=== PATIENT | male | born 1955 | race Caucasian/White ===

== ENCOUNTER → 2018-07-08 10:21 | Outpatient (CLI) | payer MEDICARE, SELFPAY ==
[2018-06-19 08:30] VITALS: BMI 57.6
[2018-07-04 12:50] VITALS: BMI 58.8
== END ==
PROVIDERS: Family Provider Internal Medicine; PCP Internal Medicine; Visit Provider Internal Medicine Critical Care Medicine
DX: R91.1 Solitary pulmonary nodule (principal)

== ENCOUNTER 2018-07-11 10:00 | Outpatient (RCR) | payer OTHER, MEDICAID, SELFPAY ==
[2018-06-19 08:30] VITALS: BMI 57.6
[2018-06-20 11:59] VITALS: BP 135/72; PULSE 68; RESP 18; TEMP 37; BMI 58.8
--- NOTE | 2018-06-20 13:22 | PCM.WC.HP ---
(1) Diabetic foot ulcer associated with type 2 diabetes mellitus Status: Chronic Current Visit: Yes Code(s): E11.621 - Type 2 diabetes mellitus with foot ulcer; L97.509 - Non-pressure chronic ulcer of other part of unspecified foot with unspecified severity Comment: Grade 2. (2) Ulcer of left lower extremity with fat layer exposed Status: Chronic Current Visit: Yes Code(s): L97.922 - Non-pressure chronic ulcer of unspecified part of left lower leg with fat layer exposed (3) Ulcer of right lower extremity with fat layer exposed Status: Chronic Current Visit: Yes Code(s): L97.912 - Non-pressure chronic ulcer of unspecified part of right lower leg with fat layer exposed (4) Bilateral lower extremity edema Status: Chronic Current Visit: Yes Code(s): R60.0 - Localized edema (5) Obesity Status: Chronic Current Visit: No Qualifiers: Body mass index: BMI 50.0-59.9 Code(s): E66.9 - Obesity, unspecified (6) Tobacco abuse Status: Chronic Current Visit: No Code(s): Z72.0 - Tobacco use History of Present Illness Chief Complaint: Bilateral lower extremity ulcers. History of Wound: Mr. Toscano is a 62-year-old with a complex past medical history who was referred to the wound center due to nonhealing bilateral lower extremity ulcers. He reports a history of recurrent bilateral lower extremity ulcers since 1995 however most recent episode was said to have started in March. Was managed by wound care nurse at his [facility]-way facility with no significant improvement. He is also been seen at other wound care centers. He is unsure of his diabetes control. Smokes daily. Largely sedentary. At this time, he denies any acute concerns. Denies chills, fever or feeling of unwell. Past Medical History Past Medical History: Chronic Problems (Last Reviewed 06/19/18 @ 08:33 by Binta Reyes) Diabetic foot ulcer associated with type 2 diabetes mellitus (Chronic) Grade 2. Ulcer of left lower extremity with fat layer exposed (Chronic) Ulcer of right lower extremity with fat layer exposed (Chronic) Bilateral lower extremity edema (Chronic) Nicotine dependence, cigarettes, uncomplicated (Chronic) Obesity (Chronic) CHANDA (obstructive sleep apnea) (Chronic) Lung nodule (Chronic) Malaise and fatigue (Chronic) Osteoarthritis of right knee (Chronic) Right knee pain (Chronic) Hyperlipidemia (Chronic) Color blindness (Chronic) Tobacco abuse (Chronic) Chronic pain of multiple joints (Chronic) Generalized osteoarthritis (Chronic) DJD (degenerative joint disease) (Chronic) Benign essential hypertension (Chronic) History of NE (myocardial infarction) (Chronic) Abnormal glucose level (Chronic) Type 2 diabetes mellitus with hyperglycemia (Chronic) Hypercholesteremia (Chronic) Restless leg syndrome (Chronic) HTN (hypertension) (Chronic) BPH w urinary obs/LUTS (Chronic) Nocturia (Chronic) Erectile dysfunction (Chronic) Allergies/Adverse Reactions: Allergies No Known Allergies Allergy (Verified 06/20/18 12:39) Home Medications: Ambulatory Orders Medication Instructions Recorded acetaminophen 325 mg capsule 325 mg PO Q4H PRN 05/29/18 albuterol sulfate 2.5 mg/3 mL 2.5 mg INHALATION Q6H PRN ml 05/29/18 (0.083 %) solution for nebulization aspirin 81 mg tablet,delayed 81 mg PO DAILY 05/29/18 release atorvastatin 10 mg tablet 10 mg PO QPM 05/29/18 bumetanide 2 mg tablet 2 mg PO DAILY 05/29/18 clopidogrel 75 mg tablet 75 mg PO DAILY 05/29/18 famotidine 20 mg tablet 20 mg PO QHS 05/29/18 glipizide 5 mg tablet 2.5 mg PO BID 05/29/18 insulin glargine (U- 100) 100 10 unit SC 4X/DAY 05/29/18 unit/mL subcutaneous solution multivitamin with iron-mineral 1 tab PO DAILY 05/29/18 tablet nitroglycerin 0.4 mg sublingual 0.4 mg SUBLINGUAL Q5-15M PRN 05/29/18 tablet Lactobacillus acidophilus capsule 20 mg PO DAILY cap 06/19/18 Acetaminophen [Tylenol Extra 1,000 mg PO Q6H PRN PRN 06/20/18 Strength] Bumetanide [Bumex] 1 mg PO BID 06/20/18 Calcium Polycarbophil [Fiber Tabs] 625 mg PO DAILY 06/20/18 Carvedilol [Coreg] 25 mg PO BID 06/20/18 Ergocalciferol (Vitamin D2) 50,000 unit PO QWEEK 06/20/18 [Drisdol] Gabapentin [Neurontin] 600 mg PO TIDCM 06/20/18 Insulin Glargine [Lantus (BKC)] 10 units SC BREAKFAST 06/20/18 Insulin Glargine [Lantus (BKC)] 40 units SC QHS 06/20/18 Insulin Lispro [Humalog KwikPen] 2 unit SQ 4X/DAY PRN PRN 06/20/18 Isosorbide Mononitrate [Imdur] 15 mg PO DAILY 06/20/18 Lisinopril/Hydrochlorothiazide 0.5 each PO BID 06/20/18 [Zestoretic 20-25 mg Tablet] Oxycodone HCl/Acetaminophen 1 - 2 tablet PO Q6H PRN PRN 06/20/18 [Percocet 5/325] Tamsulosin HCl [Flomax] 0.4 mg PO DAILY 06/20/18 Valerian Root 500 mg PO QHS 06/20/18 Smoking Status: Current every day smoker Review of Systems Constitutional: Denies: Anorexia, Fever Eyes: Denies: Blurred vision, Pain, Redness HEENT: Denies: Difficulty Swallowing Cardiovascular: Denies: Chest Pain, Chest Tightness Respiratory: Denies: Hemoptysis Gastrointestinal: Denies: Abdominal Pain, Hematemesis, Vomiting Skin: Denies: Jaundice - Physical Exam Vital Signs Temp Pulse Resp BP 98.6 F 68 18 135/72 H 06/20/18 11:59 06/20/18 11:59 06/20/18 11:59 06/20/18 11:59 General: Alert, Oriented x3, Cooperative, No apparent distress HEENT: Atraumatic, Normocephalic Oral: Moist Mucosa Neck: Supple Lungs: Normal air movement Abdomen: Non Tender, Obese Extremities: No cyanosis, Edema Skin: Ulcer/ Wound Wound Measurements and Assessment WC - Nurse 1 - General Ulcer Measurement Start: 06/20/18 11:59 Freq: Status: Active Protocol: Activity Type Activity Date Activity User E-Sign Co-Sign Detail Recorded Client Recorded Date Recorded By Document 06/20/18 11:59 [facility] [id number] 06/20/18 12:32 BM 06/20/18 11:59 Wound Center Nurse 1 [Ulcer Assessment] #3 left lateral/posterior lower leg -Current Size (cm) - Length 8.8 -Current Size (cm) - Width 6 -Current Size (cm) - Depth 0.2 -Total Square Cm 52.8 -Date of Last Picture (Recall this 06/20/18 field) -Epithelialization None Present -Tunneling No -Undermining/Tunneling No -Circular Undermining No -Classification - Thickness Full Thickness without Exposed Support Structure -Exudate Amt Large -Exudate Type Yellow/Green -Wound Margin Distinct, Outline Attached -Granulation Amt Small (1-33%) -Granulation Quality Bearden -Slough/Fibrin Yes -Necrosis Amt Large (67-100%) -Necrotic Tissue Type Adherent Slough -Structure Exposed None/Limited to Skin Breakdown -Texture (Nichol-wound Skin Appearance) Assessed Localized Edema -Moisture (Nichol-wound Skin Appearance Assessed ) Maceration Weeping Dry/Scaly -Color (Nichol-wound Skin Appearance) Assessed Erythema -Temperature (Nichol-wound Skin No Abnormality Appearance) (Pt Warm) -Tenderness on Palpation (Nichol-wound Yes Skin Appearance) -Ulcer Cleansing Rinsed/ Irrigated with Saline -Foul Odor after Cleansing No -Anesthetic Used 4% Lidocaine Solution 5% Lidocaine Gel #2 left distal foot circumfrential -Current Size (cm) - Length 11.5 -Current Size (cm) - Width 28.7 -Current Size (cm) - Depth 0.1 -Total Square Cm 330.05 -Date of Last Picture (Recall this 06/20/18 field) -Photo Taken Yes -Epithelialization None Present -Tunneling No -Undermining/Tunneling No -Circular Undermining No -Classification - Thickness Full Thickness without Exposed Support Structure -Exudate Amt Large -Exudate Type Yellow/Green -Wound Margin Distinct, Outline Attached -Granulation Amt Small (1-33%) -Granulation Quality Bearden -Slough/Fibrin Yes -Necrosis Amt Large (67-100%) -Necrotic Tissue Type Adherent Slough -Structure Exposed None/Limited to Skin Breakdown -Texture (Nichol-wound Skin Appearance) Assessed Localized Edema Scarring -Moisture (Nichol-wound Skin Appearance Assessed ) Maceration Weeping Dry/Scaly -Color (Nichol-wound Skin Appearance) Assessed Erythema -Temperature (Nichol-wound Skin No Abnormality Appearance) (Pt Warm) -Tenderness on Palpation (Nichol-wound Yes Skin Appearance) -Ulcer Cleansing Rinsed/ Irrigated with Saline -Foul Odor after Cleansing No -Anesthetic Used 4% Lidocaine Solution 5% Lidocaine Gel #1 right lateral lower leg -Current Size (cm) - Length 10 -Current Size (cm) - Width 4.8 -Current Size (cm) - Depth 0.2 -Total Square Cm 48.0 -Date of Last Picture (Recall this 06/20/18 field) -Photo Taken Yes -Tunneling No -Undermining/Tunneling No -Circular Undermining No -Classification - Thickness Full Thickness without Exposed Support Structure -Exudate Amt Large -Exudate Type Yellow/Green -Wound Margin Indistinct, Non -Visible -Granulation Amt Small (1-33%) -Granulation Quality Pale -Slough/Fibrin Yes -Necrosis Amt Large (67-100%) -Necrotic Tissue Type Adherent Slough -Structure Exposed None/Limited to Skin Breakdown -Texture (Nichol-wound Skin Appearance) Assessed Localized Edema Scarring -Moisture (Nichol-wound Skin Appearance Assessed ) Maceration Weeping Dry/Scaly -Color (Nichol-wound Skin Appearance) Assessed Erythema -Temperature (Nichol-wound Skin No Abnormality Appearance) (Pt Warm) -Tenderness on Palpation (Nichol-wound Yes Skin Appearance) -Ulcer Cleansing soap and water -Foul Odor after Cleansing No -Anesthetic Used 4% Lidocaine Solution 5% Lidocaine Gel [Edema Assessment] -Right Calf (cm) 54 -Right Ankle (cm) 30.2 -Left Calf (cm) 54 -Left Ankle (cm) 30.4 Musculoskeletal: No Muscle Wasting Neurological: Cranial nerves II-XII grossly intact Psych/Mental Status: Normal Affect Debridement Note Wound debrided: Left foot Wound Grade/Stage: Grade 2 Type of Debridement: Excisional debridement Anesthesia Used: 4% Lidocaine Solution Depth: Down to and including healthy tissue, in the subcutaneous layer Percentage of wound debrided: 100 Instrument Used: 5mm curette Tissue Removed: Slough and devitalized tissue Severity: Fat Layer Exposed Amount of bleeding with debridement: Mild Bleeding Controlled with: Pressure Patient tolerated procedure well - Additional Wound Wound debrided: Left lower extremity Wound Grade/Stage: Grade 2 Type of Debridement: Excisional debridement Anesthesia Used: 4% Lidocaine Solution Depth: Down to and including healthy tissue, in the subcutaneous layer Percentage of wound debrided: 100 Instrument Used: 5mm curette Tissue Removed: Slough and devitalized tissue Severity: Fat Layer Exposed Amount of bleeding with debridement: Mild Bleeding Controlled with: Pressure Patient tolerated procedure: Patient tolerated procedure well - Additional Wound Wound debrided: Right lower extremity Wound Grade/Stage: Grade 2 Type of Debridement: Excisional debridement Anesthesia Used: 4% Lidocaine Solution Depth: Down to and including healthy tissue, in the subcutaneous layer Percentage of wound debrided: 100 Instrument Used: 5mm curette Tissue Removed: Slough and devitalized tissue Severity: Fat Layer Exposed Amount of bleeding with debridement: Mild Bleeding Controlled with: Pressure Patient tolerated procedure: Patient tolerated procedure well Assessment/Plan Active Problems (Last Reviewed 06/19/18 @ 08:33 by Binta Reyes) Diabetic foot ulcer associated with type 2 diabetes mellitus (Chronic) Grade 2. Ulcer of left lower extremity with fat layer exposed (Chronic) Ulcer of right lower extremity with fat layer exposed (Chronic) Bilateral lower extremity edema (Chronic) Assessment: Nonhealing bilateral lower extremity ulcer in a patient with type 2 diabetes mellitus. Diabetic foot ulcer with significant maceration/deformity. Morbid obesity. Tobacco abuse. Plan: Debridement done as documented above. Procedure was well-tolerated. Cultures taken, including fungal. As stated above, significant maceration and deformity of his left foot. Labs and vascular studies also ordered. Will also request labs from his nursing facility. Aquacel with Xeroform over top. Change daily. Optimal blood sugar control strongly recommended. Counseled on tobacco cessation. Increased protein intake. Patient states that he takes premier protein supplements twice daily. He was encouraged to continue. Single layer Tubigrip for edema management. Elevate lower extremity when seated and in bed. His questions were answered and he was advised to call with any further questions or concerns. Follow-up in 1 week. This note was generated with [employer] dictation software. It may contain incorrect words, spelling, and punctuation that were not noted in checking the note before signing.
[2018-07-04 12:50] VITALS: BP 128/77; PULSE 65; RESP 18; TEMP 36.6; BMI 58.8
--- NOTE | 2018-07-04 13:51 | PCM.WC.PN ---
(1) Diabetic foot ulcer associated with type 2 diabetes mellitus Status: Chronic Current Visit: Yes Code(s): E11.621 - Type 2 diabetes mellitus with foot ulcer; L97.509 - Non-pressure chronic ulcer of other part of unspecified foot with unspecified severity Comment: Grade 2. (2) Ulcer of left lower extremity with fat layer exposed Status: Chronic Current Visit: Yes Code(s): L97.922 - Non-pressure chronic ulcer of unspecified part of left lower leg with fat layer exposed (3) Ulcer of right lower extremity with fat layer exposed Status: Chronic Current Visit: Yes Code(s): L97.912 - Non-pressure chronic ulcer of unspecified part of right lower leg with fat layer exposed (4) Bilateral lower extremity edema Status: Chronic Current Visit: Yes Code(s): R60.0 - Localized edema (5) Obesity Status: Chronic Current Visit: No Qualifiers: Body mass index: BMI 50.0-59.9 Code(s): E66.9 - Obesity, unspecified (6) Tobacco abuse Status: Chronic Current Visit: No Code(s): Z72.0 - Tobacco use Type of Wound Chief Complaint: Bilateral lower extremity ulcers. History of Wound: Mr. Toscano is a 62-year-old with a complex past medical history who was referred to the wound center due to nonhealing bilateral lower extremity ulcers. He reports a history of recurrent bilateral lower extremity ulcers since 1995 however most recent episode was said to have started in March. [facility] with no significant improvement. He is also been seen at other wound care centers. He is unsure of his diabetes control. Smokes daily. Largely sedentary. At this time, he denies any acute concerns. Denies chills, fever or feeling of unwell. Progress of Wound: He is status post recent hospital admission for severe wound infection. Currently on IV antibiotics. Doing well today. No new complaints at this time. - Physical Exam Vital Signs Temp Pulse Resp BP 98 F 65 18 128/77 H 07/04/18 12:50 07/04/18 12:50 07/04/18 12:50 07/04/18 12:50 General: Alert, Oriented x3, Cooperative, No apparent distress HEENT: Atraumatic, Normocephalic Oral: Moist Mucosa Neck: Supple Lungs: Normal air movement Abdomen: Non Tender, Obese Extremities: No cyanosis, Edema Skin: Ulcer/ Wound Wound Measurements and Assessment WC - Nurse 1 - General Ulcer Measurement Start: 06/20/18 11:59 Freq: Status: Active Protocol: Activity Type Activity Date Activity User E-Sign Co-Sign Detail Recorded Client Recorded Date Recorded By Document 07/04/18 12:50 RB [id number] 07/04/18 13:12 RB 07/04/18 12:50 Wound Center Nurse 1 [Ulcer Assessment] #3 left lateral/posterior lower leg -Combined with other wound No -Current Size (cm) - Length 7 -Current Size (cm) - Width 9.5 -Current Size (cm) - Depth 0.1 -Total Square Cm 66.5 -Photo Taken No -Tunneling No -Undermining/Tunneling No -Circular Undermining No -Exudate Amt Large -Exudate Type Serosanguineous -Wound Margin Distinct, Outline Attached -Granulation Amt Medium (34-66%) -Granulation Quality [place] Red -Slough/Fibrin Yes -Necrosis Amt Medium (34-66%) -Necrotic Tissue Type Adherent Slough -Structure Exposed N/A -Texture (Nichol-wound Skin Appearance) Assessed -Moisture (Nichol-wound Skin Appearance Dry/Scaly ) -Color (Nichol-wound Skin Appearance) Assessed Erythema -Temperature (Nichol-wound Skin No Abnormality Appearance) (Pt Warm) -Tenderness on Palpation (Nichol-wound No Skin Appearance) -Ulcer Cleansing Wound Cleanser -Foul Odor after Cleansing No -Anesthetic Used 4% Lidocaine Solution #2 left distal foot circumfrential -Combined with other wound No -Current Size (cm) - Length 21 -Current Size (cm) - Width 9.5 -Current Size (cm) - Depth 0.1 -Total Square Cm 199.5 -Photo Taken No -Tunneling No -Undermining/Tunneling No -Circular Undermining No -Exudate Amt Large -Exudate Type Serosanguineous -Wound Margin Distinct, Outline Attached -Granulation Amt Medium (34-66%) -Granulation Quality Pale -Slough/Fibrin Yes -Necrosis Amt Medium (34-66%) -Necrotic Tissue Type Adherent Slough -Structure Exposed N/A -Texture (Nichol-wound Skin Appearance) Assessed -Moisture (Nichol-wound Skin Appearance Dry/Scaly ) -Color (Nichol-wound Skin Appearance) Assessed Erythema -Temperature (Nichol-wound Skin No Abnormality Appearance) (Pt Warm) -Tenderness on Palpation (Nichol-wound No Skin Appearance) -Ulcer Cleansing Wound Cleanser -Foul Odor after Cleansing No -Anesthetic Used 4% Lidocaine Solution #1 right lateral lower leg -Combined with other wound No -Current Size (cm) - Length 8 -Current Size (cm) - Width 4.9 -Current Size (cm) - Depth 0.1 -Total Square Cm 39.2 -Photo Taken No -Tunneling No -Undermining/Tunneling No -Circular Undermining No -Exudate Amt Large -Exudate Type Serosanguineous -Wound Margin Distinct, Outline Attached -Granulation Amt Large (67-100%) -Granulation Quality [place] Red -Slough/Fibrin Yes -Necrosis Amt Medium (34-66%) -Necrotic Tissue Type Adherent Slough -Structure Exposed Fat Layer Exposed -Texture (Nichol-wound Skin Appearance) Assessed -Moisture (Nichol-wound Skin Appearance Dry/Scaly ) -Color (Nichol-wound Skin Appearance) Erythema -Temperature (Nichol-wound Skin No Abnormality Appearance) (Pt Warm) -Tenderness on Palpation (Nichol-wound No Skin Appearance) -Ulcer Cleansing Rinsed/ Irrigated with Saline -Foul Odor after Cleansing No -Anesthetic Used 4% Lidocaine Solution [Edema Assessment] -Lower Limb Edema Present Yes -Right Calf (cm) 53.5 -Right Ankle (cm) 29.7 -Left Calf (cm) 56 -Left Ankle (cm) 30.6 WC - Nurse 2 - General Ulcer CM Notes Start: 06/20/18 11:59 Freq: Status: Active Protocol: Activity Type Activity Date Activity User E-Sign Co-Sign Detail Recorded Client Recorded Date Recorded By Document 07/04/18 13:24 MW [id number] 07/04/18 13:38 MW 07/04/18 13:24 Wound Center Nurse 2 [Procedure/Treatment] #3 left lateral/posterior lower leg -Time 13:26 -Correct Patient Yes -Correct Side, Site, Position Yes -Correct Procedure Yes -Procedure Performed Yes -Type of Procedure Debridement -Clinical Debridement Subcutaneous -Post Debridement Size (cm) - Length 9.0 -Post Debridement Size (cm) - Width 8.0 -Post Debridement Size (cm) - Depth 0.1 -Total Square Cm 72.00 -Wound/Ulcer Outcome Not Healed -Ulcer Cleansing Rinsed/ Irrigated with Saline -Foul Odor after Cleansing No -Bioengineered Tissue No -Bleeding Controlled with Pressure -Offloading No -Treatment Response Procedure Tolerated Well #2 left distal foot circumfrential -Time 13:26 -Correct Patient Yes -Correct Side, Site, Position Yes -Correct Procedure Yes -Procedure Performed Yes -Type of Procedure Debridement -Clinical Debridement Subcutaneous -Post Debridement Size (cm) - Length 21.5 -Post Debridement Size (cm) - Width 10.5 -Post Debridement Size (cm) - Depth 0.1 -Total Square Cm 225.75 -Wound/Ulcer Outcome Not Healed -Ulcer Cleansing Rinsed/ Irrigated with Saline -Foul Odor after Cleansing No -Bioengineered Tissue No -Bleeding Controlled with Pressure -Offloading No -Treatment Response Procedure Tolerated Well #1 right lateral lower leg -Time 13:28 -Correct Patient Yes -Correct Side, Site, Position Yes -Correct Procedure Yes -Procedure Performed Yes -Type of Procedure Debridement -Clinical Debridement Subcutaneous -Post Debridement Size (cm) - Length 9.0 -Post Debridement Size (cm) - Width 7.0 -Post Debridement Size (cm) - Depth 0.1 -Total Square Cm 63.00 -Wound/Ulcer Outcome Not Healed -Ulcer Cleansing Rinsed/ Irrigated with Saline -Foul Odor after Cleansing No -Bioengineered Tissue No -Bleeding Controlled with Pressure -Offloading No -Treatment Response Procedure Tolerated Well [See Physician Procedure note for Specifics] Pain Scale: 0-10 Numeric [Pain] -Is Patient Pain Free? Yes Musculoskeletal: No Muscle Wasting Neurological: Cranial nerves II-XII grossly intact Psych/Mental Status: Normal Affect Debridement Note Post-Debridement Measurements/Treatment WC - Nurse 2 - General Ulcer CM Notes Start: 06/20/18 11:59 Freq: Status: Active Protocol: Activity Type Activity Date Activity User E-Sign Co-Sign Detail Recorded Client Recorded Date Recorded By Document 06/20/18 12:45 AN [id number] 06/20/18 13:27 AN Document 07/04/18 13:24 MW [id number] 07/04/18 13:38 MW 06/20/18 07/04/18 12:45 13:24 Wound Center Nurse 2 #3 left lateral/posterior lower leg -Time 12:45 13:26 -Correct Patient Yes Yes -Correct Side, Site, Position Yes Yes -Correct Procedure Yes Yes -Procedure Performed Yes Yes -Type of Procedure Debridement Debridement -Clinical Debridement Subcutaneous Subcutaneous -Post Debridement Size (cm) - Length 12 9.0 -Post Debridement Size (cm) - Width 8 8.0 -Post Debridement Size (cm) - Depth 0.2 0.1 -Total Square Cm 96 72.00 -Wound/Ulcer Outcome Not Healed Not Healed -Ulcer Cleansing Rinsed/ Rinsed/ Irrigated with Irrigated with Saline Saline -Foul Odor after Cleansing Yes No -Bioengineered Tissue No -Bleeding Controlled with Pressure Pressure -Offloading No -Treatment Response Procedure Procedure Tolerated Well Tolerated Well #2 left distal foot circumfrential -Time 12:45 13:26 -Correct Patient Yes Yes -Correct Side, Site, Position Yes Yes -Correct Procedure Yes Yes -Procedure Performed Yes Yes -Type of Procedure Debridement Debridement -Clinical Debridement Subcutaneous Subcutaneous -Post Debridement Size (cm) - Length 24 21.5 -Post Debridement Size (cm) - Width 13 10.5 -Post Debridement Size (cm) - Depth 0.2 0.1 -Total Square Cm 312 225.75 -Wound/Ulcer Outcome Not Healed Not Healed -Ulcer Cleansing Rinsed/ Rinsed/ Irrigated with Irrigated with Saline Saline -Foul Odor after Cleansing Yes No -Bioengineered Tissue No -Bleeding Controlled with Pressure Pressure -Offloading No -Treatment Response Procedure Procedure Tolerated Well Tolerated Well #1 right lateral lower leg -Time 12:45 13:28 -Correct Patient Yes Yes -Correct Side, Site, Position Yes Yes -Correct Procedure Yes Yes -Procedure Performed Yes Yes -Type of Procedure Debridement Debridement -Clinical Debridement Subcutaneous Subcutaneous -Post Debridement Size (cm) - Length 10 9.0 -Post Debridement Size (cm) - Width 6 7.0 -Post Debridement Size (cm) - Depth 0.1 0.1 -Total Square Cm 60 63.00 -Wound/Ulcer Outcome Not Healed Not Healed -Ulcer Cleansing Rinsed/ Rinsed/ Irrigated with Irrigated with Saline Saline -Foul Odor after Cleansing Yes No -Bioengineered Tissue No -Bleeding Controlled with Pressure Pressure -Offloading No -Treatment Response Procedure Procedure Tolerated Well Tolerated Well Pain Scale: 0-10 Numeric Is Patient Pain Free? Yes Wound debrided: Left foot Wound Grade/Stage: Grade 2 Type of Debridement: Excisional debridement Anesthesia Used: 4% Lidocaine Solution Depth: Down to and including healthy tissue, in the subcutaneous layer Percentage of wound debrided: 100 Instrument Used: 5mm curette Tissue Removed: Slough and devitalized tissue Severity: Fat Layer Exposed Amount of bleeding with debridement: Mild Bleeding Controlled with: Pressure Patient tolerated procedure well - Additional Wound Wound debrided: Left lower extremity, lateral. Wound Grade/Stage: Grade 2 Type of Debridement: Excisional debridement Anesthesia Used: 4% Lidocaine Solution Depth: Down to and including healthy tissue, in the subcutaneous layer Percentage of wound debrided: 100 Instrument Used: 5mm curette Tissue Removed: Slough and devitalized tissue Severity: Fat Layer Exposed Amount of bleeding with debridement: Mild Bleeding Controlled with: Pressure Patient tolerated procedure: Patient tolerated procedure well - Additional Wound Wound debrided: Right lower extremity lateral Wound Grade/Stage: Grade 2 Type of Debridement: Excisional debridement Anesthesia Used: 4% Lidocaine Solution Depth: Down to and including healthy tissue Percentage of wound debrided: 100 Instrument Used: 5mm curette Tissue Removed: Slough and devitalized tissue Severity: Fat Layer Exposed Amount of bleeding with debridement: Mild Bleeding Controlled with: Pressure Patient tolerated procedure: Patient tolerated procedure well Assessment/Plan Active Problems (Last Reviewed 06/19/18 @ 08:33 by Binta Reyes) Diabetic foot ulcer associated with type 2 diabetes mellitus (Chronic) Grade 2. Ulcer of left lower extremity with fat layer exposed (Chronic) Ulcer of right lower extremity with fat layer exposed (Chronic) Bilateral lower extremity edema (Chronic) Assessment: Nonhealing bilateral lower extremity ulcer in a patient with type 2 diabetes mellitus. Diabetic foot ulcer with significant maceration/deformity. Morbid obesity. Tobacco abuse. Plan: Debridement done as documented above. Procedure was well-tolerated. Status post recent hospital admission for severe wound infection. Multiple organisms.. Currently on IV antibiotics. Continue management per ID. Continue Aquacel with Xeroform over top. Change daily. Optimal blood sugar control strongly recommended. Counseled on tobacco cessation. Increased protein intake. Patient states that he takes premier protein supplements twice daily. He was encouraged to continue. Single layer Tubigrip for edema management. Pending studies. Elevate lower extremity when seated and in bed. His questions were answered and he was advised to call with any further questions or concerns. Follow-up in 1 week. This note was generated with [employer] software. It may contain incorrect words, spelling, and punctuation that were not noted in checking the note before signing.
[2018-07-11 09:00] VITALS: BP 104/72; PULSE 82; RESP 18; TEMP 36.8; BMI 58.8
--- NOTE | 2018-07-11 10:54 | VDLE_ITS ---
Reason For Study: Non-healing wound RIGHT LEFT CFV is compressible, spontaneous, phasic, CFV is compressible, spontaneous, phasic, competent and demonstrates normal competent, and demonstrates normal augmentation. augmentation. FV is compressible, spontaneous, phasic, FV is compressible, spontaneous, phasic, competent and demonstrates normal competent and demonstrates normal augmentation. augmentation. POP V is compressible, spontaneous, phasic, POP V is compressible, spontaneous, phasic, competent and demonstrates normal competent and demonstrates normal augmentation. augmentation. T/P Trunk is compressible. T/P Trunk is compressible. PTV is compressible. PTV is compressible. RT PerV is compressible. SFJ is competent SFJ is competent GSV is COMPETENT with reflux greater than .5 GSV is INCOMPETENT with reflux greater sec and diameter of .66 x .61 cm than .5 sec and diameter of .60 x .58 cm SSV competent. SSV is competent. Procedure Exam performed in department. Technically difficult due to body habitus and pt scanned in chair. A preliminary report was called and/or faxed to [facility]. Interpretation Summary Deep veins of the lower extremities are bilaterally patent and compressible segmentally. There is no evidence of deep vein thrombosis on either side. Valvular competence appears intact within the proximal deep venous systems bilaterally. The greater saphenous veins appear bilaterally patent and compressible segmentally. Sapheno-femoral junctions are bilaterally competent . The right greater saphenous vein appears segmentally incompetent. The left greater saphenous vein appears segmentally competent. Small saphenous veins are patent and competent bilaterally. Ordering Physician: Imer Gutierrez Referring Physician: Imer Gutierrez Performed By: Alondra Adair RVT
--- NOTE | 2018-07-11 10:54 | ART_ITS ---
Reason For Study: Non-healing wounds Procedure A bilateral lower extremity continuous wave Doppler with analog waveform analysis,segmental pressures,and ankle brachial indexes without exercise. Left Segmental Pressures Left posterior tibial artery = 128mmHg. Left dorsalis pedis artery = 134mmHg. The left dorsalis pedis waveforms are triphasic. The left posterior tibial artery waveforms are triphasic. Right Segmental Pressures Right brachial= 117mmHg. Right posterior tibial artery = 144mmHg. Right dorsalis pedis artery = 136mmHg. The right dorsalis pedis waveforms are triphasic. The right posterior tibial artery waveforms are triphasic. Indices The right ankle brachial index by the dorsalis pedis is 1.2. The right ankle brachial index by the posterior tibial artery is 1.2. The left ankle brachial index by the dorsalis pedis is 1.2. The left ankle brachial index by the posterior tibial artery is 1.1. Interpretation Summary Triphasic Doppler waveforms are noted at ankle level bilaterally. Resting ankle-brachial indices appear bilaterally normal. There is no evidence of significant arterial occlusive disease. Ordering Physician: Imer Gutierrez Referring Physician: Imer Gutierrez Performed By: Alondra Adair [facility]
--- NOTE | 2018-07-11 11:02 | PCM.WC.PN ---
(1) Diabetic foot ulcer associated with type 2 diabetes mellitus Status: Chronic Current Visit: Yes Code(s): E11.621 - Type 2 diabetes mellitus with foot ulcer; L97.509 - Non-pressure chronic ulcer of other part of unspecified foot with unspecified severity Comment: Grade 2. (2) Ulcer of left lower extremity with fat layer exposed Status: Chronic Current Visit: Yes Code(s): L97.922 - Non-pressure chronic ulcer of unspecified part of left lower leg with fat layer exposed (3) Ulcer of right lower extremity with fat layer exposed Status: Chronic Current Visit: Yes Code(s): L97.912 - Non-pressure chronic ulcer of unspecified part of right lower leg with fat layer exposed (4) Bilateral lower extremity edema Status: Chronic Current Visit: Yes Code(s): R60.0 - Localized edema (5) Obesity Status: Chronic Current Visit: No Qualifiers: Body mass index: BMI 50.0-59.9 Code(s): E66.9 - Obesity, unspecified (6) Tobacco abuse Status: Chronic Current Visit: No Code(s): Z72.0 - Tobacco use (7) Open wound of right knee Status: Acute Current Visit: Yes Code(s): S81.001A - Unspecified open wound, right knee, initial encounter Comment: Traumatic, penetrating with fat layer exposed. Type of Wound Chief Complaint: Bilateral lower extremity ulcers. History of Wound: Mr. Toscano is a 62-year-old with a complex past medical history who was referred to the wound center due to nonhealing bilateral lower extremity ulcers. He reports a history of recurrent bilateral lower extremity ulcers since 1995 however most recent episode was said to have started in March. Was managed by wound care nurse at his halfway facility with no significant improvement. He is also been seen at other wound care centers. He is unsure of his diabetes control. Smokes daily. Largely sedentary. At this time, he denies any acute concerns. Denies chills, fever or feeling of unwell. Progress of Wound: Old ulcers are stable. He presents with a new right knee wound which he sustained after he hit his knee against his bed. - Physical Exam Vital Signs Temp Pulse Resp BP 98.2 F 82 18 104/72 07/11/18 09:00 07/11/18 09:00 07/11/18 09:00 07/11/18 09:00 General: Alert, Oriented x3, Cooperative, No apparent distress HEENT: Atraumatic, Normocephalic Oral: Moist Mucosa Neck: Supple Lungs: Normal air movement Abdomen: Non Tender, Obese Extremities: No cyanosis, Edema Skin: Ulcer/ Wound Wound Measurements and Assessment WC - Nurse 1 - General Ulcer Measurement Start: 06/20/18 11:59 Freq: Status: Active Protocol: Activity Type Activity Date Activity User E-Sign Co-Sign Detail Recorded Client Recorded Date Recorded By Document 07/11/18 09:00 [id number] 07/11/18 09:41 AN 07/11/18 09:00 Wound Center Nurse 1 [Ulcer Assessment] #4 rt knee -Current Size (cm) - Length 2.8 -Current Size (cm) - Width 5 -Current Size (cm) - Depth 0.1 -Total Square Cm 14.0 -Classification - Thickness Full Thickness without Exposed Support Structure -Exudate Amt Medium -Exudate Type Serosanguineous -Wound Margin Flat & Intact -Granulation Amt Small (1-33%) -Granulation Quality Pale [place] -Slough/Fibrin Yes -Necrosis Amt Large (67-100%) -Necrotic Tissue Type Adherent Slough -Structure Exposed None/Limited to Skin Breakdown -Texture (Nichol-wound Skin Appearance) Assessed -Moisture (Nichol-wound Skin Appearance Assessed ) -Color (Nichol-wound Skin Appearance) Assessed -Temperature (Nichol-wound Skin No Abnormality Appearance) (Pt Warm) -Tenderness on Palpation (Nichol-wound Yes Skin Appearance) -Foul Odor after Cleansing No -Anesthetic Used 5% Lidocaine Gel #3 left lateral/posterior lower leg -Current Size (cm) - Length 11.5 -Current Size (cm) - Width 8.0 -Current Size (cm) - Depth 0.1 -Total Square Cm 92.00 -Wound Margin Flat & Intact -Granulation Amt Small (1-33%) -Granulation Quality Pale -Slough/Fibrin Yes -Necrosis Amt Large (67-100%) -Necrotic Tissue Type Adherent Slough -Texture (Nichol-wound Skin Appearance) Assessed -Color (Nichol-wound Skin Appearance) Assessed -Temperature (Nichol-wound Skin No Abnormality Appearance) (Pt Warm) -Tenderness on Palpation (Nichol-wound Yes Skin Appearance) -Ulcer Cleansing soap and water -Foul Odor after Cleansing No -Anesthetic Used 4% Lidocaine Solution 5% Lidocaine Gel #2 left distal foot circumfrential -Current Size (cm) - Length 21.5 -Current Size (cm) - Width 10.5 -Current Size (cm) - Depth 0.1 -Total Square Cm 225.75 -Exudate Amt Medium -Exudate Type Serosanguineous -Wound Margin Flat & Intact -Granulation Amt Small (1-33%) -Granulation Quality Pale -Necrosis Amt Large (67-100%) -Necrotic Tissue Type Adherent Slough -Structure Exposed None/Limited to Skin Breakdown -Texture (Nichol-wound Skin Appearance) Assessed -Moisture (Nichol-wound Skin Appearance Assessed ) -Color (Nichol-wound Skin Appearance) Assessed -Temperature (Nichol-wound Skin No Abnormality Appearance) (Pt Warm) -Tenderness on Palpation (Nichol-wound Yes Skin Appearance) -Ulcer Cleansing soap and water -Foul Odor after Cleansing No -Anesthetic Used 5% Lidocaine Gel #1 right lateral lower leg -Current Size (cm) - Length 6.3 -Current Size (cm) - Width 5.3 -Current Size (cm) - Depth 0.1 -Total Square Cm 33.39 -Classification - Thickness Full Thickness without Exposed Support Structure -Exudate Amt Medium -Exudate Type Serosanguineous -Wound Margin Flat & Intact -Granulation Amt Small (1-33%) -Granulation Quality Pale -Slough/Fibrin Yes -Necrosis Amt Large (67-100%) -Necrotic Tissue Type Adherent Slough -Structure Exposed None/Limited to Skin Breakdown -Texture (Nichol-wound Skin Appearance) Assessed -Moisture (Nichol-wound Skin Appearance Assessed ) -Color (Nichol-wound Skin Appearance) Assessed -Temperature (Nichol-wound Skin No Abnormality Appearance) (Pt Warm) -Tenderness on Palpation (Nichol-wound Yes Skin Appearance) -Foul Odor after Cleansing No -Anesthetic Used 5% Lidocaine Gel [Edema Assessment] -Right Calf (cm) 53 -Right Ankle (cm) 30.9 -Left Calf (cm) 57 -Left Ankle (cm) 30 WC - Nurse 2 - General Ulcer CM Notes Start: 06/20/18 11:59 Freq: Status: Active Protocol: Activity Type Activity Date Activity User E-Sign Co-Sign Detail Recorded Client Recorded Date Recorded By Document 07/11/18 10:05 MW [id number] 07/11/18 10:23 MW 07/11/18 10:05 Wound Center Nurse 2 [Procedure/Treatment] #4 rt knee -Time 10:08 -Correct Patient Yes -Correct Side, Site, Position Yes -Correct Procedure Yes -Procedure Performed Yes -Type of Procedure Debridement -Clinical Debridement Subcutaneous -Post Debridement Size (cm) - Length 2.5 -Post Debridement Size (cm) - Width 5.5 -Post Debridement Size (cm) - Depth 0.1 -Total Square Cm 13.75 -Wound/Ulcer Outcome Not Healed -Ulcer Cleansing Rinsed/ Irrigated with Saline -Foul Odor after Cleansing No -Bioengineered Tissue No -Bleeding Controlled with Pressure -Offloading No -Treatment Response Procedure Tolerated Well #3 left lateral/posterior lower leg -Time 10:06 -Correct Patient Yes -Correct Side, Site, Position Yes -Correct Procedure Yes -Procedure Performed Yes -Type of Procedure Debridement -Clinical Debridement Subcutaneous -Post Debridement Size (cm) - Length 12.0 -Post Debridement Size (cm) - Width 8.0 -Post Debridement Size (cm) - Depth 0.1 -Total Square Cm 96.00 -Wound/Ulcer Outcome Not Healed -Ulcer Cleansing Rinsed/ Irrigated with Saline -Foul Odor after Cleansing No -Bioengineered Tissue No -Bleeding Controlled with Pressure -Offloading No -Treatment Response Procedure Tolerated Well #2 left distal foot circumfrential -Time 10:06 -Correct Patient Yes -Correct Side, Site, Position Yes -Correct Procedure Yes -Procedure Performed Yes -Type of Procedure Debridement -Clinical Debridement Subcutaneous -Post Debridement Size (cm) - Length 22.0 -Post Debridement Size (cm) - Width 11.0 -Post Debridement Size (cm) - Depth 0.1 -Total Square Cm 242.00 -Wound/Ulcer Outcome Not Healed -Ulcer Cleansing Rinsed/ Irrigated with Saline -Foul Odor after Cleansing No -Bioengineered Tissue No -Bleeding Controlled with Pressure -Offloading No -Treatment Response Procedure Tolerated Well #1 right lateral lower leg -Time 10:07 -Correct Patient Yes -Correct Side, Site, Position Yes -Correct Procedure Yes -Procedure Performed Yes -Type of Procedure Debridement -Clinical Debridement Subcutaneous -Post Debridement Size (cm) - Length 7.0 -Post Debridement Size (cm) - Width 6.5 -Post Debridement Size (cm) - Depth 0.1 -Total Square Cm 45.50 -Wound/Ulcer Outcome Not Healed -Ulcer Cleansing Rinsed/ Irrigated with Saline -Foul Odor after Cleansing No -Bioengineered Tissue No -Bleeding Controlled with Pressure -Offloading No -Treatment Response Procedure Tolerated Well [See Physician Procedure note for Specifics] Pain Scale: 0-10 Numeric [Pain] -Is Patient Pain Free? Yes Musculoskeletal: No Muscle Wasting Neurological: Cranial nerves II-XII grossly intact Psych/Mental Status: Normal Affect Debridement Note Post-Debridement Measurements/Treatment WC - Nurse 2 - General Ulcer CM Notes Start: 06/20/18 11:59 Freq: Status: Active Protocol: Activity Type Activity Date Activity User E-Sign Co-Sign Detail Recorded Client Recorded Date Recorded By Document 06/20/18 12:45 AN [email or web address] 06/20/18 13:27 AN Document 07/04/18 13:24 MW [id number] 07/04/18 13:38 MW Document 07/11/18 10:05 MW [id number] 07/11/18 10:23 MW 06/20/18 07/04/18 07/11/18 12:45 13:24 10:05 Wound Center Nurse 2 #4 rt knee -Time 10:08 -Correct Patient Yes -Correct Side, Site, Position Yes -Correct Procedure Yes -Procedure Performed Yes -Type of Procedure Debridement -Clinical Debridement Subcutaneous -Post Debridement Size (cm) - Length 2.5 -Post Debridement Size (cm) - Width 5.5 -Post Debridement Size (cm) - Depth 0.1 -Total Square Cm 13.75 -Wound/Ulcer Outcome Not Healed -Ulcer Cleansing Rinsed/ Irrigated with Saline -Foul Odor after Cleansing No -Bioengineered Tissue No -Bleeding Controlled with Pressure -Offloading No -Treatment Response Procedure Tolerated Well #3 left lateral/posterior lower leg -Time 12:45 13:26 10:06 -Correct Patient Yes Yes Yes -Correct Side, Site, Position Yes Yes Yes -Correct Procedure Yes Yes Yes -Procedure Performed Yes Yes Yes -Type of Procedure Debridement Debridement Debridement -Clinical Debridement Subcutaneous Subcutaneous Subcutaneous -Post Debridement Size (cm) - Length 12 9.0 12.0 -Post Debridement Size (cm) - Width 8 8.0 8.0 -Post Debridement Size (cm) - Depth 0.2 0.1 0.1 -Total Square Cm 96 72.00 96.00 -Wound/Ulcer Outcome Not Healed Not Healed Not Healed -Ulcer Cleansing Rinsed/ Rinsed/ Rinsed/ Irrigated with Irrigated with Irrigated with Saline Saline Saline -Foul Odor after Cleansing Yes No No -Bioengineered Tissue No No -Bleeding Controlled with Pressure Pressure Pressure -Offloading No No -Treatment Response Procedure Procedure Procedure Tolerated Well Tolerated Well Tolerated Well #2 left distal foot circumfrential -Time 12:45 13:26 10:06 -Correct Patient Yes Yes Yes -Correct Side, Site, Position Yes Yes Yes -Correct Procedure Yes Yes Yes -Procedure Performed Yes Yes Yes -Type of Procedure Debridement Debridement Debridement -Clinical Debridement Subcutaneous Subcutaneous Subcutaneous -Post Debridement Size (cm) - Length 24 21.5 22.0 -Post Debridement Size (cm) - Width 13 10.5 11.0 -Post Debridement Size (cm) - Depth 0.2 0.1 0.1 -Total Square Cm 312 225.75 242.00 -Wound/Ulcer Outcome Not Healed Not Healed Not Healed -Ulcer Cleansing Rinsed/ Rinsed/ Rinsed/ Irrigated with Irrigated with Irrigated with Saline Saline Saline -Foul Odor after Cleansing Yes No No -Bioengineered Tissue No No -Bleeding Controlled with Pressure Pressure Pressure -Offloading No No -Treatment Response Procedure Procedure Procedure Tolerated Well Tolerated Well Tolerated Well #1 right lateral lower leg -Time 12:45 13:28 10:07 -Correct Patient Yes Yes Yes -Correct Side, Site, Position Yes Yes Yes -Correct Procedure Yes Yes Yes -Procedure Performed Yes Yes Yes -Type of Procedure Debridement Debridement Debridement -Clinical Debridement Subcutaneous Subcutaneous Subcutaneous -Post Debridement Size (cm) - Length 10 9.0 7.0 -Post Debridement Size (cm) - Width 6 7.0 6.5 -Post Debridement Size (cm) - Depth 0.1 0.1 0.1 -Total Square Cm 60 63.00 45.50 -Wound/Ulcer Outcome Not Healed Not Healed Not Healed -Ulcer Cleansing Rinsed/ Rinsed/ Rinsed/ Irrigated with Irrigated with Irrigated with Saline Saline Saline -Foul Odor after Cleansing Yes No No -Bioengineered Tissue No No -Bleeding Controlled with Pressure Pressure Pressure -Offloading No No -Treatment Response Procedure Procedure Procedure Tolerated Well Tolerated Well Tolerated Well Pain Scale: 0-10 Numeric Is Patient Pain Free? Yes Yes Wound debrided: Left foot Wound Grade/Stage: Grade 2 Type of Debridement: Excisional debridement Anesthesia Used: 4% Lidocaine Solution Depth: Down to and including healthy tissue, in the subcutaneous layer Percentage of wound debrided: 100 Instrument Used: 7mm curette Tissue Removed: Slough and devitalized tissue Severity: Fat Layer Exposed Amount of bleeding with debridement: Mild Bleeding Controlled with: Pressure Patient tolerated procedure well - Additional Wound Wound debrided: Left lateral lower extremity Wound Grade/Stage: Grade 2 Type of Debridement: Excisional debridement Anesthesia Used: 4% Lidocaine Solution Depth: Down to and including healthy tissue, in the subcutaneous layer Percentage of wound debrided: 100 Instrument Used: 7mm curette Tissue Removed: Slough and devitalized tissue Severity: Fat Layer Exposed Amount of bleeding with debridement: Mild Bleeding Controlled with: Pressure Patient tolerated procedure: Patient tolerated procedure well - Additional Wound Wound debrided: Right knee Wound Grade/Stage: Stage II Type of Debridement: Excisional debridement Anesthesia Used: 4% Lidocaine Solution Depth: Down to and including healthy tissue, in the subcutaneous layer Percentage of wound debrided: 100 Instrument Used: 5mm curette Tissue Removed: Slough and devitalized tissue Severity: Fat Layer Exposed Amount of bleeding with debridement: Mild Bleeding Controlled with: Pressure Patient tolerated procedure: Patient tolerated procedure well - Additional Wound Wound debrided: Right lateral lower extremity Wound Grade/Stage: Grade 2 Type of Debridement: Excisional debridement Anesthesia Used: 4% Lidocaine Solution Depth: Down to and including healthy tissue, in the subcutaneous layer Percentage of wound debrided: 100 Instrument Used: 7mm curette Tissue Removed: Slough and devitalized tissue Severity: Fat Layer Exposed Amount of bleeding with debridement: Mild Bleeding Controlled with: Pressure Patient tolerated procedure: Patient tolerated procedure well Assessment/Plan Active Problems (Last Reviewed 06/19/18 @ 08:33 by Binta Reyes) Diabetic foot ulcer associated with type 2 diabetes mellitus (Chronic) Grade 2. Ulcer of left lower extremity with fat layer exposed (Chronic) Ulcer of right lower extremity with fat layer exposed (Chronic) Bilateral lower extremity edema (Chronic) Open wound of right knee (Acute) Traumatic, penetrating with fat layer exposed. Assessment: Nonhealing bilateral lower extremity ulcer in a patient with type 2 diabetes mellitus. Diabetic foot ulcer with significant maceration/deformity. Morbid obesity. Tobacco abuse. Plan: Stable old ulcers. New right knee wound from trauma. Debridement done as documented above. Procedure was well-tolerated. Status post recent hospital admission for severe wound infection. Multiple organisms.. Currently on IV antibiotics. Continue management per ID. Continue Aquacel with Xeroform over top to all. Change daily. Optimal blood sugar control strongly recommended. Making attempts at smoking cessation, he was encouraged. Increased protein intake. Continue premier twice daily. Single layer Tubigrip for edema management. Studies scheduled for today. Elevate lower extremity when seated and in bed. Will consider switching to Fibracol at next visit. His questions were answered and he was advised to call with any further questions or concerns. Follow-up in 1 week. This note was generated with [employer] dictation software. It may contain incorrect words, spelling, and punctuation that were not noted in checking the note before signing.
--- NOTE | 2018-07-11 11:06 | PN.PCM_ITS ---
(1) Diabetic foot ulcer associated with type 2 diabetes mellitus Status: Chronic Current Visit: Yes Code(s): E11.621 - Type 2 diabetes mellitus with foot ulcer; L97.509 - Non-pressure chronic ulcer of other part of unspecified foot with unspecified severity Comment: Grade 2. (2) Ulcer of left lower extremity with fat layer exposed Status: Chronic Current Visit: Yes Code(s): L97.922 - Non-pressure chronic ulcer of unspecified part of left lower leg with fat layer exposed (3) Ulcer of right lower extremity with fat layer exposed Status: Chronic Current Visit: Yes Code(s): L97.912 - Non-pressure chronic ulcer of unspecified part of right lower leg with fat layer exposed (4) Bilateral lower extremity edema Status: Chronic Current Visit: Yes Code(s): R60.0 - Localized edema (5) Obesity Status: Chronic Current Visit: No Qualifiers: Body mass index: BMI 50.0-59.9 Code(s): E66.9 - Obesity, unspecified (6) Tobacco abuse Status: Chronic Current Visit: No Code(s): Z72.0 - Tobacco use (7) Open wound of right knee Status: Acute Current Visit: Yes Code(s): S81.001A - Unspecified open wound, right knee, initial encounter Comment: Traumatic, penetrating with fat layer exposed. Type of Wound Chief Complaint: Bilateral lower extremity ulcers. History of Wound: Mr. Toscano is a 62-year-old with a complex past medical history who was referred to the wound center due to nonhealing bilateral lower extremity ulcers. He reports a history of recurrent bilateral lower extremity ulcers since 1995 however most recent episode was said to have started in March. [facility] with no significant improvement. He is also been seen at other wound care centers. He is unsure of his diabetes control. Smokes daily. Largely sedentary. At this time, he denies any acute concerns. Denies chills, fever or feeling of unwell. Progress of Wound: Old ulcers are stable. He presents with a new right knee wound which he sustained after he hit his knee against his bed. - Physical Exam Vital Signs Temp Pulse Resp BP 98.2 F 82 18 104/72 07/11/18 09:00 07/11/18 09:00 07/11/18 09:00 07/11/18 09:00 General: Alert, Oriented x3, Cooperative, No apparent distress HEENT: Atraumatic, Normocephalic Oral: Moist Mucosa Neck: Supple Lungs: Normal air movement Abdomen: Non Tender, Obese Extremities: No cyanosis, Edema Skin: Ulcer/ Wound Wound Measurements and Assessment WC - Nurse 1 - General Ulcer Measurement Start: 06/20/18 11:59 Freq: Status: Active Protocol: Activity Type Activity Date Activity User E-Sign Co-Sign Detail Recorded Client Recorded Date Recorded By Document 07/11/18 09:00 [id number] 07/11/18 09:41 AN 07/11/18 09:00 Wound Center Nurse 1 [Ulcer Assessment] #4 rt knee -Current Size (cm) - Length 2.8 -Current Size (cm) - Width 5 -Current Size (cm) - Depth 0.1 -Total Square Cm 14.0 -Classification - Thickness Full Thickness without Exposed Support Structure -Exudate Amt Medium -Exudate Type Serosanguineous -Wound Margin Flat & Intact -Granulation Amt Small (1-33%) -Granulation Quality Pale [place] -Slough/Fibrin Yes -Necrosis Amt Large (67-100%) -Necrotic Tissue Type Adherent Slough -Structure Exposed None/Limited to Skin Breakdown -Texture (Nichol-wound Skin Appearance) Assessed -Moisture (Nichol-wound Skin Appearance Assessed ) -Color (Nichol-wound Skin Appearance) Assessed -Temperature (Nichol-wound Skin No Abnormality Appearance) (Pt Warm) -Tenderness on Palpation (Nichol-wound Yes Skin Appearance) -Foul Odor after Cleansing No -Anesthetic Used 5% Lidocaine Gel #3 left lateral/posterior lower leg -Current Size (cm) - Length 11.5 -Current Size (cm) - Width 8.0 -Current Size (cm) - Depth 0.1 -Total Square Cm 92.00 -Wound Margin Flat & Intact -Granulation Amt Small (1-33%) -Granulation Quality Pale -Slough/Fibrin Yes -Necrosis Amt Large (67-100%) -Necrotic Tissue Type Adherent Slough -Texture (Nichol-wound Skin Appearance) Assessed -Color (Nichol-wound Skin Appearance) Assessed -Temperature (Nichol-wound Skin No Abnormality Appearance) (Pt Warm) -Tenderness on Palpation (Nichol-wound Yes Skin Appearance) -Ulcer Cleansing soap and water -Foul Odor after Cleansing No -Anesthetic Used 4% Lidocaine Solution 5% Lidocaine Gel #2 left distal foot circumfrential -Current Size (cm) - Length 21.5 -Current Size (cm) - Width 10.5 -Current Size (cm) - Depth 0.1 -Total Square Cm 225.75 -Exudate Amt Medium -Exudate Type Serosanguineous -Wound Margin Flat & Intact -Granulation Amt Small (1-33%) -Granulation Quality Pale -Necrosis Amt Large (67-100%) -Necrotic Tissue Type Adherent Slough -Structure Exposed None/Limited to Skin Breakdown -Texture (Nichol-wound Skin Appearance) Assessed -Moisture (Nichol-wound Skin Appearance Assessed ) -Color (Nichol-wound Skin Appearance) Assessed -Temperature (Nichol-wound Skin No Abnormality Appearance) (Pt Warm) -Tenderness on Palpation (Nichol-wound Yes Skin Appearance) -Ulcer Cleansing soap and water -Foul Odor after Cleansing No -Anesthetic Used 5% Lidocaine Gel #1 right lateral lower leg -Current Size (cm) - Length 6.3 -Current Size (cm) - Width 5.3 -Current Size (cm) - Depth 0.1 -Total Square Cm 33.39 -Classification - Thickness Full Thickness without Exposed Support Structure -Exudate Amt Medium -Exudate Type Serosanguineous -Wound Margin Flat & Intact -Granulation Amt Small (1-33%) -Granulation Quality Pale -Slough/Fibrin Yes -Necrosis Amt Large (67-100%) -Necrotic Tissue Type Adherent Slough -Structure Exposed None/Limited to Skin Breakdown -Texture (Nichol-wound Skin Appearance) Assessed -Moisture (Nichol-wound Skin Appearance Assessed ) -Color (Nichol-wound Skin Appearance) Assessed -Temperature (Nichol-wound Skin No Abnormality Appearance) (Pt Warm) -Tenderness on Palpation (Nichol-wound Yes Skin Appearance) -Foul Odor after Cleansing No -Anesthetic Used 5% Lidocaine Gel [Edema Assessment] -Right Calf (cm) 53 -Right Ankle (cm) 30.9 -Left Calf (cm) 57 -Left Ankle (cm) 30 WC - Nurse 2 - General Ulcer CM Notes Start: 06/20/18 11:59 Freq: Status: Active Protocol: Activity Type Activity Date Activity User E-Sign Co-Sign Detail Recorded Client Recorded Date Recorded By Document 07/11/18 10:05 MW [id number] 07/11/18 10:23 MW 07/11/18 10:05 Wound Center Nurse 2 [Procedure/Treatment] #4 rt knee -Time 10:08 -Correct Patient Yes -Correct Side, Site, Position Yes -Correct Procedure Yes -Procedure Performed Yes -Type of Procedure Debridement -Clinical Debridement Subcutaneous -Post Debridement Size (cm) - Length 2.5 -Post Debridement Size (cm) - Width 5.5 -Post Debridement Size (cm) - Depth 0.1 -Total Square Cm 13.75 -Wound/Ulcer Outcome Not Healed -Ulcer Cleansing Rinsed/ Irrigated with Saline -Foul Odor after Cleansing No -Bioengineered Tissue No -Bleeding Controlled with Pressure -Offloading No -Treatment Response Procedure Tolerated Well #3 left lateral/posterior lower leg -Time 10:06 -Correct Patient Yes -Correct Side, Site, Position Yes -Correct Procedure Yes -Procedure Performed Yes -Type of Procedure Debridement -Clinical Debridement Subcutaneous -Post Debridement Size (cm) - Length 12.0 -Post Debridement Size (cm) - Width 8.0 -Post Debridement Size (cm) - Depth 0.1 -Total Square Cm 96.00 -Wound/Ulcer Outcome Not Healed -Ulcer Cleansing Rinsed/ Irrigated with Saline -Foul Odor after Cleansing No -Bioengineered Tissue No -Bleeding Controlled with Pressure -Offloading No -Treatment Response Procedure Tolerated Well #2 left distal foot circumfrential -Time 10:06 -Correct Patient Yes -Correct Side, Site, Position Yes -Correct Procedure Yes -Procedure Performed Yes -Type of Procedure Debridement -Clinical Debridement Subcutaneous -Post Debridement Size (cm) - Length 22.0 -Post Debridement Size (cm) - Width 11.0 -Post Debridement Size (cm) - Depth 0.1 -Total Square Cm 242.00 -Wound/Ulcer Outcome Not Healed -Ulcer Cleansing Rinsed/ Irrigated with Saline -Foul Odor after Cleansing No -Bioengineered Tissue No -Bleeding Controlled with Pressure -Offloading No -Treatment Response Procedure Tolerated Well #1 right lateral lower leg -Time 10:07 -Correct Patient Yes -Correct Side, Site, Position Yes -Correct Procedure Yes -Procedure Performed Yes -Type of Procedure Debridement -Clinical Debridement Subcutaneous -Post Debridement Size (cm) - Length 7.0 -Post Debridement Size (cm) - Width 6.5 -Post Debridement Size (cm) - Depth 0.1 -Total Square Cm 45.50 -Wound/Ulcer Outcome Not Healed -Ulcer Cleansing Rinsed/ Irrigated with Saline -Foul Odor after Cleansing No -Bioengineered Tissue No -Bleeding Controlled with Pressure -Offloading No -Treatment Response Procedure Tolerated Well [See Physician Procedure note for Specifics] Pain Scale: 0-10 Numeric [Pain] -Is Patient Pain Free? Yes Musculoskeletal: No Muscle Wasting Neurological: Cranial nerves II-XII grossly intact Psych/Mental Status: Normal Affect Debridement Note Post-Debridement Measurements/Treatment WC - Nurse 2 - General Ulcer CM Notes Start: 06/20/18 11:59 Freq: Status: Active Protocol: Activity Type Activity Date Activity User E-Sign Co-Sign Detail Recorded Client Recorded Date Recorded By Document 06/20/18 12:45 AN [id number] 06/20/18 13:27 AN Document 07/04/18 13:24 MW [id number] 07/04/18 13:38 MW Document 07/11/18 10:05 MW [id number] 07/11/18 10:23 MW 06/20/18 07/04/18 07/11/18 12:45 13:24 10:05 Wound Center Nurse 2 #4 rt knee -Time 10:08 -Correct Patient Yes -Correct Side, Site, Position Yes -Correct Procedure Yes -Procedure Performed Yes -Type of Procedure Debridement -Clinical Debridement Subcutaneous -Post Debridement Size (cm) - Length 2.5 -Post Debridement Size (cm) - Width 5.5 -Post Debridement Size (cm) - Depth 0.1 -Total Square Cm 13.75 -Wound/Ulcer Outcome Not Healed -Ulcer Cleansing Rinsed/ Irrigated with Saline -Foul Odor after Cleansing No -Bioengineered Tissue No -Bleeding Controlled with Pressure -Offloading No -Treatment Response Procedure Tolerated Well #3 left lateral/posterior lower leg -Time 12:45 13:26 10:06 -Correct Patient Yes Yes Yes -Correct Side, Site, Position Yes Yes Yes -Correct Procedure Yes Yes Yes -Procedure Performed Yes Yes Yes -Type of Procedure Debridement Debridement Debridement -Clinical Debridement Subcutaneous Subcutaneous Subcutaneous -Post Debridement Size (cm) - Length 12 9.0 12.0 -Post Debridement Size (cm) - Width 8 8.0 8.0 -Post Debridement Size (cm) - Depth 0.2 0.1 0.1 -Total Square Cm 96 72.00 96.00 -Wound/Ulcer Outcome Not Healed Not Healed Not Healed -Ulcer Cleansing Rinsed/ Rinsed/ Rinsed/ Irrigated with Irrigated with Irrigated with Saline Saline Saline -Foul Odor after Cleansing Yes No No -Bioengineered Tissue No No -Bleeding Controlled with Pressure Pressure Pressure -Offloading No No -Treatment Response Procedure Procedure Procedure Tolerated Well Tolerated Well Tolerated Well #2 left distal foot circumfrential -Time 12:45 13:26 10:06 -Correct Patient Yes Yes Yes -Correct Side, Site, Position Yes Yes Yes -Correct Procedure Yes Yes Yes -Procedure Performed Yes Yes Yes -Type of Procedure Debridement Debridement Debridement -Clinical Debridement Subcutaneous Subcutaneous Subcutaneous -Post Debridement Size (cm) - Length 24 21.5 22.0 -Post Debridement Size (cm) - Width 13 10.5 11.0 -Post Debridement Size (cm) - Depth 0.2 0.1 0.1 -Total Square Cm 312 225.75 242.00 -Wound/Ulcer Outcome Not Healed Not Healed Not Healed -Ulcer Cleansing Rinsed/ Rinsed/ Rinsed/ Irrigated with Irrigated with Irrigated with Saline Saline Saline -Foul Odor after Cleansing Yes No No -Bioengineered Tissue No No -Bleeding Controlled with Pressure Pressure Pressure -Offloading No No -Treatment Response Procedure Procedure Procedure Tolerated Well Tolerated Well Tolerated Well #1 right lateral lower leg -Time 12:45 13:28 10:07 -Correct Patient Yes Yes Yes -Correct Side, Site, Position Yes Yes Yes -Correct Procedure Yes Yes Yes -Procedure Performed Yes Yes Yes -Type of Procedure Debridement Debridement Debridement -Clinical Debridement Subcutaneous Subcutaneous Subcutaneous -Post Debridement Size (cm) - Length 10 9.0 7.0 -Post Debridement Size (cm) - Width 6 7.0 6.5 -Post Debridement Size (cm) - Depth 0.1 0.1 0.1 -Total Square Cm 60 63.00 45.50 -Wound/Ulcer Outcome Not Healed Not Healed Not Healed -Ulcer Cleansing Rinsed/ Rinsed/ Rinsed/ Irrigated with Irrigated with Irrigated with Saline Saline Saline -Foul Odor after Cleansing Yes No No -Bioengineered Tissue No No -Bleeding Controlled with Pressure Pressure Pressure -Offloading No No -Treatment Response Procedure Procedure Procedure Tolerated Well Tolerated Well Tolerated Well Pain Scale: 0-10 Numeric Is Patient Pain Free? Yes Yes Wound debrided: Left foot Wound Grade/Stage: Grade 2 Type of Debridement: Excisional debridement Anesthesia Used: 4% Lidocaine Solution Depth: Down to and including healthy tissue, in the subcutaneous layer Percentage of wound debrided: 100 Instrument Used: 7mm curette Tissue Removed: Slough and devitalized tissue Severity: Fat Layer Exposed Amount of bleeding with debridement: Mild Bleeding Controlled with: Pressure Patient tolerated procedure well - Additional Wound Wound debrided: Left lateral lower extremity Wound Grade/Stage: Grade 2 Type of Debridement: Excisional debridement Anesthesia Used: 4% Lidocaine Solution Depth: Down to and including healthy tissue, in the subcutaneous layer Percentage of wound debrided: 100 Instrument Used: 7mm curette Tissue Removed: Slough and devitalized tissue Severity: Fat Layer Exposed Amount of bleeding with debridement: Mild Bleeding Controlled with: Pressure Patient tolerated procedure: Patient tolerated procedure well - Additional Wound Wound debrided: Right knee Wound Grade/Stage: Stage II Type of Debridement: Excisional debridement Anesthesia Used: 4% Lidocaine Solution Depth: Down to and including healthy tissue, in the subcutaneous layer Percentage of wound debrided: 100 Instrument Used: 5mm curette Tissue Removed: Slough and devitalized tissue Severity: Fat Layer Exposed Amount of bleeding with debridement: Mild Bleeding Controlled with: Pressure Patient tolerated procedure: Patient tolerated procedure well - Additional Wound Wound debrided: Right lateral lower extremity Wound Grade/Stage: Grade 2 Type of Debridement: Excisional debridement Anesthesia Used: 4% Lidocaine Solution Depth: Down to and including healthy tissue, in the subcutaneous layer Percentage of wound debrided: 100 Instrument Used: 7mm curette Tissue Removed: Slough and devitalized tissue Severity: Fat Layer Exposed Amount of bleeding with debridement: Mild Bleeding Controlled with: Pressure Patient tolerated procedure: Patient tolerated procedure well Assessment/Plan Active Problems (Last Reviewed 06/19/18 @ 08:33 by Binta Reyes) Diabetic foot ulcer associated with type 2 diabetes mellitus (Chronic) Grade 2. Ulcer of left lower extremity with fat layer exposed (Chronic) Ulcer of right lower extremity with fat layer exposed (Chronic) Bilateral lower extremity edema (Chronic) Open wound of right knee (Acute) Traumatic, penetrating with fat layer exposed. Assessment: Nonhealing bilateral lower extremity ulcer in a patient with type 2 diabetes mellitus. Diabetic foot ulcer with significant maceration/deformity. Morbid obesity. Tobacco abuse. Plan: Stable old ulcers. New right knee wound from trauma. Debridement done as documented above. Procedure was well-tolerated. Status post recent hospital admission for severe wound infection. Multiple organisms.. Currently on IV antibiotics. Continue management per ID. Continue Aquacel with Xeroform over top to all. Change daily. Optimal blood sugar control strongly recommended. Making attempts at smoking cessation, he was encouraged. Increased protein intake. Continue premier twice daily. Single layer Tubigrip for edema manag ement. Studies scheduled for today. Elevate lower extremity when seated and in bed. Will consider switching to Fibracol at next visit. His questions were answered and he was advised to call with any further questions or concerns. Follow-up in 1 week. This note was generated with [employer] dictation software. It may contain incorrect words, spelling, and punctuation that were not noted in checking the note before signing.
== END 2018-07-11 23:59 ==
LOC: CVS 10:00
PROVIDERS: Family Provider Internal Medicine; PCP Internal Medicine; Referring Provider Internal Medicine; Visit Provider Internal Medicine
DX: E11.621 Type 2 diabetes mellitus with foot ulcer (principal); R60.0 Localized edema; E11.622 Type 2 diabetes mellitus with other skin ulcer; L97.522 Non-pressure chronic ulcer of other part of left foot with fat layer exposed; L97.822 Non-pressure chronic ulcer of other part of left lower leg with fat layer exposed; L97.812 Non-pressure chronic ulcer of other part of right lower leg with fat layer exposed; E66.01 Morbid (severe) obesity due to excess calories; Z68.43 Body mass index [BMI] 50.0-59.9, adult; Z71.3 Dietary counseling and surveillance; F17.200 Nicotine dependence, unspecified, uncomplicated; G47.33 Obstructive sleep apnea (adult) (pediatric); I25.2 Old myocardial infarction; I10 Essential (primary) hypertension; G25.81 Restless legs syndrome; E11.65 Type 2 diabetes mellitus with hyperglycemia; N40.1 Benign prostatic hyperplasia with lower urinary tract symptoms; R35.1 Nocturia; M15.9 Polyosteoarthritis, unspecified; Z79.899 Other long term (current) drug therapy; Z79.4 Long term (current) use of insulin; G89.29 Other chronic pain
CPT/HCPCS: 11042; 11045; 87070; 87075; 87076; 87077; 87101; 87186; 87205; 93923; 93970; 99213; G0463

== ENCOUNTER 2018-08-07 08:15 | Outpatient (RCR) | payer MEDICARE, MEDICAID, SELFPAY ==
[2018-07-12 00:20] VITALS: BP 104/72; PULSE 82; RESP 18; TEMP 36.8
[2018-07-17 09:34] VITALS: BMI 58.8
[2018-07-18 09:10] VITALS: BP 132/68; PULSE 70; RESP 18; TEMP 36.8; BMI 58.8
--- NOTE | 2018-07-18 11:59 | PCM.WC.PN ---
(1) Open wound of right knee Status: Acute Current Visit: Yes Code(s): S81.001A - Unspecified open wound, right knee, initial encounter Comment: Traumatic, penetrating with fat layer exposed. (2) Bilateral lower extremity edema Status: Chronic Current Visit: Yes Code(s): R60.0 - Localized edema (3) Diabetic foot ulcer associated with type 2 diabetes mellitus Status: Chronic Current Visit: Yes Code(s): E11.621 - Type 2 diabetes mellitus with foot ulcer; L97.509 - Non-pressure chronic ulcer of other part of unspecified foot with unspecified severity Comment: Grade 2. (4) Ulcer of left lower extremity with fat layer exposed Status: Chronic Current Visit: Yes Code(s): L97.922 - Non-pressure chronic ulcer of unspecified part of left lower leg with fat layer exposed (5) Ulcer of right lower extremity with fat layer exposed Status: Chronic Current Visit: Yes Code(s): L97.912 - Non-pressure chronic ulcer of unspecified part of right lower leg with fat layer exposed Type of Wound Chief Complaint: Bilateral lower extremity ulcers. History of Wound: Mr. Toscano is a 62-year-old with a complex past medical history who was referred to the wound center due to nonhealing bilateral lower extremity ulcers. He reports a history of recurrent bilateral lower extremity ulcers since 1995 however most recent episode was said to have started in March. Was managed by wound care nurse at his snf facility with no significant improvement. He is also been seen at other wound care centers. He is unsure of his diabetes control. Smokes daily. Largely sedentary. At this time, he denies any acute concerns. Denies chills, fever or feeling of unwell. Progress of Wound: Stable. No new concerns at this time. - Physical Exam Vital Signs Temp Pulse Resp BP 98.2 F 70 18 132/68 H 07/18/18 09:10 07/18/18 09:10 07/18/18 09:10 07/18/18 09:10 General: Alert, Oriented x3, Cooperative, No apparent distress HEENT: Atraumatic, Normocephalic Oral: Moist Mucosa Neck: Supple Abdomen: Non Tender, Obese Extremities: No cyanosis, Edema Skin: Ulcer/ Wound Wound Measurements and Assessment WC - Nurse 1 - General Ulcer Measurement Start: 07/18/18 09:10 Freq: Status: Active Protocol: Activity Type Activity Date Activity User E-Sign Co-Sign Detail Recorded Client Recorded Date Recorded By Document 07/18/18 09:10 [facility] [id number] 07/18/18 09:35 [facility] 07/18/18 09:10 Wound Center Nurse 1 [Ulcer Assessment] #4 rt knee -Combined with other wound No -Current Size (cm) - Length 2.3 -Current Size (cm) - Width 4.9 -Current Size (cm) - Depth 0.1 -Total Square Cm 11.27 -Photo Taken No -Epithelialization None Present -Tunneling No -Undermining/Tunneling No -Circular Undermining No -Classification - Thickness Full Thickness without Exposed Support Structure -Exudate Amt Small -Exudate Type Serosanguineous -Wound Margin Flat & Intact -Granulation Amt Large (67-100%) -Granulation Quality Pale [place] -Slough/Fibrin No -Necrosis Amt None Present (0 %) -Texture (Nichol-wound Skin Appearance) Assessed Scarring -Moisture (Nichol-wound Skin Appearance Maceration ) -Color (Nichol-wound Skin Appearance) Assessed Pal[place] -Temperature (Nichol-wound Skin No Abnormality Appearance) (Pt Warm) -Tenderness on Palpation (Nichol-wound Yes Skin Appearance) -Ulcer Cleansing Wound Cleanser -Foul Odor after Cleansing No -Anesthetic Used 4% Lidocaine Solution #3 left lateral/posterior lower leg -Combined with other wound No -Current Size (cm) - Length 8 -Current Size (cm) - Width 6.8 -Current Size (cm) - Depth 0.1 -Total Square Cm 54.4 -Photo Taken No -Epithelialization None Present -Tunneling No -Undermining/Tunneling No -Circular Undermining No -Exudate Amt Large -Exudate Type Serosanguineous -Wound Margin Distinct, Outline Attached -Granulation Amt Medium (34-66%) -Granulation Quality Red -Slough/Fibrin Yes -Necrosis Amt Medium (34-66%) -Necrotic Tissue Type Adherent Slough -Texture (Nichol-wound Skin Appearance) Assessed Scarring -Moisture (Nichol-wound Skin Appearance Assessed ) Maceration Dry/Scaly -Color (Nichol-wound Skin Appearance) Assessed Erythema [place] -Temperature (Nichol-wound Skin No Abnormality Appearance) (Pt Warm) -Tenderness on Palpation (Nichol-wound Yes Skin Appearance) -Ulcer Cleansing Wound Cleanser -Foul Odor after Cleansing No -Anesthetic Used 4% Lidocaine Solution #2 left distal foot circumfrential -Combined with other wound No -Current Size (cm) - Length 22.2 -Current Size (cm) - Width 29.5 -Current Size (cm) - Depth 0.1 -Total Square Cm 654.90 -Photo Taken No -Epithelialization None Present -Tunneling No -Undermining/Tunneling No -Circular Undermining No -Exudate Amt Large -Exudate Type Serosanguineous -Wound Margin Flat & Intact -Granulation Amt Small (1-33%) -Granulation Quality [place] -Slough/Fibrin Yes -Necrosis Amt Large (67-100%) -Necrotic Tissue Type Adherent Slough -Texture (Nichol-wound Skin Appearance) Scarring -Moisture (Nichol-wound Skin Appearance Maceration ) -Color (Nichol-wound Skin Appearance) [place] -Temperature (Nichol-wound Skin No Abnormality Appearance) (Pt Warm) -Tenderness on Palpation (Nichol-wound Yes Skin Appearance) -Ulcer Cleansing Wound Cleanser -Foul Odor after Cleansing No -Anesthetic Used 4% Lidocaine Solution #1 right lateral lower leg -Combined with other wound No -Current Size (cm) - Length 8.8 -Current Size (cm) - Width 5.4 -Current Size (cm) - Depth 0.2 -Total Square Cm 47.52 -Photo Taken No -Epithelialization None Present -Tunneling No -Undermining/Tunneling No -Circular Undermining No -Exudate Amt Large -Exudate Type Serosanguineous -Wound Margin Flat & Intact -Granulation Amt Medium (34-66%) -Granulation Quality Red -Slough/Fibrin Yes -Necrosis Amt Medium (34-66%) -Necrotic Tissue Type Adherent Slough -Texture (Nichol-wound Skin Appearance) Scarring -Moisture (Nichol-wound Skin Appearance Maceration ) Dry/Scaly -Color (Nichol-wound Skin Appearance) Erythema [place] -Temperature (Nichol-wound Skin No Abnormality Appearance) (Pt Warm) -Tenderness on Palpation (Nichol-wound No Skin Appearance) -Ulcer Cleansing Wound Cleanser -Foul Odor after Cleansing No -Anesthetic Used 4% Lidocaine Solution [Edema Assessment] -Lower Limb Edema Present Yes -Right Calf (cm) 51.6 -Right Ankle (cm) 30.5 -Left Calf (cm) 52.1 -Left Ankle (cm) 32.1 WC - Nurse 2 - General Ulcer CM Notes Start: 07/18/18 09:10 Freq: Status: Active Protocol: Activity Type Activity Date Activity User E-Sign Co-Sign Detail Recorded Client Recorded Date Recorded By Document 07/18/18 09:47 MW [id number] 07/18/18 10:05 MW 07/18/18 09:47 Wound Center Nurse 2 [Procedure/Treatment] #4 rt knee -Time 09:50 -Correct Patient Yes -Correct Side, Site, Position Yes -Correct Procedure Yes -Procedure Performed Yes -Type of Procedure Debridement -Clinical Debridement Subcutaneous -Post Debridement Size (cm) - Length 2.2 -Post Debridement Size (cm) - Width 4.3 -Post Debridement Size (cm) - Depth 0.1 -Total Square Cm 9.46 -Wound/Ulcer Outcome Not Healed -Ulcer Cleansing Rinsed/ Irrigated with Saline -Foul Odor after Cleansing No -Bioengineered Tissue No -Bleeding Controlled with Pressure -Offloading No -Treatment Response Procedure Tolerated Well #3 left lateral/posterior lower leg -Time 09:49 -Correct Patient Yes -Correct Side, Site, Position Yes -Correct Procedure Yes -Procedure Performed Yes -Type of Procedure Debridement -Clinical Debridement Subcutaneous -Post Debridement Size (cm) - Length 9.0 -Post Debridement Size (cm) - Width 8.0 -Post Debridement Size (cm) - Depth 0.1 -Total Square Cm 72.00 -Wound/Ulcer Outcome Not Healed -Ulcer Cleansing Rinsed/ Irrigated with Saline -Foul Odor after Cleansing No -Bioengineered Tissue No -Bleeding Controlled with Pressure -Offloading No -Treatment Response Procedure Tolerated Well #2 left distal foot circumfrential -Time 09:49 -Correct Patient Yes -Correct Side, Site, Position Yes -Correct Procedure Yes -Procedure Performed Yes -Type of Procedure Debridement -Clinical Debridement Subcutaneous -Post Debridement Size (cm) - Length 21.0 -Post Debridement Size (cm) - Width 10.0 -Post Debridement Size (cm) - Depth 0.1 -Total Square Cm 210.00 -Wound/Ulcer Outcome Not Healed -Ulcer Cleansing Rinsed/ Irrigated with Saline -Foul Odor after Cleansing No -Bioengineered Tissue No -Bleeding Controlled with Pressure -Offloading No -Treatment Response Procedure Tolerated Well #1 right lateral lower leg -Time 09:50 -Correct Patient Yes -Correct Side, Site, Position Yes -Correct Procedure Yes -Procedure Performed Yes -Type of Procedure Debridement -Clinical Debridement Subcutaneous -Post Debridement Size (cm) - Length 9.0 -Post Debridement Size (cm) - Width 6.5 -Post Debridement Size (cm) - Depth 0.1 -Total Square Cm 58.50 -Wound/Ulcer Outcome Not Healed -Ulcer Cleansing Rinsed/ Irrigated with Saline -Foul Odor after Cleansing No -Bioengineered Tissue No -Bleeding Controlled with Pressure -Offloading No -Treatment Response Procedure Tolerated Well [See Physician Procedure note for Specifics] Pain Scale: 0-10 Numeric [Pain] -Is Patient Pain Free? Yes Musculoskeletal: No Muscle Wasting Neurological: Cranial nerves II-XII grossly intact Psych/Mental Status: Normal Affect Debridement Note Post-Debridement Measurements/Treatment WC - Nurse 2 - General Ulcer CM Notes Start: 07/18/18 09:10 Freq: Status: Active Protocol: Activity Type Activity Date Activity User E-Sign Co-Sign Detail Recorded Client Recorded Date Recorded By Document 07/18/18 09:47 MW [id number] 07/18/18 10:05 MW 07/18/18 09:47 Wound Center Nurse 2 #4 rt knee -Time 09:50 -Correct Patient Yes -Correct Side, Site, Position Yes -Correct Procedure Yes -Procedure Performed Yes -Type of Procedure Debridement -Clinical Debridement Subcutaneous -Post Debridement Size (cm) - Length 2.2 -Post Debridement Size (cm) - Width 4.3 -Post Debridement Size (cm) - Depth 0.1 -Total Square Cm 9.46 -Wound/Ulcer Outcome Not Healed -Ulcer Cleansing Rinsed/ Irrigated with Saline -Foul Odor after Cleansing No -Bioengineered Tissue No -Bleeding Controlled with Pressure -Offloading No -Treatment Response Procedure Tolerated Well #3 left lateral/posterior lower leg -Time 09:49 -Correct Patient Yes -Correct Side, Site, Position Yes -Correct Procedure Yes -Procedure Performed Yes -Type of Procedure Debridement -Clinical Debridement Subcutaneous -Post Debridement Size (cm) - Length 9.0 -Post Debridement Size (cm) - Width 8.0 -Post Debridement Size (cm) - Depth 0.1 -Total Square Cm 72.00 -Wound/Ulcer Outcome Not Healed -Ulcer Cleansing Rinsed/ Irrigated with Saline -Foul Odor after Cleansing No -Bioengineered Tissue No -Bleeding Controlled with Pressure -Offloading No -Treatment Response Procedure Tolerated Well #2 left distal foot circumfrential -Time 09:49 -Correct Patient Yes -Correct Side, Site, Position Yes -Correct Procedure Yes -Procedure Performed Yes -Type of Procedure Debridement -Clinical Debridement Subcutaneous -Post Debridement Size (cm) - Length 21.0 -Post Debridement Size (cm) - Width 10.0 -Post Debridement Size (cm) - Depth 0.1 -Total Square Cm 210.00 -Wound/Ulcer Outcome Not Healed -Ulcer Cleansing Rinsed/ Irrigated with Saline -Foul Odor after Cleansing No -Bioengineered Tissue No -Bleeding Controlled with Pressure -Offloading No -Treatment Response Procedure Tolerated Well #1 right lateral lower leg -Time 09:50 -Correct Patient Yes -Correct Side, Site, Position Yes -Correct Procedure Yes -Procedure Performed Yes -Type of Procedure Debridement -Clinical Debridement Subcutaneous -Post Debridement Size (cm) - Length 9.0 -Post Debridement Size (cm) - Width 6.5 -Post Debridement Size (cm) - Depth 0.1 -Total Square Cm 58.50 -Wound/Ulcer Outcome Not Healed -Ulcer Cleansing Rinsed/ Irrigated with Saline -Foul Odor after Cleansing No -Bioengineered Tissue No -Bleeding Controlled with Pressure -Offloading No -Treatment Response Procedure Tolerated Well Pain Scale: 0-10 Numeric Is Patient Pain Free? Yes Wound debrided: Left foot Wound Grade/Stage: Grade 2 Type of Debridement: Excisional debridement Anesthesia Used: 4% Lidocaine Solution Depth: Down to and including healthy tissue, in the subcutaneous layer Percentage of wound debrided: 100 Instrument Used: 7mm curette Tissue Removed: Slough and devitalized tissue Severity: Fat Layer Exposed Amount of bleeding with debridement: Mild Bleeding Controlled with: Pressure Patient tolerated procedure well - Additional Wound Wound debrided: Left lower extremity Wound Grade/Stage: Grade 2 Type of Debridement: Excisional debridement Anesthesia Used: 4% Lidocaine Solution Depth: Down to and including healthy tissue, in the subcutaneous layer Percentage of wound debrided: 100 Instrument Used: 7mm curette Tissue Removed: Slough and devitalized tissue Severity: Fat Layer Exposed Amount of bleeding with debridement: Mild Bleeding Controlled with: Pressure Patient tolerated procedure: Patient tolerated procedure well - Additional Wound Wound debrided: Right knee Wound Grade/Stage: Stage II Type of Debridement: Excisional debridement Anesthesia Used: 4% Lidocaine Solution Depth: Down to and including healthy tissue, in the subcutaneous layer Percentage of wound debrided: 100 Instrument Used: 5mm curette Tissue Removed: Slough and devitalized tissue Severity: Fat Layer Exposed Amount of bleeding with debridement: Mild Bleeding Controlled with: Pressure Patient tolerated procedure: Patient tolerated procedure well - Additional Wound Wound debrided: Right lower extremity Wound Grade/Stage: Grade 2 Type of Debridement: Excisional debridement Anesthesia Used: 4% Lidocaine Solution Depth: Down to and including healthy tissue, in the subcutaneous layer Percentage of wound debrided: 100 Instrument Used: 7mm curette Tissue Removed: Slough and devitalized tissue Severity: Fat Layer Exposed Amount of bleeding with debridement: Mild Bleeding Controlled with: Pressure Patient tolerated procedure: Patient tolerated procedure well Assessment/Plan Active Problems (Last Reviewed 07/17/18 @ 12:42 by Lorene Farfan NP-C) Diabetic foot ulcer associated with type 2 diabetes mellitus (Chronic) Grade 2. Ulcer of left lower extremity with fat layer exposed (Chronic) Ulcer of right lower extremity with fat layer exposed (Chronic) Bilateral lower extremity edema (Chronic) Open wound of right knee (Acute) Traumatic, penetrating with fat layer exposed. Assessment: Nonhealing bilateral lower extremity ulcer in a patient with type 2 diabetes mellitus. Diabetic foot ulcer with significant maceration/deformity. Morbid obesity. Tobacco abuse. Plan: Stable. Right knee improving. Debridement done as documented above. Procedure was well-tolerated. Status post recent hospital admission for severe wound infection. Multiple organisms. Patient now states that he has completed his antibiotics. Consider repeat culture in about 2 weeks. Currently has a PICC line. Switch dressings to Fibracol. Change daily to twice daily depending on drainage. Xeroform over top. Optimal blood sugar control strongly recommended. Making attempts at smoking cessation, he was encouraged. Increased protein intake. Continue premier twice daily. Studies reviewed. No significant concerns at this time. Tubigrip's and Francisco Javier wrap to bilateral lower extremities.. Elevate lower extremities when seated and in bed. His questions were answered and he was advised to call with any further questions or concerns. Follow-up in 1 week. This note was generated with [employer] software. It may contain incorrect words, spelling, and punctuation that were not noted in checking the note before signing.
[2018-08-07 08:24] VITALS: BP 150/95; PULSE 68; RESP 20; TEMP 36.1; BMI 58.8
--- NOTE | 2018-08-07 12:26 | PCM.WC.PN ---
(1) Open wound of right knee Status: Acute Current Visit: Yes Code(s): S81.001A - Unspecified open wound, right knee, initial encounter Comment: Traumatic, penetrating with fat layer exposed. (2) Bilateral lower extremity edema Status: Chronic Current Visit: Yes Code(s): R60.0 - Localized edema (3) Diabetic foot ulcer associated with type 2 diabetes mellitus Status: Chronic Current Visit: Yes Code(s): E11.621 - Type 2 diabetes mellitus with foot ulcer; L97.509 - Non-pressure chronic ulcer of other part of unspecified foot with unspecified severity Comment: Grade 2. (4) Ulcer of left lower extremity with fat layer exposed Status: Chronic Current Visit: Yes Code(s): L97.922 - Non-pressure chronic ulcer of unspecified part of left lower leg with fat layer exposed (5) Ulcer of right lower extremity with fat layer exposed Status: Chronic Current Visit: Yes Code(s): L97.912 - Non-pressure chronic ulcer of unspecified part of right lower leg with fat layer exposed Type of Wound Chief Complaint: Bilateral lower extremity ulcers. History of Wound: Mr. Toscano is a 62-year-old with a complex past medical history who was referred to the wound center due to nonhealing bilateral lower extremity ulcers. He reports a history of recurrent bilateral lower extremity ulcers since 1995 however most recent episode was said to have started in March. [facility] with no significant improvement. He is also been seen at other wound care centers. He is unsure of his diabetes control. Smokes daily. Largely sedentary. At this time, he denies any acute concerns. Denies chills, fever or feeling of unwell. Progress of Wound: He is status post recent hospital admission for sepsis. He denies any new concerns at this time. Currently on antibiotics. - Physical Exam Vital Signs Temp Pulse Resp BP 97.0 F L 68 20 H 150/95 H 08/07/18 08:24 08/07/18 08:24 08/07/18 08:24 08/07/18 08:24 General: Alert, Oriented x3, Cooperative, No apparent distress HEENT: Atraumatic, Normocephalic Oral: Moist Mucosa Neck: Supple Lungs: Normal air movement Abdomen: Non Tender, Obese Extremities: No cyanosis, Edema Skin: Ulcer/ Wound Wound Measurements and Assessment WC - Nurse 1 - General Ulcer Measurement Start: 07/18/18 09:10 Freq: Status: Active Protocol: Activity Type Activity Date Activity User E-Sign Co-Sign Detail Recorded Client Recorded Date Recorded By Document 08/07/18 08:24 MW [id number] 08/07/18 08:38 MW 08/07/18 08:24 Wound Center Nurse 1 [Ulcer Assessment] #4 rt knee -Combined with other wound No -Current Size (cm) - Length 0.1 -Current Size (cm) - Width 0.1 -Current Size (cm) - Depth 0.1 -Total Square Cm 0.01 -Date of Last Picture (Recall this 08/07/18 field) -Photo Taken Yes -Epithelialization Large 67-100% -Tunneling No -Undermining/Tunneling No -Circular Undermining No -Exudate Amt None Present -Wound Margin Flat & Intact -Granulation Amt None Present (0 %) -Granulation Quality N/A -Slough/Fibrin Yes -Necrosis Amt Small (1-33%) -Necrotic Tissue Type Adherent Slough -Structure Exposed N/A -Texture (Nichol-wound Skin Appearance) Assessed Localized Edema -Moisture (Nichol-wound Skin Appearance Assessed ) Dry/Scaly -Color (Nichol-wound Skin Appearance) No Abnormality Assessed -Temperature (Nichol-wound Skin No Abnormality Appearance) (Pt Warm) -Ulcer Cleansing soap and water -Anesthetic Used 4% Lidocaine Solution #3 left lateral/posterior lower leg -Combined with other wound No -Current Size (cm) - Length 8.0 -Current Size (cm) - Width 5.4 -Current Size (cm) - Depth 0.1 -Total Square Cm 43.20 -Date of Last Picture (Recall this 08/07/18 field) -Photo Taken Yes -Epithelialization None Present -Tunneling No -Undermining/Tunneling No -Circular Undermining No -Exudate Amt Small -Exudate Type Serosanguineous -Wound Margin Flat & Intact -Granulation Amt None Present (0 %) -Granulation Quality N/A -Slough/Fibrin Yes -Necrosis Amt Large (67-100%) -Necrotic Tissue Type Adherent Slough -Structure Exposed N/A -Texture (Nichol-wound Skin Appearance) Assessed Localized Edema Scarring -Moisture (Nichol-wound Skin Appearance Assessed ) Maceration -Color (Nichol-wound Skin Appearance) Assessed Hemosiderin Staining -Temperature (Nichol-wound Skin No Abnormality Appearance) (Pt Warm) -Tenderness on Palpation (Nichol-wound No Skin Appearance) -Ulcer Cleansing soap and water -Anesthetic Used 4% Lidocaine Solution #2 left distal foot circumfrential -Combined with other wound No -Current Size (cm) - Length 13.0 -Current Size (cm) - Width 9.0 -Current Size (cm) - Depth 0.1 -Total Square Cm 117.00 -Date of Last Picture (Recall this 08/07/18 field) -Photo Taken Yes -Epithelialization None Present -Tunneling No -Undermining/Tunneling No -Circular Undermining No -Exudate Amt Small -Exudate Type Serosanguineous -Wound Margin Flat & Intact -Granulation Amt None Present (0 %) -Granulation Quality N/A -Slough/Fibrin Yes -Necrosis Amt Large (67-100%) -Necrotic Tissue Type Adherent Slough -Structure Exposed N/A -Texture (Nichol-wound Skin Appearance) Assessed Localized Edema Scarring -Moisture (Nichol-wound Skin Appearance Assessed ) Maceration Weeping -Color (Nichol-wound Skin Appearance) Assessed Hemosiderin Staining -Temperature (Nichol-wound Skin No Abnormality Appearance) (Pt Warm) -Tenderness on Palpation (Nichol-wound No Skin Appearance) -Ulcer Cleansing soap and water -Anesthetic Used 4% Lidocaine Solution #1 right lateral lower leg -Combined with other wound No -Current Size (cm) - Length 10.7 -Current Size (cm) - Width 7.5 -Current Size (cm) - Depth 0.1 -Total Square Cm 80.25 -Date of Last Picture (Recall this 08/07/18 field) -Photo Taken Yes -Epithelialization None Present -Tunneling No -Undermining/Tunneling No -Circular Undermining No -Exudate Amt Small -Exudate Type Serosanguineous -Wound Margin Flat & Intact -Granulation Amt None Present (0 %) -Granulation Quality N/A -Slough/Fibrin Yes -Necrosis Amt Large (67-100%) -Necrotic Tissue Type Adherent Slough -Structure Exposed N/A -Texture (Nichol-wound Skin Appearance) Assessed Localized Edema Scarring -Moisture (Nichol-wound Skin Appearance Assessed ) Maceration Weeping -Color (Nichol-wound Skin Appearance) Assessed Hemosiderin Staining -Temperature (Nichol-wound Skin No Abnormality Appearance) (Pt Warm) -Tenderness on Palpation (Nichol-wound No Skin Appearance) -Ulcer Cleansing soap and water -Anesthetic Used 4% Lidocaine Solution [Edema Assessment] -Lower Limb Edema Present Yes -Right Calf (cm) 57.8 -Right Ankle (cm) 31.0 -Left Calf (cm) 56.5 -Left Ankle (cm) 30.9 WC - Nurse 2 - General Ulcer CM Notes Start: 07/18/18 09:10 Freq: Status: Active Protocol: Activity Type Activity Date Activity User E-Sign Co-Sign Detail Recorded Client Recorded Date Recorded By Document 08/07/18 08:41 MW [id number] 08/07/18 08:59 MW 08/07/18 08:41 Wound Center Nurse 2 [Procedure/Treatment] #4 rt knee -Time 08:43 -Correct Patient Yes -Correct Side, Site, Position Yes -Correct Procedure Yes -Procedure Performed No -Post Debridement Size (cm) - Length 0 -Post Debridement Size (cm) - Width 0 -Post Debridement Size (cm) - Depth 0 -Total Square Cm 0 -Wound/Ulcer Outcome Healed- Epithelialized #3 left lateral/posterior lower leg -Time 08:42 -Correct Patient Yes -Correct Side, Site, Position Yes -Correct Procedure Yes -Procedure Performed Yes -Type of Procedure Debridement -Clinical Debridement Subcutaneous -Post Debridement Size (cm) - Length 9.5 -Post Debridement Size (cm) - Width 7.0 -Post Debridement Size (cm) - Depth 0.1 -Total Square Cm 66.50 -Wound/Ulcer Outcome Not Healed -Ulcer Cleansing Rinsed/ Irrigated with Saline -Foul Odor after Cleansing No -Bioengineered Tissue No -Bleeding Controlled with Pressure -Offloading No -Treatment Response Procedure Tolerated Well #2 left distal foot circumfrential -Time 08:42 -Correct Patient Yes -Correct Side, Site, Position Yes -Correct Procedure Yes -Procedure Performed Yes -Type of Procedure Debridement -Clinical Debridement Subcutaneous -Post Debridement Size (cm) - Length 20.0 -Post Debridement Size (cm) - Width 8.5 -Post Debridement Size (cm) - Depth 0.1 -Total Square Cm 170.00 -Wound/Ulcer Outcome Not Healed -Ulcer Cleansing Rinsed/ Irrigated with Saline -Foul Odor after Cleansing No -Bioengineered Tissue No -Bleeding Controlled with Pressure -Offloading No -Treatment Response Procedure Tolerated Well #1 right lateral lower leg -Time 08:43 -Correct Patient Yes -Correct Side, Site, Position Yes -Correct Procedure Yes -Procedure Performed Yes -Type of Procedure Debridement -Clinical Debridement Subcutaneous -Post Debridement Size (cm) - Length 11.0 -Post Debridement Size (cm) - Width 8.5 -Post Debridement Size (cm) - Depth 0.1 -Total Square Cm 93.50 -Wound/Ulcer Outcome Not Healed -Ulcer Cleansing Rinsed/ Irrigated with Saline -Foul Odor after Cleansing No -Bioengineered Tissue No -Bleeding Controlled with Pressure -Offloading No -Treatment Response Procedure Tolerated Well [See Physician Procedure note for Specifics] Pain Scale: 0-10 Numeric [Pain] -Is Patient Pain Free? Yes Musculoskeletal: No Muscle Wasting Neurological: Cranial nerves II-XII grossly intact Psych/Mental Status: Normal Affect Debridement Note Post-Debridement Measurements/Treatment WC - Nurse 2 - General Ulcer CM Notes Start: 07/18/18 09:10 Freq: Status: Active Protocol: Activity Type Activity Date Activity User E-Sign Co-Sign Detail Recorded Client Recorded Date Recorded By Document 07/18/18 09:47 MW [id number] 07/18/18 10:05 MW Document 08/07/18 08:41 MW [id number] 08/07/18 08:59 MW 07/18/18 08/07/18 09:47 08:41 Wound Center Nurse 2 #4 rt knee -Time 09:50 08:43 -Correct Patient Yes Yes -Correct Side, Site, Position Yes Yes -Correct Procedure Yes Yes -Procedure Performed Yes No -Type of Procedure Debridement -Clinical Debridement Subcutaneous -Post Debridement Size (cm) - Length 2.2 0 -Post Debridement Size (cm) - Width 4.3 0 -Post Debridement Size (cm) - Depth 0.1 0 -Total Square Cm 9.46 0 -Wound/Ulcer Outcome Not Healed Healed- Epithelialized -Ulcer Cleansing Rinsed/ Irrigated with Saline -Foul Odor after Cleansing No -Bioengineered Tissue No -Bleeding Controlled with Pressure -Offloading No -Treatment Response Procedure Tolerated Well #3 left lateral/posterior lower leg -Time 09:49 08:42 -Correct Patient Yes Yes -Correct Side, Site, Position Yes Yes -Correct Procedure Yes Yes -Procedure Performed Yes Yes -Type of Procedure Debridement Debridement -Clinical Debridement Subcutaneous Subcutaneous -Post Debridement Size (cm) - Length 9.0 9.5 -Post Debridement Size (cm) - Width 8.0 7.0 -Post Debridement Size (cm) - Depth 0.1 0.1 -Total Square Cm 72.00 66.50 -Wound/Ulcer Outcome Not Healed Not Healed -Ulcer Cleansing Rinsed/ Rinsed/ Irrigated with Irrigated with Saline Saline -Foul Odor after Cleansing No No -Bioengineered Tissue No No -Bleeding Controlled with Pressure Pressure -Offloading No No -Treatment Response Procedure Procedure Tolerated Well Tolerated Well #2 left distal foot circumfrential -Time 09:49 08:42 -Correct Patient Yes Yes -Correct Side, Site, Position Yes Yes -Correct Procedure Yes Yes -Procedure Performed Yes Yes -Type of Procedure Debridement Debridement -Clinical Debridement Subcutaneous Subcutaneous -Post Debridement Size (cm) - Length 21.0 20.0 -Post Debridement Size (cm) - Width 10.0 8.5 -Post Debridement Size (cm) - Depth 0.1 0.1 -Total Square Cm 210.00 170.00 -Wound/Ulcer Outcome Not Healed Not Healed -Ulcer Cleansing Rinsed/ Rinsed/ Irrigated with Irrigated with Saline Saline -Foul Odor after Cleansing No No -Bioengineered Tissue No No -Bleeding Controlled with Pressure Pressure -Offloading No No -Treatment Response Procedure Procedure Tolerated Well Tolerated Well #1 right lateral lower leg -Time 09:50 08:43 -Correct Patient Yes Yes -Correct Side, Site, Position Yes Yes -Correct Procedure Yes Yes -Procedure Performed Yes Yes -Type of Procedure Debridement Debridement -Clinical Debridement Subcutaneous Subcutaneous -Post Debridement Size (cm) - Length 9.0 11.0 -Post Debridement Size (cm) - Width 6.5 8.5 -Post Debridement Size (cm) - Depth 0.1 0.1 -Total Square Cm 58.50 93.50 -Wound/Ulcer Outcome Not Healed Not Healed -Ulcer Cleansing Rinsed/ Rinsed/ Irrigated with Irrigated with Saline Saline -Foul Odor after Cleansing No No -Bioengineered Tissue No No -Bleeding Controlled with Pressure Pressure -Offloading No No -Treatment Response Procedure Procedure Tolerated Well Tolerated Well Pain Scale: 0-10 Numeric Is Patient Pain Free? Yes Yes Wound debrided: Left foot Wound Grade/Stage: Grade 2 Type of Debridement: Excisional debridement Anesthesia Used: 4% Lidocaine Solution, 5% Lidocaine Gel Depth: Down to and including healthy tissue, in the subcutaneous layer Percentage of wound debrided: 100 Instrument Used: 5mm curette Tissue Removed: Slough and devitalized tissue Severity: Fat Layer Exposed Amount of bleeding with debridement: Mild Bleeding Controlled with: Pressure Patient tolerated procedure well - Additional Wound Wound debrided: Left lateral lower extremity Wound Grade/Stage: Grade 2 Type of Debridement: Excisional debridement Anesthesia Used: 4% Lidocaine Solution Depth: Down to and including healthy tissue, in the subcutaneous layer Percentage of wound debrided: 100 Instrument Used: 5mm curette Tissue Removed: Slough and devitalized tissue Severity: Fat Layer Exposed Amount of bleeding with debridement: Mild Bleeding Controlled with: Pressure Patient tolerated procedure: Patient tolerated procedure well - Additional Wound Wound debrided: Right lateral lower extremity Wound Grade/Stage: Grade 2 Type of Debridement: Excisional debridement Anesthesia Used: 4% Lidocaine Solution Depth: Down to and including healthy tissue, in the subcutaneous layer Percentage of wound debrided: 100 Instrument Used: 5mm curette Tissue Removed: Slough and devitalized tissue Severity: Fat Layer Exposed Amount of bleeding with debridement: Mild Bleeding Controlled with: Pressure Patient tolerated procedure: Patient tolerated procedure well Assessment/Plan Active Problems (Last Reviewed 07/17/18 @ 12:42 by Lorene Farfan NP-C) Diabetic foot ulcer associated with type 2 diabetes mellitus (Chronic) Grade 2. Ulcer of left lower extremity with fat layer exposed (Chronic) Ulcer of right lower extremity with fat layer exposed (Chronic) Bilateral lower extremity edema (Chronic) Open wound of right knee (Acute) Traumatic, penetrating with fat layer exposed. Assessment: Nonhealing bilateral lower extremity ulcer in a patient with type 2 diabetes mellitus. Diabetic foot ulcer with significant maceration/deformity. Morbid obesity. Tobacco abuse. Plan: Right knee healed. Debridement done as documented above. Procedure was well-tolerated. Status post recent hospital admission for sepsis. Currently on antibiotics. Currently has a PICC line. Continue Fibracol. Change daily to twice daily depending on drainage. Xeroform over top. Optimal blood sugar control strongly recommended. Making attempts at smoking cessation, he was encouraged. Increased protein intake. Continue premier twice daily. Studies reviewed. No significant concerns at this time. Tubigrip's and Francisco Javier wrap to bilateral lower extremities.. Elevate lower extremities when seated and in bed. His questions were answered and he was advised to call with any further questions or concerns. Follow-up in 1 week. This note was generated with Dot dictation software. It may contain incorrect words, spelling, and punctuation that were not noted in checking the note before signing.
== END 2018-08-11 23:59 ==
LOC: WC 08:15
PROVIDERS: Family Provider Internal Medicine; PCP Internal Medicine; Referring Provider Internal Medicine; Visit Provider Internal Medicine
DX: E11.621 Type 2 diabetes mellitus with foot ulcer (principal); R60.0 Localized edema; L97.522 Non-pressure chronic ulcer of other part of left foot with fat layer exposed; E11.622 Type 2 diabetes mellitus with other skin ulcer; L97.822 Non-pressure chronic ulcer of other part of left lower leg with fat layer exposed; L97.812 Non-pressure chronic ulcer of other part of right lower leg with fat layer exposed; E66.01 Morbid (severe) obesity due to excess calories; Z71.3 Dietary counseling and surveillance; Z68.43 Body mass index [BMI] 50.0-59.9, adult; F17.200 Nicotine dependence, unspecified, uncomplicated; G47.33 Obstructive sleep apnea (adult) (pediatric); I10 Essential (primary) hypertension; G25.81 Restless legs syndrome; E11.65 Type 2 diabetes mellitus with hyperglycemia
CPT/HCPCS: 11042; 11045

== ENCOUNTER 2018-09-05 08:00 | Outpatient (RCR) | payer MEDICARE, MEDICAID, SELFPAY ==
[2018-08-12 00:23] VITALS: BP 150/95; PULSE 68; RESP 20; TEMP 36.1
[2018-08-14 09:07] VITALS: BP 114/68; PULSE 61; RESP 20; TEMP 35.6; BMI 58.8
--- NOTE | 2018-08-14 12:11 | PCM.WC.PN ---
(1) Diabetic foot ulcer associated with type 2 diabetes mellitus Status: Chronic Current Visit: Yes Code(s): E11.621 - Type 2 diabetes mellitus with foot ulcer; L97.509 - Non-pressure chronic ulcer of other part of unspecified foot with unspecified severity Comment: Grade 2. (2) Ulcer of left lower extremity with fat layer exposed Status: Chronic Current Visit: Yes Code(s): L97.922 - Non-pressure chronic ulcer of unspecified part of left lower leg with fat layer exposed (3) Ulcer of right lower extremity with fat layer exposed Status: Chronic Current Visit: Yes Code(s): L97.912 - Non-pressure chronic ulcer of unspecified part of right lower leg with fat layer exposed (4) Type 2 diabetes mellitus Status: Chronic Current Visit: Yes Code(s): E11.9 - Type 2 diabetes mellitus without complications (5) Bilateral lower extremity edema Status: Chronic Current Visit: Yes Code(s): R60.0 - Localized edema Type of Wound Chief Complaint: Bilateral lower extremity ulcers. History of Wound: Mr. Toscano is a 62-year-old with a complex past medical history who was referred to the wound center due to nonhealing bilateral lower extremity ulcers. He reports a history of recurrent bilateral lower extremity ulcers since 1995 however most recent episode was said to have started in March. Was managed by wound care nurse at his long-term facility with no significant improvement. He is also been seen at other wound care centers. He is unsure of his diabetes control. Smokes daily. Largely sedentary. At this time, he denies any acute concerns. Denies chills, fever or feeling of unwell. Progress of Wound: No new concerns at this time. Has completed his IV antibiotics. Still on fluconazole. - Physical Exam Vital Signs Temp Pulse Resp BP 96.0 F L 61 20 H 114/68 08/14/18 09:07 08/14/18 09:07 08/14/18 09:07 08/14/18 09:07 General: Alert, Oriented x3, Cooperative, No apparent distress HEENT: Atraumatic, Normocephalic Oral: Moist Mucosa Neck: Supple Lungs: Normal air movement Abdomen: Non Tender, Obese Extremities: No cyanosis, Edema Skin: Ulcer/ Wound Wound Measurements and Assessment WC - Nurse 1 - General Ulcer Measurement Start: 04/03/19 09:07 Freq: Status: Active Protocol: Activity Type Activity Date Activity User E-Sign Co-Sign Detail Recorded Client Recorded Date Recorded By Document 08/14/18 09:07 MW [id number] 08/14/18 09:20 MW 08/14/18 09:07 Wound Center Nurse 1 [Ulcer Assessment] #3 left lateral/posterior lower leg -Combined with other wound No -Current Size (cm) - Length 9.3 -Current Size (cm) - Width 6 -Current Size (cm) - Depth 0.1 -Total Square Cm 55.8 -Photo Taken No -Exudate Amt Medium -Exudate Type Serosanguineous -Wound Margin Distinct, Outline Attached -Granulation Amt Medium (34-66%) -Granulation Quality Red -Necrosis Amt Medium (34-66%) -Necrotic Tissue Type Adherent Slough -Structure Exposed N/A -Texture (Nichol-wound Skin Appearance) Localized Edema Scarring -Moisture (Nichol-wound Skin Appearance Dry/Scaly ) -Color (Nichol-wound Skin Appearance) Erythema Hemosiderin Staining -Temperature (Nichol-wound Skin No Abnormality Appearance) (Pt Warm) -Tenderness on Palpation (Nichol-wound No Skin Appearance) -Ulcer Cleansing Wound Cleanser -Foul Odor after Cleansing No -Anesthetic Used 4% Lidocaine Solution #2 left distal foot circumfrential -Current Size (cm) - Length 18.2 -Current Size (cm) - Width 8.9 -Current Size (cm) - Depth 0.1 -Total Square Cm 161.98 -Photo Taken No -Exudate Amt Medium -Exudate Type Serosanguineous -Wound Margin Indistinct, Non -Visible -Granulation Amt Medium (34-66%) -Granulation Quality [place] Red -Necrosis Amt Medium (34-66%) -Necrotic Tissue Type Adherent Slough -Structure Exposed N/A -Texture (Nichol-wound Skin Appearance) Localized Edema Scarring -Moisture (Nichol-wound Skin Appearance Maceration ) -Color (Nichol-wound Skin Appearance) Erythema Hemosiderin Staining -Temperature (Nichol-wound Skin No Abnormality Appearance) (Pt Warm) -Tenderness on Palpation (Nichol-wound No Skin Appearance) -Ulcer Cleansing Wound Cleanser -Foul Odor after Cleansing No -Anesthetic Used 4% Lidocaine Solution #1 right lateral lower leg -Current Size (cm) - Length 10 -Current Size (cm) - Width 4.4 -Current Size (cm) - Depth 0.1 -Total Square Cm 44.0 -Photo Taken No -Exudate Amt Medium -Exudate Type Serosanguineous -Wound Margin Indistinct, Non -Visible -Granulation Amt Medium (34-66%) -Granulation Quality [place] Red -Necrosis Amt Medium (34-66%) -Necrotic Tissue Type Adherent Slough -Structure Exposed N/A -Texture (Nichol-wound Skin Appearance) Localized Edema Scarring -Moisture (Nichol-wound Skin Appearance Dry/Scaly ) -Color (Nichol-wound Skin Appearance) Erythema Hemosiderin Staining -Temperature (Nichol-wound Skin No Abnormality Appearance) (Pt Warm) -Tenderness on Palpation (Nichol-wound No Skin Appearance) -Ulcer Cleansing Wound Cleanser -Foul Odor after Cleansing No -Anesthetic Used 4% Lidocaine Solution [Edema Assessment] -Lower Limb Edema Present Yes -Right Calf (cm) 55.1 -Right Ankle (cm) 29.4 -Left Calf (cm) 56.1 -Left Ankle (cm) 28.6 WC - Nurse 2 - General Ulcer CM Notes Start: 08/14/18 09:07 Freq: Status: Active Protocol: Activity Type Activity Date Activity User E-Sign Co-Sign Detail Recorded Client Recorded Date Recorded By Document 08/14/18 09:37 MW [id number] 08/14/18 10:00 MW 08/14/18 09:37 Wound Center Nurse 2 [Procedure/Treatment] #3 left lateral/posterior lower leg -Time 09:42 -Correct Patient Yes -Correct Side, Site, Position Yes -Correct Procedure Yes -Procedure Performed Yes -Type of Procedure Debridement -Clinical Debridement Subcutaneous -Post Debridement Size (cm) - Length 9.0 -Post Debridement Size (cm) - Width 6.0 -Post Debridement Size (cm) - Depth 0.1 -Total Square Cm 54.00 -Wound/Ulcer Outcome Not Healed -Ulcer Cleansing Rinsed/ Irrigated with Saline -Foul Odor after Cleansing No -Bioengineered Tissue No -Bleeding Controlled with Pressure -Offloading No -Treatment Response Procedure Tolerated Well #2 left distal foot circumfrential -Time 09:42 -Correct Patient Yes -Correct Side, Site, Position Yes -Correct Procedure Yes -Procedure Performed Yes -Type of Procedure Debridement -Clinical Debridement Subcutaneous -Post Debridement Size (cm) - Length 20.0 -Post Debridement Size (cm) - Width 9.0 -Post Debridement Size (cm) - Depth 0.1 -Total Square Cm 180.00 -Wound/Ulcer Outcome Not Healed -Ulcer Cleansing Rinsed/ Irrigated with Saline -Foul Odor after Cleansing No -Bioengineered Tissue No -Bleeding Controlled with Pressure -Offloading No -Treatment Response Procedure Tolerated Well #1 right lateral lower leg -Time 09:42 -Correct Patient Yes -Correct Side, Site, Position Yes -Correct Procedure Yes -Procedure Performed Yes -Type of Procedure Debridement -Clinical Debridement Subcutaneous -Post Debridement Size (cm) - Length 10.5 -Post Debridement Size (cm) - Width 8.0 -Post Debridement Size (cm) - Depth 0.1 -Total Square Cm 84.00 -Wound/Ulcer Outcome Not Healed -Ulcer Cleansing Rinsed/ Irrigated with Saline -Foul Odor after Cleansing No -Bioengineered Tissue No -Bleeding Controlled with Pressure -Offloading No -Treatment Response Procedure Tolerated Well [See Physician Procedure note for Specifics] Pain Scale: 0-10 Numeric [Pain] -Is Patient Pain Free? Yes Musculoskeletal: No Muscle Wasting Neurological: Cranial nerves II-XII grossly intact Psych/Mental Status: Normal Affect Debridement Note Post-Debridement Measurements/Treatment WC - Nurse 2 - General Ulcer CM Notes Start: 08/14/18 09:07 Freq: Status: Active Protocol: Activity Type Activity Date Activity User E-Sign Co-Sign Detail Recorded Client Recorded Date Recorded By Document 08/14/18 09:37 MW [id number] 08/14/18 10:00 MW 08/14/18 09:37 Wound Center Nurse 2 #3 left lateral/posterior lower leg -Time 09:42 -Correct Patient Yes -Correct Side, Site, Position Yes -Correct Procedure Yes -Procedure Performed Yes -Type of Procedure Debridement -Clinical Debridement Subcutaneous -Post Debridement Size (cm) - Length 9.0 -Post Debridement Size (cm) - Width 6.0 -Post Debridement Size (cm) - Depth 0.1 -Total Square Cm 54.00 -Wound/Ulcer Outcome Not Healed -Ulcer Cleansing Rinsed/ Irrigated with Saline -Foul Odor after Cleansing No -Bioengineered Tissue No -Bleeding Controlled with Pressure -Offloading No -Treatment Response Procedure Tolerated Well #2 left distal foot circumfrential -Time 09:42 -Correct Patient Yes -Correct Side, Site, Position Yes -Correct Procedure Yes -Procedure Performed Yes -Type of Procedure Debridement -Clinical Debridement Subcutaneous -Post Debridement Size (cm) - Length 20.0 -Post Debridement Size (cm) - Width 9.0 -Post Debridement Size (cm) - Depth 0.1 -Total Square Cm 180.00 -Wound/Ulcer Outcome Not Healed -Ulcer Cleansing Rinsed/ Irrigated with Saline -Foul Odor after Cleansing No -Bioengineered Tissue No -Bleeding Controlled with Pressure -Offloading No -Treatment Response Procedure Tolerated Well #1 right lateral lower leg -Time 09:42 -Correct Patient Yes -Correct Side, Site, Position Yes -Correct Procedure Yes -Procedure Performed Yes -Type of Procedure Debridement -Clinical Debridement Subcutaneous -Post Debridement Size (cm) - Length 10.5 -Post Debridement Size (cm) - Width 8.0 -Post Debridement Size (cm) - Depth 0.1 -Total Square Cm 84.00 -Wound/Ulcer Outcome Not Healed -Ulcer Cleansing Rinsed/ Irrigated with Saline -Foul Odor after Cleansing No -Bioengineered Tissue No -Bleeding Controlled with Pressure -Offloading No -Treatment Response Procedure Tolerated Well Pain Scale: 0-10 Numeric Is Patient Pain Free? Yes Wound debrided: Left foot Wound Grade/Stage: Grade 2 Type of Debridement: Excisional debridement Anesthesia Used: 4% Lidocaine Solution Depth: Down to and including healthy tissue, in the subcutaneous layer Percentage of wound debrided: 100 Instrument Used: 7mm curette Tissue Removed: Slough and devitalized tissue Severity: Fat Layer Exposed Amount of bleeding with debridement: Mild Bleeding Controlled with: Pressure Patient tolerated procedure well - Additional Wound Wound debrided: Left lower extremity ( Lateral ) Wound Grade/Stage: Grade II Type of Debridement: Excisional debridement Anesthesia Used: 4% Lidocaine Solution Depth: Down to and including healthy tissue, in the subcutaneous layer Percentage of wound debrided: 100 Instrument Used: 5mm curette Tissue Removed: Slough and devitalized tissue Severity: Fat Layer Exposed Amount of bleeding with debridement: Mild Bleeding Controlled with: Pressure Patient tolerated procedure: Patient tolerated procedure well - Additional Wound Wound debrided: Right lower extremity ( Lateral ) Wound Grade/Stage: Grade II Type of Debridement: Excisional debridement Anesthesia Used: 4% Lidocaine Solution Depth: Down to and including healthy tissue, in the subcutaneous layer Percentage of wound debrided: 100 Instrument Used: 5mm curette Tissue Removed: Slough and devitalized tissue Severity: Fat Layer Exposed Amount of bleeding with debridement: Mild Bleeding Controlled with: Pressure Patient tolerated procedure: Patient tolerated procedure well Assessment/Plan Active Problems (Last Reviewed 07/17/18 @ 12:42 by Lorene Farfan NP-C) Diabetic foot ulcer associated with type 2 diabetes mellitus (Chronic) Grade 2. Ulcer of left lower extremity with fat layer exposed (Chronic) Ulcer of right lower extremity with fat layer exposed (Chronic) Bilateral lower extremity edema (Chronic) Type 2 diabetes mellitus (Chronic) Assessment: Nonhealing bilateral lower extremity ulcer in a patient with type 2 diabetes mellitus. Diabetic foot ulcer with significant maceration/deformity. Morbid obesity. Tobacco abuse. Plan: No new concerns today. Slowly improving. Debridement done as documented above. Procedure was well-tolerated. Continue Fibracol. Change daily to twice daily depending on drainage. Xeroform over top. Optimal blood sugar control strongly recommended. Making attempts at smoking cessation, he was encouraged. Increased protein intake. Continue premier twice daily. Continue Francisco Javier wrap to bilateral lower extremities.. Elevate lower extremities when seated and in bed. His questions were answered and he was advised to call with any further questions or concerns. Follow-up in 1 week. This note was generated with [employer] dictation software. It may contain incorrect words, spelling, and punctuation that were not noted in checking the note before signing.
[2018-08-21 08:10] VITALS: BMI 58.8
--- NOTE | 2018-08-21 09:05 | PCM.WC.PN ---
(1) Diabetic foot ulcer associated with type 2 diabetes mellitus Status: Chronic Current Visit: Yes Code(s): E11.621 - Type 2 diabetes mellitus with foot ulcer; L97.509 - Non-pressure chronic ulcer of other part of unspecified foot with unspecified severity Comment: Grade 2. (2) Ulcer of left lower extremity with fat layer exposed Status: Chronic Current Visit: Yes Code(s): L97.922 - Non-pressure chronic ulcer of unspecified part of left lower leg with fat layer exposed (3) Ulcer of right lower extremity with fat layer exposed Status: Chronic Current Visit: Yes Code(s): L97.912 - Non-pressure chronic ulcer of unspecified part of right lower leg with fat layer exposed (4) Type 2 diabetes mellitus Status: Chronic Current Visit: Yes Code(s): E11.9 - Type 2 diabetes mellitus without complications (5) Bilateral lower extremity edema Status: Chronic Current Visit: Yes Code(s): R60.0 - Localized edema Type of Wound Chief Complaint: Bilateral lower extremity ulcers. History of Wound: Mr. Toscano is a 62-year-old with a complex past medical history who was referred to the wound center due to nonhealing bilateral lower extremity ulcers. He reports a history of recurrent bilateral lower extremity ulcers since 1995 however most recent episode was said to have started in March. Was managed by wound care nurse at his custodial facility with no significant improvement. He is also been seen at other wound care centers. He is unsure of his diabetes control. Smokes daily. Largely sedentary. At this time, he denies any acute concerns. Denies chills, fever or feeling of unwell. Progress of Wound: No new concerns at this time. - Physical Exam Vital Signs Temp Pulse Resp BP 96.0 F L 61 20 H 114/68 08/14/18 09:07 08/14/18 09:07 08/14/18 09:07 08/14/18 09:07 General: Alert, Oriented x3, Cooperative, No apparent distress HEENT: Atraumatic, Normocephalic Oral: Moist Mucosa Neck: Supple Lungs: Normal air movement Abdomen: Non Tender, Obese Extremities: No cyanosis, Edema Skin: Ulcer/ Wound Wound Measurements and Assessment WC - Nurse 1 - General Ulcer Measurement Start: 08/14/18 09:07 Freq: Status: Active Protocol: Activity Type Activity Date Activity User E-Sign Co-Sign Detail Recorded Client Recorded Date Recorded By Document 08/21/18 08:10 MW [id number] 08/21/18 08:30 MW 08/21/18 08:10 Wound Center Nurse 1 [Ulcer Assessment] #3 left lateral/posterior lower leg -Combined with other wound No -Current Size (cm) - Length 9.3 -Current Size (cm) - Width 6.0 -Current Size (cm) - Depth 0.1 -Total Square Cm 55.80 -Photo Taken No -Epithelialization Small 1-33% -Tunneling No -Undermining/Tunneling No -Circular Undermining No -Exudate Amt Small -Exudate Type Serosanguineous -Wound Margin Flat & Intact -Granulation Amt Medium (34-66%) -Granulation Quality [place] -Slough/Fibrin Yes -Necrosis Amt Small (1-33%) -Necrotic Tissue Type Adherent Slough -Structure Exposed N/A -Texture (Nichol-wound Skin Appearance) Assessed Localized Edema -Moisture (Nichol-wound Skin Appearance Assessed ) Maceration -Color (Nichol-wound Skin Appearance) Assessed Hemosiderin Staining -Temperature (Nicohl-wound Skin No Abnormality Appearance) (Pt Warm) -Tenderness on Palpation (Nichol-wound Yes Skin Appearance) -Ulcer Cleansing soap and water -Foul Odor after Cleansing No -Anesthetic Used 4% Lidocaine Solution #2 left distal foot circumfrential -Combined with other wound No -Current Size (cm) - Length 20.5 -Current Size (cm) - Width 20.0 -Current Size (cm) - Depth 0.1 -Total Square Cm 410.00 -Photo Taken No -Epithelialization Small 1-33% -Tunneling No -Undermining/Tunneling No -Circular Undermining No -Exudate Amt Medium -Exudate Type Serosanguineous -Wound Margin Flat & Intact -Granulation Amt Small (1-33%) -Granulation Quality Pale -Slough/Fibrin Yes -Necrosis Amt Large (67-100%) -Necrotic Tissue Type Adherent Slough -Structure Exposed N/A -Texture (Nichol-wound Skin Appearance) Assessed Localized Edema -Moisture (Nichol-wound Skin Appearance Assessed ) Maceration -Color (Nichol-wound Skin Appearance) Assessed Hemosiderin Staining -Temperature (Nichol-wound Skin No Abnormality Appearance) (Pt Warm) -Tenderness on Palpation (Nichol-wound No Skin Appearance) -Ulcer Cleansing soap and water -Foul Odor after Cleansing No -Anesthetic Used 4% Lidocaine Solution #1 right lateral lower leg -Combined with other wound No -Current Size (cm) - Length 6.0 -Current Size (cm) - Width 4.0 -Current Size (cm) - Depth 0.1 -Total Square Cm 24.00 -Photo Taken No -Epithelialization Small 1-33% -Tunneling No -Undermining/Tunneling No -Circular Undermining No -Exudate Amt Medium -Wound Margin Flat & Intact -Granulation Amt Large (67-100%) -Granulation Quality [place] -Slough/Fibrin Yes -Necrosis Amt Large (67-100%) -Necrotic Tissue Type Adherent Slough -Structure Exposed N/A -Texture (Nichol-wound Skin Appearance) Assessed Scarring -Moisture (Nichol-wound Skin Appearance Assessed ) Maceration -Color (Nichol-wound Skin Appearance) Assessed Hemosiderin Staining -Temperature (Nichol-wound Skin No Abnormality Appearance) (Pt Warm) -Ulcer Cleansing soap and water -Foul Odor after Cleansing No -Anesthetic Used 4% Lidocaine Solution [Edema Assessment] -Lower Limb Edema Present Yes -Right Calf (cm) 52.2 -Right Ankle (cm) 29.4 -Left Calf (cm) 52.6 -Left Ankle (cm) 29.0 WC - Nurse 2 - General Ulcer CM Notes Start: 08/14/18 09:07 Freq: Status: Active Protocol: Activity Type Activity Date Activity User E-Sign Co-Sign Detail Recorded Client Recorded Date Recorded By Document 08/21/18 08:47 MW [id number] 08/21/18 09:00 MW 08/21/18 08:47 Wound Center Nurse 2 [Procedure/Treatment] #3 left lateral/posterior lower leg -Time 08:47 -Correct Patient Yes -Correct Side, Site, Position Yes -Correct Procedure Yes -Procedure Performed Yes -Type of Procedure Debridement -Clinical Debridement Subcutaneous -Post Debridement Size (cm) - Length 9.0 -Post Debridement Size (cm) - Width 6.0 -Post Debridement Size (cm) - Depth 0.1 -Total Square Cm 54.00 -Wound/Ulcer Outcome Not Healed -Ulcer Cleansing Rinsed/ Irrigated with Saline -Foul Odor after Cleansing No -Bioengineered Tissue No -Bleeding Controlled with Pressure -Offloading No -Treatment Response Procedure Tolerated Well #2 left distal foot circumfrential -Time 08:48 -Correct Patient Yes -Correct Side, Site, Position Yes -Correct Procedure Yes -Procedure Performed Yes -Type of Procedure Debridement -Clinical Debridement Subcutaneous -Post Debridement Size (cm) - Length 20.0 -Post Debridement Size (cm) - Width 8.0 -Post Debridement Size (cm) - Depth 0.1 -Total Square Cm 160.00 -Wound/Ulcer Outcome Not Healed -Ulcer Cleansing Rinsed/ Irrigated with Saline -Foul Odor after Cleansing No -Bioengineered Tissue No -Bleeding Controlled with Pressure -Offloading No -Treatment Response Procedure Tolerated Well #1 right lateral lower leg -Time 08:48 -Correct Patient Yes -Correct Side, Site, Position Yes -Correct Procedure Yes -Procedure Performed Yes -Type of Procedure Debridement -Clinical Debridement Subcutaneous -Post Debridement Size (cm) - Length 6.0 -Post Debridement Size (cm) - Width 6.5 -Post Debridement Size (cm) - Depth 0.1 -Total Square Cm 39.00 -Wound/Ulcer Outcome Not Healed -Ulcer Cleansing Rinsed/ Irrigated with Saline -Foul Odor after Cleansing No -Bioengineered Tissue No -Bleeding Controlled with Pressure -Offloading No -Treatment Response Procedure Tolerated Well [See Physician Procedure note for Specifics] Pain Scale: 0-10 Numeric [Pain] -Is Patient Pain Free? Yes Musculoskeletal: No Muscle Wasting Neurological: Cranial nerves II-XII grossly intact Psych/Mental Status: Normal Affect Debridement Note Post-Debridement Measurements/Treatment WC - Nurse 2 - General Ulcer CM Notes Start: 08/14/18 09:07 Freq: Status: Active Protocol: Activity Type Activity Date Activity User E-Sign Co-Sign Detail Recorded Client Recorded Date Recorded By Document 08/14/18 09:37 MW [id number] 08/14/18 10:00 MW Document 08/21/18 08:47 MW [id number] 08/21/18 09:00 MW 08/14/18 08/21/18 09:37 08:47 Wound Center Nurse 2 #3 left lateral/posterior lower leg -Time 09:42 08:47 -Correct Patient Yes Yes -Correct Side, Site, Position Yes Yes -Correct Procedure Yes Yes -Procedure Performed Yes Yes -Type of Procedure Debridement Debridement -Clinical Debridement Subcutaneous Subcutaneous -Post Debridement Size (cm) - Length 9.0 9.0 -Post Debridement Size (cm) - Width 6.0 6.0 -Post Debridement Size (cm) - Depth 0.1 0.1 -Total Square Cm 54.00 54.00 -Wound/Ulcer Outcome Not Healed Not Healed -Ulcer Cleansing Rinsed/ Rinsed/ Irrigated with Irrigated with Saline Saline -Foul Odor after Cleansing No No -Bioengineered Tissue No No -Bleeding Controlled with Pressure Pressure -Offloading No No -Treatment Response Procedure Procedure Tolerated Well Tolerated Well #2 left distal foot circumfrential -Time 09:42 08:48 -Correct Patient Yes Yes -Correct Side, Site, Position Yes Yes -Correct Procedure Yes Yes -Procedure Performed Yes Yes -Type of Procedure Debridement Debridement -Clinical Debridement Subcutaneous Subcutaneous -Post Debridement Size (cm) - Length 20.0 20.0 -Post Debridement Size (cm) - Width 9.0 8.0 -Post Debridement Size (cm) - Depth 0.1 0.1 -Total Square Cm 180.00 160.00 -Wound/Ulcer Outcome Not Healed Not Healed -Ulcer Cleansing Rinsed/ Rinsed/ Irrigated with Irrigated with Saline Saline -Foul Odor after Cleansing No No -Bioengineered Tissue No No -Bleeding Controlled with Pressure Pressure -Offloading No No -Treatment Response Procedure Procedure Tolerated Well Tolerated Well #1 right lateral lower leg -Time 09:42 08:48 -Correct Patient Yes Yes -Correct Side, Site, Position Yes Yes -Correct Procedure Yes Yes -Procedure Performed Yes Yes -Type of Procedure Debridement Debridement -Clinical Debridement Subcutaneous Subcutaneous -Post Debridement Size (cm) - Length 10.5 6.0 -Post Debridement Size (cm) - Width 8.0 6.5 -Post Debridement Size (cm) - Depth 0.1 0.1 -Total Square Cm 84.00 39.00 -Wound/Ulcer Outcome Not Healed Not Healed -Ulcer Cleansing Rinsed/ Rinsed/ Irrigated with Irrigated with Saline Saline -Foul Odor after Cleansing No No -Bioengineered Tissue No No -Bleeding Controlled with Pressure Pressure -Offloading No No -Treatment Response Procedure Procedure Tolerated Well Tolerated Well Pain Scale: 0-10 Numeric Is Patient Pain Free? Yes Yes Wound debrided: Left foot Wound Grade/Stage: Grade II Type of Debridement: Excisional debridement Anesthesia Used: 4% Lidocaine Solution Depth: Down to and including healthy tissue, in the subcutaneous layer Percentage of wound debrided: 100 Instrument Used: 5mm curette Tissue Removed: Slough adn devitalized tissue Severity: Fat Layer Exposed Amount of bleeding with debridement: Mild Bleeding Controlled with: Pressure Patient tolerated procedure well - Additional Wound Wound debrided: Left lateral leg Wound Grade/Stage: Grade II Type of Debridement: Excisional debridement Anesthesia Used: 4% Lidocaine Solution Depth: Down to and including healthy tissue, in the subcutaneous layer Percentage of wound debrided: 100 Instrument Used: 5mm curette Tissue Removed: Slough and devitalized tissue Severity: Fat Layer Exposed Amount of bleeding with debridement: Mild Bleeding Controlled with: Pressure Patient tolerated procedure: Patient tolerated procedure well - Additional Wound Wound debrided: Right lateral leg Wound Grade/Stage: Grade II Type of Debridement: Excisional debridement Anesthesia Used: 4% Lidocaine Solution Depth: Down to and including healthy tissue, in the subcutaneous layer Percentage of wound debrided: 100 Instrument Used: 5mm curette Tissue Removed: Slough and devitalized tissue Severity: Fat Layer Exposed Amount of bleeding with debridement: Mild Bleeding Controlled with: Pressure Patient tolerated procedure: Patient tolerated procedure well Assessment/Plan Active Problems (Last Reviewed 07/17/18 @ 12:42 by Lorene Farfan NP-C) Diabetic foot ulcer associated with type 2 diabetes mellitus (Chronic) Grade 2. Ulcer of left lower extremity with fat layer exposed (Chronic) Ulcer of right lower extremity with fat layer exposed (Chronic) Bilateral lower extremity edema (Chronic) Type 2 diabetes mellitus (Chronic) Assessment: Nonhealing bilateral lower extremity ulcer in a patient with type 2 diabetes mellitus. Diabetic foot ulcer with significant maceration/deformity. Morbid obesity. Tobacco abuse. Plan: No new concerns today. Continues to show improvement. Debridement done as documented above. Procedure was well-tolerated. Continue Fibracol. Change daily to twice daily depending on drainage. Xeroform over top. Optimal blood sugar control strongly recommended. Making attempts at smoking cessation, he was encouraged. Increased protein intake. Continue premier twice daily. Continue Francisco Javier wrap to bilateral lower extremities.. Elevate lower extremities when seated and in bed. His questions were answered and he was advised to call with any further questions or concerns. Follow-up in 1 week. This note was generated with [employer] software. It may contain incorrect words, spelling, and punctuation that were not noted in checking the note before signing.
--- NOTE | 2018-08-21 09:09 | PN.PCM_ITS ---
(1) Diabetic foot ulcer associated with type 2 diabetes mellitus Status: Chronic Current Visit: Yes Code(s): E11.621 - Type 2 diabetes mellitus with foot ulcer; L97.509 - Non-pressure chronic ulcer of other part of unspecified foot with unspecified severity Comment: Grade 2. (2) Ulcer of left lower extremity with fat layer exposed Status: Chronic Current Visit: Yes Code(s): L97.922 - Non-pressure chronic ulcer of unspecified part of left lower leg with fat layer exposed (3) Ulcer of right lower extremity with fat layer exposed Status: Chronic Current Visit: Yes Code(s): L97.912 - Non-pressure chronic ulcer of unspecified part of right lower leg with fat layer exposed (4) Type 2 diabetes mellitus Status: Chronic Current Visit: Yes Code(s): E11.9 - Type 2 diabetes mellitus without complications (5) Bilateral lower extremity edema Status: Chronic Current Visit: Yes Code(s): R60.0 - Localized edema Type of Wound Chief Complaint: Bilateral lower extremity ulcers. History of Wound: Mr. Toscano is a 62-year-old with a complex past medical history who was referred to the wound center due to nonhealing bilateral lower extremity ulcers. He reports a history of recurrent bilateral lower extremity ulcers since 1995 however most recent episode was said to have started in March. Was managed [facility] with no significant improvement. He is also been seen at other wound care centers. He is unsure of his diabetes control. Smokes daily. Largely sedentary. At this time, he denies any acute concerns. Denies chills, fever or feeling of unwell. Progress of Wound: No new concerns at this time. - Physical Exam Vital Signs Temp Pulse Resp BP 96.0 F L 61 20 H 114/68 08/14/18 09:07 08/14/18 09:07 08/14/18 09:07 08/14/18 09:07 General: Alert, Oriented x3, Cooperative, No apparent distress HEENT: Atraumatic, Normocephalic Oral: Moist Mucosa Neck: Supple Lungs: Normal air movement Abdomen: Non Tender, Obese Extremities: No cyanosis, Edema Skin: Ulcer/ Wound Wound Measurements and Assessment WC - Nurse 1 - General Ulcer Measurement Start: 08/14/18 09:07 Freq: Status: Active Protocol: Activity Type Activity Date Activity User E-Sign Co-Sign Detail Recorded Client Recorded Date Recorded By Document 08/21/18 08:10 MW [id number] 08/21/18 08:30 MW 08/21/18 08:10 Wound Center Nurse 1 [Ulcer Assessment] #3 left lateral/posterior lower leg -Combined with other wound No -Current Size (cm) - Length 9.3 -Current Size (cm) - Width 6.0 -Current Size (cm) - Depth 0.1 -Total Square Cm 55.80 -Photo Taken No -Epithelialization Small 1-33% -Tunneling No -Undermining/Tunneling No -Circular Undermining No -Exudate Amt Small -Exudate Type Serosanguineous -Wound Margin Flat & Intact -Granulation Amt Medium (34-66%) -Granulation Quality Ogilvie -Slough/Fibrin Yes -Necrosis Amt Small (1-33%) -Necrotic Tissue Type Adherent Slough -Structure Exposed N/A -Texture (Nichol-wound Skin Appearance) Assessed Localized Edema -Moisture (Nichol-wound Skin Appearance Assessed ) Maceration -Color (Nichol-wound Skin Appearance) Assessed Hemosiderin Staining -Temperature (Nichol-wound Skin No Abnormality Appearance) (Pt Warm) -Tenderness on Palpation (Nichol-wound Yes Skin Appearance) -Ulcer Cleansing soap and water -Foul Odor after Cleansing No -Anesthetic Used 4% Lidocaine Solution #2 left distal foot circumfrential -Combined with other wound No -Current Size (cm) - Length 20.5 -Current Size (cm) - Width 20.0 -Current Size (cm) - Depth 0.1 -Total Square Cm 410.00 -Photo Taken No -Epithelialization Small 1-33% -Tunneling No -Undermining/Tunneling No -Circular Undermining No -Exudate Amt Medium -Exudate Type Serosanguineous -Wound Margin Flat & Intact -Granulation Amt Small (1-33%) -Granulation Quality Pale -Slough/Fibrin Yes -Necrosis Amt Large (67-100%) -Necrotic Tissue Type Adherent Slough -Structure Exposed N/A -Texture (Nichol-wound Skin Appearance) Assessed Localized Edema -Moisture (Nichol-wound Skin Appearance Assessed ) Maceration -Color (Nichol-wound Skin Appearance) Assessed Hemosiderin Staining -Temperature (Nichol-wound Skin No Abnormality Appearance) (Pt Warm) -Tenderness on Palpation (Nichol-wound No Skin Appearance) -Ulcer Cleansing soap and water -Foul Odor after Cleansing No -Anesthetic Used 4% Lidocaine Solution #1 right lateral lower leg -Combined with other wound No -Current Size (cm) - Length 6.0 -Current Size (cm) - Width 4.0 -Current Size (cm) - Depth 0.1 -Total Square Cm 24.00 -Photo Taken No -Epithelialization Small 1-33% -Tunneling No -Undermining/Tunneling No -Circular Undermining No -Exudate Amt Medium -Wound Margin Flat & Intact -Granulation Amt Large (67-100%) -Granulation Quality Ogilvie -Slough/Fibrin Yes -Necrosis Amt Large (67-100%) -Necrotic Tissue Type Adherent Slough -Structure Exposed N/A -Texture (Nichol-wound Skin Appearance) Assessed Scarring -Moisture (Nichol-wound Skin Appearance Assessed ) Maceration -Color (Nichol-wound Skin Appearance) Assessed Hemosiderin Staining -Temperature (Nichol-wound Skin No Abnormality Appearance) (Pt Warm) -Ulcer Cleansing soap and water -Foul Odor after Cleansing No -Anesthetic Used 4% Lidocaine Solution [Edema Assessment] -Lower Limb Edema Present Yes -Right Calf (cm) 52.2 -Right Ankle (cm) 29.4 -Left Calf (cm) 52.6 -Left Ankle (cm) 29.0 WC - Nurse 2 - General Ulcer CM Notes Start: 08/14/18 09:07 Freq: Status: Active Protocol: Activity Type Activity Date Activity User E-Sign Co-Sign Detail Recorded Client Recorded Date Recorded By Document 08/21/18 08:47 MW [id number] 08/21/18 09:00 MW 08/21/18 08:47 Wound Center Nurse 2 [Procedure/Treatment] #3 left lateral/posterior lower leg -Time 08:47 -Correct Patient Yes -Correct Side, Site, Position Yes -Correct Procedure Yes -Procedure Performed Yes -Type of Procedure Debridement -Clinical Debridement Subcutaneous -Post Debridement Size (cm) - Length 9.0 -Post Debridement Size (cm) - Width 6.0 -Post Debridement Size (cm) - Depth 0.1 -Total Square Cm 54.00 -Wound/Ulcer Outcome Not Healed -Ulcer Cleansing Rinsed/ Irrigated with Saline -Foul Odor after Cleansing No -Bioengineered Tissue No -Bleeding Controlled with Pressure -Offloading No -Treatment Response Procedure Tolerated Well #2 left distal foot circumfrential -Time 08:48 -Correct Patient Yes -Correct Side, Site, Position Yes -Correct Procedure Yes -Procedure Performed Yes -Type of Procedure Debridement -Clinical Debridement Subcutaneous -Post Debridement Size (cm) - Length 20.0 -Post Debridement Size (cm) - Width 8.0 -Post Debridement Size (cm) - Depth 0.1 -Total Square Cm 160.00 -Wound/Ulcer Outcome Not Healed -Ulcer Cleansing Rinsed/ Irrigated with Saline -Foul Odor after Cleansing No -Bioengineered Tissue No -Bleeding Controlled with Pressure -Offloading No -Treatment Response Procedure Tolerated Well #1 right lateral lower leg -Time 08:48 -Correct Patient Yes -Correct Side, Site, Position Yes -Correct Procedure Yes -Procedure Performed Yes -Type of Procedure Debridement -Clinical Debridement Subcutaneous -Post Debridement Size (cm) - Length 6.0 -Post Debridement Size (cm) - Width 6.5 -Post Debridement Size (cm) - Depth 0.1 -Total Square Cm 39.00 -Wound/Ulcer Outcome Not Healed -Ulcer Cleansing Rinsed/ Irrigated with Saline -Foul Odor after Cleansing No -Bioengineered Tissue No -Bleeding Controlled with Pressure -Offloading No -Treatment Response Procedure Tolerated Well [See Physician Procedure note for Specifics] Pain Scale: 0-10 Numeric [Pain] -Is Patient Pain Free? Yes Musculoskeletal: No Muscle Wasting Neurological: Cranial nerves II-XII grossly intact Psych/Mental Status: Normal Affect Debridement Note Post-Debridement Measurements/Treatment WC - Nurse 2 - General Ulcer CM Notes Start: 08/14/18 09:07 Freq: Status: Active Protocol: Activity Type Activity Date Activity User E-Sign Co-Sign Detail Recorded Client Recorded Date Recorded By Document 08/14/18 09:37 MW [id number] 08/14/18 10:00 MW Document 08/21/18 08:47 MW [id number] 08/21/18 09:00 MW 08/14/18 08/21/18 09:37 08:47 Wound Center Nurse 2 #3 left lateral/posterior lower leg -Time 09:42 08:47 -Correct Patient Yes Yes -Correct Side, Site, Position Yes Yes -Correct Procedure Yes Yes -Procedure Performed Yes Yes -Type of Procedure Debridement Debridement -Clinical Debridement Subcutaneous Subcutaneous -Post Debridement Size (cm) - Length 9.0 9.0 -Post Debridement Size (cm) - Width 6.0 6.0 -Post Debridement Size (cm) - Depth 0.1 0.1 -Total Square Cm 54.00 54.00 -Wound/Ulcer Outcome Not Healed Not Healed -Ulcer Cleansing Rinsed/ Rinsed/ Irrigated with Irrigated with Saline Saline -Foul Odor after Cleansing No No -Bioengineered Tissue No No -Bleeding Controlled with Pressure Pressure -Offloading No No -Treatment Response Procedure Procedure Tolerated Well Tolerated Well #2 left distal foot circumfrential -Time 09:42 08:48 -Correct Patient Yes Yes -Correct Side, Site, Position Yes Yes -Correct Procedure Yes Yes -Procedure Performed Yes Yes -Type of Procedure Debridement Debridement -Clinical Debridement Subcutaneous Subcutaneous -Post Debridement Size (cm) - Length 20.0 20.0 -Post Debridement Size (cm) - Width 9.0 8.0 -Post Debridement Size (cm) - Depth 0.1 0.1 -Total Square Cm 180.00 160.00 -Wound/Ulcer Outcome Not Healed Not Healed -Ulcer Cleansing Rinsed/ Rinsed/ Irrigated with Irrigated with Saline Saline -Foul Odor after Cleansing No No -Bioengineered Tissue No No -Bleeding Controlled with Pressure Pressure -Offloading No No -Treatment Response Procedure Procedure Tolerated Well Tolerated Well #1 right lateral lower leg -Time 09:42 08:48 -Correct Patient Yes Yes -Correct Side, Site, Position Yes Yes -Correct Procedure Yes Yes -Procedure Performed Yes Yes -Type of Procedure Debridement Debridement -Clinical Debridement Subcutaneous Subcutaneous -Post Debridement Size (cm) - Length 10.5 6.0 -Post Debridement Size (cm) - Width 8.0 6.5 -Post Debridement Size (cm) - Depth 0.1 0.1 -Total Square Cm 84.00 39.00 -Wound/Ulcer Outcome Not Healed Not Healed -Ulcer Cleansing Rinsed/ Rinsed/ Irrigated with Irrigated with Saline Saline -Foul Odor after Cleansing No No -Bioengineered Tissue No No -Bleeding Controlled with Pressure Pressure -Offloading No No -Treatment Response Procedure Procedure Tolerated Well Tolerated Well Pain Scale: 0-10 Numeric Is Patient Pain Free? Yes Yes Wound debrided: Left foot Wound Grade/Stage: Grade II Type of Debridement: Excisional debridement Anesthesia Used: 4% Lidocaine Solution Depth: Down to and including healthy tissue, in the subcutaneous layer Percentage of wound debrided: 100 Instrument Used: 5mm curette Tissue Removed: Slough adn devitalized tissue Severity: Fat Layer Exposed Amount of bleeding with debridement: Mild Bleeding Controlled with: Pressure Patient tolerated procedure well - Additional Wound Wound debrided: Left lateral leg Wound Grade/Stage: Grade II Type of Debridement: Excisional debridement Anesthesia Used: 4% Lidocaine Solution Depth: Down to and including healthy tissue, in the subcutaneous layer Percentage of wound debrided: 100 Instrument Used: 5mm curette Tissue Removed: Slough and devitalized tissue Severity: Fat Layer Exposed Amount of bleeding with debridement: Mild Bleeding Controlled with: Pressure Patient tolerated procedure: Patient tolerated procedure well - Additional Wound Wound debrided: Right lateral leg Wound Grade/Stage: Grade II Type of Debridement: Excisional debridement Anesthesia Used: 4% Lidocaine Solution Depth: Down to and including healthy tissue, in the subcutaneous layer Percentage of wound debrided: 100 Instrument Used: 5mm curette Tissue Removed: Slough and devitalized tissue Severity: Fat Layer Exposed Amount of bleeding with debridement: Mild Bleeding Controlled with: Pressure Patient tolerated procedure: Patient tolerated procedure well Assessment/Plan Active Problems (Last Reviewed 07/17/18 @ 12:42 by Lorene Farfan NP-C) Diabetic foot ulcer associated with type 2 diabetes mellitus (Chronic) Grade 2. Ulcer of left lower extremity with fat layer exposed (Chronic) Ulcer of right lower extremity with fat layer exposed (Chronic) Bilateral lower extremity edema (Chronic) Type 2 diabetes mellitus (Chronic) Assessment: Nonhealing bilateral lower extremity ulcer in a patient with type 2 diabetes mellitus. Diabetic foot ulcer with significant maceration/deformity. Morbid obesity. Tobacco abuse. Plan: No new concerns today. Continues to show improvement. Debridement done as documented above. Procedure was well-tolerated. Continue Fibracol. Change daily to twice daily depending on drainage. Xeroform over top. Optimal blood sugar control strongly recommended. Making attempts at smoking cessation, he was encouraged. Increased protein intake. Continue premier twice daily. Continue Francisco Javier wrap to bilateral lower extremities.. Elevate lower extremities when seated and in bed. His questions were answered and he was advised to call with any further questions or concerns. Follow-up in 1 week. This note was generated with [employer] software. It may contain incorrect words, spelling, and punctuation that were not noted in checking the note before signing.
[2018-08-29 08:55] VITALS: BP 119/69; PULSE 66; RESP 18; TEMP 36.4; O2SAT 90; BMI 58.8
--- NOTE | 2018-08-29 11:15 | PCM.WC.PN ---
(1) Diabetic foot ulcer associated with type 2 diabetes mellitus Status: Chronic Current Visit: Yes Code(s): E11.621 - Type 2 diabetes mellitus with foot ulcer; L97.509 - Non-pressure chronic ulcer of other part of unspecified foot with unspecified severity Comment: Grade 2. (2) Ulcer of left lower extremity with fat layer exposed Status: Chronic Current Visit: Yes Code(s): L97.922 - Non-pressure chronic ulcer of unspecified part of left lower leg with fat layer exposed (3) Ulcer of right lower extremity with fat layer exposed Status: Chronic Current Visit: Yes Code(s): L97.912 - Non-pressure chronic ulcer of unspecified part of right lower leg with fat layer exposed (4) Type 2 diabetes mellitus Status: Chronic Current Visit: Yes Code(s): E11.9 - Type 2 diabetes mellitus without complications (5) Bilateral lower extremity edema Status: Chronic Current Visit: Yes Code(s): R60.0 - Localized edema Type of Wound Chief Complaint: Bilateral lower extremity ulcers. History of Wound: Mr. Toscano is a 62-year-old with a complex past medical history who was referred to the wound center due to nonhealing bilateral lower extremity ulcers. He reports a history of recurrent bilateral lower extremity ulcers since 1995 however most recent episode was said to have started in March. Was managed by wound care nurse at his snf facility with no significant improvement. He is also been seen at other wound care centers. He is unsure of his diabetes control. Smokes daily. Largely sedentary. At this time, he denies any acute concerns. Denies chills, fever or feeling of unwell. Progress of Wound: New left knee wound. - Physical Exam Vital Signs Temp Pulse Resp BP Pulse Ox 97.5 F L 66 18 119/69 90 08/29/18 08:55 08/29/18 08:55 08/29/18 08:55 08/29/18 08:55 08/29/18 08:55 General: Alert, Oriented x3, Cooperative, No apparent distress HEENT: Atraumatic, Normocephalic Oral: Moist Mucosa Neck: Supple Lungs: Normal air movement Abdomen: Non Tender, Obese Extremities: No cyanosis, Edema Skin: Ulcer/ Wound Wound Measurements and Assessment WC - Nurse 1 - General Ulcer Measurement Start: 08/14/18 09:07 Freq: Status: Active Protocol: Activity Type Activity Date Activity User E-Sign Co-Sign Detail Recorded Client Recorded Date Recorded By Document 08/29/18 08:55 ME [id number] 08/29/18 09:15 ME 08/29/18 08:55 Wound Center Nurse 1 [Ulcer Assessment] #3 left lateral/posterior lower leg -Combined with other wound No -Current Size (cm) - Length 9.0 -Current Size (cm) - Width 5.5 -Current Size (cm) - Depth 0.1 -Total Square Cm 49.50 -Photo Taken No -Tunneling No -Undermining/Tunneling No -Circular Undermining No -Exudate Amt Small -Exudate Type Serosanguineous -Wound Margin Flat & Intact -Granulation Amt Medium (34-66%) -Granulation Quality Pale [place] -Necrosis Amt Medium (34-66%) -Necrotic Tissue Type Adherent Slough -Texture (Nichol-wound Skin Appearance) Assessed -Moisture (Nichol-wound Skin Appearance Assessed ) Maceration -Color (Nichol-wound Skin Appearance) Assessed -Temperature (Nichol-wound Skin No Abnormality Appearance) (Pt Warm) -Tenderness on Palpation (Nichol-wound No Skin Appearance) -Ulcer Cleansing Wound Cleanser -Foul Odor after Cleansing No -Anesthetic Used 5% Lidocaine Gel #2 left distal foot circumfrential -Combined with other wound No -Current Size (cm) - Length 24.0 -Current Size (cm) - Width 8.0 -Current Size (cm) - Depth 0.1 -Total Square Cm 192.00 -Photo Taken No -Tunneling No -Undermining/Tunneling No -Circular Undermining No -Exudate Amt Small -Exudate Type Serosanguineous -Wound Margin Flat & Intact -Granulation Amt Large (67-100%) -Granulation Quality Pale [place] -Necrosis Amt Small (1-33%) -Necrotic Tissue Type Adherent Slough -Texture (Nichol-wound Skin Appearance) Assessed -Moisture (Nichol-wound Skin Appearance Assessed ) Maceration -Color (Nichol-wound Skin Appearance) Assessed -Temperature (Nichol-wound Skin No Abnormality Appearance) (Pt Warm) -Tenderness on Palpation (Nichol-wound Yes Skin Appearance) -Ulcer Cleansing Wound Cleanser -Foul Odor after Cleansing No -Anesthetic Used 5% Lidocaine Gel #1 right lateral lower leg -Current Size (cm) - Length 6.2 -Current Size (cm) - Width 4.5 -Current Size (cm) - Depth 0.1 -Total Square Cm 27.90 -Photo Taken No -Undermining/Tunneling No -Circular Undermining No -Exudate Amt Small -Exudate Type Serosanguineous -Wound Margin Flat & Intact -Granulation Amt Large (67-100%) -Granulation Quality Pale [place] -Slough/Fibrin Yes -Necrosis Amt Small (1-33%) -Necrotic Tissue Type Adherent Slough -Texture (Nichol-wound Skin Appearance) Assessed -Moisture (Nichol-wound Skin Appearance Assessed ) Maceration -Color (Nichol-wound Skin Appearance) Assessed -Temperature (Nichol-wound Skin No Abnormality Appearance) (Pt Warm) -Tenderness on Palpation (Nichol-wound No Skin Appearance) -Ulcer Cleansing Wound Cleanser -Anesthetic Used 5% Lidocaine Gel [Edema Assessment] -Right Calf (cm) 52.5 -Right Ankle (cm) 30.0 -Left Calf (cm) 56.5 -Left Ankle (cm) 31.0 WC - Nurse 2 - General Ulcer CM Notes Start: 08/14/18 09:07 Freq: Status: Active Protocol: Activity Type Activity Date Activity User E-Sign Co-Sign Detail Recorded Client Recorded Date Recorded By Document 08/29/18 09:43 MW [id number] 08/29/18 09:57 MW 08/29/18 09:43 Wound Center Nurse 2 [Procedure/Treatment] #5 LEFT KNEE -Time 09:50 -Correct Patient Yes -Correct Side, Site, Position Yes -Correct Procedure Yes -Procedure Performed Yes -Type of Procedure Debridement -Clinical Debridement Subcutaneous -Post Debridement Size (cm) - Length 1.3 -Post Debridement Size (cm) - Width 4.5 -Post Debridement Size (cm) - Depth 0.1 -Total Square Cm 5.85 -Wound/Ulcer Outcome Not Healed -Ulcer Cleansing Rinsed/ Irrigated with Saline -Foul Odor after Cleansing No -Bioengineered Tissue No -Bleeding Controlled with Pressure -Offloading No -Treatment Response Procedure Tolerated Well #3 left lateral/posterior lower leg -Time 09:44 -Correct Patient Yes -Correct Side, Site, Position Yes -Correct Procedure Yes -Procedure Performed Yes -Type of Procedure Debridement -Clinical Debridement Subcutaneous -Post Debridement Size (cm) - Length 9.0 -Post Debridement Size (cm) - Width 6.0 -Post Debridement Size (cm) - Depth 0.2 -Total Square Cm 54.00 -Wound/Ulcer Outcome Not Healed -Ulcer Cleansing Rinsed/ Irrigated with Saline -Foul Odor after Cleansing No -Bioengineered Tissue No -Bleeding Controlled with Pressure -Offloading No -Treatment Response Procedure Tolerated Well #2 left distal foot circumfrential -Time 09:44 -Correct Patient Yes -Correct Side, Site, Position Yes -Correct Procedure Yes -Procedure Performed Yes -Type of Procedure Debridement -Clinical Debridement Subcutaneous -Post Debridement Size (cm) - Length 20.0 -Post Debridement Size (cm) - Width 8.0 -Post Debridement Size (cm) - Depth 0.1 -Total Square Cm 160.00 -Wound/Ulcer Outcome Not Healed -Ulcer Cleansing Rinsed/ Irrigated with Saline -Foul Odor after Cleansing No -Bioengineered Tissue No -Bleeding Controlled with Pressure -Offloading No -Treatment Response Procedure Tolerated Well #1 right lateral lower leg -Time 09:44 -Correct Patient Yes -Correct Side, Site, Position Yes -Correct Procedure Yes -Procedure Performed Yes -Type of Procedure Debridement -Clinical Debridement Subcutaneous -Post Debridement Size (cm) - Length 7.0 -Post Debridement Size (cm) - Width 5.0 -Post Debridement Size (cm) - Depth 0.2 -Total Square Cm 35.00 -Wound/Ulcer Outcome Not Healed -Ulcer Cleansing Rinsed/ Irrigated with Saline -Foul Odor after Cleansing No -Bioengineered Tissue No -Bleeding Controlled with Pressure -Offloading No -Treatment Response Procedure Tolerated Well [See Physician Procedure note for Specifics] Pain Scale: 0-10 Numeric [Pain] -Is Patient Pain Free? Yes Musculoskeletal: No Muscle Wasting Neurological: Cranial nerves II-XII grossly intact Psych/Mental Status: Normal Affect Debridement Note Post-Debridement Measurements/Treatment WC - Nurse 2 - General Ulcer CM Notes Start: 08/14/18 09:07 Freq: Status: Active Protocol: Activity Type Activity Date Activity User E-Sign Co-Sign Detail Recorded Client Recorded Date Recorded By Document 08/14/18 09:37 MW [id number] 08/14/18 10:00 MW Document 08/21/18 08:47 MW [id number] 08/21/18 09:00 MW Document 08/29/18 09:43 MW [id number] 08/29/18 09:57 MW 08/14/18 08/21/18 08/29/18 09:37 08:47 09:43 Wound Center Nurse 2 #5 LEFT KNEE -Time 09:50 -Correct Patient Yes -Correct Side, Site, Position Yes -Correct Procedure Yes -Procedure Performed Yes -Type of Procedure Debridement -Clinical Debridement Subcutaneous -Post Debridement Size (cm) - Length 1.3 -Post Debridement Size (cm) - Width 4.5 -Post Debridement Size (cm) - Depth 0.1 -Total Square Cm 5.85 -Wound/Ulcer Outcome Not Healed -Ulcer Cleansing Rinsed/ Irrigated with Saline -Foul Odor after Cleansing No -Bioengineered Tissue No -Bleeding Controlled with Pressure -Offloading No -Treatment Response Procedure Tolerated Well #3 left lateral/posterior lower leg -Time 09:42 08:47 09:44 -Correct Patient Yes Yes Yes -Correct Side, Site, Position Yes Yes Yes -Correct Procedure Yes Yes Yes -Procedure Performed Yes Yes Yes -Type of Procedure Debridement Debridement Debridement -Clinical Debridement Subcutaneous Subcutaneous Subcutaneous -Post Debridement Size (cm) - Length 9.0 9.0 9.0 -Post Debridement Size (cm) - Width 6.0 6.0 6.0 -Post Debridement Size (cm) - Depth 0.1 0.1 0.2 -Total Square Cm 54.00 54.00 54.00 -Wound/Ulcer Outcome Not Healed Not Healed Not Healed -Ulcer Cleansing Rinsed/ Rinsed/ Rinsed/ Irrigated with Irrigated with Irrigated with Saline Saline Saline -Foul Odor after Cleansing No No No -Bioengineered Tissue No No No -Bleeding Controlled with Pressure Pressure Pressure -Offloading No No No -Treatment Response Procedure Procedure Procedure Tolerated Well Tolerated Well Tolerated Well #2 left distal foot circumfrential -Time 09:42 08:48 09:44 -Correct Patient Yes Yes Yes -Correct Side, Site, Position Yes Yes Yes -Correct Procedure Yes Yes Yes -Procedure Performed Yes Yes Yes -Type of Procedure Debridement Debridement Debridement -Clinical Debridement Subcutaneous Subcutaneous Subcutaneous -Post Debridement Size (cm) - Length 20.0 20.0 20.0 -Post Debridement Size (cm) - Width 9.0 8.0 8.0 -Post Debridement Size (cm) - Depth 0.1 0.1 0.1 -Total Square Cm 180.00 160.00 160.00 -Wound/Ulcer Outcome Not Healed Not Healed Not Healed -Ulcer Cleansing Rinsed/ Rinsed/ Rinsed/ Irrigated with Irrigated with Irrigated with Saline Saline Saline -Foul Odor after Cleansing No No No -Bioengineered Tissue No No No -Bleeding Controlled with Pressure Pressure Pressure -Offloading No No No -Treatment Response Procedure Procedure Procedure Tolerated Well Tolerated Well Tolerated Well #1 right lateral lower leg -Time 09:42 08:48 09:44 -Correct Patient Yes Yes Yes -Correct Side, Site, Position Yes Yes Yes -Correct Procedure Yes Yes Yes -Procedure Performed Yes Yes Yes -Type of Procedure Debridement Debridement Debridement -Clinical Debridement Subcutaneous Subcutaneous Subcutaneous -Post Debridement Size (cm) - Length 10.5 6.0 7.0 -Post Debridement Size (cm) - Width 8.0 6.5 5.0 -Post Debridement Size (cm) - Depth 0.1 0.1 0.2 -Total Square Cm 84.00 39.00 35.00 -Wound/Ulcer Outcome Not Healed Not Healed Not Healed -Ulcer Cleansing Rinsed/ Rinsed/ Rinsed/ Irrigated with Irrigated with Irrigated with Saline Saline Saline -Foul Odor after Cleansing No No No -Bioengineered Tissue No No No -Bleeding Controlled with Pressure Pressure Pressure -Offloading No No No -Treatment Response Procedure Procedure Procedure Tolerated Well Tolerated Well Tolerated Well Pain Scale: 0-10 Numeric Is Patient Pain Free? Yes Yes Yes Wound debrided: Left foot Wound Grade/Stage: Grdae II Type of Debridement: Excisional debridement Anesthesia Used: 4% Lidocaine Solution Depth: Down to and including healthy tissue, in the subcutaneous layer Percentage of wound debrided: 100 Instrument Used: 5mm curette Tissue Removed: Slough and devitalized tissue Severity: Fat Layer Exposed Amount of bleeding with debridement: Mild Bleeding Controlled with: Pressure Patient tolerated procedure well - Additional Wound Wound debrided: Left lateral lower extremity Wound Grade/Stage: Grade II Type of Debridement: Excisional debridement Anesthesia Used: 4% Lidocaine Solution Depth: Down to and including healthy tissue, in the subcutaneous layer Percentage of wound debrided: 100 Instrument Used: 5mm curette Tissue Removed: Slough and devitalized tissue Severity: Fat Layer Exposed Amount of bleeding with debridement: Mild Bleeding Controlled with: Pressure Patient tolerated procedure: Patient tolerated procedure well - Additional Wound Wound debrided: Right lower extremity Wound Grade/Stage: Grade II Type of Debridement: Excisional debridement Anesthesia Used: 4% Lidocaine Solution Depth: Down to and including healthy tissue, in the subcutaneous layer Percentage of wound debrided: 100 Instrument Used: 5mm curette Tissue Removed: Slough and devitalized tissue Severity: Fat Layer Exposed Amount of bleeding with debridement: Mild Bleeding Controlled with: Pressure Patient tolerated procedure: Patient tolerated procedure well - Additional Wound Wound debrided: Left knee Wound Grade/Stage: Stage II Type of Debridement: Excisional debridement Anesthesia Used: 4% Lidocaine Solution Depth: Down to and including healthy tissue, in the subcutaneous layer Percentage of wound debrided: 100 Instrument Used: 5mm curette Tissue Removed: slough and devitalized tissue Severity: Fat Layer Exposed Amount of bleeding with debridement: Mild Bleeding Controlled with: Pressure Patient tolerated procedure: Patient tolerated procedure well Assessment/Plan Active Problems (Last Reviewed 07/17/18 @ 12:42 by Lorene Farfan NP-C) Diabetic foot ulcer associated with type 2 diabetes mellitus (Chronic) Grade 2. Ulcer of left lower extremity with fat layer exposed (Chronic) Ulcer of right lower extremity with fat layer exposed (Chronic) Bilateral lower extremity edema (Chronic) Type 2 diabetes mellitus (Chronic) Assessment: Nonhealing bilateral lower extremity ulcer in a patient with type 2 diabetes mellitus. Diabetic foot ulcer with significant maceration/deformity. Morbid obesity. Tobacco abuse. Plan: New left knee wound. Other ulcers stable. Debridement done as documented above. Procedure was well-tolerated. Continue Fibracol. Change daily to twice daily depending on drainage. Xeroform over top. Optimal blood sugar control strongly recommended. Making attempts at smoking cessation, he was encouraged. Increased protein intake. Continue premier twice daily. Continue Francisco Javier wrap to bilateral lower extremities.. Elevate lower extremities when seated and in bed. His questions were answered and he was advised to call with any further questions or concerns. Follow-up in 1 week. This note was generated with [employer] dictation software. It may contain incorrect words, spelling, and punctuation that were not noted in checking the note before signing.
--- NOTE | 2018-08-29 11:19 | PN.PCM_ITS ---
(1) Diabetic foot ulcer associated with type 2 diabetes mellitus Status: Chronic Current Visit: Yes Code(s): E11.621 - Type 2 diabetes mellitus with foot ulcer; L97.509 - Non-pressure chronic ulcer of other part of unspecified foot with unspecified severity Comment: Grade 2. (2) Ulcer of left lower extremity with fat layer exposed Status: Chronic Current Visit: Yes Code(s): L97.922 - Non-pressure chronic ulcer of unspecified part of left lower leg with fat layer exposed (3) Ulcer of right lower extremity with fat layer exposed Status: Chronic Current Visit: Yes Code(s): L97.912 - Non-pressure chronic ulcer of unspecified part of right lower leg with fat layer exposed (4) Type 2 diabetes mellitus Status: Chronic Current Visit: Yes Code(s): E11.9 - Type 2 diabetes mellitus without complications (5) Bilateral lower extremity edema Status: Chronic Current Visit: Yes Code(s): R60.0 - Localized edema Type of Wound Chief Complaint: Bilateral lower extremity ulcers. History of Wound: Mr. Toscano is a 62-year-old with a complex past medical history who was referred to the wound center due to nonhealing bilateral lower extremity ulcers. He reports a history of recurrent bilateral lower extremity ulcers since 1995 however most recent episode was said to have started in March. Was managed by wound care nurse at his intermediate facility with no significant improvement. He is also been seen at other wound care centers. He is unsure of his diabetes control. Smokes daily. Largely sedentary. At this time, he denies any acute concerns. Denies chills, fever or feeling of unwell. Progress of Wound: New left knee wound. - Physical Exam Vital Signs Temp Pulse Resp BP Pulse Ox 97.5 F L 66 18 119/69 90 08/29/18 08:55 08/29/18 08:55 08/29/18 08:55 08/29/18 08:55 08/29/18 08:55 General: Alert, Oriented x3, Cooperative, No apparent distress HEENT: Atraumatic, Normocephalic Oral: Moist Mucosa Neck: Supple Lungs: Normal air movement Abdomen: Non Tender, Obese Extremities: No cyanosis, Edema Skin: Ulcer/ Wound Wound Measurements and Assessment WC - Nurse 1 - General Ulcer Measurement Start: 08/14/18 09:07 Freq: Status: Active Protocol: Activity Type Activity Date Activity User E-Sign Co-Sign Detail Recorded Client Recorded Date Recorded By Document 08/29/18 08:55 MI [id number] 08/29/18 09:15 MI 08/29/18 08:55 Wound Center Nurse 1 [Ulcer Assessment] #3 left lateral/posterior lower leg -Combined with other wound No -Current Size (cm) - Length 9.0 -Current Size (cm) - Width 5.5 -Current Size (cm) - Depth 0.1 -Total Square Cm 49.50 -Photo Taken No -Tunneling No -Undermining/Tunneling No -Circular Undermining No -Exudate Amt Small -Exudate Type Serosanguineous -Wound Margin Flat & Intact -Granulation Amt Medium (34-66%) -Granulation Quality Pale [place] -Necrosis Amt Medium (34-66%) -Necrotic Tissue Type Adherent Slough -Texture (Nichol-wound Skin Appearance) Assessed -Moisture (Nichol-wound Skin Appearance Assessed ) Maceration -Color (Nichol-wound Skin Appearance) Assessed -Temperature (Nichol-wound Skin No Abnormality Appearance) (Pt Warm) -Tenderness on Palpation (Nichol-wound No Skin Appearance) -Ulcer Cleansing Wound Cleanser -Foul Odor after Cleansing No -Anesthetic Used 5% Lidocaine Gel #2 left distal foot circumfrential -Combined with other wound No -Current Size (cm) - Length 24.0 -Current Size (cm) - Width 8.0 -Current Size (cm) - Depth 0.1 -Total Square Cm 192.00 -Photo Taken No -Tunneling No -Undermining/Tunneling No -Circular Undermining No -Exudate Amt Small -Exudate Type Serosanguineous -Wound Margin Flat & Intact -Granulation Amt Large (67-100%) -Granulation Quality Pale [place] -Necrosis Amt Small (1-33%) -Necrotic Tissue Type Adherent Slough -Texture (Nichol-wound Skin Appearance) Assessed -Moisture (Nichol-wound Skin Appearance Assessed ) Maceration -Color (Nichol-wound Skin Appearance) Assessed -Temperature (Nichol-wound Skin No Abnormality Appearance) (Pt Warm) -Tenderness on Palpation (Nichol-wound Yes Skin Appearance) -Ulcer Cleansing Wound Cleanser -Foul Odor after Cleansing No -Anesthetic Used 5% Lidocaine Gel #1 right lateral lower leg -Current Size (cm) - Length 6.2 -Current Size (cm) - Width 4.5 -Current Size (cm) - Depth 0.1 -Total Square Cm 27.90 -Photo Taken No -Undermining/Tunneling No -Circular Undermining No -Exudate Amt Small -Exudate Type Serosanguineous -Wound Margin Flat & Intact -Granulation Amt Large (67-100%) -Granulation Quality Pale [place] -Slough/Fibrin Yes -Necrosis Amt Small (1-33%) -Necrotic Tissue Type Adherent Slough -Texture (Nichol-wound Skin Appearance) Assessed -Moisture (Nichol-wound Skin Appearance Assessed ) Maceration -Color (Nichol-wound Skin Appearance) Assessed -Temperature (Nichol-wound Skin No Abnormality Appearance) (Pt Warm) -Tenderness on Palpation (Nichol-wound No Skin Appearance) -Ulcer Cleansing Wound Cleanser -Anesthetic Used 5% Lidocaine Gel [Edema Assessment] -Right Calf (cm) 52.5 -Right Ankle (cm) 30.0 -Left Calf (cm) 56.5 -Left Ankle (cm) 31.0 WC - Nurse 2 - General Ulcer CM Notes Start: 08/14/18 09:07 Freq: Status: Active Protocol: Activity Type Activity Date Activity User E-Sign Co-Sign Detail Recorded Client Recorded Date Recorded By Document 08/29/18 09:43 MW [id number] 08/29/18 09:57 MW 08/29/18 09:43 Wound Center Nurse 2 [Procedure/Treatment] #5 LEFT KNEE -Time 09:50 -Correct Patient Yes -Correct Side, Site, Position Yes -Correct Procedure Yes -Procedure Performed Yes -Type of Procedure Debridement -Clinical Debridement Subcutaneous -Post Debridement Size (cm) - Length 1.3 -Post Debridement Size (cm) - Width 4.5 -Post Debridement Size (cm) - Depth 0.1 -Total Square Cm 5.85 -Wound/Ulcer Outcome Not Healed -Ulcer Cleansing Rinsed/ Irrigated with Saline -Foul Odor after Cleansing No -Bioengineered Tissue No -Bleeding Controlled with Pressure -Offloading No -Treatment Response Procedure Tolerated Well #3 left lateral/posterior lower leg -Time 09:44 -Correct Patient Yes -Correct Side, Site, Position Yes -Correct Procedure Yes -Procedure Performed Yes -Type of Procedure Debridement -Clinical Debridement Subcutaneous -Post Debridement Size (cm) - Length 9.0 -Post Debridement Size (cm) - Width 6.0 -Post Debridement Size (cm) - Depth 0.2 -Total Square Cm 54.00 -Wound/Ulcer Outcome Not Healed -Ulcer Cleansing Rinsed/ Irrigated with Saline -Foul Odor after Cleansing No -Bioengineered Tissue No -Bleeding Controlled with Pressure -Offloading No -Treatment Response Procedure Tolerated Well #2 left distal foot circumfrential -Time 09:44 -Correct Patient Yes -Correct Side, Site, Position Yes -Correct Procedure Yes -Procedure Performed Yes -Type of Procedure Debridement -Clinical Debridement Subcutaneous -Post Debridement Size (cm) - Length 20.0 -Post Debridement Size (cm) - Width 8.0 -Post Debridement Size (cm) - Depth 0.1 -Total Square Cm 160.00 -Wound/Ulcer Outcome Not Healed -Ulcer Cleansing Rinsed/ Irrigated with Saline -Foul Odor after Cleansing No -Bioengineered Tissue No -Bleeding Controlled with Pressure -Offloading No -Treatment Response Procedure Tolerated Well #1 right lateral lower leg -Time 09:44 -Correct Patient Yes -Correct Side, Site, Position Yes -Correct Procedure Yes -Procedure Performed Yes -Type of Procedure Debridement -Clinical Debridement Subcutaneous -Post Debridement Size (cm) - Length 7.0 -Post Debridement Size (cm) - Width 5.0 -Post Debridement Size (cm) - Depth 0.2 -Total Square Cm 35.00 -Wound/Ulcer Outcome Not Healed -Ulcer Cleansing Rinsed/ Irrigated with Saline -Foul Odor after Cleansing No -Bioengineered Tissue No -Bleeding Controlled with Pressure -Offloading No -Treatment Response Procedure Tolerated Well [See Physician Procedure note for Specifics] Pain Scale: 0-10 Numeric [Pain] -Is Patient Pain Free? Yes Musculoskeletal: No Muscle Wasting Neurological: Cranial nerves II-XII grossly intact Psych/Mental Status: Normal Affect Debridement Note Post-Debridement Measurements/Treatment WC - Nurse 2 - General Ulcer CM Notes Start: 08/14/18 09:07 Freq: Status: Active Protocol: Activity Type Activity Date Activity User E-Sign Co-Sign Detail Recorded Client Recorded Date Recorded By Document 08/14/18 09:37 MW [id number] 08/14/18 10:00 MW Document 08/21/18 08:47 MW [id number] 08/21/18 09:00 MW Document 08/29/18 09:43 MW [id number] 08/29/18 09:57 MW 08/14/18 08/21/18 08/29/18 09:37 08:47 09:43 Wound Center Nurse 2 #5 LEFT KNEE -Time 09:50 -Correct Patient Yes -Correct Side, Site, Position Yes -Correct Procedure Yes -Procedure Performed Yes -Type of Procedure Debridement -Clinical Debridement Subcutaneous -Post Debridement Size (cm) - Length 1.3 -Post Debridement Size (cm) - Width 4.5 -Post Debridement Size (cm) - Depth 0.1 -Total Square Cm 5.85 -Wound/Ulcer Outcome Not Healed -Ulcer Cleansing Rinsed/ Irrigated with Saline -Foul Odor after Cleansing No -Bioengineered Tissue No -Bleeding Controlled with Pressure -Offloading No -Treatment Response Procedure Tolerated Well #3 left lateral/posterior lower leg -Time 09:42 08:47 09:44 -Correct Patient Yes Yes Yes -Correct Side, Site, Position Yes Yes Yes -Correct Procedure Yes Yes Yes -Procedure Performed Yes Yes Yes -Type of Procedure Debridement Debridement Debridement -Clinical Debridement Subcutaneous Subcutaneous Subcutaneous -Post Debridement Size (cm) - Length 9.0 9.0 9.0 -Post Debridement Size (cm) - Width 6.0 6.0 6.0 -Post Debridement Size (cm) - Depth 0.1 0.1 0.2 -Total Square Cm 54.00 54.00 54.00 -Wound/Ulcer Outcome Not Healed Not Healed Not Healed -Ulcer Cleansing Rinsed/ Rinsed/ Rinsed/ Irrigated with Irrigated with Irrigated with Saline Saline Saline -Foul Odor after Cleansing No No No -Bioengineered Tissue No No No -Bleeding Controlled with Pressure Pressure Pressure -Offloading No No No -Treatment Response Procedure Procedure Procedure Tolerated Well Tolerated Well Tolerated Well #2 left distal foot circumfrential -Time 09:42 08:48 09:44 -Correct Patient Yes Yes Yes -Correct Side, Site, Position Yes Yes Yes -Correct Procedure Yes Yes Yes -Procedure Performed Yes Yes Yes -Type of Procedure Debridement Debridement Debridement -Clinical Debridement Subcutaneous Subcutaneous Subcutaneous -Post Debridement Size (cm) - Length 20.0 20.0 20.0 -Post Debridement Size (cm) - Width 9.0 8.0 8.0 -Post Debridement Size (cm) - Depth 0.1 0.1 0.1 -Total Square Cm 180.00 160.00 160.00 -Wound/Ulcer Outcome Not Healed Not Healed Not Healed -Ulcer Cleansing Rinsed/ Rinsed/ Rinsed/ Irrigated with Irrigated with Irrigated with Saline Saline Saline -Foul Odor after Cleansing No No No -Bioengineered Tissue No No No -Bleeding Controlled with Pressure Pressure Pressure -Offloading No No No -Treatment Response Procedure Procedure Procedure Tolerated Well Tolerated Well Tolerated Well #1 right lateral lower leg -Time 09:42 08:48 09:44 -Correct Patient Yes Yes Yes -Correct Side, Site, Position Yes Yes Yes -Correct Procedure Yes Yes Yes -Procedure Performed Yes Yes Yes -Type of Procedure Debridement Debridement Debridement -Clinical Debridement Subcutaneous Subcutaneous Subcutaneous -Post Debridement Size (cm) - Length 10.5 6.0 7.0 -Post Debridement Size (cm) - Width 8.0 6.5 5.0 -Post Debridement Size (cm) - Depth 0.1 0.1 0.2 -Total Square Cm 84.00 39.00 35.00 -Wound/Ulcer Outcome Not Healed Not Healed Not Healed -Ulcer Cleansing Rinsed/ Rinsed/ Rinsed/ Irrigated with Irrigated with Irrigated with Saline Saline Saline -Foul Odor after Cleansing No No No -Bioengineered Tissue No No No -Bleeding Controlled with Pressure Pressure Pressure -Offloading No No No -Treatment Response Procedure Procedure Procedure Tolerated Well Tolerated Well Tolerated Well Pain Scale: 0-10 Numeric Is Patient Pain Free? Yes Yes Yes Wound debrided: Left foot Wound Grade/Stage: Grdae II Type of Debridement: Excisional debridement Anesthesia Used: 4% Lidocaine Solution Depth: Down to and including healthy tissue, in the subcutaneous layer Percentage of wound debrided: 100 Instrument Used: 5mm curette Tissue Removed: Slough and devitalized tissue Severity: Fat Layer Exposed Amount of bleeding with debridement: Mild Bleeding Controlled with: Pressure Patient tolerated procedure well - Additional Wound Wound debrided: Left lateral lower extremity Wound Grade/Stage: Grade II Type of Debridement: Excisional debridement Anesthesia Used: 4% Lidocaine Solution Depth: Down to and including healthy tissue, in the subcutaneous layer Percentage of wound debrided: 100 Instrument Used: 5mm curette Tissue Removed: Slough and devitalized tissue Severity: Fat Layer Exposed Amount of bleeding with debridement: Mild Bleeding Controlled with: Pressure Patient tolerated procedure: Patient tolerated procedure well - Additional Wound Wound debrided: Right lower extremity Wound Grade/Stage: Grade II Type of Debridement: Excisional debridement Anesthesia Used: 4% Lidocaine Solution Depth: Down to and including healthy tissue, in the subcutaneous layer Percentage of wound debrided: 100 Instrument Used: 5mm curette Tissue Removed: Slough and devitalized tissue Severity: Fat Layer Exposed Amount of bleeding with debridement: Mild Bleeding Controlled with: Pressure Patient tolerated procedure: Patient tolerated procedure well - Additional Wound Wound debrided: Left knee Wound Grade/Stage: Stage II Type of Debridement: Excisional debridement Anesthesia Used: 4% Lidocaine Solution Depth: Down to and including healthy tissue, in the subcutaneous layer Percentage of wound debrided: 100 Instrument Used: 5mm curette Tissue Removed: slough and devitalized tissue Severity: Fat Layer Exposed Amount of bleeding with debridement: Mild Bleeding Controlled with: Pressure Patient tolerated procedure: Patient tolerated procedure well Assessment/Plan Active Problems (Last Reviewed 07/17/18 @ 12:42 by Lorene Farfan NP-C) Diabetic foot ulcer associated with type 2 diabetes mellitus (Chronic) Grade 2. Ulcer of left lower extremity with fat layer exposed (Chronic) Ulcer of right lower extremity with fat layer exposed (Chronic) Bilateral lower extremity edema (Chronic) Type 2 diabetes mellitus (Chronic) Assessment: Nonhealing bilateral lower extremity ulcer in a patient with type 2 diabetes mellitus. Diabetic foot ulcer with significant maceration/deformity. Morbid obesity. Tobacco abuse. Plan: New left knee wound. Other ulcers stable. Debridement done as documented above. Procedure was well-tolerated. Continue Fibracol. Change daily to twice daily depending on drainage. Xeroform over top. Optimal blood sugar control strongly recommended. Making attempts at smoking cessation, he was encouraged. Increased protein intake. Continue premier twice daily. Continue Francisco Javier wrap to bilateral lower extremities.. Elevate lower extremities when seated and in bed. His questions were answered and he was advised to call with any further questions or concerns. Follow-up in 1 week. This note was generated with [employer] dictation software. It may contain incorrect words, spelling, and punctuation that were not noted in checking the note before signing.
[2018-09-05 08:21] VITALS: BP 105/62; PULSE 66; RESP 18; TEMP 36.5; BMI 58.8
--- NOTE | 2018-09-05 10:43 | PCM.WC.PN ---
(1) Diabetic foot ulcer associated with type 2 diabetes mellitus Status: Chronic Current Visit: Yes Code(s): E11.621 - Type 2 diabetes mellitus with foot ulcer; L97.509 - Non-pressure chronic ulcer of other part of unspecified foot with unspecified severity Comment: Grade 2. (2) Ulcer of left lower extremity with fat layer exposed Status: Chronic Current Visit: Yes Code(s): L97.922 - Non-pressure chronic ulcer of unspecified part of left lower leg with fat layer exposed (3) Ulcer of right lower extremity with fat layer exposed Status: Chronic Current Visit: Yes Code(s): L97.912 - Non-pressure chronic ulcer of unspecified part of right lower leg with fat layer exposed (4) Type 2 diabetes mellitus Status: Chronic Current Visit: Yes Code(s): E11.9 - Type 2 diabetes mellitus without complications (5) Bilateral lower extremity edema Status: Chronic Current Visit: Yes Code(s): R60.0 - Localized edema Type of Wound Chief Complaint: Bilateral lower extremity ulcers. History of Wound: Mr. Toscano is a 62-year-old with a complex past medical history who was referred to the wound center due to nonhealing bilateral lower extremity ulcers. He reports a history of recurrent bilateral lower extremity ulcers since 1995 however most recent episode was said to have started in March. Was managed by [facility] care [facility] with no significant improvement. He is also been seen at other wound care centers. He is unsure of his diabetes control. Smokes daily. Largely sedentary. At this time, he denies any acute concerns. Denies chills, fever or feeling of unwell. Progress of Wound: Nichol wound masceration worsening. He denies any acute concerns at this time. - Physical Exam Vital Signs Temp Pulse Resp BP Pulse Ox 97.7 F L 66 18 105/62 90 09/05/18 08:21 09/05/18 08:21 09/05/18 08:21 09/05/18 08:21 08/29/18 08:55 General: Alert, Oriented x3, Cooperative, No apparent distress HEENT: Atraumatic, Normocephalic Neck: Supple Lungs: Normal air movement Abdomen: Non Tender, Obese Extremities: No cyanosis, Edema Skin: Ulcer/ Wound Wound Measurements and Assessment WC - Nurse 1 - General Ulcer Measurement Start: 08/14/18 09:07 Freq: Status: Active Protocol: Activity Type Activity Date Activity User E-Sign Co-Sign Detail Recorded Client Recorded Date Recorded By Document 09/05/18 08:21 AN [id number] 09/05/18 08:44 AN 09/05/18 08:21 Wound Center Nurse 1 [Ulcer Assessment] #5 LEFT KNEE -Current Size (cm) - Length 0.1 -Current Size (cm) - Width 0.1 -Current Size (cm) - Depth 0.1 -Total Square Cm 0.01 -Classification - Thickness Unclassifiable (Eschar Covered ) -Exudate Amt None Present -Wound Margin Distinct, Outline Attached -Granulation Amt None Present (0 %) #3 left lateral/posterior lower leg -Current Size (cm) - Length 10 -Current Size (cm) - Width 6.5 -Current Size (cm) - Depth 0.1 -Total Square Cm 65.0 -Classification - Thickness Full Thickness without Exposed Support Structure -Exudate Amt Medium -Exudate Type Serosanguineous -Wound Margin Flat & Intact -Granulation Amt Medium (34-66%) -Granulation Quality Pale [place] -Slough/Fibrin Yes -Necrosis Amt Medium (34-66%) -Necrotic Tissue Type Adherent Slough -Structure Exposed None/Limited to Skin Breakdown -Texture (Nichol-wound Skin Appearance) Assessed -Moisture (Nichol-wound Skin Appearance Assessed ) Maceration -Color (Nichol-wound Skin Appearance) Assessed Erythema -Temperature (Nichol-wound Skin No Abnormality Appearance) (Pt Warm) -Tenderness on Palpation (Nichol-wound Yes Skin Appearance) -Ulcer Cleansing soap -Foul Odor after Cleansing Yes -Anesthetic Used 4% Lidocaine Solution #2 left distal foot circumfrential -Current Size (cm) - Length 23 -Current Size (cm) - Width 23.6 -Current Size (cm) - Depth 0.1 -Total Square Cm 542.8 -Classification - Thickness Full Thickness without Exposed Support Structure -Exudate Amt Medium -Exudate Type Yellow/Green -Wound Margin Flat & Intact -Granulation Amt Medium (34-66%) -Granulation Quality [place] -Slough/Fibrin Yes -Necrosis Amt Medium (34-66%) -Necrotic Tissue Type Adherent Slough -Structure Exposed None/Limited to Skin Breakdown -Texture (Nichol-wound Skin Appearance) Assessed Localized Edema -Moisture (Nichol-wound Skin Appearance Assessed ) Maceration Weeping -Color (Nichol-wound Skin Appearance) Assessed Erythema -Temperature (Nichol-wound Skin No Abnormality Appearance) (Pt Warm) -Tenderness on Palpation (Nichol-wound Yes Skin Appearance) -Ulcer Cleansing soap -Foul Odor after Cleansing No -Anesthetic Used 4% Lidocaine Solution #1 right lateral lower leg -Current Size (cm) - Length 11.5 -Current Size (cm) - Width 4.5 -Current Size (cm) - Depth 0.1 -Total Square Cm 51.75 -Classification - Thickness Full Thickness without Exposed Support Structure -Exudate Amt Medium -Exudate Type Serosanguineous -Wound Margin Flat & Intact -Granulation Amt Medium (34-66%) -Granulation Quality [place] -Slough/Fibrin Yes -Necrosis Amt Medium (34-66%) -Necrotic Tissue Type Adherent Slough -Structure Exposed None/Limited to Skin Breakdown -Texture (Nichol-wound Skin Appearance) Assessed -Moisture (Nichol-wound Skin Appearance Assessed ) Maceration Weeping -Color (Nichol-wound Skin Appearance) Assessed Erythema -Temperature (Nichol-wound Skin No Abnormality Appearance) (Pt Warm) -Tenderness on Palpation (Nichol-wound Yes Skin Appearance) -Ulcer Cleansing soap -Foul Odor after Cleansing No -Anesthetic Used 4% Lidocaine Solution [Edema Assessment] -Right Calf (cm) 54 -Right Ankle (cm) 31 -Left Calf (cm) 56.8 -Left Ankle (cm) 31 WC - Nurse 2 - General Ulcer CM Notes Start: 08/14/18 09:07 Freq: Status: Active Protocol: Activity Type Activity Date Activity User E-Sign Co-Sign Detail Recorded Client Recorded Date Recorded By Document 09/05/18 08:51 MW [id number] 09/05/18 09:14 MW 09/05/18 08:51 Wound Center Nurse 2 [Procedure/Treatment] #5 LEFT KNEE -Time 09:00 -Correct Patient Yes -Correct Side, Site, Position Yes -Correct Procedure Yes -Procedure Performed No -Post Debridement Size (cm) - Length 0 -Post Debridement Size (cm) - Width 0 -Post Debridement Size (cm) - Depth 0 -Total Square Cm 0 -Wound/Ulcer Outcome Healed- Epithelialized #3 left lateral/posterior lower leg -Time 08:56 -Correct Patient Yes -Correct Side, Site, Position Yes -Correct Procedure Yes -Procedure Performed Yes -Type of Procedure Debridement -Clinical Debridement Subcutaneous -Post Debridement Size (cm) - Length 9.0 -Post Debridement Size (cm) - Width 5.5 -Post Debridement Size (cm) - Depth 0.2 -Total Square Cm 49.50 -Wound/Ulcer Outcome Not Healed -Ulcer Cleansing Rinsed/ Irrigated with Saline -Foul Odor after Cleansing No -Bioengineered Tissue No -Bleeding Controlled with Pressure -Offloading No -Treatment Response Procedure Tolerated Well #2 left distal foot circumfrential -Time 08:53 -Correct Patient Yes -Correct Side, Site, Position Yes -Correct Procedure Yes -Procedure Performed Yes -Type of Procedure Debridement -Clinical Debridement Subcutaneous -Post Debridement Size (cm) - Length 23.0 -Post Debridement Size (cm) - Width 9.0 -Post Debridement Size (cm) - Depth 0.4 -Total Square Cm 207.00 -Wound/Ulcer Outcome Not Healed -Ulcer Cleansing Rinsed/ Irrigated with Saline -Foul Odor after Cleansing No -Bioengineered Tissue No -Bleeding Controlled with Pressure -Offloading No -Treatment Response Procedure Tolerated Well #1 right lateral lower leg -Time 08:53 -Correct Patient Yes -Correct Side, Site, Position Yes -Correct Procedure Yes -Procedure Performed Yes -Type of Procedure Debridement -Clinical Debridement Subcutaneous -Post Debridement Size (cm) - Length 7.0 -Post Debridement Size (cm) - Width 5.0 -Post Debridement Size (cm) - Depth 0.1 -Total Square Cm 35.00 -Wound/Ulcer Outcome Not Healed -Ulcer Cleansing Rinsed/ Irrigated with Saline -Foul Odor after Cleansing No -Bioengineered Tissue No -Bleeding Controlled with Pressure -Offloading No -Treatment Response Procedure Tolerated Well [See Physician Procedure note for Specifics] Pain Scale: 0-10 Numeric [Pain] -Is Patient Pain Free? Yes Musculoskeletal: No Muscle Wasting Neurological: Cranial nerves II-XII grossly intact Psych/Mental Status: Normal Affect Debridement Note Post-Debridement Measurements/Treatment WC - Nurse 2 - General Ulcer CM Notes Start: 08/14/18 09:07 Freq: Status: Active Protocol: Activity Type Activity Date Activity User E-Sign Co-Sign Detail Recorded Client Recorded Date Recorded By Document 08/14/18 09:37 MW [id number] 08/14/18 10:00 MW Document 08/21/18 08:47 MW [id number] 08/21/18 09:00 MW Document 08/29/18 09:43 MW [id number] 08/29/18 09:57 MW Document 09/05/18 08:51 MW [id number] 09/05/18 09:14 MW 08/14/18 08/21/18 08/29/18 09:37 08:47 09:43 Wound Center Nurse 2 #5 LEFT KNEE -Time 09:50 -Correct Patient Yes -Correct Side, Site, Position Yes -Correct Procedure Yes -Procedure Performed Yes -Type of Procedure Debridement -Clinical Debridement Subcutaneous -Post Debridement Size (cm) - Length 1.3 -Post Debridement Size (cm) - Width 4.5 -Post Debridement Size (cm) - Depth 0.1 -Total Square Cm 5.85 -Wound/Ulcer Outcome Not Healed -Ulcer Cleansing Rinsed/ Irrigated with Saline -Foul Odor after Cleansing No -Bioengineered Tissue No -Bleeding Controlled with Pressure -Offloading No -Treatment Response Procedure Tolerated Well #3 left lateral/posterior lower leg -Time 09:42 08:47 09:44 -Correct Patient Yes Yes Yes -Correct Side, Site, Position Yes Yes Yes -Correct Procedure Yes Yes Yes -Procedure Performed Yes Yes Yes -Type of Procedure Debridement Debridement Debridement -Clinical Debridement Subcutaneous Subcutaneous Subcutaneous -Post Debridement Size (cm) - Length 9.0 9.0 9.0 -Post Debridement Size (cm) - Width 6.0 6.0 6.0 -Post Debridement Size (cm) - Depth 0.1 0.1 0.2 -Total Square Cm 54.00 54.00 54.00 -Wound/Ulcer Outcome Not Healed Not Healed Not Healed -Ulcer Cleansing Rinsed/ Rinsed/ Rinsed/ Irrigated with Irrigated with Irrigated with Saline Saline Saline -Foul Odor after Cleansing No No No -Bioengineered Tissue No No No -Bleeding Controlled with Pressure Pressure Pressure -Offloading No No No -Treatment Response Procedure Procedure Procedure Tolerated Well Tolerated Well Tolerated Well #2 left distal foot circumfrential -Time 09:42 08:48 09:44 -Correct Patient Yes Yes Yes -Correct Side, Site, Position Yes Yes Yes -Correct Procedure Yes Yes Yes -Procedure Performed Yes Yes Yes -Type of Procedure Debridement Debridement Debridement -Clinical Debridement Subcutaneous Subcutaneous Subcutaneous -Post Debridement Size (cm) - Length 20.0 20.0 20.0 -Post Debridement Size (cm) - Width 9.0 8.0 8.0 -Post Debridement Size (cm) - Depth 0.1 0.1 0.1 -Total Square Cm 180.00 160.00 160.00 -Wound/Ulcer Outcome Not Healed Not Healed Not Healed -Ulcer Cleansing Rinsed/ Rinsed/ Rinsed/ Irrigated with Irrigated with Irrigated with Saline Saline Saline -Foul Odor after Cleansing No No No -Bioengineered Tissue No No No -Bleeding Controlled with Pressure Pressure Pressure -Offloading No No No -Treatment Response Procedure Procedure Procedure Tolerated Well Tolerated Well Tolerated Well #1 right lateral lower leg -Time 09:42 08:48 09:44 -Correct Patient Yes Yes Yes -Correct Side, Site, Position Yes Yes Yes -Correct Procedure Yes Yes Yes -Procedure Performed Yes Yes Yes -Type of Procedure Debridement Debridement Debridement -Clinical Debridement Subcutaneous Subcutaneous Subcutaneous -Post Debridement Size (cm) - Length 10.5 6.0 7.0 -Post Debridement Size (cm) - Width 8.0 6.5 5.0 -Post Debridement Size (cm) - Depth 0.1 0.1 0.2 -Total Square Cm 84.00 39.00 35.00 -Wound/Ulcer Outcome Not Healed Not Healed Not Healed -Ulcer Cleansing Rinsed/ Rinsed/ Rinsed/ Irrigated with Irrigated with Irrigated with Saline Saline Saline -Foul Odor after Cleansing No No No -Bioengineered Tissue No No No -Bleeding Controlled with Pressure Pressure Pressure -Offloading No No No -Treatment Response Procedure Procedure Procedure Tolerated Well Tolerated Well Tolerated Well Pain Scale: 0-10 Numeric Is Patient Pain Free? Yes Yes Yes 09/05/18 08:51 Wound Center Nurse 2 #5 LEFT KNEE -Time 09:00 -Correct Patient Yes -Correct Side, Site, Position Yes -Correct Procedure Yes -Procedure Performed No -Type of Procedure -Clinical Debridement -Post Debridement Size (cm) - Length 0 -Post Debridement Size (cm) - Width 0 -Post Debridement Size (cm) - Depth 0 -Total Square Cm 0 -Wound/Ulcer Outcome Healed- Epithelialized -Ulcer Cleansing -Foul Odor after Cleansing -Bioengineered Tissue -Bleeding Controlled with -Offloading -Treatment Response #3 left lateral/posterior lower leg -Time 08:56 -Correct Patient Yes -Correct Side, Site, Position Yes -Correct Procedure Yes -Procedure Performed Yes -Type of Procedure Debridement -Clinical Debridement Subcutaneous -Post Debridement Size (cm) - Length 9.0 -Post Debridement Size (cm) - Width 5.5 -Post Debridement Size (cm) - Depth 0.2 -Total Square Cm 49.50 -Wound/Ulcer Outcome Not Healed -Ulcer Cleansing Rinsed/ Irrigated with Saline -Foul Odor after Cleansing No -Bioengineered Tissue No -Bleeding Controlled with Pressure -Offloading No -Treatment Response Procedure Tolerated Well #2 left distal foot circumfrential -Time 08:53 -Correct Patient Yes -Correct Side, Site, Position Yes -Correct Procedure Yes -Procedure Performed Yes -Type of Procedure Debridement -Clinical Debridement Subcutaneous -Post Debridement Size (cm) - Length 23.0 -Post Debridement Size (cm) - Width 9.0 -Post Debridement Size (cm) - Depth 0.4 -Total Square Cm 207.00 -Wound/Ulcer Outcome Not Healed -Ulcer Cleansing Rinsed/ Irrigated with Saline -Foul Odor after Cleansing No -Bioengineered Tissue No -Bleeding Controlled with Pressure -Offloading No -Treatment Response Procedure Tolerated Well #1 right lateral lower leg -Time 08:53 -Correct Patient Yes -Correct Side, Site, Position Yes -Correct Procedure Yes -Procedure Performed Yes -Type of Procedure Debridement -Clinical Debridement Subcutaneous -Post Debridement Size (cm) - Length 7.0 -Post Debridement Size (cm) - Width 5.0 -Post Debridement Size (cm) - Depth 0.1 -Total Square Cm 35.00 -Wound/Ulcer Outcome Not Healed -Ulcer Cleansing Rinsed/ Irrigated with Saline -Foul Odor after Cleansing No -Bioengineered Tissue No -Bleeding Controlled with Pressure -Offloading No -Treatment Response Procedure Tolerated Well Pain Scale: 0-10 Numeric Is Patient Pain Free? Yes Wound debrided: Left foot Wound Grade/Stage: Grade II Type of Debridement: Excisional debridement Anesthesia Used: 4% Lidocaine Solution Depth: Down to and including healthy tissue, in the subcutaneous layer Percentage of wound debrided: 100 Instrument Used: 5mm curette Tissue Removed: slough and devitalized tissue Severity: Fat Layer Exposed Amount of bleeding with debridement: Mild Bleeding Controlled with: Pressure Patient tolerated procedure well - Additional Wound Wound debrided: Left lateral lower extremity Wound Grade/Stage: Grade II Type of Debridement: Excisional debridement Anesthesia Used: 4% Lidocaine Solution Depth: Down to and including healthy tissue, in the subcutaneous layer Percentage of wound debrided: 100 Instrument Used: 5mm curette Tissue Removed: Slough and devitalized tissue Severity: Fat Layer Exposed Amount of bleeding with debridement: Mild Bleeding Controlled with: Pressure Patient tolerated procedure: Patient tolerated procedure well - Additional Wound Wound debrided: Right lateral lower extremity Wound Grade/Stage: Grade II Type of Debridement: Excisional debridement Anesthesia Used: 4% Lidocaine Solution Depth: Down to and including healthy tissue, in the subcutaneous layer Percentage of wound debrided: 100 Instrument Used: 5mm curette Tissue Removed: Slough and devitalized tissue Severity: Fat Layer Exposed Amount of bleeding with debridement: Mild Bleeding Controlled with: Pressure Patient tolerated procedure: Patient tolerated procedure well Assessment/Plan Active Problems (Last Reviewed 07/17/18 @ 12:42 by Lorene Farfan NP-C) Diabetic foot ulcer associated with type 2 diabetes mellitus (Chronic) Grade 2. Ulcer of left lower extremity with fat layer exposed (Chronic) Ulcer of right lower extremity with fat layer exposed (Chronic) Bilateral lower extremity edema (Chronic) Type 2 diabetes mellitus (Chronic) Assessment: Nonhealing bilateral lower extremity ulcer in a patient with type 2 diabetes mellitus. Diabetic foot ulcer with significant maceration/deformity. Morbid obesity. Tobacco abuse. Plan: Worsening periwound masceration and lower extremity edema. Debridement done as documented above. Procedure was well-tolerated. Due to significnat masceration and drainage, will switch to Kerracel with Kerramax care over top. Change daily to twice daily depending on drainage. Optimal blood sugar control strongly recommended. Making attempts at smoking cessation, he was encouraged. Increased protein intake. Continue premier twice daily. Continue Francisco Javier wrap to bilateral lower extremities.. Elevate lower extremities when seated and in bed. His questions were answered and he was advised to call with any further questions or concerns. Follow-up in 1 week. This note was generated with [employer] software. It may contain incorrect words, spelling, and punctuation that were not noted in checking the note before signing.
--- NOTE | 2018-09-05 10:48 | PN.PCM_ITS ---
(1) Diabetic foot ulcer associated with type 2 diabetes mellitus Status: Chronic Current Visit: Yes Code(s): E11.621 - Type 2 diabetes mellitus with foot ulcer; L97.509 - Non-pressure chronic ulcer of other part of unspecified foot with unspecified severity Comment: Grade 2. (2) Ulcer of left lower extremity with fat layer exposed Status: Chronic Current Visit: Yes Code(s): L97.922 - Non-pressure chronic ulcer of unspecified part of left lower leg with fat layer exposed (3) Ulcer of right lower extremity with fat layer exposed Status: Chronic Current Visit: Yes Code(s): L97.912 - Non-pressure chronic ulcer of unspecified part of right lower leg with fat layer exposed (4) Type 2 diabetes mellitus Status: Chronic Current Visit: Yes Code(s): E11.9 - Type 2 diabetes mellitus without complications (5) Bilateral lower extremity edema Status: Chronic Current Visit: Yes Code(s): R60.0 - Localized edema Type of Wound Chief Complaint: Bilateral lower extremity ulcers. History of Wound: Mr. Toscano is a 62-year-old with a complex past medical history who was referred to the wound center due to nonhealing bilateral lower extremity ulcers. He reports a history of recurrent bilateral lower extremity ulcers since 1995 however most recent episode was said to have started in March. Was managed by wound care nurse at his shelter facility with no significant improvement. He is also been seen at other wound care centers. He is unsure of his diabetes control. Smokes daily. Largely sedentary. At this time, he denies any acute concerns. Denies chills, fever or feeling of unwell. Progress of Wound: Nichol wound masceration worsening. He denies any acute concerns at this time. - Physical Exam Vital Signs Temp Pulse Resp BP Pulse Ox 97.7 F L 66 18 105/62 90 09/05/18 08:21 09/05/18 08:21 09/05/18 08:21 09/05/18 08:21 08/29/18 08:55 General: Alert, Oriented x3, Cooperative, No apparent distress HEENT: Atraumatic, Normocephalic Neck: Supple Lungs: Normal air movement Abdomen: Non Tender, Obese Extremities: No cyanosis, Edema Skin: Ulcer/ Wound Wound Measurements and Assessment WC - Nurse 1 - General Ulcer Measurement Start: 08/14/18 09:07 Freq: Status: Active Protocol: Activity Type Activity Date Activity User E-Sign Co-Sign Detail Recorded Client Recorded Date Recorded By Document 09/05/18 08:21 AN [id number] 09/05/18 08:44 AN 09/05/18 08:21 Wound Center Nurse 1 [Ulcer Assessment] #5 LEFT KNEE -Current Size (cm) - Length 0.1 -Current Size (cm) - Width 0.1 -Current Size (cm) - Depth 0.1 -Total Square Cm 0.01 -Classification - Thickness Unclassifiable (Eschar Covered ) -Exudate Amt None Present -Wound Margin Distinct, Outline Attached -Granulation Amt None Present (0 %) #3 left lateral/posterior lower leg -Current Size (cm) - Length 10 -Current Size (cm) - Width 6.5 -Current Size (cm) - Depth 0.1 -Total Square Cm 65.0 -Classification - Thickness Full Thickness without Exposed Support Structure -Exudate Amt Medium -Exudate Type Serosanguineous -Wound Margin Flat & Intact -Granulation Amt Medium (34-66%) -Granulation Quality Pale [place] -Slough/Fibrin Yes -Necrosis Amt Medium (34-66%) -Necrotic Tissue Type Adherent Slough -Structure Exposed None/Limited to Skin Breakdown -Texture (Nichol-wound Skin Appearance) Assessed -Moisture (Nichol-wound Skin Appearance Assessed ) Maceration -Color (Nichol-wound Skin Appearance) Assessed Erythema -Temperature (Nichol-wound Skin No Abnormality Appearance) (Pt Warm) -Tenderness on Palpation (Nichol-wound Yes Skin Appearance) -Ulcer Cleansing soap -Foul Odor after Cleansing Yes -Anesthetic Used 4% Lidocaine Solution #2 left distal foot circumfrential -Current Size (cm) - Length 23 -Current Size (cm) - Width 23.6 -Current Size (cm) - Depth 0.1 -Total Square Cm 542.8 -Classification - Thickness Full Thickness without Exposed Support Structure -Exudate Amt Medium -Exudate Type Yellow/Green -Wound Margin Flat & Intact -Granulation Amt Medium (34-66%) -Granulation Quality Pale [place] -Slough/Fibrin Yes -Necrosis Amt Medium (34-66%) -Necrotic Tissue Type Adherent Slough -Structure Exposed None/Limited to Skin Breakdown -Texture (Nichol-wound Skin Appearance) Assessed Localized Edema -Moisture (Nichol-wound Skin Appearance Assessed ) Maceration Weeping -Color (Nichol-wound Skin Appearance) Assessed Erythema -Temperature (Nichol-wound Skin No Abnormality Appearance) (Pt Warm) -Tenderness on Palpation (Nichol-wound Yes Skin Appearance) -Ulcer Cleansing soap -Foul Odor after Cleansing No -Anesthetic Used 4% Lidocaine Solution #1 right lateral lower leg -Current Size (cm) - Length 11.5 -Current Size (cm) - Width 4.5 -Current Size (cm) - Depth 0.1 -Total Square Cm 51.75 -Classification - Thickness Full Thickness without Exposed Support Structure -Exudate Amt Medium -Exudate Type Serosanguineous -Wound Margin Flat & Intact -Granulation Amt Medium (34-66%) -Granulation Quality [place] -Slough/Fibrin Yes -Necrosis Amt Medium (34-66%) -Necrotic Tissue Type Adherent Slough -Structure Exposed None/Limited to Skin Breakdown -Texture (Nichol-wound Skin Appearance) Assessed -Moisture (Nichol-wound Skin Appearance Assessed ) Maceration Weeping -Color (Nichol-wound Skin Appearance) Assessed Erythema -Temperature (Nichol-wound Skin No Abnormality Appearance) (Pt Warm) -Tenderness on Palpation (Nichol-wound Yes Skin Appearance) -Ulcer Cleansing soap -Foul Odor after Cleansing No -Anesthetic Used 4% Lidocaine Solution [Edema Assessment] -Right Calf (cm) 54 -Right Ankle (cm) 31 -Left Calf (cm) 56.8 -Left Ankle (cm) 31 WC - Nurse 2 - General Ulcer CM Notes Start: 08/14/18 09:07 Freq: Status: Active Protocol: Activity Type Activity Date Activity User E-Sign Co-Sign Detail Recorded Client Recorded Date Recorded By Document 09/05/18 08:51 MW [id number] 09/05/18 09:14 MW 09/05/18 08:51 Wound Center Nurse 2 [Procedure/Treatment] #5 LEFT KNEE -Time 09:00 -Correct Patient Yes -Correct Side, Site, Position Yes -Correct Procedure Yes -Procedure Performed No -Post Debridement Size (cm) - Length 0 -Post Debridement Size (cm) - Width 0 -Post Debridement Size (cm) - Depth 0 -Total Square Cm 0 -Wound/Ulcer Outcome Healed- Epithelialized #3 left lateral/posterior lower leg -Time 08:56 -Correct Patient Yes -Correct Side, Site, Position Yes -Correct Procedure Yes -Procedure Performed Yes -Type of Procedure Debridement -Clinical Debridement Subcutaneous -Post Debridement Size (cm) - Length 9.0 -Post Debridement Size (cm) - Width 5.5 -Post Debridement Size (cm) - Depth 0.2 -Total Square Cm 49.50 -Wound/Ulcer Outcome Not Healed -Ulcer Cleansing Rinsed/ Irrigated with Saline -Foul Odor after Cleansing No -Bioengineered Tissue No -Bleeding Controlled with Pressure -Offloading No -Treatment Response Procedure Tolerated Well #2 left distal foot circumfrential -Time 08:53 -Correct Patient Yes -Correct Side, Site, Position Yes -Correct Procedure Yes -Procedure Performed Yes -Type of Procedure Debridement -Clinical Debridement Subcutaneous -Post Debridement Size (cm) - Length 23.0 -Post Debridement Size (cm) - Width 9.0 -Post Debridement Size (cm) - Depth 0.4 -Total Square Cm 207.00 -Wound/Ulcer Outcome Not Healed -Ulcer Cleansing Rinsed/ Irrigated with Saline -Foul Odor after Cleansing No -Bioengineered Tissue No -Bleeding Controlled with Pressure -Offloading No -Treatment Response Procedure Tolerated Well #1 right lateral lower leg -Time 08:53 -Correct Patient Yes -Correct Side, Site, Position Yes -Correct Procedure Yes -Procedure Performed Yes -Type of Procedure Debridement -Clinical Debridement Subcutaneous -Post Debridement Size (cm) - Length 7.0 -Post Debridement Size (cm) - Width 5.0 -Post Debridement Size (cm) - Depth 0.1 -Total Square Cm 35.00 -Wound/Ulcer Outcome Not Healed -Ulcer Cleansing Rinsed/ Irrigated with Saline -Foul Odor after Cleansing No -Bioengineered Tissue No -Bleeding Controlled with Pressure -Offloading No -Treatment Response Procedure Tolerated Well [See Physician Procedure note for Specifics] Pain Scale: 0-10 Numeric [Pain] -Is Patient Pain Free? Yes Musculoskeletal: No Muscle Wasting Neurological: Cranial nerves II-XII grossly intact Psych/Mental Status: Normal Affect Debridement Note Post-Debridement Measurements/Treatment WC - Nurse 2 - General Ulcer CM Notes Start: 08/14/18 09:07 Freq: Status: Active Protocol: Activity Type Activity Date Activity User E-Sign Co-Sign Detail Recorded Client Recorded Date Recorded By Document 08/14/18 09:37 MW [id number] 08/14/18 10:00 MW Document 08/21/18 08:47 MW [id number] 08/21/18 09:00 MW Document 08/29/18 09:43 MW [id number] 08/29/18 09:57 MW Document 09/05/18 08:51 MW [id number] 09/05/18 09:14 MW 08/14/18 08/21/18 08/29/18 09:37 08:47 09:43 Wound Center Nurse 2 #5 LEFT KNEE -Time 09:50 -Correct Patient Yes -Correct Side, Site, Position Yes -Correct Procedure Yes -Procedure Performed Yes -Type of Procedure Debridement -Clinical Debridement Subcutaneous -Post Debridement Size (cm) - Length 1.3 -Post Debridement Size (cm) - Width 4.5 -Post Debridement Size (cm) - Depth 0.1 -Total Square Cm 5.85 -Wound/Ulcer Outcome Not Healed -Ulcer Cleansing Rinsed/ Irrigated with Saline -Foul Odor after Cleansing No -Bioengineered Tissue No -Bleeding Controlled with Pressure -Offloading No -Treatment Response Procedure Tolerated Well #3 left lateral/posterior lower leg -Time 09:42 08:47 09:44 -Correct Patient Yes Yes Yes -Correct Side, Site, Position Yes Yes Yes -Correct Procedure Yes Yes Yes -Procedure Performed Yes Yes Yes -Type of Procedure Debridement Debridement Debridement -Clinical Debridement Subcutaneous Subcutaneous Subcutaneous -Post Debridement Size (cm) - Length 9.0 9.0 9.0 -Post Debridement Size (cm) - Width 6.0 6.0 6.0 -Post Debridement Size (cm) - Depth 0.1 0.1 0.2 -Total Square Cm 54.00 54.00 54.00 -Wound/Ulcer Outcome Not Healed Not Healed Not Healed -Ulcer Cleansing Rinsed/ Rinsed/ Rinsed/ Irrigated with Irrigated with Irrigated with Saline Saline Saline -Foul Odor after Cleansing No No No -Bioengineered Tissue No No No -Bleeding Controlled with Pressure Pressure Pressure -Offloading No No No -Treatment Response Procedure Procedure Procedure Tolerated Well Tolerated Well Tolerated Well #2 left distal foot circumfrential -Time 09:42 08:48 09:44 -Correct Patient Yes Yes Yes -Correct Side, Site, Position Yes Yes Yes -Correct Procedure Yes Yes Yes -Procedure Performed Yes Yes Yes -Type of Procedure Debridement Debridement Debridement -Clinical Debridement Subcutaneous Subcutaneous Subcutaneous -Post Debridement Size (cm) - Length 20.0 20.0 20.0 -Post Debridement Size (cm) - Width 9.0 8.0 8.0 -Post Debridement Size (cm) - Depth 0.1 0.1 0.1 -Total Square Cm 180.00 160.00 160.00 -Wound/Ulcer Outcome Not Healed Not Healed Not Healed -Ulcer Cleansing Rinsed/ Rinsed/ Rinsed/ Irrigated with Irrigated with Irrigated with Saline Saline Saline -Foul Odor after Cleansing No No No -Bioengineered Tissue No No No -Bleeding Controlled with Pressure Pressure Pressure -Offloading No No No -Treatment Response Procedure Procedure Procedure Tolerated Well Tolerated Well Tolerated Well #1 right lateral lower leg -Time 09:42 08:48 09:44 -Correct Patient Yes Yes Yes -Correct Side, Site, Position Yes Yes Yes -Correct Procedure Yes Yes Yes -Procedure Performed Yes Yes Yes -Type of Procedure Debridement Debridement Debridement -Clinical Debridement Subcutaneous Subcutaneous Subcutaneous -Post Debridement Size (cm) - Length 10.5 6.0 7.0 -Post Debridement Size (cm) - Width 8.0 6.5 5.0 -Post Debridement Size (cm) - Depth 0.1 0.1 0.2 -Total Square Cm 84.00 39.00 35.00 -Wound/Ulcer Outcome Not Healed Not Healed Not Healed -Ulcer Cleansing Rinsed/ Rinsed/ Rinsed/ Irrigated with Irrigated with Irrigated with Saline Saline Saline -Foul Odor after Cleansing No No No -Bioengineered Tissue No No No -Bleeding Controlled with Pressure Pressure Pressure -Offloading No No No -Treatment Response Procedure Procedure Procedure Tolerated Well Tolerated Well Tolerated Well Pain Scale: 0-10 Numeric Is Patient Pain Free? Yes Yes Yes 09/05/18 08:51 Wound Center Nurse 2 #5 LEFT KNEE -Time 09:00 -Correct Patient Yes -Correct Side, Site, Position Yes -Correct Procedure Yes -Procedure Performed No -Type of Procedure -Clinical Debridement -Post Debridement Size (cm) - Length 0 -Post Debridement Size (cm) - Width 0 -Post Debridement Size (cm) - Depth 0 -Total Square Cm 0 -Wound/Ulcer Outcome Healed- Epithelialized -Ulcer Cleansing -Foul Odor after Cleansing -Bioengineered Tissue -Bleeding Controlled with -Offloading -Treatment Response #3 left lateral/posterior lower leg -Time 08:56 -Correct Patient Yes -Correct Side, Site, Position Yes -Correct Procedure Yes -Procedure Performed Yes -Type of Procedure Debridement -Clinical Debridement Subcutaneous -Post Debridement Size (cm) - Length 9.0 -Post Debridement Size (cm) - Width 5.5 -Post Debridement Size (cm) - Depth 0.2 -Total Square Cm 49.50 -Wound/Ulcer Outcome Not Healed -Ulcer Cleansing Rinsed/ Irrigated with Saline -Foul Odor after Cleansing No -Bioengineered Tissue No -Bleeding Controlled with Pressure -Offloading No -Treatment Response Procedure Tolerated Well #2 left distal foot circumfrential -Time 08:53 -Correct Patient Yes -Correct Side, Site, Position Yes -Correct Procedure Yes -Procedure Performed Yes -Type of Procedure Debridement -Clinical Debridement Subcutaneous -Post Debridement Size (cm) - Length 23.0 -Post Debridement Size (cm) - Width 9.0 -Post Debridement Size (cm) - Depth 0.4 -Total Square Cm 207.00 -Wound/Ulcer Outcome Not Healed -Ulcer Cleansing Rinsed/ Irrigated with Saline -Foul Odor after Cleansing No -Bioengineered Tissue No -Bleeding Controlled with Pressure -Offloading No -Treatment Response Procedure Tolerated Well #1 right lateral lower leg -Time 08:53 -Correct Patient Yes -Correct Side, Site, Position Yes -Correct Procedure Yes -Procedure Performed Yes -Type of Procedure Debridement -Clinical Debridement Subcutaneous -Post Debridement Size (cm) - Length 7.0 -Post Debridement Size (cm) - Width 5.0 -Post Debridement Size (cm) - Depth 0.1 -Total Square Cm 35.00 -Wound/Ulcer Outcome Not Healed -Ulcer Cleansing Rinsed/ Irrigated with Saline -Foul Odor after Cleansing No -Bioengineered Tissue No -Bleeding Controlled with Pressure -Offloading No -Treatment Response Procedure Tolerated Well Pain Scale: 0-10 Numeric Is Patient Pain Free? Yes Wound debrided: Left foot Wound Grade/Stage: Grade II Type of Debridement: Excisional debridement Anesthesia Used: 4% Lidocaine Solution Depth: Down to and including healthy tissue, in the subcutaneous layer Percentage of wound debrided: 100 Instrument Used: 5mm curette Tissue Removed: slough and devitalized tissue Severity: Fat Layer Exposed Amount of bleeding with debridement: Mild Bleeding Controlled with: Pressure Patient tolerated procedure well - Additional Wound Wound debrided: Left lateral lower extremity Wound Grade/Stage: Grade II Type of Debridement: Excisional debridement Anesthesia Used: 4% Lidocaine Solution Depth: Down to and including healthy tissue, in the subcutaneous layer Percentage of wound debrided: 100 Instrument Used: 5mm curette Tissue Removed: Slough and devitalized tissue Severity: Fat Layer Exposed Amount of bleeding with debridement: Mild Bleeding Controlled with: Pressure Patient tolerated procedure: Patient tolerated procedure well - Additional Wound Wound debrided: Right lateral lower extremity Wound Grade/Stage: Grade II Type of Debridement: Excisional debridement Anesthesia Used: 4% Lidocaine Solution Depth: Down to and including healthy tissue, in the subcutaneous layer Percentage of wound debrided: 100 Instrument Used: 5mm curette Tissue Removed: Slough and devitalized tissue Severity: Fat Layer Exposed Amount of bleeding with debridement: Mild Bleeding Controlled with: Pressure Patient tolerated procedure: Patient tolerated procedure well Assessment/Plan Active Problems (Last Reviewed 07/17/18 @ 12:42 by Lorene Farfan NP-C) Diabetic foot ulcer associated with type 2 diabetes mellitus (Chronic) Grade 2. Ulcer of left lower extremity with fat layer exposed (Chronic) Ulcer of right lower extremity with fat layer exposed (Chronic) Bilateral lower extremity edema (Chronic) Type 2 diabetes mellitus (Chronic) Assessment: Nonhealing bilateral lower extremity ulcer in a patient with type 2 diabetes mellitus. Diabetic foot ulcer with significant maceration/deformity. Morbid obesity. Tobacco abuse. Plan: Worsening periwound masceration and lower extremity edema. Debridement done as documented above. Procedure was well-tolerated. Due to significnat masceration and drainage, will switch to Kerracel with Kerramax care over top. Change daily to twice daily depending on drainage. Optimal blood sugar control strongly recommended. Making attempts at smoking cessation, he was encouraged. Increased protein intake. Continue premier twice daily. Continue Francisco Javier wrap to bilateral lower extremities.. Elevate lower extremities when seated and in bed. His questions were answered and he was advised to call with any further questions or concerns. Follow-up in 1 week. This note was generated with [employer] software. It may contain incorrect words, spelling, and punctuation that were not noted in checking the note before signing.
== END 2018-09-10 23:59 ==
LOC: WC 08:00
PROVIDERS: Family Provider Internal Medicine; PCP Internal Medicine; Referring Provider Internal Medicine; Visit Provider Internal Medicine
DX: E11.621 Type 2 diabetes mellitus with foot ulcer (principal); R60.0 Localized edema; E11.622 Type 2 diabetes mellitus with other skin ulcer; L97.522 Non-pressure chronic ulcer of other part of left foot with fat layer exposed; L97.822 Non-pressure chronic ulcer of other part of left lower leg with fat layer exposed; L97.812 Non-pressure chronic ulcer of other part of right lower leg with fat layer exposed; E66.01 Morbid (severe) obesity due to excess calories; Z71.3 Dietary counseling and surveillance; Z68.43 Body mass index [BMI] 50.0-59.9, adult; F17.200 Nicotine dependence, unspecified, uncomplicated; G47.33 Obstructive sleep apnea (adult) (pediatric); I10 Essential (primary) hypertension; G25.81 Restless legs syndrome; E11.65 Type 2 diabetes mellitus with hyperglycemia
CPT/HCPCS: 11042; 11045

== ENCOUNTER 2018-10-09 09:00 | Outpatient (RCR) | payer MEDICARE, MEDICAID, SELFPAY ==
[2018-09-11 00:38] VITALS: BP 105/62; PULSE 66; RESP 18; TEMP 36.5; O2SAT 90
[2018-09-12 09:02] VITALS: BP 104/50; PULSE 65; RESP 18; TEMP 36.4; BMI 58.8
--- NOTE | 2018-09-12 09:36 | PCM.WC.PN ---
(1) Diabetic foot ulcer associated with type 2 diabetes mellitus Status: Chronic Current Visit: Yes Code(s): E11.621 - Type 2 diabetes mellitus with foot ulcer; L97.509 - Non-pressure chronic ulcer of other part of unspecified foot with unspecified severity Comment: Grade 2. (2) Type 2 diabetes mellitus Status: Chronic Current Visit: Yes Code(s): E11.9 - Type 2 diabetes mellitus without complications (3) Ulcer of left lower extremity with fat layer exposed Status: Chronic Current Visit: Yes Code(s): L97.922 - Non-pressure chronic ulcer of unspecified part of left lower leg with fat layer exposed (4) Bilateral lower extremity edema Status: Chronic Current Visit: No Code(s): R60.0 - Localized edema (5) Ulcer of right lower extremity with fat layer exposed Status: Chronic Current Visit: Yes Code(s): L97.912 - Non-pressure chronic ulcer of unspecified part of right lower leg with fat layer exposed Type of Wound Chief Complaint: Bilateral lower extremity ulcers. History of Wound: Mr. Toscano is a 62-year-old with a complex past medical history who was referred to the wound center due to nonhealing bilateral lower extremity ulcers. He reports a history of recurrent bilateral lower extremity ulcers since 1995 however most recent episode was said to have started in March. Was managed by [facility] care [facility] with no significant improvement. He is also been seen at other wound care centers. He is unsure of his diabetes control. Smokes daily. Largely sedentary. At this time, he denies any acute concerns. Denies chills, fever or feeling of unwell. Progress of Wound: Improving periwound maceration. No new concerns at this time. - Physical Exam Vital Signs Temp Pulse Resp BP Pulse Ox 97.5 F L 65 18 104/50 L 90 09/12/18 09:02 09/12/18 09:02 09/12/18 09:02 09/12/18 09:02 09/11/18 00:38 General: Alert, Oriented x3, Cooperative, No apparent distress HEENT: Atraumatic, Normocephalic Oral: Moist Mucosa Neck: Supple Lungs: Normal air movement Abdomen: Non Tender, Obese Extremities: No cyanosis, Edema Skin: Ulcer/ Wound Wound Measurements and Assessment WC - Nurse 1 - General Ulcer Measurement Start: 09/12/18 09:02 Freq: Status: Active Protocol: Activity Type Activity Date Activity User E-Sign Co-Sign Detail Recorded Client Recorded Date Recorded By Document 09/12/18 09:02 [facility] [id number] 09/12/18 09:11 [facility] 09/12/18 09:02 Wound Center Nurse 1 [Ulcer Assessment] #3 left lateral/posterior lower leg -Combined with other wound No -Current Size (cm) - Length 8.5 -Current Size (cm) - Width 5.5 -Current Size (cm) - Depth 0.1 -Total Square Cm 46.75 -Photo Taken No -Epithelialization Small 1-33% -Tunneling No -Undermining/Tunneling No -Circular Undermining No -Exudate Amt Medium -Exudate Type Serosanguineous -Wound Margin Distinct, Outline Attached -Granulation Amt Medium (34-66%) -Granulation Quality Red -Slough/Fibrin Yes -Necrosis Amt Medium (34-66%) -Necrotic Tissue Type Adherent Slough -Texture (Nichol-wound Skin Appearance) Assessed Scarring -Moisture (Nichol-wound Skin Appearance Assessed ) Dry/Scaly -Color (Nichol-wound Skin Appearance) Assessed Hemosiderin Staining -Temperature (Nichol-wound Skin No Abnormality Appearance) (Pt Warm) -Tenderness on Palpation (Nichol-wound Yes Skin Appearance) -Ulcer Cleansing Wound Cleanser -Foul Odor after Cleansing No -Anesthetic Used 4% Lidocaine Solution #2 left distal foot circumfrential -Combined with other wound No -Current Size (cm) - Length 21.5 -Current Size (cm) - Width 9.5 -Current Size (cm) - Depth 0.1 -Total Square Cm 204.25 -Photo Taken No -Epithelialization Small 1-33% -Tunneling No -Undermining/Tunneling No -Circular Undermining No -Exudate Amt Medium -Exudate Type Serosanguineous -Wound Margin Flat & Intact -Granulation Amt Medium (34-66%) -Granulation Quality Red -Slough/Fibrin Yes -Necrosis Amt Medium (34-66%) -Necrotic Tissue Type Adherent Slough -Texture (Nichol-wound Skin Appearance) Assessed Scarring -Moisture (Nichol-wound Skin Appearance Assessed ) Maceration Weeping -Color (Nichol-wound Skin Appearance) Assessed Erythema Palor -Temperature (Nichol-wound Skin No Abnormality Appearance) (Pt Warm) -Tenderness on Palpation (Nichol-wound No Skin Appearance) -Ulcer Cleansing Wound Cleanser -Foul Odor after Cleansing No -Anesthetic Used 4% Lidocaine Solution #1 right lateral lower leg -Combined with other wound No -Current Size (cm) - Length 5.8 -Current Size (cm) - Width 3.8 -Current Size (cm) - Depth 0.2 -Total Square Cm 22.04 -Photo Taken No -Epithelialization Small 1-33% -Tunneling No -Undermining/Tunneling No -Circular Undermining No -Exudate Amt Medium -Exudate Type Serosanguineous -Wound Margin Distinct, Outline Attached -Granulation Amt Medium (34-66%) -Granulation Quality Red -Slough/Fibrin Yes -Necrosis Amt Medium (34-66%) -Necrotic Tissue Type Adherent Slough -Texture (Nichol-wound Skin Appearance) Assessed Scarring -Moisture (Nichol-wound Skin Appearance Assessed ) -Color (Nichol-wound Skin Appearance) Assessed Hemosiderin Staining -Temperature (Nichol-wound Skin No Abnormality Appearance) (Pt Warm) -Tenderness on Palpation (Nichlo-wound No Skin Appearance) -Ulcer Cleansing Wound Cleanser -Foul Odor after Cleansing No -Anesthetic Used 4% Lidocaine Solution [Edema Assessment] -Lower Limb Edema Present Yes -Right Calf (cm) 55.1 -Right Ankle (cm) 31.6 -Left Calf (cm) 56 -Left Ankle (cm) 32.5 WC - Nurse 2 - General Ulcer CM Notes Start: 09/12/18 09:02 Freq: Status: Active Protocol: Activity Type Activity Date Activity User E-Sign Co-Sign Detail Recorded Client Recorded Date Recorded By Document 09/12/18 09:14 AN [id number] 09/12/18 09:27 AN 09/12/18 09:14 Wound Center Nurse 2 [Procedure/Treatment] #3 left lateral/posterior lower leg -Time 09:15 -Correct Patient Yes -Correct Side, Site, Position Yes -Correct Procedure Yes -Procedure Performed Yes -Type of Procedure Debridement -Clinical Debridement Subcutaneous -Post Debridement Size (cm) - Length 9 -Post Debridement Size (cm) - Width 6 -Post Debridement Size (cm) - Depth 0.1 -Total Square Cm 54 -Wound/Ulcer Outcome Amputation -Foul Odor after Cleansing No -Bioengineered Tissue No -Bleeding Controlled with Pressure -Offloading No -Treatment Response Procedure Tolerated Well #2 left distal foot circumfrential -Time 09:15 -Correct Patient Yes -Correct Side, Site, Position Yes -Correct Procedure Yes -Procedure Performed Yes -Type of Procedure Debridement -Clinical Debridement Subcutaneous -Post Debridement Size (cm) - Length 23 -Post Debridement Size (cm) - Width 9 -Post Debridement Size (cm) - Depth 0.1 -Total Square Cm 207 -Wound/Ulcer Outcome Not Healed -Foul Odor after Cleansing No -Bioengineered Tissue No -Bleeding Controlled with Pressure -Offloading No -Treatment Response Procedure Tolerated Well #1 right lateral lower leg -Time 09:17 -Correct Patient Yes -Correct Side, Site, Position Yes -Correct Procedure Yes -Procedure Performed Yes -Type of Procedure Debridement -Clinical Debridement Subcutaneous -Post Debridement Size (cm) - Length 7 -Post Debridement Size (cm) - Width 5.5 -Post Debridement Size (cm) - Depth 0.1 -Total Square Cm 38.5 -Wound/Ulcer Outcome Not Healed -Foul Odor after Cleansing No -Bioengineered Tissue No -Bleeding Controlled with Pressure -Offloading No -Treatment Response Procedure Tolerated Well [See Physician Procedure note for Specifics] Pain Scale: 0-10 Numeric [Pain] -Is Patient Pain Free? Yes Musculoskeletal: No Muscle Wasting Neurological: Cranial nerves II-XII grossly intact Psych/Mental Status: Normal Affect Debridement Note Post-Debridement Measurements/Treatment WC - Nurse 2 - General Ulcer CM Notes Start: 09/12/18 09:02 Freq: Status: Active Protocol: Activity Type Activity Date Activity User E-Sign Co-Sign Detail Recorded Client Recorded Date Recorded By Document 09/12/18 09:14 AN [id number] 09/12/18 09:27 AN 09/12/18 09:14 Wound Center Nurse 2 #3 left lateral/posterior lower leg -Time 09:15 -Correct Patient Yes -Correct Side, Site, Position Yes -Correct Procedure Yes -Procedure Performed Yes -Type of Procedure Debridement -Clinical Debridement Subcutaneous -Post Debridement Size (cm) - Length 9 -Post Debridement Size (cm) - Width 6 -Post Debridement Size (cm) - Depth 0.1 -Total Square Cm 54 -Wound/Ulcer Outcome Amputation -Foul Odor after Cleansing No -Bioengineered Tissue No -Bleeding Controlled with Pressure -Offloading No -Treatment Response Procedure Tolerated Well #2 left distal foot circumfrential -Time 09:15 -Correct Patient Yes -Correct Side, Site, Position Yes -Correct Procedure Yes -Procedure Performed Yes -Type of Procedure Debridement -Clinical Debridement Subcutaneous -Post Debridement Size (cm) - Length 23 -Post Debridement Size (cm) - Width 9 -Post Debridement Size (cm) - Depth 0.1 -Total Square Cm 207 -Wound/Ulcer Outcome Not Healed -Foul Odor after Cleansing No -Bioengineered Tissue No -Bleeding Controlled with Pressure -Offloading No -Treatment Response Procedure Tolerated Well #1 right lateral lower leg -Time 09:17 -Correct Patient Yes -Correct Side, Site, Position Yes -Correct Procedure Yes -Procedure Performed Yes -Type of Procedure Debridement -Clinical Debridement Subcutaneous -Post Debridement Size (cm) - Length 7 -Post Debridement Size (cm) - Width 5.5 -Post Debridement Size (cm) - Depth 0.1 -Total Square Cm 38.5 -Wound/Ulcer Outcome Not Healed -Foul Odor after Cleansing No -Bioengineered Tissue No -Bleeding Controlled with Pressure -Offloading No -Treatment Response Procedure Tolerated Well Pain Scale: 0-10 Numeric Is Patient Pain Free? Yes Wound debrided: Left foot Wound Grade/Stage: Grade 2 Type of Debridement: Excisional debridement Anesthesia Used: 4% Lidocaine Solution Depth: Down to and including healthy tissue, in the subcutaneous layer Percentage of wound debrided: 100 Instrument Used: 7mm curette Tissue Removed: Slough and devitalized tissue Severity: Fat Layer Exposed Amount of bleeding with debridement: Mild Bleeding Controlled with: Pressure Patient tolerated procedure well - Additional Wound Wound debrided: Left lower extremity lateral Wound Grade/Stage: Grade 2 Type of Debridement: Excisional debridement Anesthesia Used: 4% Lidocaine Solution Depth: Down to and including healthy tissue, in the subcutaneous layer Percentage of wound debrided: 100 Instrument Used: 7mm curette Tissue Removed: Slough and devitalized tissue Severity: Fat Layer Exposed Amount of bleeding with debridement: Mild Bleeding Controlled with: Pressure Patient tolerated procedure: Patient tolerated procedure well - Additional Wound Wound debrided: Right lower extremity lateral Wound Grade/Stage: Grade 2 Type of Debridement: Excisional debridement Anesthesia Used: 4% Lidocaine Solution Depth: Down to and including healthy tissue, in the subcutaneous layer Percentage of wound debrided: 100 Instrument Used: 7mm curette Tissue Removed: Slough and devitalized tissue Severity: Fat Layer Exposed Amount of bleeding with debridement: Mild Bleeding Controlled with: Pressure Patient tolerated procedure: Patient tolerated procedure well Assessment/Plan Active Problems (Last Reviewed 07/17/18 @ 12:42 by MATTIE Locke) Diabetic foot ulcer associated with type 2 diabetes mellitus (Chronic) Grade 2. Ulcer of left lower extremity with fat layer exposed (Chronic) Ulcer of right lower extremity with fat layer exposed (Chronic) Type 2 diabetes mellitus (Chronic) Assessment: Nonhealing bilateral lower extremity ulcer in a patient with type 2 diabetes mellitus. Diabetic foot ulcer with significant maceration/deformity. Morbid obesity. Tobacco abuse. Plan: Periwound maceration with some improvement. Debridement done as documented above. Procedure was well-tolerated. Continue Kerracel with Kerramax care over top. Change daily to twice daily depending on drainage. Optimal blood sugar control strongly recommended. Smoking cessation encouraged. Increased protein intake. Continue premier twice daily. Continue Francisco Javier wrap to bilateral lower extremities.. Elevate lower extremities when seated and in bed. His questions were answered and he was advised to call with any further questions or concerns. Follow-up in 1 week. This note was generated with Evi dictation software. It may contain incorrect words, spelling, and punctuation that were not noted in checking the note before signing.
--- NOTE | 2018-09-12 09:41 | PN.PCM_ITS ---
(1) Diabetic foot ulcer associated with type 2 diabetes mellitus Status: Chronic Current Visit: Yes Code(s): E11.621 - Type 2 diabetes mellitus with foot ulcer; L97.509 - Non-pressure chronic ulcer of other part of unspecified foot with unspecified severity Comment: Grade 2. (2) Type 2 diabetes mellitus Status: Chronic Current Visit: Yes Code(s): E11.9 - Type 2 diabetes mellitus without complications (3) Ulcer of left lower extremity with fat layer exposed Status: Chronic Current Visit: Yes Code(s): L97.922 - Non-pressure chronic ulcer of unspecified part of left lower leg with fat layer exposed (4) Bilateral lower extremity edema Status: Chronic Current Visit: No Code(s): R60.0 - Localized edema (5) Ulcer of right lower extremity with fat layer exposed Status: Chronic Current Visit: Yes Code(s): L97.912 - Non-pressure chronic ulcer of unspecified part of right lower leg with fat layer exposed Type of Wound Chief Complaint: Bilateral lower extremity ulcers. History of Wound: Mr. Toscano is a 62-year-old with a complex past medical history who was referred to the wound center due to nonhealing bilateral lower extremity ulcers. He reports a history of recurrent bilateral lower extremity ulcers since 1995 however most recent episode was said to have started in March. [facility] managed [facility] with no significant improvement. He is also been seen at other wound care centers. He is unsure of his diabetes control. Smokes daily. Largely sedentary. At this time, he denies any acute concerns. Denies chills, fever or feeling of unwell. Progress of Wound: Improving periwound maceration. No new concerns at this time. - Physical Exam Vital Signs Temp Pulse Resp BP Pulse Ox 97.5 F L 65 18 104/50 L 90 09/12/18 09:02 09/12/18 09:02 09/12/18 09:02 09/12/18 09:02 09/11/18 00:38 General: Alert, Oriented x3, Cooperative, No apparent distress HEENT: Atraumatic, Normocephalic Oral: Moist Mucosa Neck: Supple Lungs: Normal air movement Abdomen: Non Tender, Obese Extremities: No cyanosis, Edema Skin: Ulcer/ Wound Wound Measurements and Assessment WC - Nurse 1 - General Ulcer Measurement Start: 09/12/18 09:02 Freq: Status: Active Protocol: Activity Type Activity Date Activity User E-Sign Co-Sign Detail Recorded Client Recorded Date Recorded By Document 09/12/18 09:02 [facility] [id number] 09/12/18 09:11 [facility] 09/12/18 09:02 Wound Center Nurse 1 [Ulcer Assessment] #3 left lateral/posterior lower leg -Combined with other wound No -Current Size (cm) - Length 8.5 -Current Size (cm) - Width 5.5 -Current Size (cm) - Depth 0.1 -Total Square Cm 46.75 -Photo Taken No -Epithelialization Small 1-33% -Tunneling No -Undermining/Tunneling No -Circular Undermining No -Exudate Amt Medium -Exudate Type Serosanguineous -Wound Margin Distinct, Outline Attached -Granulation Amt Medium (34-66%) -Granulation Quality Red -Slough/Fibrin Yes -Necrosis Amt Medium (34-66%) -Necrotic Tissue Type Adherent Slough -Texture (Nichol-wound Skin Appearance) Assessed Scarring -Moisture (Nichol-wound Skin Appearance Assessed ) Dry/Scaly -Color (Inchol-wound Skin Appearance) Assessed Hemosiderin Staining -Temperature (Nichol-wound Skin No Abnormality Appearance) (Pt Warm) -Tenderness on Palpation (Nichol-wound Yes Skin Appearance) -Ulcer Cleansing Wound Cleanser -Foul Odor after Cleansing No -Anesthetic Used 4% Lidocaine Solution #2 left distal foot circumfrential -Combined with other wound No -Current Size (cm) - Length 21.5 -Current Size (cm) - Width 9.5 -Current Size (cm) - Depth 0.1 -Total Square Cm 204.25 -Photo Taken No -Epithelialization Small 1-33% -Tunneling No -Undermining/Tunneling No -Circular Undermining No -Exudate Amt Medium -Exudate Type Serosanguineous -Wound Margin Flat & Intact -Granulation Amt Medium (34-66%) -Granulation Quality Red -Slough/Fibrin Yes -Necrosis Amt Medium (34-66%) -Necrotic Tissue Type Adherent Slough -Texture (Nichol-wound Skin Appearance) Assessed Scarring -Moisture (Nichol-wound Skin Appearance Assessed ) Maceration Weeping -Color (Nichol-wound Skin Appearance) Assessed Erythema Palor -Temperature (Nichol-wound Skin No Abnormality Appearance) (Pt Warm) -Tenderness on Palpation (Nichol-wound No Skin Appearance) -Ulcer Cleansing Wound Cleanser -Foul Odor after Cleansing No -Anesthetic Used 4% Lidocaine Solution #1 right lateral lower leg -Combined with other wound No -Current Size (cm) - Length 5.8 -Current Size (cm) - Width 3.8 -Current Size (cm) - Depth 0.2 -Total Square Cm 22.04 -Photo Taken No -Epithelialization Small 1-33% -Tunneling No -Undermining/Tunneling No -Circular Undermining No -Exudate Amt Medium -Exudate Type Serosanguineous -Wound Margin Distinct, Outline Attached -Granulation Amt Medium (34-66%) -Granulation Quality Red -Slough/Fibrin Yes -Necrosis Amt Medium (34-66%) -Necrotic Tissue Type Adherent Slough -Texture (Nichol-wound Skin Appearance) Assessed Scarring -Moisture (Nichol-wound Skin Appearance Assessed ) -Color (Nichol-wound Skin Appearance) Assessed Hemosiderin Staining -Temperature (Nichol-wound Skin No Abnormality Appearance) (Pt Warm) -Tenderness on Palpation (Nichol-wound No Skin Appearance) -Ulcer Cleansing Wound Cleanser -Foul Odor after Cleansing No -Anesthetic Used 4% Lidocaine Solution [Edema Assessment] -Lower Limb Edema Present Yes -Right Calf (cm) 55.1 -Right Ankle (cm) 31.6 -Left Calf (cm) 56 -Left Ankle (cm) 32.5 WC - Nurse 2 - General Ulcer CM Notes Start: 09/12/18 09:02 Freq: Status: Active Protocol: Activity Type Activity Date Activity User E-Sign Co-Sign Detail Recorded Client Recorded Date Recorded By Document 09/12/18 09:14 AN [id number] 09/12/18 09:27 AN 09/12/18 09:14 Wound Center Nurse 2 [Procedure/Treatment] #3 left lateral/posterior lower leg -Time 09:15 -Correct Patient Yes -Correct Side, Site, Position Yes -Correct Procedure Yes -Procedure Performed Yes -Type of Procedure Debridement -Clinical Debridement Subcutaneous -Post Debridement Size (cm) - Length 9 -Post Debridement Size (cm) - Width 6 -Post Debridement Size (cm) - Depth 0.1 -Total Square Cm 54 -Wound/Ulcer Outcome Amputation -Foul Odor after Cleansing No -Bioengineered Tissue No -Bleeding Controlled with Pressure -Offloading No -Treatment Response Procedure Tolerated Well #2 left distal foot circumfrential -Time 09:15 -Correct Patient Yes -Correct Side, Site, Position Yes -Correct Procedure Yes -Procedure Performed Yes -Type of Procedure Debridement -Clinical Debridement Subcutaneous -Post Debridement Size (cm) - Length 23 -Post Debridement Size (cm) - Width 9 -Post Debridement Size (cm) - Depth 0.1 -Total Square Cm 207 -Wound/Ulcer Outcome Not Healed -Foul Odor after Cleansing No -Bioengineered Tissue No -Bleeding Controlled with Pressure -Offloading No -Treatment Response Procedure Tolerated Well #1 right lateral lower leg -Time 09:17 -Correct Patient Yes -Correct Side, Site, Position Yes -Correct Procedure Yes -Procedure Performed Yes -Type of Procedure Debridement -Clinical Debridement Subcutaneous -Post Debridement Size (cm) - Length 7 -Post Debridement Size (cm) - Width 5.5 -Post Debridement Size (cm) - Depth 0.1 -Total Square Cm 38.5 -Wound/Ulcer Outcome Not Healed -Foul Odor after Cleansing No -Bioengineered Tissue No -Bleeding Controlled with Pressure -Offloading No -Treatment Response Procedure Tolerated Well [See Physician Procedure note for Specifics] Pain Scale: 0-10 Numeric [Pain] -Is Patient Pain Free? Yes Musculoskeletal: No Muscle Wasting Neurological: Cranial nerves II-XII grossly intact Psych/Mental Status: Normal Affect Debridement Note Post-Debridement Measurements/Treatment WC - Nurse 2 - General Ulcer CM Notes Start: 09/12/18 09:02 Freq: Status: Active Protocol: Activity Type Activity Date Activity User E-Sign Co-Sign Detail Recorded Client Recorded Date Recorded By Document 09/12/18 09:14 AN [id number] 09/12/18 09:27 AN 09/12/18 09:14 Wound Center Nurse 2 #3 left lateral/posterior lower leg -Time 09:15 -Correct Patient Yes -Correct Side, Site, Position Yes -Correct Procedure Yes -Procedure Performed Yes -Type of Procedure Debridement -Clinical Debridement Subcutaneous -Post Debridement Size (cm) - Length 9 -Post Debridement Size (cm) - Width 6 -Post Debridement Size (cm) - Depth 0.1 -Total Square Cm 54 -Wound/Ulcer Outcome Amputation -Foul Odor after Cleansing No -Bioengineered Tissue No -Bleeding Controlled with Pressure -Offloading No -Treatment Response Procedure Tolerated Well #2 left distal foot circumfrential -Time 09:15 -Correct Patient Yes -Correct Side, Site, Position Yes -Correct Procedure Yes -Procedure Performed Yes -Type of Procedure Debridement -Clinical Debridement Subcutaneous -Post Debridement Size (cm) - Length 23 -Post Debridement Size (cm) - Width 9 -Post Debridement Size (cm) - Depth 0.1 -Total Square Cm 207 -Wound/Ulcer Outcome Not Healed -Foul Odor after Cleansing No -Bioengineered Tissue No -Bleeding Controlled with Pressure -Offloading No -Treatment Response Procedure Tolerated Well #1 right lateral lower leg -Time 09:17 -Correct Patient Yes -Correct Side, Site, Position Yes -Correct Procedure Yes -Procedure Performed Yes -Type of Procedure Debridement -Clinical Debridement Subcutaneous -Post Debridement Size (cm) - Length 7 -Post Debridement Size (cm) - Width 5.5 -Post Debridement Size (cm) - Depth 0.1 -Total Square Cm 38.5 -Wound/Ulcer Outcome Not Healed -Foul Odor after Cleansing No -Bioengineered Tissue No -Bleeding Controlled with Pressure -Offloading No -Treatment Response Procedure Tolerated Well Pain Scale: 0-10 Numeric Is Patient Pain Free? Yes Wound debrided: Left foot Wound Grade/Stage: Grade 2 Type of Debridement: Excisional debridement Anesthesia Used: 4% Lidocaine Solution Depth: Down to and including healthy tissue, in the subcutaneous layer Percentage of wound debrided: 100 Instrument Used: 7mm curette Tissue Removed: Slough and devitalized tissue Severity: Fat Layer Exposed Amount of bleeding with debridement: Mild Bleeding Controlled with: Pressure Patient tolerated procedure well - Additional Wound Wound debrided: Left lower extremity lateral Wound Grade/Stage: Grade 2 Type of Debridement: Excisional debridement Anesthesia Used: 4% Lidocaine Solution Depth: Down to and including healthy tissue, in the subcutaneous layer Percentage of wound debrided: 100 Instrument Used: 7mm curette Tissue Removed: Slough and devitalized tissue Severity: Fat Layer Exposed Amount of bleeding with debridement: Mild Bleeding Controlled with: Pressure Patient tolerated procedure: Patient tolerated procedure well - Additional Wound Wound debrided: Right lower extremity lateral Wound Grade/Stage: Grade 2 Type of Debridement: Excisional debridement Anesthesia Used: 4% Lidocaine Solution Depth: Down to and including healthy tissue, in the subcutaneous layer Percentage of wound debrided: 100 Instrument Used: 7mm curette Tissue Removed: Slough and devitalized tissue Severity: Fat Layer Exposed Amount of bleeding with debridement: Mild Bleeding Controlled with: Pressure Patient tolerated procedure: Patient tolerated procedure well Assessment/Plan Active Problems (Last Reviewed 07/17/18 @ 12:42 by MATTIE Locke) Diabetic foot ulcer associated with type 2 diabetes mellitus (Chronic) Grade 2. Ulcer of left lower extremity with fat layer exposed (Chronic) Ulcer of right lower extremity with fat layer exposed (Chronic) Type 2 diabetes mellitus (Chronic) Assessment: Nonhealing bilateral lower extremity ulcer in a patient with type 2 diabetes mellitus. Diabetic foot ulcer with significant maceration/deformity. Morbid obesity. Tobacco abuse. Plan: Periwound maceration with some improvement. Debridement done as documented above. Procedure was well-tolerated. Continue Kerracel with Kerramax care over top. Change daily to twice daily depending on drainage. Optimal blood sugar control strongly recommended. Smoking cessation encouraged. Increased protein intake. Continue premier twice daily. Continue Francisco Javier wrap to bilateral lower extremities.. Elevate lower extremities when seated and in bed. His questions were answered and he was advised to call with any further questions or concerns. Follow-up in 1 week. This note was generated with [employer] dictation software. It may contain incorrect words, spelling, and punctuation that were not noted in checking the note before signing.
[2018-09-18 08:45] VITALS: BP 129/80; PULSE 68; RESP 20; TEMP 36; BMI 58.8
--- NOTE | 2018-09-18 11:26 | PCM.WC.PN ---
(1) Diabetic foot ulcer associated with type 2 diabetes mellitus Status: Chronic Current Visit: Yes Code(s): E11.621 - Type 2 diabetes mellitus with foot ulcer; L97.509 - Non-pressure chronic ulcer of other part of unspecified foot with unspecified severity Comment: Grade 2. (2) Type 2 diabetes mellitus Status: Chronic Current Visit: Yes Code(s): E11.9 - Type 2 diabetes mellitus without complications (3) Ulcer of left lower extremity with fat layer exposed Status: Chronic Current Visit: Yes Code(s): L97.922 - Non-pressure chronic ulcer of unspecified part of left lower leg with fat layer exposed (4) Bilateral lower extremity edema Status: Chronic Current Visit: Yes Code(s): R60.0 - Localized edema (5) Ulcer of right lower extremity with fat layer exposed Status: Chronic Current Visit: Yes Code(s): L97.912 - Non-pressure chronic ulcer of unspecified part of right lower leg with fat layer exposed Type of Wound Chief Complaint: Bilateral lower extremity ulcers. History of Wound: Mr. Toscano is a 62-year-old with a complex past medical history who was referred to the wound center due to nonhealing bilateral lower extremity ulcers. He reports a history of recurrent bilateral lower extremity ulcers since 1995 however most recent episode was said to have started in March. [facility] with no significant improvement. He is also been seen at other wound care centers. He is unsure of his diabetes control. Smokes daily. Largely sedentary. At this time, he denies any acute concerns. Denies chills, fever or feeling of unwell. Progress of Wound: Improving periwound maceration. No new concerns at this time. - Physical Exam Vital Signs Temp Pulse Resp BP Pulse Ox 96.8 F L 68 20 H 129/80 H 90 09/18/18 08:45 09/18/18 08:45 09/18/18 08:45 09/18/18 08:45 09/11/18 00:38 General: Alert, Oriented x3, Cooperative, No apparent distress HEENT: Atraumatic, Normocephalic Oral: Moist Mucosa Neck: Supple, No JVD Abdomen: Obese Extremities: No cyanosis, Edema Skin: Ulcer/ Wound Wound Measurements and Assessment WC - Nurse 1 - General Ulcer Measurement Start: 09/12/18 09:02 Freq: Status: Active Protocol: Activity Type Activity Date Activity User E-Sign Co-Sign Detail Recorded Client Recorded Date Recorded By Document 09/18/18 08:45 MW [id number] 09/18/18 09:05 MW 09/18/18 08:45 Wound Center Nurse 1 [Ulcer Assessment] #3 left lateral/posterior lower leg -Combined with other wound No -Current Size (cm) - Length 9 -Current Size (cm) - Width 6 -Current Size (cm) - Depth 0.1 -Total Square Cm 54 -Tunneling No -Undermining/Tunneling No -Circular Undermining No -Exudate Amt Medium -Exudate Type Serosanguineous -Wound Margin Distinct, Outline Attached -Granulation Amt Medium (34-66%) -Granulation Quality [place] -Slough/Fibrin Yes -Necrosis Amt Medium (34-66%) -Necrotic Tissue Type Adherent Slough -Structure Exposed N/A -Texture (Nichol-wound Skin Appearance) Assessed -Moisture (Nichol-wound Skin Appearance Assessed ) -Color (Nichol-wound Skin Appearance) Assessed -Temperature (Nichol-wound Skin No Abnormality Appearance) (Pt Warm) -Tenderness on Palpation (Nichol-wound No Skin Appearance) -Ulcer Cleansing Wound Cleanser -Foul Odor after Cleansing No -Anesthetic Used 5% Lidocaine Gel #2 left distal foot circumfrential -Combined with other wound No -Current Size (cm) - Length 21 -Current Size (cm) - Width 24 -Current Size (cm) - Depth 0.1 -Total Square Cm 504 -Tunneling No -Undermining/Tunneling No -Circular Undermining No -Exudate Amt Medium -Exudate Type Serosanguineous -Wound Margin Distinct, Outline Attached -Granulation Amt Medium (34-66%) -Granulation Quality [place] -Slough/Fibrin Yes -Necrosis Amt Medium (34-66%) -Necrotic Tissue Type Adherent Slough -Structure Exposed N/A -Texture (Nichol-wound Skin Appearance) Assessed -Moisture (Nichol-wound Skin Appearance Assessed ) -Color (Nichol-wound Skin Appearance) Assessed -Temperature (Nichol-wound Skin No Abnormality Appearance) (Pt Warm) -Tenderness on Palpation (Nichol-wound No Skin Appearance) -Ulcer Cleansing Wound Cleanser -Foul Odor after Cleansing No -Anesthetic Used 5% Lidocaine Gel #1 right lateral lower leg -Combined with other wound No -Current Size (cm) - Length 6 -Current Size (cm) - Width 4 -Current Size (cm) - Depth 0.1 -Total Square Cm 24 -Tunneling No -Undermining/Tunneling No -Circular Undermining No -Exudate Amt Small -Exudate Type Serosanguineous -Wound Margin Distinct, Outline Attached -Granulation Amt Medium (34-66%) -Granulation Quality [place] -Slough/Fibrin Yes -Necrosis Amt Medium (34-66%) -Necrotic Tissue Type Adherent Slough -Structure Exposed N/A -Texture (Nichol-wound Skin Appearance) Assessed -Moisture (Nichol-wound Skin Appearance Assessed ) -Color (Nichol-wound Skin Appearance) Assessed -Temperature (Nichol-wound Skin No Abnormality Appearance) (Pt Warm) -Tenderness on Palpation (Nichol-wound No Skin Appearance) -Ulcer Cleansing Wound Cleanser -Foul Odor after Cleansing No -Anesthetic Used 5% Lidocaine Gel [Edema Assessment] -Lower Limb Edema Present Yes -Right Calf (cm) 54.7 -Right Ankle (cm) 30.9 -Left Calf (cm) 37 -Left Ankle (cm) 31.3 WC - Nurse 2 - General Ulcer CM Notes Start: 09/12/18 09:02 Freq: Status: Active Protocol: Activity Type Activity Date Activity User E-Sign Co-Sign Detail Recorded Client Recorded Date Recorded By Document 09/18/18 09:40 MW [id number] 09/18/18 09:51 MW 09/18/18 09:40 Wound Center Nurse 2 [Procedure/Treatment] #3 left lateral/posterior lower leg -Time 09:46 -Correct Patient Yes -Correct Side, Site, Position Yes -Correct Procedure Yes -Procedure Performed Yes -Type of Procedure Debridement -Clinical Debridement Subcutaneous -Post Debridement Size (cm) - Length 9.0 -Post Debridement Size (cm) - Width 6.0 -Post Debridement Size (cm) - Depth 0.1 -Total Square Cm 54.00 -Wound/Ulcer Outcome Not Healed -Ulcer Cleansing Rinsed/ Irrigated with Saline -Foul Odor after Cleansing No -Bioengineered Tissue No -Bleeding Controlled with Pressure -Offloading No -Treatment Response Procedure Tolerated Well #2 left distal foot circumfrential -Time 09:47 -Correct Patient Yes -Correct Side, Site, Position Yes -Correct Procedure Yes -Procedure Performed Yes -Type of Procedure Debridement -Clinical Debridement Subcutaneous -Post Debridement Size (cm) - Length 23.0 -Post Debridement Size (cm) - Width 9.0 -Post Debridement Size (cm) - Depth 0.4 -Total Square Cm 207.00 -Wound/Ulcer Outcome Not Healed -Ulcer Cleansing Rinsed/ Irrigated with Saline -Foul Odor after Cleansing No -Bioengineered Tissue No -Bleeding Controlled with Pressure -Offloading No -Treatment Response Procedure Tolerated Well #1 right lateral lower leg -Time 09:47 -Correct Patient Yes -Correct Side, Site, Position Yes -Correct Procedure Yes -Procedure Performed Yes -Type of Procedure Debridement -Clinical Debridement Subcutaneous -Post Debridement Size (cm) - Length 5.5 -Post Debridement Size (cm) - Width 5.5 -Post Debridement Size (cm) - Depth 0.1 -Total Square Cm 30.25 -Wound/Ulcer Outcome Not Healed -Ulcer Cleansing Rinsed/ Irrigated with Saline -Foul Odor after Cleansing No -Bioengineered Tissue No -Bleeding Controlled with Pressure -Offloading No -Treatment Response Procedure Tolerated Well [See Physician Procedure note for Specifics] Pain Scale: 0-10 Numeric [Pain] -Is Patient Pain Free? Yes Musculoskeletal: No Muscle Wasting Neurological: Cranial nerves II-XII grossly intact Psych/Mental Status: Normal Affect Debridement Note Post-Debridement Measurements/Treatment WC - Nurse 2 - General Ulcer CM Notes Start: 09/12/18 09:02 Freq: Status: Active Protocol: Activity Type Activity Date Activity User E-Sign Co-Sign Detail Recorded Client Recorded Date Recorded By Document 09/12/18 09:14 AN [id number] 09/12/18 09:27 AN Document 09/18/18 09:40 MW [id number] 09/18/18 09:51 MW 09/12/18 09/18/18 09:14 09:40 Wound Center Nurse 2 #3 left lateral/posterior lower leg -Time 09:15 09:46 -Correct Patient Yes Yes -Correct Side, Site, Position Yes Yes -Correct Procedure Yes Yes -Procedure Performed Yes Yes -Type of Procedure Debridement Debridement -Clinical Debridement Subcutaneous Subcutaneous -Post Debridement Size (cm) - Length 9 9.0 -Post Debridement Size (cm) - Width 6 6.0 -Post Debridement Size (cm) - Depth 0.1 0.1 -Total Square Cm 54 54.00 -Wound/Ulcer Outcome Amputation Not Healed -Ulcer Cleansing Rinsed/ Irrigated with Saline -Foul Odor after Cleansing No No -Bioengineered Tissue No No -Bleeding Controlled with Pressure Pressure -Offloading No No -Treatment Response Procedure Procedure Tolerated Well Tolerated Well #2 left distal foot circumfrential -Time 09:15 09:47 -Correct Patient Yes Yes -Correct Side, Site, Position Yes Yes -Correct Procedure Yes Yes -Procedure Performed Yes Yes -Type of Procedure Debridement Debridement -Clinical Debridement Subcutaneous Subcutaneous -Post Debridement Size (cm) - Length 23 23.0 -Post Debridement Size (cm) - Width 9 9.0 -Post Debridement Size (cm) - Depth 0.1 0.4 -Total Square Cm 207 207.00 -Wound/Ulcer Outcome Not Healed Not Healed -Ulcer Cleansing Rinsed/ Irrigated with Saline -Foul Odor after Cleansing No No -Bioengineered Tissue No No -Bleeding Controlled with Pressure Pressure -Offloading No No -Treatment Response Procedure Procedure Tolerated Well Tolerated Well #1 right lateral lower leg -Time 09:17 09:47 -Correct Patient Yes Yes -Correct Side, Site, Position Yes Yes -Correct Procedure Yes Yes -Procedure Performed Yes Yes -Type of Procedure Debridement Debridement -Clinical Debridement Subcutaneous Subcutaneous -Post Debridement Size (cm) - Length 7 5.5 -Post Debridement Size (cm) - Width 5.5 5.5 -Post Debridement Size (cm) - Depth 0.1 0.1 -Total Square Cm 38.5 30.25 -Wound/Ulcer Outcome Not Healed Not Healed -Ulcer Cleansing Rinsed/ Irrigated with Saline -Foul Odor after Cleansing No No -Bioengineered Tissue No No -Bleeding Controlled with Pressure Pressure -Offloading No No -Treatment Response Procedure Procedure Tolerated Well Tolerated Well Pain Scale: 0-10 Numeric Is Patient Pain Free? Yes Yes Wound debrided: Left foot Wound Grade/Stage: Grade II Type of Debridement: Excisional debridement Anesthesia Used: 4% Lidocaine Solution Depth: Down to and including healthy tissue, in the subcutaneous layer Percentage of wound debrided: 100 Instrument Used: 7mm curette Tissue Removed: Slough and devitalized tissue Severity: Fat Layer Exposed Amount of bleeding with debridement: Mild Bleeding Controlled with: Pressure Patient tolerated procedure well - Additional Wound Wound debrided: Left lower extremity ( lateral ) Wound Grade/Stage: Grade II Type of Debridement: Excisional debridement Anesthesia Used: 4% Lidocaine Solution Depth: Down to and including healthy tissue, in the subcutaneous layer, to muscle Instrument Used: 7mm curette Tissue Removed: Slough and devitalized tissue Severity: Fat Layer Exposed Amount of bleeding with debridement: Mild Bleeding Controlled with: Pressure Patient tolerated procedure: Patient tolerated procedure well - Additional Wound Wound debrided: Right lower extremity Wound Grade/Stage: Grade II Type of Debridement: Excisional debridement Anesthesia Used: 4% Lidocaine Solution Depth: in the subcutaneous layer Percentage of wound debrided: 100 Instrument Used: 7mm curette Tissue Removed: Slough and devitalized tissue Severity: Fat Layer Exposed Amount of bleeding with debridement: Mild Bleeding Controlled with: Pressure Patient tolerated procedure: Patient tolerated procedure well Assessment/Plan Active Problems (Last Reviewed 07/17/18 @ 12:42 by Lorene Farfan NP-C) Diabetic foot ulcer associated with type 2 diabetes mellitus (Chronic) Grade 2. Ulcer of left lower extremity with fat layer exposed (Chronic) Ulcer of right lower extremity with fat layer exposed (Chronic) Bilateral lower extremity edema (Chronic) Type 2 diabetes mellitus (Chronic) Assessment: Nonhealing bilateral lower extremity ulcer in a patient with type 2 diabetes mellitus. Diabetic foot ulcer with significant maceration/deformity. Morbid obesity. Tobacco abuse. Plan: No new concerns at this time. Debridement done as documented above. Procedure was well-tolerated. Continue Kerracel with Kerramax care over top. Change daily to twice daily depending on drainage. Optimal blood sugar control strongly recommended. Smoking cessation encouraged. Increased protein intake. Continue premier twice daily. Continue Francisco Javier wrap to bilateral lower extremities.. Elevate lower extremities when seated and in bed. His questions were answered and he was advised to call with any further questions or concerns. Follow-up in 1 week. This note was generated with [employer]book[employer] software. It may contain incorrect words, spelling, and punctuation that were not noted in checking the note before signing.
--- NOTE | 2018-09-18 11:30 | PN.PCM_ITS ---
(1) Diabetic foot ulcer associated with type 2 diabetes mellitus Status: Chronic Current Visit: Yes Code(s): E11.621 - Type 2 diabetes mellitus with foot ulcer; L97.509 - Non-pressure chronic ulcer of other part of unspecified foot with unspecified severity Comment: Grade 2. (2) Type 2 diabetes mellitus Status: Chronic Current Visit: Yes Code(s): E11.9 - Type 2 diabetes mellitus without complications (3) Ulcer of left lower extremity with fat layer exposed Status: Chronic Current Visit: Yes Code(s): L97.922 - Non-pressure chronic ulcer of unspecified part of left lower leg with fat layer exposed (4) Bilateral lower extremity edema Status: Chronic Current Visit: Yes Code(s): R60.0 - Localized edema (5) Ulcer of right lower extremity with fat layer exposed Status: Chronic Current Visit: Yes Code(s): L97.912 - Non-pressure chronic ulcer of unspecified part of right lower leg with fat layer exposed Type of Wound Chief Complaint: Bilateral lower extremity ulcers. History of Wound: Mr. Toscano is a 62-year-old with a complex past medical history who was referred to the wound center due to nonhealing bilateral lower extremity ulcers. He reports a history of recurrent bilateral lower extremity ulcers since 1995 however most recent episode was said to have started in March. [facility] with no significant improvement. He is also been seen at other wound care centers. He is unsure of his diabetes control. Smokes daily. Largely sedentary. At this time, he denies any acute concerns. Denies chills, fever or feeling of unwell. Progress of Wound: Improving periwound maceration. No new concerns at this time. - Physical Exam Vital Signs Temp Pulse Resp BP Pulse Ox 96.8 F L 68 20 H 129/80 H 90 09/18/18 08:45 09/18/18 08:45 09/18/18 08:45 09/18/18 08:45 09/11/18 00:38 General: Alert, Oriented x3, Cooperative, No apparent distress HEENT: Atraumatic, Normocephalic Oral: Moist Mucosa Neck: Supple, No JVD Abdomen: Obese Extremities: No cyanosis, Edema Skin: Ulcer/ Wound Wound Measurements and Assessment WC - Nurse 1 - General Ulcer Measurement Start: 09/12/18 09:02 Freq: Status: Active Protocol: Activity Type Activity Date Activity User E-Sign Co-Sign Detail Recorded Client Recorded Date Recorded By Document 09/18/18 08:45 MW [id number] 09/18/18 09:05 MW 09/18/18 08:45 Wound Center Nurse 1 [Ulcer Assessment] #3 left lateral/posterior lower leg -Combined with other wound No -Current Size (cm) - Length 9 -Current Size (cm) - Width 6 -Current Size (cm) - Depth 0.1 -Total Square Cm 54 -Tunneling No -Undermining/Tunneling No -Circular Undermining No -Exudate Amt Medium -Exudate Type Serosanguineous -Wound Margin Distinct, Outline Attached -Granulation Amt Medium (34-66%) -Granulation Quality Everman -Slough/Fibrin Yes -Necrosis Amt Medium (34-66%) -Necrotic Tissue Type Adherent Slough -Structure Exposed N/A -Texture (Nichol-wound Skin Appearance) Assessed -Moisture (Nichol-wound Skin Appearance Assessed ) -Color (Nichol-wound Skin Appearance) Assessed -Temperature (Nichol-wound Skin No Abnormality Appearance) (Pt Warm) -Tenderness on Palpation (Nichol-wound No Skin Appearance) -Ulcer Cleansing Wound Cleanser -Foul Odor after Cleansing No -Anesthetic Used 5% Lidocaine Gel #2 left distal foot circumfrential -Combined with other wound No -Current Size (cm) - Length 21 -Current Size (cm) - Width 24 -Current Size (cm) - Depth 0.1 -Total Square Cm 504 -Tunneling No -Undermining/Tunneling No -Circular Undermining No -Exudate Amt Medium -Exudate Type Serosanguineous -Wound Margin Distinct, Outline Attached -Granulation Amt Medium (34-66%) -Granulation Quality Everman -Slough/Fibrin Yes -Necrosis Amt Medium (34-66%) -Necrotic Tissue Type Adherent Slough -Structure Exposed N/A -Texture (Nichol-wound Skin Appearance) Assessed -Moisture (Nichol-wound Skin Appearance Assessed ) -Color (Nichol-wound Skin Appearance) Assessed -Temperature (Nichol-wound Skin No Abnormality Appearance) (Pt Warm) -Tenderness on Palpation (Nichol-wound No Skin Appearance) -Ulcer Cleansing Wound Cleanser -Foul Odor after Cleansing No -Anesthetic Used 5% Lidocaine Gel #1 right lateral lower leg -Combined with other wound No -Current Size (cm) - Length 6 -Current Size (cm) - Width 4 -Current Size (cm) - Depth 0.1 -Total Square Cm 24 -Tunneling No -Undermining/Tunneling No -Circular Undermining No -Exudate Amt Small -Exudate Type Serosanguineous -Wound Margin Distinct, Outline Attached -Granulation Amt Medium (34-66%) -Granulation Quality Everman -Slough/Fibrin Yes -Necrosis Amt Medium (34-66%) -Necrotic Tissue Type Adherent Slough -Structure Exposed N/A -Texture (Nichol-wound Skin Appearance) Assessed -Moisture (Nichol-wound Skin Appearance Assessed ) -Color (Nichol-wound Skin Appearance) Assessed -Temperature (Nichol-wound Skin No Abnormality Appearance) (Pt Warm) -Tenderness on Palpation (Nichol-wound No Skin Appearance) -Ulcer Cleansing Wound Cleanser -Foul Odor after Cleansing No -Anesthetic Used 5% Lidocaine Gel [Edema Assessment] -Lower Limb Edema Present Yes -Right Calf (cm) 54.7 -Right Ankle (cm) 30.9 -Left Calf (cm) 37 -Left Ankle (cm) 31.3 WC - Nurse 2 - General Ulcer CM Notes Start: 09/12/18 09:02 Freq: Status: Active Protocol: Activity Type Activity Date Activity User E-Sign Co-Sign Detail Recorded Client Recorded Date Recorded By Document 09/18/18 09:40 MW [id number] 09/18/18 09:51 MW 09/18/18 09:40 Wound Center Nurse 2 [Procedure/Treatment] #3 left lateral/posterior lower leg -Time 09:46 -Correct Patient Yes -Correct Side, Site, Position Yes -Correct Procedure Yes -Procedure Performed Yes -Type of Procedure Debridement -Clinical Debridement Subcutaneous -Post Debridement Size (cm) - Length 9.0 -Post Debridement Size (cm) - Width 6.0 -Post Debridement Size (cm) - Depth 0.1 -Total Square Cm 54.00 -Wound/Ulcer Outcome Not Healed -Ulcer Cleansing Rinsed/ Irrigated with Saline -Foul Odor after Cleansing No -Bioengineered Tissue No -Bleeding Controlled with Pressure -Offloading No -Treatment Response Procedure Tolerated Well #2 left distal foot circumfrential -Time 09:47 -Correct Patient Yes -Correct Side, Site, Position Yes -Correct Procedure Yes -Procedure Performed Yes -Type of Procedure Debridement -Clinical Debridement Subcutaneous -Post Debridement Size (cm) - Length 23.0 -Post Debridement Size (cm) - Width 9.0 -Post Debridement Size (cm) - Depth 0.4 -Total Square Cm 207.00 -Wound/Ulcer Outcome Not Healed -Ulcer Cleansing Rinsed/ Irrigated with Saline -Foul Odor after Cleansing No -Bioengineered Tissue No -Bleeding Controlled with Pressure -Offloading No -Treatment Response Procedure Tolerated Well #1 right lateral lower leg -Time 09:47 -Correct Patient Yes -Correct Side, Site, Position Yes -Correct Procedure Yes -Procedure Performed Yes -Type of Procedure Debridement -Clinical Debridement Subcutaneous -Post Debridement Size (cm) - Length 5.5 -Post Debridement Size (cm) - Width 5.5 -Post Debridement Size (cm) - Depth 0.1 -Total Square Cm 30.25 -Wound/Ulcer Outcome Not Healed -Ulcer Cleansing Rinsed/ Irrigated with Saline -Foul Odor after Cleansing No -Bioengineered Tissue No -Bleeding Controlled with Pressure -Offloading No -Treatment Response Procedure Tolerated Well [See Physician Procedure note for Specifics] Pain Scale: 0-10 Numeric [Pain] -Is Patient Pain Free? Yes Musculoskeletal: No Muscle Wasting Neurological: Cranial nerves II-XII grossly intact Psych/Mental Status: Normal Affect Debridement Note Post-Debridement Measurements/Treatment WC - Nurse 2 - General Ulcer CM Notes Start: 09/12/18 09:02 Freq: Status: Active Protocol: Activity Type Activity Date Activity User E-Sign Co-Sign Detail Recorded Client Recorded Date Recorded By Document 09/12/18 09:14 AN [id number] 09/12/18 09:27 AN Document 09/18/18 09:40 MW [id number] 09/18/18 09:51 MW 09/12/18 09/18/18 09:14 09:40 Wound Center Nurse 2 #3 left lateral/posterior lower leg -Time 09:15 09:46 -Correct Patient Yes Yes -Correct Side, Site, Position Yes Yes -Correct Procedure Yes Yes -Procedure Performed Yes Yes -Type of Procedure Debridement Debridement -Clinical Debridement Subcutaneous Subcutaneous -Post Debridement Size (cm) - Length 9 9.0 -Post Debridement Size (cm) - Width 6 6.0 -Post Debridement Size (cm) - Depth 0.1 0.1 -Total Square Cm 54 54.00 -Wound/Ulcer Outcome Amputation Not Healed -Ulcer Cleansing Rinsed/ Irrigated with Saline -Foul Odor after Cleansing No No -Bioengineered Tissue No No -Bleeding Controlled with Pressure Pressure -Offloading No No -Treatment Response Procedure Procedure Tolerated Well Tolerated Well #2 left distal foot circumfrential -Time 09:15 09:47 -Correct Patient Yes Yes -Correct Side, Site, Position Yes Yes -Correct Procedure Yes Yes -Procedure Performed Yes Yes -Type of Procedure Debridement Debridement -Clinical Debridement Subcutaneous Subcutaneous -Post Debridement Size (cm) - Length 23 23.0 -Post Debridement Size (cm) - Width 9 9.0 -Post Debridement Size (cm) - Depth 0.1 0.4 -Total Square Cm 207 207.00 -Wound/Ulcer Outcome Not Healed Not Healed -Ulcer Cleansing Rinsed/ Irrigated with Saline -Foul Odor after Cleansing No No -Bioengineered Tissue No No -Bleeding Controlled with Pressure Pressure -Offloading No No -Treatment Response Procedure Procedure Tolerated Well Tolerated Well #1 right lateral lower leg -Time 09:17 09:47 -Correct Patient Yes Yes -Correct Side, Site, Position Yes Yes -Correct Procedure Yes Yes -Procedure Performed Yes Yes -Type of Procedure Debridement Debridement -Clinical Debridement Subcutaneous Subcutaneous -Post Debridement Size (cm) - Length 7 5.5 -Post Debridement Size (cm) - Width 5.5 5.5 -Post Debridement Size (cm) - Depth 0.1 0.1 -Total Square Cm 38.5 30.25 -Wound/Ulcer Outcome Not Healed Not Healed -Ulcer Cleansing Rinsed/ Irrigated with Saline -Foul Odor after Cleansing No No -Bioengineered Tissue No No -Bleeding Controlled with Pressure Pressure -Offloading No No -Treatment Response Procedure Procedure Tolerated Well Tolerated Well Pain Scale: 0-10 Numeric Is Patient Pain Free? Yes Yes Wound debrided: Left foot Wound Grade/Stage: Grade II Type of Debridement: Excisional debridement Anesthesia Used: 4% Lidocaine Solution Depth: Down to and including healthy tissue, in the subcutaneous layer Percentage of wound debrided: 100 Instrument Used: 7mm curette Tissue Removed: Slough and devitalized tissue Severity: Fat Layer Exposed Amount of bleeding with debridement: Mild Bleeding Controlled with: Pressure Patient tolerated procedure well - Additional Wound Wound debrided: Left lower extremity ( lateral ) Wound Grade/Stage: Grade II Type of Debridement: Excisional debridement Anesthesia Used: 4% Lidocaine Solution Depth: Down to and including healthy tissue, in the subcutaneous layer, to muscle Instrument Used: 7mm curette Tissue Removed: Slough and devitalized tissue Severity: Fat Layer Exposed Amount of bleeding with debridement: Mild Bleeding Controlled with: Pressure Patient tolerated procedure: Patient tolerated procedure well - Additional Wound Wound debrided: Right lower extremity Wound Grade/Stage: Grade II Type of Debridement: Excisional debridement Anesthesia Used: 4% Lidocaine Solution Depth: in the subcutaneous layer Percentage of wound debrided: 100 Instrument Used: 7mm curette Tissue Removed: Slough and devitalized tissue Severity: Fat Layer Exposed Amount of bleeding with debridement: Mild Bleeding Controlled with: Pressure Patient tolerated procedure: Patient tolerated procedure well Assessment/Plan Active Problems (Last Reviewed 07/17/18 @ 12:42 by Lorene Farfan NP-C) Diabetic foot ulcer associated with type 2 diabetes mellitus (Chronic) Grade 2. Ulcer of left lower extremity with fat layer exposed (Chronic) Ulcer of right lower extremity with fat layer exposed (Chronic) Bilateral lower extremity edema (Chronic) Type 2 diabetes mellitus (Chronic) Assessment: Nonhealing bilateral lower extremity ulcer in a patient with type 2 diabetes mellitus. Diabetic foot ulcer with significant maceration/deformity. Morbid obesity. Tobacco abuse. Plan: No new concerns at this time. Debridement done as documented above. Procedure was well-tolerated. Continue Kerracel with Kerramax care over top. Change daily to twice daily depending on drainage. Optimal blood sugar control strongly recommended. Smoking cessation encouraged. Increased protein intake. Continue premier twice daily. Continue Francisco Javier wrap to bilateral lower extremities.. Elevate lower extremities when seated and in bed. His questions were answered and he was advised to call with any further questions or concerns. Follow-up in 1 week. This note was generated with [employer] software. It may contain incorrect words, spelling, and punctuation that were not noted in checking the note before signing.
[2018-09-25 09:00] VITALS: BP 138/87; PULSE 67; RESP 18; TEMP 36.6; BMI 58.8
--- NOTE | 2018-09-25 11:18 | PCM.WC.PN ---
(1) Diabetic foot ulcer associated with type 2 diabetes mellitus Status: Chronic Current Visit: Yes Code(s): E11.621 - Type 2 diabetes mellitus with foot ulcer; L97.509 - Non-pressure chronic ulcer of other part of unspecified foot with unspecified severity Comment: Grade 2. (2) Type 2 diabetes mellitus Status: Chronic Current Visit: Yes Code(s): E11.9 - Type 2 diabetes mellitus without complications (3) Ulcer of left lower extremity with fat layer exposed Status: Chronic Current Visit: Yes Code(s): L97.922 - Non-pressure chronic ulcer of unspecified part of left lower leg with fat layer exposed (4) Bilateral lower extremity edema Status: Chronic Current Visit: Yes Code(s): R60.0 - Localized edema (5) Ulcer of right lower extremity with fat layer exposed Status: Chronic Current Visit: Yes Code(s): L97.912 - Non-pressure chronic ulcer of unspecified part of right lower leg with fat layer exposed Type of Wound Chief Complaint: Bilateral lower extremity ulcers. History of Wound: Mr. Toscano is a 62-year-old with a complex past medical history who was referred to the wound center due to nonhealing bilateral lower extremity ulcers. He reports a history of recurrent bilateral lower extremity ulcers since 1995 however most recent episode was said to have started in March. Was managed by [facility] care nurse at his [facility] facility with no significant improvement. He is also been seen at other wound care centers. He is unsure of his diabetes control. Smokes daily. Largely sedentary. At this time, he denies any acute concerns. Denies chills, fever or feeling of unwell. Progress of Wound: Improving. No new concerns at this time. - Physical Exam Vital Signs Temp Pulse Resp BP Pulse Ox 97.8 F 67 18 138/87 H 90 09/25/18 09:00 09/25/18 09:00 09/25/18 09:00 09/25/18 09:00 09/11/18 00:38 General: Alert, Oriented x3, Cooperative, No apparent distress HEENT: Atraumatic, Normocephalic Oral: Moist Mucosa Neck: Supple Lungs: Normal air movement Abdomen: Obese Skin: Ulcer/ Wound Wound Measurements and Assessment WC - Nurse 1 - General Ulcer Measurement Start: 09/12/18 09:02 Freq: Status: Active Protocol: Activity Type Activity Date Activity User E-Sign Co-Sign Detail Recorded Client Recorded Date Recorded By Document 09/25/18 09:00 RB [id number] 09/25/18 09:22 RB 09/25/18 09:00 Wound Center Nurse 1 [Ulcer Assessment] #3 left lateral/posterior lower leg -Combined with other wound No -Current Size (cm) - Length 8.8 -Current Size (cm) - Width 5 -Current Size (cm) - Depth 0.2 -Total Square Cm 44.0 -Photo Taken No -Tunneling No -Undermining/Tunneling No -Circular Undermining No -Exudate Amt Medium -Exudate Type Serosanguineous -Wound Margin Distinct, Outline Attached -Granulation Amt Medium (34-66%) -Granulation Quality [place] -Slough/Fibrin Yes -Necrosis Amt Medium (34-66%) -Necrotic Tissue Type Adherent Slough -Structure Exposed N/A -Texture (Nichol-wound Skin Appearance) Assessed -Moisture (Nichol-wound Skin Appearance Maceration ) -Color (Nichol-wound Skin Appearance) Assessed -Temperature (Nichol-wound Skin No Abnormality Appearance) (Pt Warm) -Tenderness on Palpation (Nichol-wound No Skin Appearance) -Ulcer Cleansing Wound Cleanser -Foul Odor after Cleansing No -Anesthetic Used 4% Lidocaine Solution #2 left distal foot circumfrential -Combined with other wound No -Current Size (cm) - Length 21.5 -Current Size (cm) - Width 9.5 -Current Size (cm) - Depth 0.2 -Total Square Cm 204.25 -Tunneling No -Undermining/Tunneling No -Circular Undermining No -Exudate Amt Large -Exudate Type Serosanguineous -Wound Margin Distinct, Outline Attached -Granulation Amt Medium (34-66%) -Granulation Quality [place] -Slough/Fibrin Yes -Necrosis Amt Medium (34-66%) -Necrotic Tissue Type Adherent Slough -Structure Exposed N/A -Texture (Nichol-wound Skin Appearance) Assessed -Moisture (Nichol-wound Skin Appearance Maceration ) -Color (Nichol-wound Skin Appearance) Assessed -Temperature (Nichol-wound Skin No Abnormality Appearance) (Pt Warm) -Tenderness on Palpation (Nichol-wound No Skin Appearance) -Ulcer Cleansing Wound Cleanser -Foul Odor after Cleansing No -Anesthetic Used 4% Lidocaine Solution #1 right lateral lower leg -Combined with other wound No -Current Size (cm) - Length 5 -Current Size (cm) - Width 3.7 -Current Size (cm) - Depth 0.2 -Total Square Cm 18.5 -Tunneling No -Undermining/Tunneling No -Circular Undermining No -Exudate Amt Medium -Exudate Type Serosanguineous -Wound Margin Distinct, Outline Attached -Granulation Amt Medium (34-66%) -Granulation Quality [place] -Slough/Fibrin Yes -Necrosis Amt Medium (34-66%) -Necrotic Tissue Type Adherent Slough -Structure Exposed N/A -Texture (Nichol-wound Skin Appearance) Assessed -Moisture (Nichol-wound Skin Appearance Maceration ) -Color (Nichol-wound Skin Appearance) Assessed -Temperature (Nichol-wound Skin No Abnormality Appearance) (Pt Warm) -Tenderness on Palpation (Nichol-wound No Skin Appearance) -Ulcer Cleansing Wound Cleanser -Foul Odor after Cleansing No -Anesthetic Used 4% Lidocaine Solution [Edema Assessment] -Lower Limb Edema Present Yes -Right Calf (cm) 54 -Right Ankle (cm) 29.5 -Left Calf (cm) 55 -Left Ankle (cm) 30 WC - Nurse 2 - General Ulcer CM Notes Start: 09/12/18 09:02 Freq: Status: Active Protocol: Activity Type Activity Date Activity User E-Sign Co-Sign Detail Recorded Client Recorded Date Recorded By Document 09/25/18 09:45 MW [id number] 09/25/18 09:57 MW 09/25/18 09:45 Wound Center Nurse 2 [Procedure/Treatment] #3 left lateral/posterior lower leg -Time 09:49 -Correct Patient Yes -Correct Side, Site, Position Yes -Correct Procedure Yes -Procedure Performed Yes -Type of Procedure Debridement -Clinical Debridement Subcutaneous -Post Debridement Size (cm) - Length 9.0 -Post Debridement Size (cm) - Width 5.5 -Post Debridement Size (cm) - Depth 0.1 -Total Square Cm 49.50 -Wound/Ulcer Outcome Not Healed -Ulcer Cleansing Rinsed/ Irrigated with Saline -Foul Odor after Cleansing No -Bioengineered Tissue No -Bleeding Controlled with Pressure -Offloading No -Treatment Response Procedure Tolerated Well #2 left distal foot circumfrential -Time 09:46 -Correct Patient Yes -Correct Side, Site, Position Yes -Correct Procedure Yes -Procedure Performed Yes -Type of Procedure Debridement -Clinical Debridement Subcutaneous -Post Debridement Size (cm) - Length 20.0 -Post Debridement Size (cm) - Width 10.0 -Post Debridement Size (cm) - Depth 0.1 -Total Square Cm 200.00 -Wound/Ulcer Outcome Not Healed -Ulcer Cleansing Rinsed/ Irrigated with Saline -Foul Odor after Cleansing No -Bioengineered Tissue No -Bleeding Controlled with Pressure -Offloading No -Treatment Response Procedure Tolerated Well #1 right lateral lower leg -Time 09:49 -Correct Patient Yes -Correct Side, Site, Position Yes -Correct Procedure Yes -Procedure Performed Yes -Type of Procedure Debridement -Clinical Debridement Subcutaneous -Post Debridement Size (cm) - Length 5.0 -Post Debridement Size (cm) - Width 3.8 -Post Debridement Size (cm) - Depth 0.1 -Total Square Cm 19.00 -Wound/Ulcer Outcome Not Healed -Ulcer Cleansing Rinsed/ Irrigated with Saline -Foul Odor after Cleansing No -Bioengineered Tissue No -Bleeding Controlled with Pressure -Offloading No -Treatment Response Procedure Tolerated Well [See Physician Procedure note for Specifics] Pain Scale: 0-10 Numeric [Pain] -Is Patient Pain Free? Yes Musculoskeletal: No Muscle Wasting Neurological: Cranial nerves II-XII grossly intact Psych/Mental Status: Normal Affect Debridement Note Post-Debridement Measurements/Treatment WC - Nurse 2 - General Ulcer CM Notes Start: 09/12/18 09:02 Freq: Status: Active Protocol: Activity Type Activity Date Activity User E-Sign Co-Sign Detail Recorded Client Recorded Date Recorded By Document 09/12/18 09:14 AN [id number] 09/12/18 09:27 AN Document 09/18/18 09:40 MW [id number] 09/18/18 09:51 MW Document 09/25/18 09:45 MW [id number] 09/25/18 09:57 MW 09/12/18 09/18/18 09/25/18 09:14 09:40 09:45 Wound Center Nurse 2 #3 left lateral/posterior lower leg -Time 09:15 09:46 09:49 -Correct Patient Yes Yes Yes -Correct Side, Site, Position Yes Yes Yes -Correct Procedure Yes Yes Yes -Procedure Performed Yes Yes Yes -Type of Procedure Debridement Debridement Debridement -Clinical Debridement Subcutaneous Subcutaneous Subcutaneous -Post Debridement Size (cm) - Length 9 9.0 9.0 -Post Debridement Size (cm) - Width 6 6.0 5.5 -Post Debridement Size (cm) - Depth 0.1 0.1 0.1 -Total Square Cm 54 54.00 49.50 -Wound/Ulcer Outcome Amputation Not Healed Not Healed -Ulcer Cleansing Rinsed/ Rinsed/ Irrigated with Irrigated with Saline Saline -Foul Odor after Cleansing No No No -Bioengineered Tissue No No No -Bleeding Controlled with Pressure Pressure Pressure -Offloading No No No -Treatment Response Procedure Procedure Procedure Tolerated Well Tolerated Well Tolerated Well #2 left distal foot circumfrential -Time 09:15 09:47 09:46 -Correct Patient Yes Yes Yes -Correct Side, Site, Position Yes Yes Yes -Correct Procedure Yes Yes Yes -Procedure Performed Yes Yes Yes -Type of Procedure Debridement Debridement Debridement -Clinical Debridement Subcutaneous Subcutaneous Subcutaneous -Post Debridement Size (cm) - Length 23 20.5 20.0 -Post Debridement Size (cm) - Width 9 9.0 10.0 -Post Debridement Size (cm) - Depth 0.1 0.1 0.1 -Total Square Cm 207 184.50 200.00 -Wound/Ulcer Outcome Not Healed Converted Not Healed -Ulcer Cleansing Rinsed/ Rinsed/ Irrigated with Irrigated with Saline Saline -Foul Odor after Cleansing No No No -Bioengineered Tissue No No No -Bleeding Controlled with Pressure Pressure Pressure -Offloading No No No -Treatment Response Procedure Procedure Procedure Tolerated Well Tolerated Well Tolerated Well #1 right lateral lower leg -Time 09:17 09:47 09:49 -Correct Patient Yes Yes Yes -Correct Side, Site, Position Yes Yes Yes -Correct Procedure Yes Yes Yes -Procedure Performed Yes Yes Yes -Type of Procedure Debridement Debridement Debridement -Clinical Debridement Subcutaneous Subcutaneous Subcutaneous -Post Debridement Size (cm) - Length 7 5.5 5.0 -Post Debridement Size (cm) - Width 5.5 5.5 3.8 -Post Debridement Size (cm) - Depth 0.1 0.1 0.1 -Total Square Cm 38.5 30.25 19.00 -Wound/Ulcer Outcome Not Healed Not Healed Not Healed -Ulcer Cleansing Rinsed/ Rinsed/ Irrigated with Irrigated with Saline Saline -Foul Odor after Cleansing No No No -Bioengineered Tissue No No No -Bleeding Controlled with Pressure Pressure Pressure -Offloading No No No -Treatment Response Procedure Procedure Procedure Tolerated Well Tolerated Well Tolerated Well Pain Scale: 0-10 Numeric Is Patient Pain Free? Yes Yes Yes Wound debrided: Left Foot Wound Grade/Stage: Grade II Type of Debridement: Excisional debridement Anesthesia Used: 4% Lidocaine Solution Depth: Down to and including healthy tissue, in the subcutaneous layer Percentage of wound debrided: 100 Instrument Used: 5mm curette Tissue Removed: Slough and devitalized tissue Severity: Fat Layer Exposed Amount of bleeding with debridement: Mild Bleeding Controlled with: Pressure Patient tolerated procedure well - Additional Wound Wound debrided: Left lateral foot Wound Grade/Stage: Grade II Type of Debridement: Excisional debridement Anesthesia Used: 4% Lidocaine Solution Depth: Down to and including healthy tissue, in the subcutaneous layer Percentage of wound debrided: 100 Instrument Used: 5mm curette Tissue Removed: Slough and devitalized tissue Severity: Fat Layer Exposed Amount of bleeding with debridement: Mild Bleeding Controlled with: Pressure Patient tolerated procedure: Patient tolerated procedure well - Additional Wound Wound debrided: Right lateral foot Wound Grade/Stage: Grade II Type of Debridement: Excisional debridement Anesthesia Used: 4% Lidocaine Solution Depth: Down to and including healthy tissue, in the subcutaneous layer Percentage of wound debrided: 100 Instrument Used: 5mm curette Tissue Removed: Slough and devitalized tissue Severity: Fat Layer Exposed Amount of bleeding with debridement: Mild Bleeding Controlled with: Pressure Patient tolerated procedure: Patient tolerated procedure well Assessment/Plan Active Problems (Last Reviewed 07/17/18 @ 12:42 by Lorene Farfan NP-C) Diabetic foot ulcer associated with type 2 diabetes mellitus (Chronic) Grade 2. Ulcer of left lower extremity with fat layer exposed (Chronic) Ulcer of right lower extremity with fat layer exposed (Chronic) Bilateral lower extremity edema (Chronic) Type 2 diabetes mellitus (Chronic) Assessment: Nonhealing bilateral lower extremity ulcer in a patient with type 2 diabetes mellitus. Diabetic foot ulcer with significant maceration/deformity. Morbid obesity. Tobacco abuse. Plan: Improvement in the past week. Debridement done as documented above. Procedure was well-tolerated. Continue Kerracel with Kerramax care over top. Change daily to twice daily depending on drainage. Optimal blood sugar control strongly recommended. Smoking cessation encouraged. Increased protein intake. Continue premier twice to three times daily. Continue Francisco Javier wrap to bilateral lower extremities.. Elevate lower extremities when seated and in bed. His questions were answered and he was advised to call with any further questions or concerns. Follow-up in 1 week. This note was generated with [employer] software. It may contain incorrect words, spelling, and punctuation that were not noted in checking the note before signing.
--- NOTE | 2018-09-25 11:23 | PN.PCM_ITS ---
(1) Diabetic foot ulcer associated with type 2 diabetes mellitus Status: Chronic Current Visit: Yes Code(s): E11.621 - Type 2 diabetes mellitus with foot ulcer; L97.509 - Non-pressure chronic ulcer of other part of unspecified foot with unspecified severity Comment: Grade 2. (2) Type 2 diabetes mellitus Status: Chronic Current Visit: Yes Code(s): E11.9 - Type 2 diabetes mellitus without complications (3) Ulcer of left lower extremity with fat layer exposed Status: Chronic Current Visit: Yes Code(s): L97.922 - Non-pressure chronic ulcer of unspecified part of left lower leg with fat layer exposed (4) Bilateral lower extremity edema Status: Chronic Current Visit: Yes Code(s): R60.0 - Localized edema (5) Ulcer of right lower extremity with fat layer exposed Status: Chronic Current Visit: Yes Code(s): L97.912 - Non-pressure chronic ulcer of unspecified part of right lower leg with fat layer exposed Type of Wound Chief Complaint: Bilateral lower extremity ulcers. History of Wound: Mr. Toscano is a 62-year-old with a complex past medical history who was referred to the wound center due to nonhealing bilateral lower extremity ulcers. He reports a history of recurrent bilateral lower extremity ulcers since 1995 however most recent episode was said to have started in March. Was managed by wound care nurse at his care home facility with no significant improvement. He is also been seen at other wound care centers. He is unsure of his diabetes control. Smokes daily. Largely sedentary. At this time, he denies any acute concerns. Denies chills, fever or feeling of unwell. Progress of Wound: Improving. No new concerns at this time. - Physical Exam Vital Signs Temp Pulse Resp BP Pulse Ox 97.8 F 67 18 138/87 H 90 09/25/18 09:00 09/25/18 09:00 09/25/18 09:00 09/25/18 09:00 09/11/18 00:38 General: Alert, Oriented x3, Cooperative, No apparent distress HEENT: Atraumatic, Normocephalic Oral: Moist Mucosa Neck: Supple Lungs: Normal air movement Abdomen: Obese Skin: Ulcer/ Wound Wound Measurements and Assessment WC - Nurse 1 - General Ulcer Measurement Start: 09/12/18 09:02 Freq: Status: Active Protocol: Activity Type Activity Date Activity User E-Sign Co-Sign Detail Recorded Client Recorded Date Recorded By Document 09/25/18 09:00 RB [id number] 09/25/18 09:22 RB 09/25/18 09:00 Wound Center Nurse 1 [Ulcer Assessment] #3 left lateral/posterior lower leg -Combined with other wound No -Current Size (cm) - Length 8.8 -Current Size (cm) - Width 5 -Current Size (cm) - Depth 0.2 -Total Square Cm 44.0 -Photo Taken No -Tunneling No -Undermining/Tunneling No -Circular Undermining No -Exudate Amt Medium -Exudate Type Serosanguineous -Wound Margin Distinct, Outline Attached -Granulation Amt Medium (34-66%) -Granulation Quality [place] -Slough/Fibrin Yes -Necrosis Amt Medium (34-66%) -Necrotic Tissue Type Adherent Slough -Structure Exposed N/A -Texture (Nichol-wound Skin Appearance) Assessed -Moisture (Nichol-wound Skin Appearance Maceration ) -Color (Nichol-wound Skin Appearance) Assessed -Temperature (Nichol-wound Skin No Abnormality Appearance) (Pt Warm) -Tenderness on Palpation (Nichol-wound No Skin Appearance) -Ulcer Cleansing Wound Cleanser -Foul Odor after Cleansing No -Anesthetic Used 4% Lidocaine Solution #2 left distal foot circumfrential -Combined with other wound No -Current Size (cm) - Length 21.5 -Current Size (cm) - Width 9.5 -Current Size (cm) - Depth 0.2 -Total Square Cm 204.25 -Tunneling No -Undermining/Tunneling No -Circular Undermining No -Exudate Amt Large -Exudate Type Serosanguineous -Wound Margin Distinct, Outline Attached -Granulation Amt Medium (34-66%) -Granulation Quality [place] -Slough/Fibrin Yes -Necrosis Amt Medium (34-66%) -Necrotic Tissue Type Adherent Slough -Structure Exposed N/A -Texture (Nichol-wound Skin Appearance) Assessed -Moisture (Nichol-wound Skin Appearance Maceration ) -Color (Nichol-wound Skin Appearance) Assessed -Temperature (Nichol-wound Skin No Abnormality Appearance) (Pt Warm) -Tenderness on Palpation (Nichol-wound No Skin Appearance) -Ulcer Cleansing Wound Cleanser -Foul Odor after Cleansing No -Anesthetic Used 4% Lidocaine Solution #1 right lateral lower leg -Combined with other wound No -Current Size (cm) - Length 5 -Current Size (cm) - Width 3.7 -Current Size (cm) - Depth 0.2 -Total Square Cm 18.5 -Tunneling No -Undermining/Tunneling No -Circular Undermining No -Exudate Amt Medium -Exudate Type Serosanguineous -Wound Margin Distinct, Outline Attached -Granulation Amt Medium (34-66%) -Granulation Quality [place] -Slough/Fibrin Yes -Necrosis Amt Medium (34-66%) -Necrotic Tissue Type Adherent Slough -Structure Exposed N/A -Texture (Nichol-wound Skin Appearance) Assessed -Moisture (Nichol-wound Skin Appearance Maceration ) -Color (Nichol-wound Skin Appearance) Assessed -Temperature (Nichol-wound Skin No Abnormality Appearance) (Pt Warm) -Tenderness on Palpation (Nichol-wound No Skin Appearance) -Ulcer Cleansing Wound Cleanser -Foul Odor after Cleansing No -Anesthetic Used 4% Lidocaine Solution [Edema Assessment] -Lower Limb Edema Present Yes -Right Calf (cm) 54 -Right Ankle (cm) 29.5 -Left Calf (cm) 55 -Left Ankle (cm) 30 WC - Nurse 2 - General Ulcer CM Notes Start: 09/12/18 09:02 Freq: Status: Active Protocol: Activity Type Activity Date Activity User E-Sign Co-Sign Detail Recorded Client Recorded Date Recorded By Document 09/25/18 09:45 MW [id number] 09/25/18 09:57 MW 09/25/18 09:45 Wound Center Nurse 2 [Procedure/Treatment] #3 left lateral/posterior lower leg -Time 09:49 -Correct Patient Yes -Correct Side, Site, Position Yes -Correct Procedure Yes -Procedure Performed Yes -Type of Procedure Debridement -Clinical Debridement Subcutaneous -Post Debridement Size (cm) - Length 9.0 -Post Debridement Size (cm) - Width 5.5 -Post Debridement Size (cm) - Depth 0.1 -Total Square Cm 49.50 -Wound/Ulcer Outcome Not Healed -Ulcer Cleansing Rinsed/ Irrigated with Saline -Foul Odor after Cleansing No -Bioengineered Tissue No -Bleeding Controlled with Pressure -Offloading No -Treatment Response Procedure Tolerated Well #2 left distal foot circumfrential -Time 09:46 -Correct Patient Yes -Correct Side, Site, Position Yes -Correct Procedure Yes -Procedure Performed Yes -Type of Procedure Debridement -Clinical Debridement Subcutaneous -Post Debridement Size (cm) - Length 20.0 -Post Debridement Size (cm) - Width 10.0 -Post Debridement Size (cm) - Depth 0.1 -Total Square Cm 200.00 -Wound/Ulcer Outcome Not Healed -Ulcer Cleansing Rinsed/ Irrigated with Saline -Foul Odor after Cleansing No -Bioengineered Tissue No -Bleeding Controlled with Pressure -Offloading No -Treatment Response Procedure Tolerated Well #1 right lateral lower leg -Time 09:49 -Correct Patient Yes -Correct Side, Site, Position Yes -Correct Procedure Yes -Procedure Performed Yes -Type of Procedure Debridement -Clinical Debridement Subcutaneous -Post Debridement Size (cm) - Length 5.0 -Post Debridement Size (cm) - Width 3.8 -Post Debridement Size (cm) - Depth 0.1 -Total Square Cm 19.00 -Wound/Ulcer Outcome Not Healed -Ulcer Cleansing Rinsed/ Irrigated with Saline -Foul Odor after Cleansing No -Bioengineered Tissue No -Bleeding Controlled with Pressure -Offloading No -Treatment Response Procedure Tolerated Well [See Physician Procedure note for Specifics] Pain Scale: 0-10 Numeric [Pain] -Is Patient Pain Free? Yes Musculoskeletal: No Muscle Wasting Neurological: Cranial nerves II-XII grossly intact Psych/Mental Status: Normal Affect Debridement Note Post-Debridement Measurements/Treatment WC - Nurse 2 - General Ulcer CM Notes Start: 09/12/18 09:02 Freq: Status: Active Protocol: Activity Type Activity Date Activity User E-Sign Co-Sign Detail Recorded Client Recorded Date Recorded By Document 09/12/18 09:14 AN [id number] 09/12/18 09:27 AN Document 09/18/18 09:40 MW [id number] 09/18/18 09:51 MW Document 09/25/18 09:45 MW [id number] 09/25/18 09:57 MW 09/12/18 09/18/18 09/25/18 09:14 09:40 09:45 Wound Center Nurse 2 #3 left lateral/posterior lower leg -Time 09:15 09:46 09:49 -Correct Patient Yes Yes Yes -Correct Side, Site, Position Yes Yes Yes -Correct Procedure Yes Yes Yes -Procedure Performed Yes Yes Yes -Type of Procedure Debridement Debridement Debridement -Clinical Debridement Subcutaneous Subcutaneous Subcutaneous -Post Debridement Size (cm) - Length 9 9.0 9.0 -Post Debridement Size (cm) - Width 6 6.0 5.5 -Post Debridement Size (cm) - Depth 0.1 0.1 0.1 -Total Square Cm 54 54.00 49.50 -Wound/Ulcer Outcome Amputation Not Healed Not Healed -Ulcer Cleansing Rinsed/ Rinsed/ Irrigated with Irrigated with Saline Saline -Foul Odor after Cleansing No No No -Bioengineered Tissue No No No -Bleeding Controlled with Pressure Pressure Pressure -Offloading No No No -Treatment Response Procedure Procedure Procedure Tolerated Well Tolerated Well Tolerated Well #2 left distal foot circumfrential -Time 09:15 09:47 09:46 -Correct Patient Yes Yes Yes -Correct Side, Site, Position Yes Yes Yes -Correct Procedure Yes Yes Yes -Procedure Performed Yes Yes Yes -Type of Procedure Debridement Debridement Debridement -Clinical Debridement Subcutaneous Subcutaneous Subcutaneous -Post Debridement Size (cm) - Length 23 20.5 20.0 -Post Debridement Size (cm) - Width 9 9.0 10.0 -Post Debridement Size (cm) - Depth 0.1 0.1 0.1 -Total Square Cm 207 184.50 200.00 -Wound/Ulcer Outcome Not Healed Converted Not Healed -Ulcer Cleansing Rinsed/ Rinsed/ Irrigated with Irrigated with Saline Saline -Foul Odor after Cleansing No No No -Bioengineered Tissue No No No -Bleeding Controlled with Pressure Pressure Pressure -Offloading No No No -Treatment Response Procedure Procedure Procedure Tolerated Well Tolerated Well Tolerated Well #1 right lateral lower leg -Time 09:17 09:47 09:49 -Correct Patient Yes Yes Yes -Correct Side, Site, Position Yes Yes Yes -Correct Procedure Yes Yes Yes -Procedure Performed Yes Yes Yes -Type of Procedure Debridement Debridement Debridement -Clinical Debridement Subcutaneous Subcutaneous Subcutaneous -Post Debridement Size (cm) - Length 7 5.5 5.0 -Post Debridement Size (cm) - Width 5.5 5.5 3.8 -Post Debridement Size (cm) - Depth 0.1 0.1 0.1 -Total Square Cm 38.5 30.25 19.00 -Wound/Ulcer Outcome Not Healed Not Healed Not Healed -Ulcer Cleansing Rinsed/ Rinsed/ Irrigated with Irrigated with Saline Saline -Foul Odor after Cleansing No No No -Bioengineered Tissue No No No -Bleeding Controlled with Pressure Pressure Pressure -Offloading No No No -Treatment Response Procedure Procedure Procedure Tolerated Well Tolerated Well Tolerated Well Pain Scale: 0-10 Numeric Is Patient Pain Free? Yes Yes Yes Wound debrided: Left Foot Wound Grade/Stage: Grade II Type of Debridement: Excisional debridement Anesthesia Used: 4% Lidocaine Solution Depth: Down to and including healthy tissue, in the subcutaneous layer Percentage of wound debrided: 100 Instrument Used: 5mm curette Tissue Removed: Slough and devitalized tissue Severity: Fat Layer Exposed Amount of bleeding with debridement: Mild Bleeding Controlled with: Pressure Patient tolerated procedure well - Additional Wound Wound debrided: Left lateral foot Wound Grade/Stage: Grade II Type of Debridement: Excisional debridement Anesthesia Used: 4% Lidocaine Solution Depth: Down to and including healthy tissue, in the subcutaneous layer Percentage of wound debrided: 100 Instrument Used: 5mm curette Tissue Removed: Slough and devitalized tissue Severity: Fat Layer Exposed Amount of bleeding with debridement: Mild Bleeding Controlled with: Pressure Patient tolerated procedure: Patient tolerated procedure well - Additional Wound Wound debrided: Right lateral foot Wound Grade/Stage: Grade II Type of Debridement: Excisional debridement Anesthesia Used: 4% Lidocaine Solution Depth: Down to and including healthy tissue, in the subcutaneous layer Percentage of wound debrided: 100 Instrument Used: 5mm curette Tissue Removed: Slough and devitalized tissue Severity: Fat Layer Exposed Amount of bleeding with debridement: Mild Bleeding Controlled with: Pressure Patient tolerated procedure: Patient tolerated procedure well Assessment/Plan Active Problems (Last Reviewed 07/17/18 @ 12:42 by Lorene Farfan NP-C) Diabetic foot ulcer associated with type 2 diabetes mellitus (Chronic) Grade 2. Ulcer of left lower extremity with fat layer exposed (Chronic) Ulcer of right lower extremity with fat layer exposed (Chronic) Bilateral lower extremity edema (Chronic) Type 2 diabetes mellitus (Chronic) Assessment: Nonhealing bilateral lower extremity ulcer in a patient with type 2 diabetes mellitus. Diabetic foot ulcer with significant maceration/deformity. Morbid obesity. Tobacco abuse. Plan: Improvement in the past week. Debridement done as documented above. Procedure was well-tolerated. Continue Kerracel with Kerramax care over top. Change daily to twice daily depending on drainage. Optimal blood sugar control strongly recommended. Smoking cessation encouraged. Increased protein intake. Continue premier twice to three times daily. Continue Francisco Javier wrap to bilateral lower extremities.. Elevate lower extremities when seated and in bed. His questions were answered and he was advised to call with any further questions or concerns. Follow-up in 1 week. This note was generated with [employer] software. It may contain incorrect words, spelling, and punctuation that were not noted in checking the note before signing.
[2018-10-09 08:43] VITALS: BP 141/58; PULSE 67; RESP 18; TEMP 37.4; BMI 58.8
--- NOTE | 2018-10-09 09:49 | PCM.WC.PN ---
(1) Diabetic foot ulcer associated with type 2 diabetes mellitus Status: Chronic Current Visit: Yes Code(s): E11.621 - Type 2 diabetes mellitus with foot ulcer; L97.509 - Non-pressure chronic ulcer of other part of unspecified foot with unspecified severity Comment: Grade 2. (2) Type 2 diabetes mellitus Status: Chronic Current Visit: Yes Code(s): E11.9 - Type 2 diabetes mellitus without complications (3) Ulcer of left lower extremity with fat layer exposed Status: Chronic Current Visit: Yes Code(s): L97.922 - Non-pressure chronic ulcer of unspecified part of left lower leg with fat layer exposed (4) Bilateral lower extremity edema Status: Chronic Current Visit: Yes Code(s): R60.0 - Localized edema (5) Ulcer of right lower extremity with fat layer exposed Status: Chronic Current Visit: Yes Code(s): L97.912 - Non-pressure chronic ulcer of unspecified part of right lower leg with fat layer exposed Type of Wound Chief Complaint: Bilateral lower extremity ulcers. History of Wound: Mr. Toscano is a 62-year-old with a complex past medical history who was referred to the wound center due to nonhealing bilateral lower extremity ulcers. He reports a history of recurrent bilateral lower extremity ulcers since 1995 however most recent episode was said to have started in March. Was managed by wound care nurse at his custodial facility with no significant improvement. He is also been seen at other wound care centers. He is unsure of his diabetes control. Smokes daily. Largely sedentary. At this time, he denies any acute concerns. Denies chills, fever or feeling of unwell. Progress of Wound: No new concerns at this time. Left and right lateral lower extremity ulcers improving however, left foot with no significant change. - Physical Exam Vital Signs Temp Pulse Resp BP Pulse Ox 99.3 F H 67 18 141/58 H 90 10/09/18 08:43 10/09/18 08:43 10/09/18 08:43 10/09/18 08:43 09/11/18 00:38 General: Alert, Oriented x3, Cooperative, No apparent distress HEENT: Atraumatic, Normocephalic Oral: Moist Mucosa Neck: Supple Lungs: Normal air movement Abdomen: Obese Extremities: No cyanosis, Edema Skin: Ulcer/ Wound Wound Measurements and Assessment WC - Nurse 1 - General Ulcer Measurement Start: 09/12/18 09:02 Freq: Status: Active Protocol: Activity Type Activity Date Activity User E-Sign Co-Sign Detail Recorded Client Recorded Date Recorded By Document 10/09/18 08:43 JAKE [id number] 10/09/18 08:55 RB 10/09/18 08:43 Wound Center Nurse 1 [Ulcer Assessment] #3 left lateral/posterior lower leg -Combined with other wound No -Current Size (cm) - Length 8 -Current Size (cm) - Width 5 -Current Size (cm) - Depth 0.2 -Total Square Cm 40 -Tunneling No -Undermining/Tunneling No -Circular Undermining No -Exudate Amt Medium -Exudate Type Serosanguineous -Wound Margin Distinct, Outline Attached -Granulation Amt Medium (34-66%) -Granulation Quality Goldenrod -Slough/Fibrin Yes -Necrosis Amt Medium (34-66%) -Necrotic Tissue Type Adherent Slough -Structure Exposed N/A -Texture (Nichol-wound Skin Appearance) Assessed -Moisture (Nichol-wound Skin Appearance Dry/Scaly ) -Color (Nichol-wound Skin Appearance) Assessed -Temperature (Nichol-wound Skin No Abnormality Appearance) (Pt Warm) -Tenderness on Palpation (Nichol-wound No Skin Appearance) -Ulcer Cleansing Wound Cleanser -Foul Odor after Cleansing No -Anesthetic Used 4% Lidocaine Solution #2 left distal foot circumfrential -Combined with other wound No -Current Size (cm) - Length 20 -Current Size (cm) - Width 10.5 -Current Size (cm) - Depth 0.1 -Total Square Cm 210.0 -Tunneling No -Undermining/Tunneling No -Circular Undermining No -Exudate Amt Medium -Exudate Type Serosanguineous -Wound Margin Distinct, Outline Attached -Granulation Amt Medium (34-66%) -Granulation Quality Goldenrod -Slough/Fibrin Yes -Necrosis Amt Medium (34-66%) -Necrotic Tissue Type Adherent Slough -Structure Exposed N/A -Texture (Nichol-wound Skin Appearance) Assessed -Moisture (Nichol-wound Skin Appearance Maceration ) -Color (Nichol-wound Skin Appearance) Assessed -Temperature (Nichol-wound Skin No Abnormality Appearance) (Pt Warm) -Tenderness on Palpation (Nichol-wound No Skin Appearance) -Ulcer Cleansing Wound Cleanser -Foul Odor after Cleansing No -Anesthetic Used 4% Lidocaine Solution #1 right lateral lower leg -Combined with other wound No -Current Size (cm) - Length 5 -Current Size (cm) - Width 3 -Current Size (cm) - Depth 0.2 -Total Square Cm 15 -Tunneling No -Undermining/Tunneling No -Circular Undermining No -Exudate Amt Medium -Exudate Type Serosanguineous -Wound Margin Distinct, Outline Attached -Granulation Amt Medium (34-66%) -Granulation Quality Goldenrod -Slough/Fibrin Yes -Necrosis Amt Medium (34-66%) -Necrotic Tissue Type Adherent Slough -Structure Exposed N/A -Texture (Nichol-wound Skin Appearance) Assessed -Moisture (Nichol-wound Skin Appearance Dry/Scaly ) -Color (Nichol-wound Skin Appearance) Assessed -Temperature (Nichol-wound Skin No Abnormality Appearance) (Pt Warm) -Tenderness on Palpation (Nichol-wound No Skin Appearance) -Ulcer Cleansing Wound Cleanser -Foul Odor after Cleansing No -Anesthetic Used 4% Lidocaine Solution [Edema Assessment] -Lower Limb Edema Present Yes -Right Calf (cm) 50 -Right Ankle (cm) 29.5 -Left Calf (cm) 54 -Left Ankle (cm) 29.5 WC - Nurse 2 - General Ulcer CM Notes Start: 09/12/18 09:02 Freq: Status: Active Protocol: Activity Type Activity Date Activity User E-Sign Co-Sign Detail Recorded Client Recorded Date Recorded By Document 10/09/18 09:18 MW [id number] 10/09/18 09:28 MW 10/09/18 09:18 Wound Center Nurse 2 [Procedure/Treatment] #3 left lateral/posterior lower leg -Time 09:22 -Correct Patient Yes -Correct Side, Site, Position Yes -Correct Procedure Yes -Procedure Performed Yes -Type of Procedure Debridement -Clinical Debridement Subcutaneous -Post Debridement Size (cm) - Length 8.0 -Post Debridement Size (cm) - Width 5.0 -Post Debridement Size (cm) - Depth 0.1 -Total Square Cm 40.00 -Wound/Ulcer Outcome Not Healed -Ulcer Cleansing Rinsed/ Irrigated with Saline -Foul Odor after Cleansing No -Bioengineered Tissue No -Bleeding Controlled with Pressure -Offloading No -Treatment Response Procedure Tolerated Well #2 left distal foot circumfrential -Time 09:19 -Correct Patient Yes -Correct Side, Site, Position Yes -Correct Procedure Yes -Procedure Performed Yes -Type of Procedure Debridement -Clinical Debridement Subcutaneous -Post Debridement Size (cm) - Length 21.0 -Post Debridement Size (cm) - Width 9.5 -Post Debridement Size (cm) - Depth 0.1 -Total Square Cm 199.50 -Wound/Ulcer Outcome Not Healed -Ulcer Cleansing Rinsed/ Irrigated with Saline -Foul Odor after Cleansing No -Bioengineered Tissue No -Bleeding Controlled with Pressure -Offloading No -Treatment Response Procedure Tolerated Well #1 right lateral lower leg -Time 09:25 -Correct Patient Yes -Correct Side, Site, Position Yes -Correct Procedure Yes -Procedure Performed Yes -Type of Procedure Debridement -Clinical Debridement Subcutaneous -Post Debridement Size (cm) - Length 4.8 -Post Debridement Size (cm) - Width 3.5 -Post Debridement Size (cm) - Depth 0.1 -Total Square Cm 16.80 -Wound/Ulcer Outcome Not Healed -Ulcer Cleansing Rinsed/ Irrigated with Saline -Foul Odor after Cleansing No -Bioengineered Tissue No -Bleeding Controlled with Pressure -Offloading No -Treatment Response Procedure Tolerated Well [See Physician Procedure note for Specifics] Pain Scale: 0-10 Numeric [Pain] -Is Patient Pain Free? Yes Musculoskeletal: No Muscle Wasting Neurological: Cranial nerves II-XII grossly intact Psych/Mental Status: Normal Affect Debridement Note Post-Debridement Measurements/Treatment WC - Nurse 2 - General Ulcer CM Notes Start: 09/12/18 09:02 Freq: Status: Active Protocol: Activity Type Activity Date Activity User E-Sign Co-Sign Detail Recorded Client Recorded Date Recorded By Document 09/12/18 09:14 AN [id number] 09/12/18 09:27 AN Document 09/18/18 09:40 MW [id number] 09/18/18 09:51 MW Document 09/25/18 09:45 MW [id number] 09/25/18 09:57 MW Document 10/09/18 09:18 MW [id number] 10/09/18 09:28 MW 09/12/18 09/18/18 09/25/18 09:14 09:40 09:45 Wound Center Nurse 2 #3 left lateral/posterior lower leg -Time 09:15 09:46 09:49 -Correct Patient Yes Yes Yes -Correct Side, Site, Position Yes Yes Yes -Correct Procedure Yes Yes Yes -Procedure Performed Yes Yes Yes -Type of Procedure Debridement Debridement Debridement -Clinical Debridement Subcutaneous Subcutaneous Subcutaneous -Post Debridement Size (cm) - Length 9 9.0 9.0 -Post Debridement Size (cm) - Width 6 6.0 5.5 -Post Debridement Size (cm) - Depth 0.1 0.1 0.1 -Total Square Cm 54 54.00 49.50 -Wound/Ulcer Outcome Amputation Not Healed Not Healed -Ulcer Cleansing Rinsed/ Rinsed/ Irrigated with Irrigated with Saline Saline -Foul Odor after Cleansing No No No -Bioengineered Tissue No No No -Bleeding Controlled with Pressure Pressure Pressure -Offloading No No No -Treatment Response Procedure Procedure Procedure Tolerated Well Tolerated Well Tolerated Well #2 left distal foot circumfrential -Time 09:15 09:47 09:46 -Correct Patient Yes Yes Yes -Correct Side, Site, Position Yes Yes Yes -Correct Procedure Yes Yes Yes -Procedure Performed Yes Yes Yes -Type of Procedure Debridement Debridement Debridement -Clinical Debridement Subcutaneous Subcutaneous Subcutaneous -Post Debridement Size (cm) - Length 23 20.5 20.0 -Post Debridement Size (cm) - Width 9 9.0 10.0 -Post Debridement Size (cm) - Depth 0.1 0.1 0.1 -Total Square Cm 207 184.50 200.00 -Wound/Ulcer Outcome Not Healed Converted Not Healed -Ulcer Cleansing Rinsed/ Rinsed/ Irrigated with Irrigated with Saline Saline -Foul Odor after Cleansing No No No -Bioengineered Tissue No No No -Bleeding Controlled with Pressure Pressure Pressure -Offloading No No No -Treatment Response Procedure Procedure Procedure Tolerated Well Tolerated Well Tolerated Well #1 right lateral lower leg -Time 09:17 09:47 09:49 -Correct Patient Yes Yes Yes -Correct Side, Site, Position Yes Yes Yes -Correct Procedure Yes Yes Yes -Procedure Performed Yes Yes Yes -Type of Procedure Debridement Debridement Debridement -Clinical Debridement Subcutaneous Subcutaneous Subcutaneous -Post Debridement Size (cm) - Length 7 5.5 5.0 -Post Debridement Size (cm) - Width 5.5 5.5 3.8 -Post Debridement Size (cm) - Depth 0.1 0.1 0.1 -Total Square Cm 38.5 30.25 19.00 -Wound/Ulcer Outcome Not Healed Not Healed Not Healed -Ulcer Cleansing Rinsed/ Rinsed/ Irrigated with Irrigated with Saline Saline -Foul Odor after Cleansing No No No -Bioengineered Tissue No No No -Bleeding Controlled with Pressure Pressure Pressure -Offloading No No No -Treatment Response Procedure Procedure Procedure Tolerated Well Tolerated Well Tolerated Well Pain Scale: 0-10 Numeric Is Patient Pain Free? Yes Yes Yes 10/09/18 09:18 Wound Center Nurse 2 #3 left lateral/posterior lower leg -Time 09:22 -Correct Patient Yes -Correct Side, Site, Position Yes -Correct Procedure Yes -Procedure Performed Yes -Type of Procedure Debridement -Clinical Debridement Subcutaneous -Post Debridement Size (cm) - Length 8.0 -Post Debridement Size (cm) - Width 5.0 -Post Debridement Size (cm) - Depth 0.1 -Total Square Cm 40.00 -Wound/Ulcer Outcome Not Healed -Ulcer Cleansing Rinsed/ Irrigated with Saline -Foul Odor after Cleansing No -Bioengineered Tissue No -Bleeding Controlled with Pressure -Offloading No -Treatment Response Procedure Tolerated Well #2 left distal foot circumfrential -Time 09:19 -Correct Patient Yes -Correct Side, Site, Position Yes -Correct Procedure Yes -Procedure Performed Yes -Type of Procedure Debridement -Clinical Debridement Subcutaneous -Post Debridement Size (cm) - Length 21.0 -Post Debridement Size (cm) - Width 9.5 -Post Debridement Size (cm) - Depth 0.1 -Total Square Cm 199.50 -Wound/Ulcer Outcome Not Healed -Ulcer Cleansing Rinsed/ Irrigated with Saline -Foul Odor after Cleansing No -Bioengineered Tissue No -Bleeding Controlled with Pressure -Offloading No -Treatment Response Procedure Tolerated Well #1 right lateral lower leg -Time 09:25 -Correct Patient Yes -Correct Side, Site, Position Yes -Correct Procedure Yes -Procedure Performed Yes -Type of Procedure Debridement -Clinical Debridement Subcutaneous -Post Debridement Size (cm) - Length 4.8 -Post Debridement Size (cm) - Width 3.5 -Post Debridement Size (cm) - Depth 0.1 -Total Square Cm 16.80 -Wound/Ulcer Outcome Not Healed -Ulcer Cleansing Rinsed/ Irrigated with Saline -Foul Odor after Cleansing No -Bioengineered Tissue No -Bleeding Controlled with Pressure -Offloading No -Treatment Response Procedure Tolerated Well Pain Scale: 0-10 Numeric Is Patient Pain Free? Yes Wound debrided: Left foot Wound Grade/Stage: Grade 2 Type of Debridement: Excisional debridement Anesthesia Used: 4% Lidocaine Solution Depth: Down to and including healthy tissue, in the subcutaneous layer Percentage of wound debrided: 100 Instrument Used: 7mm curette Tissue Removed: Slough and devitalized tissue Severity: Fat Layer Exposed Amount of bleeding with debridement: Mild Bleeding Controlled with: Pressure Patient tolerated procedure well - Additional Wound Wound debrided: Left lateral lower extremity Wound Grade/Stage: Grade 2 Type of Debridement: Excisional debridement Anesthesia Used: 4% Lidocaine Solution Depth: Down to and including healthy tissue, in the subcutaneous layer Percentage of wound debrided: 100 Instrument Used: 5mm curette Tissue Removed: Slough and devitalized tissue Severity: Fat Layer Exposed Amount of bleeding with debridement: Mild Bleeding Controlled with: Pressure Patient tolerated procedure: Patient tolerated procedure well - Additional Wound Wound debrided: Right lateral lower extremity Wound Grade/Stage: Great 2 Type of Debridement: Excisional debridement Anesthesia Used: 4% Lidocaine Solution Depth: Down to and including healthy tissue, in the subcutaneous layer Percentage of wound debrided: 100 Instrument Used: 5mm curette Tissue Removed: Slough and devitalized tissue Severity: Fat Layer Exposed Amount of bleeding with debridement: Mild Bleeding Controlled with: Pressure Patient tolerated procedure: Patient tolerated procedure well Assessment/Plan Active Problems (Last Reviewed 07/17/18 @ 12:42 by MATTIE Locke) Diabetic foot ulcer associated with type 2 diabetes mellitus (Chronic) Grade 2. Ulcer of left lower extremity with fat layer exposed (Chronic) Ulcer of right lower extremity with fat layer exposed (Chronic) Bilateral lower extremity edema (Chronic) Type 2 diabetes mellitus (Chronic) Assessment: Nonhealing bilateral lower extremity ulcer in a patient with type 2 diabetes mellitus. Diabetic foot ulcer with significant maceration/deformity. Morbid obesity. Tobacco abuse. Plan: Improvement in the right and left lateral lower extremity ulcers however left foot with no significant change. Debridement done as documented above. Procedure was well-tolerated. Continue Kerracel with Kerramax care over top. Change daily to twice daily depending on drainage. Patient might benefit from his skin substitute to his left foot due to nonimpressive improvement so far. Optimal blood sugar control strongly recommended. Smoking cessation encouraged. Increased protein intake. Continue premier twice to three times daily. Continue Francisco Javier wrap to bilateral lower extremities.. Elevate lower extremities when seated and in bed. His questions were answered and he was advised to call with any further questions or concerns. Follow-up in 1 week. This note was generated with [employer] dictation software. It may contain incorrect words, spelling, and punctuation that were not noted in checking the note before signing.
--- NOTE | 2018-10-09 09:53 | PN.PCM_ITS ---
(1) Diabetic foot ulcer associated with type 2 diabetes mellitus Status: Chronic Current Visit: Yes Code(s): E11.621 - Type 2 diabetes mellitus with foot ulcer; L97.509 - Non-pressure chronic ulcer of other part of unspecified foot with unspecified severity Comment: Grade 2. (2) Type 2 diabetes mellitus Status: Chronic Current Visit: Yes Code(s): E11.9 - Type 2 diabetes mellitus without complications (3) Ulcer of left lower extremity with fat layer exposed Status: Chronic Current Visit: Yes Code(s): L97.922 - Non-pressure chronic ulcer of unspecified part of left lower leg with fat layer exposed (4) Bilateral lower extremity edema Status: Chronic Current Visit: Yes Code(s): R60.0 - Localized edema (5) Ulcer of right lower extremity with fat layer exposed Status: Chronic Current Visit: Yes Code(s): L97.912 - Non-pressure chronic ulcer of unspecified part of right lower leg with fat layer exposed Type of Wound Chief Complaint: Bilateral lower extremity ulcers. History of Wound: Mr. Toscano is a 62-year-old with a complex past medical history who was referred to the wound center due to nonhealing bilateral lower extremity ulcers. He reports a history of recurrent bilateral lower extremity ulcers since 1995 however most recent episode was said to have started in March. Was managed by wound care nurse at his [place] [facility] facility with no significant improvement. He is also been seen at other wound care centers. He is unsure of his diabetes control. Smokes daily. Largely sedentary. At this time, he denies any acute concerns. Denies chills, fever or feeling of unwell. Progress of Wound: No new concerns at this time. Left and right lateral lower extremity ulcers improving however, left foot with no significant change. - Physical Exam Vital Signs Temp Pulse Resp BP Pulse Ox 99.3 F H 67 18 141/58 H 90 10/09/18 08:43 10/09/18 08:43 10/09/18 08:43 10/09/18 08:43 09/11/18 00:38 General: Alert, Oriented x3, Cooperative, No apparent distress HEENT: Atraumatic, Normocephalic Oral: Moist Mucosa Neck: Supple Lungs: Normal air movement Abdomen: Obese Extremities: No cyanosis, Edema Skin: Ulcer/ Wound Wound Measurements and Assessment WC - Nurse 1 - General Ulcer Measurement Start: 09/12/18 09:02 Freq: Status: Active Protocol: Activity Type Activity Date Activity User E-Sign Co-Sign Detail Recorded Client Recorded Date Recorded By Document 10/09/18 08:43 JAKE [id number] 10/09/18 08:55 RB 10/09/18 08:43 Wound Center Nurse 1 [Ulcer Assessment] #3 left lateral/posterior lower leg -Combined with other wound No -Current Size (cm) - Length 8 -Current Size (cm) - Width 5 -Current Size (cm) - Depth 0.2 -Total Square Cm 40 -Tunneling No -Undermining/Tunneling No -Circular Undermining No -Exudate Amt Medium -Exudate Type Serosanguineous -Wound Margin Distinct, Outline Attached -Granulation Amt Medium (34-66%) -Granulation Quality [place] -Slough/Fibrin Yes -Necrosis Amt Medium (34-66%) -Necrotic Tissue Type Adherent Slough -Structure Exposed N/A -Texture (Nichol-wound Skin Appearance) Assessed -Moisture (Nichol-wound Skin Appearance Dry/Scaly ) -Color (Nichol-wound Skin Appearance) Assessed -Temperature (Nichol-wound Skin No Abnormality Appearance) (Pt Warm) -Tenderness on Palpation (Nichol-wound No Skin Appearance) -Ulcer Cleansing Wound Cleanser -Foul Odor after Cleansing No -Anesthetic Used 4% Lidocaine Solution #2 left distal foot circumfrential -Combined with other wound No -Current Size (cm) - Length 20 -Current Size (cm) - Width 10.5 -Current Size (cm) - Depth 0.1 -Total Square Cm 210.0 -Tunneling No -Undermining/Tunneling No -Circular Undermining No -Exudate Amt Medium -Exudate Type Serosanguineous -Wound Margin Distinct, Outline Attached -Granulation Amt Medium (34-66%) -Granulation Quality [place] -Slough/Fibrin Yes -Necrosis Amt Medium (34-66%) -Necrotic Tissue Type Adherent Slough -Structure Exposed N/A -Texture (Nichol-wound Skin Appearance) Assessed -Moisture (Nichol-wound Skin Appearance Maceration ) -Color (Nichol-wound Skin Appearance) Assessed -Temperature (Nichol-wound Skin No Abnormality Appearance) (Pt Warm) -Tenderness on Palpation (Nichol-wound No Skin Appearance) -Ulcer Cleansing Wound Cleanser -Foul Odor after Cleansing No -Anesthetic Used 4% Lidocaine Solution #1 right lateral lower leg -Combined with other wound No -Current Size (cm) - Length 5 -Current Size (cm) - Width 3 -Current Size (cm) - Depth 0.2 -Total Square Cm 15 -Tunneling No -Undermining/Tunneling No -Circular Undermining No -Exudate Amt Medium -Exudate Type Serosanguineous -Wound Margin Distinct, Outline Attached -Granulation Amt Medium (34-66%) -Granulation Quality [place] -Slough/Fibrin Yes -Necrosis Amt Medium (34-66%) -Necrotic Tissue Type Adherent Slough -Structure Exposed N/A -Texture (Nichol-wound Skin Appearance) Assessed -Moisture (Nichol-wound Skin Appearance Dry/Scaly ) -Color (Nichol-wound Skin Appearance) Assessed -Temperature (Nichol-wound Skin No Abnormality Appearance) (Pt Warm) -Tenderness on Palpation (Nichol-wound No Skin Appearance) -Ulcer Cleansing Wound Cleanser -Foul Odor after Cleansing No -Anesthetic Used 4% Lidocaine Solution [Edema Assessment] -Lower Limb Edema Present Yes -Right Calf (cm) 50 -Right Ankle (cm) 29.5 -Left Calf (cm) 54 -Left Ankle (cm) 29.5 WC - Nurse 2 - General Ulcer CM Notes Start: 09/12/18 09:02 Freq: Status: Active Protocol: Activity Type Activity Date Activity User E-Sign Co-Sign Detail Recorded Client Recorded Date Recorded By Document 10/09/18 09:18 MW [id number] 10/09/18 09:28 MW 10/09/18 09:18 Wound Center Nurse 2 [Procedure/Treatment] #3 left lateral/posterior lower leg -Time 09:22 -Correct Patient Yes -Correct Side, Site, Position Yes -Correct Procedure Yes -Procedure Performed Yes -Type of Procedure Debridement -Clinical Debridement Subcutaneous -Post Debridement Size (cm) - Length 8.0 -Post Debridement Size (cm) - Width 5.0 -Post Debridement Size (cm) - Depth 0.1 -Total Square Cm 40.00 -Wound/Ulcer Outcome Not Healed -Ulcer Cleansing Rinsed/ Irrigated with Saline -Foul Odor after Cleansing No -Bioengineered Tissue No -Bleeding Controlled with Pressure -Offloading No -Treatment Response Procedure Tolerated Well #2 left distal foot circumfrential -Time 09:19 -Correct Patient Yes -Correct Side, Site, Position Yes -Correct Procedure Yes -Procedure Performed Yes -Type of Procedure Debridement -Clinical Debridement Subcutaneous -Post Debridement Size (cm) - Length 21.0 -Post Debridement Size (cm) - Width 9.5 -Post Debridement Size (cm) - Depth 0.1 -Total Square Cm 199.50 -Wound/Ulcer Outcome Not Healed -Ulcer Cleansing Rinsed/ Irrigated with Saline -Foul Odor after Cleansing No -Bioengineered Tissue No -Bleeding Controlled with Pressure -Offloading No -Treatment Response Procedure Tolerated Well #1 right lateral lower leg -Time 09:25 -Correct Patient Yes -Correct Side, Site, Position Yes -Correct Procedure Yes -Procedure Performed Yes -Type of Procedure Debridement -Clinical Debridement Subcutaneous -Post Debridement Size (cm) - Length 4.8 -Post Debridement Size (cm) - Width 3.5 -Post Debridement Size (cm) - Depth 0.1 -Total Square Cm 16.80 -Wound/Ulcer Outcome Not Healed -Ulcer Cleansing Rinsed/ Irrigated with Saline -Foul Odor after Cleansing No -Bioengineered Tissue No -Bleeding Controlled with Pressure -Offloading No -Treatment Response Procedure Tolerated Well [See Physician Procedure note for Specifics] Pain Scale: 0-10 Numeric [Pain] -Is Patient Pain Free? Yes Musculoskeletal: No Muscle Wasting Neurological: Cranial nerves II-XII grossly intact Psych/Mental Status: Normal Affect Debridement Note Post-Debridement Measurements/Treatment WC - Nurse 2 - General Ulcer CM Notes Start: 09/12/18 09:02 Freq: Status: Active Protocol: Activity Type Activity Date Activity User E-Sign Co-Sign Detail Recorded Client Recorded Date Recorded By Document 09/12/18 09:14 AN [id number] 09/12/18 09:27 AN Document 09/18/18 09:40 MW [id number] 09/18/18 09:51 MW Document 09/25/18 09:45 MW [id number] 09/25/18 09:57 MW Document 10/09/18 09:18 MW [id number] 10/09/18 09:28 MW 09/12/18 09/18/18 09/25/18 09:14 09:40 09:45 Wound Center Nurse 2 #3 left lateral/posterior lower leg -Time 09:15 09:46 09:49 -Correct Patient Yes Yes Yes -Correct Side, Site, Position Yes Yes Yes -Correct Procedure Yes Yes Yes -Procedure Performed Yes Yes Yes -Type of Procedure Debridement Debridement Debridement -Clinical Debridement Subcutaneous Subcutaneous Subcutaneous -Post Debridement Size (cm) - Length 9 9.0 9.0 -Post Debridement Size (cm) - Width 6 6.0 5.5 -Post Debridement Size (cm) - Depth 0.1 0.1 0.1 -Total Square Cm 54 54.00 49.50 -Wound/Ulcer Outcome Amputation Not Healed Not Healed -Ulcer Cleansing Rinsed/ Rinsed/ Irrigated with Irrigated with Saline Saline -Foul Odor after Cleansing No No No -Bioengineered Tissue No No No -Bleeding Controlled with Pressure Pressure Pressure -Offloading No No No -Treatment Response Procedure Procedure Procedure Tolerated Well Tolerated Well Tolerated Well #2 left distal foot circumfrential -Time 09:15 09:47 09:46 -Correct Patient Yes Yes Yes -Correct Side, Site, Position Yes Yes Yes -Correct Procedure Yes Yes Yes -Procedure Performed Yes Yes Yes -Type of Procedure Debridement Debridement Debridement -Clinical Debridement Subcutaneous Subcutaneous Subcutaneous -Post Debridement Size (cm) - Length 23 20.5 20.0 -Post Debridement Size (cm) - Width 9 9.0 10.0 -Post Debridement Size (cm) - Depth 0.1 0.1 0.1 -Total Square Cm 207 184.50 200.00 -Wound/Ulcer Outcome Not Healed Converted Not Healed -Ulcer Cleansing Rinsed/ Rinsed/ Irrigated with Irrigated with Saline Saline -Foul Odor after Cleansing No No No -Bioengineered Tissue No No No -Bleeding Controlled with Pressure Pressure Pressure -Offloading No No No -Treatment Response Procedure Procedure Procedure Tolerated Well Tolerated Well Tolerated Well #1 right lateral lower leg -Time 09:17 09:47 09:49 -Correct Patient Yes Yes Yes -Correct Side, Site, Position Yes Yes Yes -Correct Procedure Yes Yes Yes -Procedure Performed Yes Yes Yes -Type of Procedure Debridement Debridement Debridement -Clinical Debridement Subcutaneous Subcutaneous Subcutaneous -Post Debridement Size (cm) - Length 7 5.5 5.0 -Post Debridement Size (cm) - Width 5.5 5.5 3.8 -Post Debridement Size (cm) - Depth 0.1 0.1 0.1 -Total Square Cm 38.5 30.25 19.00 -Wound/Ulcer Outcome Not Healed Not Healed Not Healed -Ulcer Cleansing Rinsed/ Rinsed/ Irrigated with Irrigated with Saline Saline -Foul Odor after Cleansing No No No -Bioengineered Tissue No No No -Bleeding Controlled with Pressure Pressure Pressure -Offloading No No No -Treatment Response Procedure Procedure Procedure Tolerated Well Tolerated Well Tolerated Well Pain Scale: 0-10 Numeric Is Patient Pain Free? Yes Yes Yes 10/09/18 09:18 Wound Center Nurse 2 #3 left lateral/posterior lower leg -Time 09:22 -Correct Patient Yes -Correct Side, Site, Position Yes -Correct Procedure Yes -Procedure Performed Yes -Type of Procedure Debridement -Clinical Debridement Subcutaneous -Post Debridement Size (cm) - Length 8.0 -Post Debridement Size (cm) - Width 5.0 -Post Debridement Size (cm) - Depth 0.1 -Total Square Cm 40.00 -Wound/Ulcer Outcome Not Healed -Ulcer Cleansing Rinsed/ Irrigated with Saline -Foul Odor after Cleansing No -Bioengineered Tissue No -Bleeding Controlled with Pressure -Offloading No -Treatment Response Procedure Tolerated Well #2 left distal foot circumfrential -Time 09:19 -Correct Patient Yes -Correct Side, Site, Position Yes -Correct Procedure Yes -Procedure Performed Yes -Type of Procedure Debridement -Clinical Debridement Subcutaneous -Post Debridement Size (cm) - Length 21.0 -Post Debridement Size (cm) - Width 9.5 -Post Debridement Size (cm) - Depth 0.1 -Total Square Cm 199.50 -Wound/Ulcer Outcome Not Healed -Ulcer Cleansing Rinsed/ Irrigated with Saline -Foul Odor after Cleansing No -Bioengineered Tissue No -Bleeding Controlled with Pressure -Offloading No -Treatment Response Procedure Tolerated Well #1 right lateral lower leg -Time 09:25 -Correct Patient Yes -Correct Side, Site, Position Yes -Correct Procedure Yes -Procedure Performed Yes -Type of Procedure Debridement -Clinical Debridement Subcutaneous -Post Debridement Size (cm) - Length 4.8 -Post Debridement Size (cm) - Width 3.5 -Post Debridement Size (cm) - Depth 0.1 -Total Square Cm 16.80 -Wound/Ulcer Outcome Not Healed -Ulcer Cleansing Rinsed/ Irrigated with Saline -Foul Odor after Cleansing No -Bioengineered Tissue No -Bleeding Controlled with Pressure -Offloading No -Treatment Response Procedure Tolerated Well Pain Scale: 0-10 Numeric Is Patient Pain Free? Yes Wound debrided: Left foot Wound Grade/Stage: Grade 2 Type of Debridement: Excisional debridement Anesthesia Used: 4% Lidocaine Solution Depth: Down to and including healthy tissue, in the subcutaneous layer Percentage of wound debrided: 100 Instrument Used: 7mm curette Tissue Removed: Slough and devitalized tissue Severity: Fat Layer Exposed Amount of bleeding with debridement: Mild Bleeding Controlled with: Pressure Patient tolerated procedure well - Additional Wound Wound debrided: Left lateral lower extremity Wound Grade/Stage: Grade 2 Type of Debridement: Excisional debridement Anesthesia Used: 4% Lidocaine Solution Depth: Down to and including healthy tissue, in the subcutaneous layer Percentage of wound debrided: 100 Instrument Used: 5mm curette Tissue Removed: Slough and devitalized tissue Severity: Fat Layer Exposed Amount of bleeding with debridement: Mild Bleeding Controlled with: Pressure Patient tolerated procedure: Patient tolerated procedure well - Additional Wound Wound debrided: Right lateral lower extremity Wound Grade/Stage: Great 2 Type of Debridement: Excisional debridement Anesthesia Used: 4% Lidocaine Solution Depth: Down to and including healthy tissue, in the subcutaneous layer Percentage of wound debrided: 100 Instrument Used: 5mm curette Tissue Removed: Slough and devitalized tissue Severity: Fat Layer Exposed Amount of bleeding with debridement: Mild Bleeding Controlled with: Pressure Patient tolerated procedure: Patient tolerated procedure well Assessment/Plan Active Problems (Last Reviewed 07/17/18 @ 12:42 by MATTIE Locke) Diabetic foot ulcer associated with type 2 diabetes mellitus (Chronic) Grade 2. Ulcer of left lower extremity with fat layer exposed (Chronic) Ulcer of right lower extremity with fat layer exposed (Chronic) Bilateral lower extremity edema (Chronic) Type 2 diabetes mellitus (Chronic) Assessment: Nonhealing bilateral lower extremity ulcer in a patient with type 2 diabetes mellitus. Diabetic foot ulcer with significant maceration/deformity. Morbid obesity. Tobacco abuse. Plan: Improvement in the right and left lateral lower extremity ulcers however left foot with no significant change. Debridement done as documented above. Procedure was well-tolerated. Continue Kerracel with Kerramax care over top. Change daily to twice daily depending on drainage. Patient might benefit from his skin substitute to his left foot due to nonimpressive improvement so far. Optimal blood sugar control strongly recommended. Smoking cessation encouraged. Increased protein intake. Continue premier twice to three times daily. Continue Francisco Javier wrap to bilateral lower extremities.. Elevate lower extremities when seated and in bed. His questions were answered and he was advised to call with any further questions or concerns. Follow-up in 1 week. This note was generated with [employer] dictation software. It may contain incorrect words, spelling, and punctuation that were not noted in checking the note before signing.
== END 2018-10-11 23:59 ==
LOC: WC 09:00
PROVIDERS: Family Provider Internal Medicine; PCP Internal Medicine; Referring Provider Internal Medicine; Visit Provider Internal Medicine
DX: E11.621 Type 2 diabetes mellitus with foot ulcer (principal); L97.522 Non-pressure chronic ulcer of other part of left foot with fat layer exposed; L97.512 Non-pressure chronic ulcer of other part of right foot with fat layer exposed; R60.0 Localized edema; E66.01 Morbid (severe) obesity due to excess calories; Z71.3 Dietary counseling and surveillance; Z68.43 Body mass index [BMI] 50.0-59.9, adult; F17.200 Nicotine dependence, unspecified, uncomplicated
CPT/HCPCS: 11042; 11045

== ENCOUNTER 2018-10-24 08:00 | Outpatient (RCR) | payer MEDICARE, MEDICAID, SELFPAY ==
[2018-10-12 00:33] VITALS: BP 141/58; PULSE 67; RESP 18; TEMP 37.4; O2SAT 90
[2018-10-17 09:58] VITALS: BP 116/63; PULSE 53; RESP 18; TEMP 36.5; BMI 58.8
--- NOTE | 2018-10-17 10:00 | WC ---
ADMITTED TO [facility] WITH SEPSIS AND DISCHAGRED ON 10/14/18 PT STILL ON IV ATB
--- NOTE | 2018-10-17 12:20 | PCM.WC.PN ---
(1) Diabetic foot ulcer associated with type 2 diabetes mellitus Status: Chronic Current Visit: Yes Code(s): E11.621 - Type 2 diabetes mellitus with foot ulcer; L97.509 - Non-pressure chronic ulcer of other part of unspecified foot with unspecified severity Comment: Grade 2. (2) Type 2 diabetes mellitus Status: Chronic Current Visit: Yes Code(s): E11.9 - Type 2 diabetes mellitus without complications (3) Ulcer of left lower extremity with fat layer exposed Status: Chronic Current Visit: Yes Code(s): L97.922 - Non-pressure chronic ulcer of unspecified part of left lower leg with fat layer exposed (4) Ulcer of right lower extremity with fat layer exposed Status: Chronic Current Visit: Yes Code(s): L97.912 - Non-pressure chronic ulcer of unspecified part of right lower leg with fat layer exposed Type of Wound Chief Complaint: Bilateral lower extremity ulcers. History of Wound: Mr. Toscano is a 62-year-old with a complex past medical history who was referred to the wound center due to nonhealing bilateral lower extremity ulcers. He reports a history of recurrent bilateral lower extremity ulcers since 1995 however most recent episode was said to have started in March. Was managed by wound care nurse at his [facility] facility with no significant improvement. He is also been seen at other wound care centers. He is unsure of his diabetes control. Smokes daily. Largely sedentary. At this time, he denies any acute concerns. Denies chills, fever or feeling of unwell. Progress of Wound: Recent hospital admission for sepsis. Third sepsis admission since follow-up of the wound center. Ulcers essentially stable. - Physical Exam Vital Signs Temp Pulse Resp BP Pulse Ox 97.7 F L 53 L 18 116/63 90 10/17/18 09:58 10/17/18 09:58 10/17/18 09:58 10/17/18 09:58 10/12/18 00:33 General: Alert, Oriented x3, Cooperative, No apparent distress HEENT: Atraumatic, Normocephalic Oral: Moist Mucosa Neck: Supple Lungs: Normal air movement Abdomen: Non Tender, Obese Extremities: No cyanosis, Edema Skin: Ulcer/ Wound Wound Measurements and Assessment WC - Nurse 1 - General Ulcer Measurement Start: 10/17/18 09:57 Freq: Status: Active Protocol: Activity Type Activity Date Activity User E-Sign Co-Sign Detail Recorded Client Recorded Date Recorded By Document 10/17/18 09:58 RB [id number] 10/17/18 10:10 RB 10/17/18 09:58 Wound Center Nurse 1 [Ulcer Assessment] #3 left lateral/posterior lower leg -Combined with other wound No -Current Size (cm) - Length 4 -Current Size (cm) - Width 3 -Current Size (cm) - Depth 0.1 -Total Square Cm 12 -Tunneling No -Undermining/Tunneling No -Circular Undermining No -Exudate Amt Large -Exudate Type Serosanguineous -Wound Margin Distinct, Outline Attached -Granulation Amt Medium (34-66%) -Granulation Quality Antares -Slough/Fibrin Yes -Necrosis Amt Medium (34-66%) -Necrotic Tissue Type Adherent Slough -Structure Exposed N/A -Texture (Nichol-wound Skin Appearance) Assessed -Moisture (Nichol-wound Skin Appearance Maceration ) -Color (Nichol-wound Skin Appearance) Assessed -Temperature (Nichol-wound Skin No Abnormality Appearance) (Pt Warm) -Tenderness on Palpation (Nichol-wound No Skin Appearance) -Ulcer Cleansing Wound Cleanser -Foul Odor after Cleansing No -Anesthetic Used 4% Lidocaine Solution #2 left distal foot circumfrential -Combined with other wound No -Current Size (cm) - Length 20 -Current Size (cm) - Width 12 -Current Size (cm) - Depth 0.2 -Total Square Cm 240 -Tunneling No -Undermining/Tunneling No -Circular Undermining No -Exudate Amt Large -Exudate Type Serosanguineous -Wound Margin Distinct, Outline Attached -Granulation Amt Medium (34-66%) -Granulation Quality Antares -Slough/Fibrin Yes -Necrosis Amt Medium (34-66%) -Necrotic Tissue Type Adherent Slough -Structure Exposed N/A -Texture (Nichol-wound Skin Appearance) Assessed -Moisture (Nichol-wound Skin Appearance Assessed ) Maceration -Color (Nichol-wound Skin Appearance) Assessed -Temperature (Nichol-wound Skin No Abnormality Appearance) (Pt Warm) -Tenderness on Palpation (Nichol-wound No Skin Appearance) -Ulcer Cleansing Wound Cleanser -Anesthetic Used 4% Lidocaine Solution #1 right lateral lower leg -Combined with other wound No -Current Size (cm) - Length 8 -Current Size (cm) - Width 6 -Current Size (cm) - Depth 0.1 -Total Square Cm 48 -Tunneling No -Undermining/Tunneling No -Circular Undermining No -Exudate Amt Medium -Exudate Type Serosanguineous -Wound Margin Distinct, Outline Attached -Granulation Amt Medium (34-66%) -Granulation Quality Antares -Slough/Fibrin Yes -Necrosis Amt Medium (34-66%) -Necrotic Tissue Type Adherent Slough -Structure Exposed N/A -Texture (Nichol-wound Skin Appearance) Assessed -Moisture (Nichol-wound Skin Appearance Assessed ) Maceration -Color (Nichol-wound Skin Appearance) Assessed -Temperature (Nichol-wound Skin No Abnormality Appearance) (Pt Warm) -Tenderness on Palpation (Nichol-wound No Skin Appearance) -Ulcer Cleansing Wound Cleanser -Foul Odor after Cleansing No -Anesthetic Used 4% Lidocaine Solution [Edema Assessment] -Lower Limb Edema Present Yes -Right Calf (cm) 50 -Right Ankle (cm) 30 -Left Calf (cm) 55 -Left Ankle (cm) 29.5 10/17/18 10:00 Wound Center by Bernice Centeno ADMITTED TO [facility] WITH SEPSIS AND DISCHAGRED ON 10/14/18 PT STILL ON IV ATB Initialized on 10/17/18 10:00 - END OF NOTE WC - Nurse 2 - General Ulcer CM Notes Start: 10/17/18 09:57 Freq: Status: Active Protocol: Activity Type Activity Date Activity User E-Sign Co-Sign Detail Recorded Client Recorded Date Recorded By Document 10/17/18 10:44 MW [id number] 10/17/18 10:57 MW 10/17/18 10:44 Wound Center Nurse 2 [Procedure/Treatment] #3 left lateral/posterior lower leg -Time 10:44 -Correct Patient Yes -Correct Side, Site, Position Yes -Correct Procedure Yes -Procedure Performed Yes -Type of Procedure Debridement -Clinical Debridement Subcutaneous -Post Debridement Size (cm) - Length 7.0 -Post Debridement Size (cm) - Width 4.5 -Post Debridement Size (cm) - Depth 0.1 -Total Square Cm 31.50 -Wound/Ulcer Outcome Not Healed -Ulcer Cleansing Rinsed/ Irrigated with Saline -Foul Odor after Cleansing No -Bioengineered Tissue No -Bleeding Controlled with Pressure -Offloading No -Treatment Response Procedure Tolerated Well #2 left distal foot circumfrential -Time 10:45 -Correct Patient Yes -Correct Side, Site, Position Yes -Correct Procedure Yes -Procedure Performed Yes -Type of Procedure Debridement -Clinical Debridement Subcutaneous -Post Debridement Size (cm) - Length 21.0 -Post Debridement Size (cm) - Width 9.0 -Post Debridement Size (cm) - Depth 0.2 -Total Square Cm 189.00 -Wound/Ulcer Outcome Not Healed -Ulcer Cleansing Rinsed/ Irrigated with Saline -Foul Odor after Cleansing No -Bioengineered Tissue No -Bleeding Controlled with Pressure -Offloading No -Treatment Response Procedure Tolerated Well #1 right lateral lower leg -Time 10:45 -Correct Patient Yes -Correct Side, Site, Position Yes -Correct Procedure Yes -Procedure Performed Yes -Type of Procedure Debridement -Clinical Debridement Subcutaneous -Post Debridement Size (cm) - Length 4.5 -Post Debridement Size (cm) - Width 3.5 -Post Debridement Size (cm) - Depth 0.1 -Total Square Cm 15.75 -Wound/Ulcer Outcome Not Healed -Ulcer Cleansing Rinsed/ Irrigated with Saline -Foul Odor after Cleansing No -Bioengineered Tissue No -Bleeding Controlled with Pressure -Offloading No -Treatment Response Procedure Tolerated Well [See Physician Procedure note for Specifics] Pain Scale: 0-10 Numeric [Pain] -Is Patient Pain Free? Yes Musculoskeletal: No Muscle Wasting Neurological: Cranial nerves II-XII grossly intact Psych/Mental Status: Normal Affect Debridement Note Post-Debridement Measurements/Treatment WC - Nurse 2 - General Ulcer CM Notes Start: 10/17/18 09:57 Freq: Status: Active Protocol: Activity Type Activity Date Activity User E-Sign Co-Sign Detail Recorded Client Recorded Date Recorded By Document 10/17/18 10:44 MW [id number] 10/17/18 10:57 MW 10/17/18 10:44 Wound Center Nurse 2 #3 left lateral/posterior lower leg -Time 10:44 -Correct Patient Yes -Correct Side, Site, Position Yes -Correct Procedure Yes -Procedure Performed Yes -Type of Procedure Debridement -Clinical Debridement Subcutaneous -Post Debridement Size (cm) - Length 7.0 -Post Debridement Size (cm) - Width 4.5 -Post Debridement Size (cm) - Depth 0.1 -Total Square Cm 31.50 -Wound/Ulcer Outcome Not Healed -Ulcer Cleansing Rinsed/ Irrigated with Saline -Foul Odor after Cleansing No -Bioengineered Tissue No -Bleeding Controlled with Pressure -Offloading No -Treatment Response Procedure Tolerated Well #2 left distal foot circumfrential -Time 10:45 -Correct Patient Yes -Correct Side, Site, Position Yes -Correct Procedure Yes -Procedure Performed Yes -Type of Procedure Debridement -Clinical Debridement Subcutaneous -Post Debridement Size (cm) - Length 21.0 -Post Debridement Size (cm) - Width 9.0 -Post Debridement Size (cm) - Depth 0.2 -Total Square Cm 189.00 -Wound/Ulcer Outcome Not Healed -Ulcer Cleansing Rinsed/ Irrigated with Saline -Foul Odor after Cleansing No -Bioengineered Tissue No -Bleeding Controlled with Pressure -Offloading No -Treatment Response Procedure Tolerated Well #1 right lateral lower leg -Time 10:45 -Correct Patient Yes -Correct Side, Site, Position Yes -Correct Procedure Yes -Procedure Performed Yes -Type of Procedure Debridement -Clinical Debridement Subcutaneous -Post Debridement Size (cm) - Length 4.5 -Post Debridement Size (cm) - Width 3.5 -Post Debridement Size (cm) - Depth 0.1 -Total Square Cm 15.75 -Wound/Ulcer Outcome Not Healed -Ulcer Cleansing Rinsed/ Irrigated with Saline -Foul Odor after Cleansing No -Bioengineered Tissue No -Bleeding Controlled with Pressure -Offloading No -Treatment Response Procedure Tolerated Well Pain Scale: 0-10 Numeric Is Patient Pain Free? Yes Wound debrided: Left foot Wound Grade/Stage: Grade 2 Type of Debridement: Excisional debridement Anesthesia Used: 4% Lidocaine Solution Depth: Down to and including healthy tissue, in the subcutaneous layer Percentage of wound debrided: 100 Instrument Used: 7mm curette Tissue Removed: Slough and devitalized tissue Severity: Fat Layer Exposed Amount of bleeding with debridement: Mild Bleeding Controlled with: Pressure Patient tolerated procedure well - Additional Wound Wound debrided: Left lower extremity (lateral) Wound Grade/Stage: Grade II Type of Debridement: Excisional debridement Anesthesia Used: 4% Lidocaine Solution Depth: Down to and including healthy tissue, in the subcutaneous layer Percentage of wound debrided: 100 Instrument Used: 5mm curette Tissue Removed: Slough and devitalized tissue Severity: Fat Layer Exposed Amount of bleeding with debridement: Mild Bleeding Controlled with: Pressure Patient tolerated procedure: Patient tolerated procedure well - Additional Wound Wound debrided: Right lower extremity lateral Wound Grade/Stage: Grade II Type of Debridement: Excisional debridement Anesthesia Used: 4% Lidocaine Solution, 5% Lidocaine Gel Depth: Down to and including healthy tissue, in the subcutaneous layer Percentage of wound debrided: 100 Instrument Used: 5mm curette Tissue Removed: Slough and devitalized tissue Severity: Fat Layer Exposed Amount of bleeding with debridement: Mild Bleeding Controlled with: Pressure Patient tolerated procedure: Patient tolerated procedure well Assessment/Plan Active Problems (Last Reviewed 07/17/18 @ 12:42 by Lorene Farfan, BRIANNA-C) Diabetic foot ulcer associated with type 2 diabetes mellitus (Chronic) Grade 2. Ulcer of left lower extremity with fat layer exposed (Chronic) Ulcer of right lower extremity with fat layer exposed (Chronic) Type 2 diabetes mellitus (Chronic) Assessment: Nonhealing bilateral lower extremity ulcer in a patient with type 2 diabetes mellitus. Diabetic foot ulcer with significant maceration/deformity. Morbid obesity. Tobacco abuse. Plan: Stable ulcers. Left plantar with more maceration noted. Debridement done as documented above. Procedure was well-tolerated. Continue Kerracel with Kerramax care over top. Change daily to twice daily depending on drainage. Patient might benefit from his skin substitute to his left foot due to nonimpressive improvement so far. We will begin application for Apligraf. Optimal blood sugar control strongly recommended. Smoking cessation encouraged. Increased protein intake. Continue premier twice to three times daily. Continue Francisco Javier wrap to bilateral lower extremities.. Continue antibiotics per infectious disease recommendation. Elevate lower extremities when seated and in bed. His questions were answered and he was advised to call with any further questions or concerns. Follow-up in [address] Garcia. This note was generated with [employer] software. It may contain incorrect words, spelling, and punctuation that were not noted in checking the note before signing.
--- NOTE | 2018-10-17 12:25 | PN.PCM_ITS ---
(1) Diabetic foot ulcer associated with type 2 diabetes mellitus Status: Chronic Current Visit: Yes Code(s): E11.621 - Type 2 diabetes mellitus with foot ulcer; L97.509 - Non-pressure chronic ulcer of other part of unspecified foot with unspecified severity Comment: Grade 2. (2) Type 2 diabetes mellitus Status: Chronic Current Visit: Yes Code(s): E11.9 - Type 2 diabetes mellitus without complications (3) Ulcer of left lower extremity with fat layer exposed Status: Chronic Current Visit: Yes Code(s): L97.922 - Non-pressure chronic ulcer of unspecified part of left lower leg with fat layer exposed (4) Ulcer of right lower extremity with fat layer exposed Status: Chronic Current Visit: Yes Code(s): L97.912 - Non-pressure chronic ulcer of unspecified part of right lower leg with fat layer exposed Type of Wound Chief Complaint: Bilateral lower extremity ulcers. History of Wound: Mr. Toscano is a 62-year-old with a complex past medical history who was referred to the wound center due to nonhealing bilateral lower extremity ulcers. He reports a history of recurrent bilateral lower extremity ulcers since 1995 however most recent episode was said to have started in March. Was managed by wound care nurse at his [facility] facility with no significant improvement. He is also been seen at other wound care centers. He is unsure of his diabetes control. Smokes daily. Largely sedentary. At this time, he denies any acute concerns. Denies chills, fever or feeling of unwell. Progress of Wound: Recent hospital admission for sepsis. Third sepsis admission since follow-up of the wound center. Ulcers essentially stable. - Physical Exam Vital Signs Temp Pulse Resp BP Pulse Ox 97.7 F L 53 L 18 116/63 90 10/17/18 09:58 10/17/18 09:58 10/17/18 09:58 10/17/18 09:58 10/12/18 00:33 General: Alert, Oriented x3, Cooperative, No apparent distress HEENT: Atraumatic, Normocephalic Oral: Moist Mucosa Neck: Supple Lungs: Normal air movement Abdomen: Non Tender, Obese Extremities: No cyanosis, Edema Skin: Ulcer/ Wound Wound Measurements and Assessment WC - Nurse 1 - General Ulcer Measurement Start: 10/17/18 09:57 Freq: Status: Active Protocol: Activity Type Activity Date Activity User E-Sign Co-Sign Detail Recorded Client Recorded Date Recorded By Document 10/17/18 09:58 RB [id number] 10/17/18 10:10 RB 10/17/18 09:58 Wound Center Nurse 1 [Ulcer Assessment] #3 left lateral/posterior lower leg -Combined with other wound No -Current Size (cm) - Length 4 -Current Size (cm) - Width 3 -Current Size (cm) - Depth 0.1 -Total Square Cm 12 -Tunneling No -Undermining/Tunneling No -Circular Undermining No -Exudate Amt Large -Exudate Type Serosanguineous -Wound Margin Distinct, Outline Attached -Granulation Amt Medium (34-66%) -Granulation Quality [place] -Slough/Fibrin Yes -Necrosis Amt Medium (34-66%) -Necrotic Tissue Type Adherent Slough -Structure Exposed N/A -Texture (Nichol-wound Skin Appearance) Assessed -Moisture (Nichol-wound Skin Appearance Maceration ) -Color (Nichol-wound Skin Appearance) Assessed -Temperature (Nichol-wound Skin No Abnormality Appearance) (Pt Warm) -Tenderness on Palpation (Nichol-wound No Skin Appearance) -Ulcer Cleansing Wound Cleanser -Foul Odor after Cleansing No -Anesthetic Used 4% Lidocaine Solution #2 left distal foot circumfrential -Combined with other wound No -Current Size (cm) - Length 20 -Current Size (cm) - Width 12 -Current Size (cm) - Depth 0.2 -Total Square Cm 240 -Tunneling No -Undermining/Tunneling No -Circular Undermining No -Exudate Amt Large -Exudate Type Serosanguineous -Wound Margin Distinct, Outline Attached -Granulation Amt Medium (34-66%) -Granulation Quality [place] -Slough/Fibrin Yes -Necrosis Amt Medium (34-66%) -Necrotic Tissue Type Adherent Slough -Structure Exposed N/A -Texture (Nichol-wound Skin Appearance) Assessed -Moisture (Nichol-wound Skin Appearance Assessed ) Maceration -Color (Nichol-wound Skin Appearance) Assessed -Temperature (Nichol-wound Skin No Abnormality Appearance) (Pt Warm) -Tenderness on Palpation (Nichol-wound No Skin Appearance) -Ulcer Cleansing Wound Cleanser -Anesthetic Used 4% Lidocaine Solution #1 right lateral lower leg -Combined with other wound No -Current Size (cm) - Length 8 -Current Size (cm) - Width 6 -Current Size (cm) - Depth 0.1 -Total Square Cm 48 -Tunneling No -Undermining/Tunneling No -Circular Undermining No -Exudate Amt Medium -Exudate Type Serosanguineous -Wound Margin Distinct, Outline Attached -Granulation Amt Medium (34-66%) -Granulation Quality [place] -Slough/Fibrin Yes -Necrosis Amt Medium (34-66%) -Necrotic Tissue Type Adherent Slough -Structure Exposed N/A -Texture (Nichol-wound Skin Appearance) Assessed -Moisture (Nichol-wound Skin Appearance Assessed ) Maceration -Color (Nichol-wound Skin Appearance) Assessed -Temperature (Nichol-wound Skin No Abnormality Appearance) (Pt Warm) -Tenderness on Palpation (Nichol-wound No Skin Appearance) -Ulcer Cleansing Wound Cleanser -Foul Odor after Cleansing No -Anesthetic Used 4% Lidocaine Solution [Edema Assessment] -Lower Limb Edema Present Yes -Right Calf (cm) 50 -Right Ankle (cm) 30 -Left Calf (cm) 55 -Left Ankle (cm) 29.5 10/17/18 10:00 Wound Center by Bernice Centeno ADMITTED TO [facility] WITH SEPSIS AND DISCHAGRED ON 10/14/18 PT STILL ON IV ATB Initialized on 10/17/18 10:00 - END OF NOTE WC - Nurse 2 - General Ulcer CM Notes Start: 10/17/18 09:57 Freq: Status: Active Protocol: Activity Type Activity Date Activity User E-Sign Co-Sign Detail Recorded Client Recorded Date Recorded By Document 10/17/18 10:44 MW [id number] 10/17/18 10:57 MW 10/17/18 10:44 Wound Center Nurse 2 [Procedure/Treatment] #3 left lateral/posterior lower leg -Time 10:44 -Correct Patient Yes -Correct Side, Site, Position Yes -Correct Procedure Yes -Procedure Performed Yes -Type of Procedure Debridement -Clinical Debridement Subcutaneous -Post Debridement Size (cm) - Length 7.0 -Post Debridement Size (cm) - Width 4.5 -Post Debridement Size (cm) - Depth 0.1 -Total Square Cm 31.50 -Wound/Ulcer Outcome Not Healed -Ulcer Cleansing Rinsed/ Irrigated with Saline -Foul Odor after Cleansing No -Bioengineered Tissue No -Bleeding Controlled with Pressure -Offloading No -Treatment Response Procedure Tolerated Well #2 left distal foot circumfrential -Time 10:45 -Correct Patient Yes -Correct Side, Site, Position Yes -Correct Procedure Yes -Procedure Performed Yes -Type of Procedure Debridement -Clinical Debridement Subcutaneous -Post Debridement Size (cm) - Length 21.0 -Post Debridement Size (cm) - Width 9.0 -Post Debridement Size (cm) - Depth 0.2 -Total Square Cm 189.00 -Wound/Ulcer Outcome Not Healed -Ulcer Cleansing Rinsed/ Irrigated with Saline -Foul Odor after Cleansing No -Bioengineered Tissue No -Bleeding Controlled with Pressure -Offloading No -Treatment Response Procedure Tolerated Well #1 right lateral lower leg -Time 10:45 -Correct Patient Yes -Correct Side, Site, Position Yes -Correct Procedure Yes -Procedure Performed Yes -Type of Procedure Debridement -Clinical Debridement Subcutaneous -Post Debridement Size (cm) - Length 4.5 -Post Debridement Size (cm) - Width 3.5 -Post Debridement Size (cm) - Depth 0.1 -Total Square Cm 15.75 -Wound/Ulcer Outcome Not Healed -Ulcer Cleansing Rinsed/ Irrigated with Saline -Foul Odor after Cleansing No -Bioengineered Tissue No -Bleeding Controlled with Pressure -Offloading No -Treatment Response Procedure Tolerated Well [See Physician Procedure note for Specifics] Pain Scale: 0-10 Numeric [Pain] -Is Patient Pain Free? Yes Musculoskeletal: No Muscle Wasting Neurological: Cranial nerves II-XII grossly intact Psych/Mental Status: Normal Affect Debridement Note Post-Debridement Measurements/Treatment WC - Nurse 2 - General Ulcer CM Notes Start: 10/17/18 09:57 Freq: Status: Active Protocol: Activity Type Activity Date Activity User E-Sign Co-Sign Detail Recorded Client Recorded Date Recorded By Document 10/17/18 10:44 MW [id number] 10/17/18 10:57 MW 10/17/18 10:44 Wound Center Nurse 2 #3 left lateral/posterior lower leg -Time 10:44 -Correct Patient Yes -Correct Side, Site, Position Yes -Correct Procedure Yes -Procedure Performed Yes -Type of Procedure Debridement -Clinical Debridement Subcutaneous -Post Debridement Size (cm) - Length 7.0 -Post Debridement Size (cm) - Width 4.5 -Post Debridement Size (cm) - Depth 0.1 -Total Square Cm 31.50 -Wound/Ulcer Outcome Not Healed -Ulcer Cleansing Rinsed/ Irrigated with Saline -Foul Odor after Cleansing No -Bioengineered Tissue No -Bleeding Controlled with Pressure -Offloading No -Treatment Response Procedure Tolerated Well #2 left distal foot circumfrential -Time 10:45 -Correct Patient Yes -Correct Side, Site, Position Yes -Correct Procedure Yes -Procedure Performed Yes -Type of Procedure Debridement -Clinical Debridement Subcutaneous -Post Debridement Size (cm) - Length 21.0 -Post Debridement Size (cm) - Width 9.0 -Post Debridement Size (cm) - Depth 0.2 -Total Square Cm 189.00 -Wound/Ulcer Outcome Not Healed -Ulcer Cleansing Rinsed/ Irrigated with Saline -Foul Odor after Cleansing No -Bioengineered Tissue No -Bleeding Controlled with Pressure -Offloading No -Treatment Response Procedure Tolerated Well #1 right lateral lower leg -Time 10:45 -Correct Patient Yes -Correct Side, Site, Position Yes -Correct Procedure Yes -Procedure Performed Yes -Type of Procedure Debridement -Clinical Debridement Subcutaneous -Post Debridement Size (cm) - Length 4.5 -Post Debridement Size (cm) - Width 3.5 -Post Debridement Size (cm) - Depth 0.1 -Total Square Cm 15.75 -Wound/Ulcer Outcome Not Healed -Ulcer Cleansing Rinsed/ Irrigated with Saline -Foul Odor after Cleansing No -Bioengineered Tissue No -Bleeding Controlled with Pressure -Offloading No -Treatment Response Procedure Tolerated Well Pain Scale: 0-10 Numeric Is Patient Pain Free? Yes Wound debrided: Left foot Wound Grade/Stage: Grade 2 Type of Debridement: Excisional debridement Anesthesia Used: 4% Lidocaine Solution Depth: Down to and including healthy tissue, in the subcutaneous layer Percentage of wound debrided: 100 Instrument Used: 7mm curette Tissue Removed: Slough and devitalized tissue Severity: Fat Layer Exposed Amount of bleeding with debridement: Mild Bleeding Controlled with: Pressure Patient tolerated procedure well - Additional Wound Wound debrided: Left lower extremity (lateral) Wound Grade/Stage: Grade II Type of Debridement: Excisional debridement Anesthesia Used: 4% Lidocaine Solution Depth: Down to and including healthy tissue, in the subcutaneous layer Percentage of wound debrided: 100 Instrument Used: 5mm curette Tissue Removed: Slough and devitalized tissue Severity: Fat Layer Exposed Amount of bleeding with debridement: Mild Bleeding Controlled with: Pressure Patient tolerated procedure: Patient tolerated procedure well - Additional Wound Wound debrided: Right lower extremity lateral Wound Grade/Stage: Grade II Type of Debridement: Excisional debridement Anesthesia Used: 4% Lidocaine Solution, 5% Lidocaine Gel Depth: Down to and including healthy tissue, in the subcutaneous layer Percentage of wound debrided: 100 Instrument Used: 5mm curette Tissue Removed: Slough and devitalized tissue Severity: Fat Layer Exposed Amount of bleeding with debridement: Mild Bleeding Controlled with: Pressure Patient tolerated procedure: Patient tolerated procedure well Assessment/Plan Active Problems (Last Reviewed 07/17/18 @ 12:42 by Lorene Farfan, BRIANNA-C) Diabetic foot ulcer associated with type 2 diabetes mellitus (Chronic) Grade 2. Ulcer of left lower extremity with fat layer exposed (Chronic) Ulcer of right lower extremity with fat layer exposed (Chronic) Type 2 diabetes mellitus (Chronic) Assessment: Nonhealing bilateral lower extremity ulcer in a patient with type 2 diabetes mellitus. Diabetic foot ulcer with significant maceration/deformity. Morbid obesity. Tobacco abuse. Plan: Stable ulcers. Left plantar with more maceration noted. Debridement done as documented above. Procedure was well-tolerated. Continue Kerracel with Kerramax care over top. Change daily to twice daily depending on drainage. Patient might benefit from his skin substitute to his left foot due to nonimpressive improvement so far. We will begin application for Apligraf. Optimal blood sugar control strongly recommended. Smoking cessation encouraged. Increased protein intake. Continue premier twice to three times daily. Continue Francisco Javier wrap to bilateral lower extremities.. Continue antibiotics per infectious disease recommendation. Elevate lower extremities when seated and in bed. His questions were answered and he was advised to call with any further questions or concerns. Follow-up in [address] Garcia. This note was generated with [employer] software. It may contain incorrect words, spelling, and punctuation that were not noted in checking the note before signing.
[2018-10-24 08:21] VITALS: BP 127/67; PULSE 55; RESP 18; TEMP 37.2; BMI 58.8
--- NOTE | 2018-10-24 10:04 | PCM.WC.PN ---
(1) Diabetic foot ulcer associated with type 2 diabetes mellitus Status: Chronic Current Visit: Yes Code(s): E11.621 - Type 2 diabetes mellitus with foot ulcer; L97.509 - Non-pressure chronic ulcer of other part of unspecified foot with unspecified severity Comment: Grade 2. (2) Ulcer of left lower extremity with fat layer exposed Status: Chronic Current Visit: Yes Code(s): L97.922 - Non-pressure chronic ulcer of unspecified part of left lower leg with fat layer exposed (3) Ulcer of right lower extremity with fat layer exposed Status: Chronic Current Visit: Yes Code(s): L97.912 - Non-pressure chronic ulcer of unspecified part of right lower leg with fat layer exposed (4) Type 2 diabetes mellitus Status: Chronic Current Visit: Yes Code(s): E11.9 - Type 2 diabetes mellitus without complications (5) Obesity Status: Chronic Current Visit: No Qualifiers: Obesity type: due to excess calories Obesity classification: adult class 3 (BMI >= 40) Serious obesity comorbidity presence: with serious comorbidity Body mass index: BMI 50.0-59.9 Qualified Code(s): E66.01 - Morbid (severe) obesity due to excess calories; Z68.43 - Body mass index (BMI) 50-59.9, adult Code(s): E66.9 - Obesity, unspecified Type of Wound Chief Complaint: Bilateral lower extremity ulcers. History of Wound: Mr. Toscano is a 62-year-old with a complex past medical history who was referred to the wound center due to nonhealing bilateral lower extremity ulcers. He reports a history of recurrent bilateral lower extremity ulcers since 1995 however most recent episode was said to have started in March. Was managed by wound care nurse at his group home facility with no significant improvement. He is also been seen at other wound care centers. He is unsure of his diabetes control. Smokes daily. Largely sedentary. At this time, he denies any acute concerns. Denies chills, fever or feeling of unwell. Progress of Wound: Ulcers remain stable today with no signs of infection noted. Patient currently denies any feelings of nausea, vomiting, fever, or chills. - Physical Exam Vital Signs Temp Pulse Resp BP Pulse Ox 98.9 F 55 L 18 127/67 H 90 10/24/18 08:21 10/24/18 08:21 10/24/18 08:21 10/24/18 08:21 10/12/18 00:33 General: Alert, Oriented x3, Cooperative, No apparent distress Extremities: Capillary Refill Less than 3 Seconds, No Calf Tenderness, Diminished Peripheral Pulses, Edema Skin: Ulcer/ Wound Wound Measurements and Assessment WC - Nurse 1 - General Ulcer Measurement Start: 10/17/18 09:57 Freq: Status: Active Protocol: Activity Type Activity Date Activity User E-Sign Co-Sign Detail Recorded Client Recorded Date Recorded By Document 10/24/18 08:21 MW [id number] 10/24/18 08:43 MW 10/24/18 08:21 Wound Center Nurse 1 [Ulcer Assessment] #3 left lateral/posterior lower leg -Combined with other wound No -Current Size (cm) - Length 8.5 -Current Size (cm) - Width 5.5 -Current Size (cm) - Depth 0.1 -Total Square Cm 46.75 -Photo Taken No -Epithelialization None Present -Tunneling No -Undermining/Tunneling No -Circular Undermining No -Exudate Amt Large -Exudate Type Serous -Wound Margin Flat & Intact -Granulation Amt Medium (34-66%) -Granulation Quality [place] -Slough/Fibrin Yes -Necrosis Amt Small (1-33%) -Necrotic Tissue Type Adherent Slough -Structure Exposed N/A -Texture (Nichol-wound Skin Appearance) Assessed Localized Edema -Moisture (Nichol-wound Skin Appearance Assessed ) Weeping -Color (Nichol-wound Skin Appearance) Assessed Hemosiderin Staining -Temperature (Nichol-wound Skin No Abnormality Appearance) (Pt Warm) -Tenderness on Palpation (Nichol-wound No Skin Appearance) -Ulcer Cleansing soap and water -Foul Odor after Cleansing No -Anesthetic Used 4% Lidocaine Solution 5% Lidocaine Gel #2 left distal foot circumfrential -Combined with other wound No -Current Size (cm) - Length 21.0 -Current Size (cm) - Width 22.0 -Current Size (cm) - Depth 0.1 -Total Square Cm 462.00 -Photo Taken No -Epithelialization None Present -Tunneling No -Undermining/Tunneling No -Circular Undermining No -Exudate Amt Large -Exudate Type Serous -Wound Margin Flat & Intact -Granulation Amt Small (1-33%) -Granulation Quality [place] -Slough/Fibrin Yes -Necrosis Amt Large (67-100%) -Necrotic Tissue Type Adherent Slough -Structure Exposed N/A -Texture (Nichol-wound Skin Appearance) Assessed Excoriation Localized Edema -Moisture (Nichol-wound Skin Appearance Assessed ) Weeping -Color (Nichol-wound Skin Appearance) Assessed Hemosiderin Staining -Temperature (Nichol-wound Skin No Abnormality Appearance) (Pt Warm) -Tenderness on Palpation (Nichol-wound No Skin Appearance) -Ulcer Cleansing soap and water -Foul Odor after Cleansing No -Anesthetic Used 4% Lidocaine Solution 5% Lidocaine Gel #1 right lateral lower leg -Combined with other wound No -Current Size (cm) - Length 4.5 -Current Size (cm) - Width 3.0 -Current Size (cm) - Depth 0.1 -Total Square Cm 13.50 -Photo Taken No -Epithelialization None Present -Tunneling No -Undermining/Tunneling No -Circular Undermining No -Exudate Amt Large -Exudate Type Serous -Wound Margin Flat & Intact -Granulation Amt Medium (34-66%) -Granulation Quality [place] -Slough/Fibrin Yes -Necrosis Amt Small (1-33%) -Necrotic Tissue Type Adherent Slough -Structure Exposed N/A -Texture (Nichol-wound Skin Appearance) No Abnormality Localized Edema -Moisture (Nichol-wound Skin Appearance Assessed ) Weeping -Color (Nichol-wound Skin Appearance) Assessed Hemosiderin Staining -Temperature (Nichol-wound Skin No Abnormality Appearance) (Pt Warm) -Tenderness on Palpation (Nichol-wound No Skin Appearance) -Ulcer Cleansing soap and water -Foul Odor after Cleansing No -Anesthetic Used 4% Lidocaine Solution 5% Lidocaine Gel [Edema Assessment] -Lower Limb Edema Present Yes -Right Calf (cm) 51.5 -Right Ankle (cm) 29.0 -Left Calf (cm) 51.0 -Left Ankle (cm) 29.5 WC - Nurse 2 - General Ulcer CM Notes Start: 10/17/18 09:57 Freq: Status: Active Protocol: Activity Type Activity Date Activity User E-Sign Co-Sign Detail Recorded Client Recorded Date Recorded By Document 10/24/18 08:44 MW [id number] 10/24/18 09:11 MW 10/24/18 08:44 Wound Center Nurse 2 [Procedure/Treatment] #3 left lateral/posterior lower leg -Time 08:46 -Correct Patient Yes -Correct Side, Site, Position Yes -Correct Procedure Yes -Procedure Performed Yes -Type of Procedure Debridement -Clinical Debridement Subcutaneous -Post Debridement Size (cm) - Length 8.6 -Post Debridement Size (cm) - Width 5.6 -Post Debridement Size (cm) - Depth 0.1 -Total Square Cm 48.16 -Wound/Ulcer Outcome Not Healed -Ulcer Cleansing Rinsed/ Irrigated with Saline -Foul Odor after Cleansing No -Bioengineered Tissue No -Bleeding Controlled with Pressure -Offloading No -Treatment Response Procedure Tolerated Well #2 left distal foot circumfrential -Time 08:46 -Correct Patient Yes -Correct Side, Site, Position Yes -Correct Procedure Yes -Procedure Performed Yes -Type of Procedure Debridement -Clinical Debridement Subcutaneous -Post Debridement Size (cm) - Length 21.1 -Post Debridement Size (cm) - Width 22.1 -Post Debridement Size (cm) - Depth 0.1 -Total Square Cm 466.31 -Wound/Ulcer Outcome Failed Graft -Ulcer Cleansing Rinsed/ Irrigated with Saline -Foul Odor after Cleansing No -Bioengineered Tissue Yes -Type of bioengineered Tissue Apligraf -Expiration Date 11/01/18 -Product Lot Number [id number] -Percent Used 100 -Saline Lot Number [id number] -Bleeding Controlled with Pressure -Offloading No -Treatment Response Procedure Tolerated Well #1 right lateral lower leg -Time 08:46 -Correct Patient Yes -Correct Side, Site, Position Yes -Correct Procedure Yes -Procedure Performed Yes -Type of Procedure Debridement -Clinical Debridement Subcutaneous -Post Debridement Size (cm) - Length 4.6 -Post Debridement Size (cm) - Width 3.0 -Post Debridement Size (cm) - Depth 0.1 -Total Square Cm 13.80 -Wound/Ulcer Outcome Not Healed -Ulcer Cleansing Rinsed/ Irrigated with Saline -Foul Odor after Cleansing No -Bioengineered Tissue No -Bleeding Controlled with Pressure -Offloading No -Treatment Response Procedure Tolerated Well [See Physician Procedure note for Specifics] Pain Scale: 0-10 Numeric [Pain] -Is Patient Pain Free? Yes Neurological: - - Epicritic sensation grossly absent to lower extremity Psych/Mental Status: Normal Affect, Appropriate Debridement Note Post-Debridement Measurements/Treatment WC - Nurse 2 - General Ulcer CM Notes Start: 10/17/18 09:57 Freq: Status: Active Protocol: Activity Type Activity Date Activity User E-Sign Co-Sign Detail Recorded Client Recorded Date Recorded By Document 10/17/18 10:44 MW [id number] 10/17/18 10:57 MW Document 10/24/18 08:44 MW [id number] 10/24/18 09:11 MW 10/17/18 10/24/18 10:44 08:44 Wound Center Nurse 2 #3 left lateral/posterior lower leg -Time 10:44 08:46 -Correct Patient Yes Yes -Correct Side, Site, Position Yes Yes -Correct Procedure Yes Yes -Procedure Performed Yes Yes -Type of Procedure Debridement Debridement -Clinical Debridement Subcutaneous Subcutaneous -Post Debridement Size (cm) - Length 7.0 8.6 -Post Debridement Size (cm) - Width 4.5 5.6 -Post Debridement Size (cm) - Depth 0.1 0.1 -Total Square Cm 31.50 48.16 -Wound/Ulcer Outcome Not Healed Not Healed -Ulcer Cleansing Rinsed/ Rinsed/ Irrigated with Irrigated with Saline Saline -Foul Odor after Cleansing No No -Bioengineered Tissue No No -Bleeding Controlled with Pressure Pressure -Offloading No No -Treatment Response Procedure Procedure Tolerated Well Tolerated Well #2 left distal foot circumfrential -Time 10:45 08:46 -Correct Patient Yes Yes -Correct Side, Site, Position Yes Yes -Correct Procedure Yes Yes -Procedure Performed Yes Yes -Type of Procedure Debridement Debridement -Clinical Debridement Subcutaneous Subcutaneous -Post Debridement Size (cm) - Length 21.0 21.1 -Post Debridement Size (cm) - Width 9.0 22.1 -Post Debridement Size (cm) - Depth 0.2 0.1 -Total Square Cm 189.00 466.31 -Wound/Ulcer Outcome Not Healed Failed Graft -Ulcer Cleansing Rinsed/ Rinsed/ Irrigated with Irrigated with Saline Saline -Foul Odor after Cleansing No No -Bioengineered Tissue No Yes -Type of bioengineered Tissue Apligraf -Expiration Date 11/01/18 -Product Lot Number [id number] -Percent Used 100 -Saline Lot Number [id number] -Bleeding Controlled with Pressure Pressure -Offloading No No -Treatment Response Procedure Procedure Tolerated Well Tolerated Well #1 right lateral lower leg -Time 10:45 08:46 -Correct Patient Yes Yes -Correct Side, Site, Position Yes Yes -Correct Procedure Yes Yes -Procedure Performed Yes Yes -Type of Procedure Debridement Debridement -Clinical Debridement Subcutaneous Subcutaneous -Post Debridement Size (cm) - Length 4.5 4.6 -Post Debridement Size (cm) - Width 3.5 3.0 -Post Debridement Size (cm) - Depth 0.1 0.1 -Total Square Cm 15.75 13.80 -Wound/Ulcer Outcome Not Healed Not Healed -Ulcer Cleansing Rinsed/ Rinsed/ Irrigated with Irrigated with Saline Saline -Foul Odor after Cleansing No No -Bioengineered Tissue No No -Bleeding Controlled with Pressure Pressure -Offloading No No -Treatment Response Procedure Procedure Tolerated Well Tolerated Well Pain Scale: 0-10 Numeric Is Patient Pain Free? Yes Yes Wound debrided: left Laterality: Left Type of Debridement: Excisional debridement Anesthesia Used: 4% Lidocaine Solution Depth: in the subcutaneous layer Percentage of wound debrided: 100 Instrument Used: 7mm curette Tissue Removed: Adherent slough, fibrin, biofilm Severity: Fat Layer Exposed Amount of bleeding with debridement: Mild Bleeding Controlled with: Pressure Patient tolerated procedure well - Additional Wound Wound debrided: Left lower extremity lateral Laterality: Left Type of Debridement: Excisional debridement Anesthesia Used: 4% Lidocaine Solution Depth: in the subcutaneous layer Percentage of wound debrided: 100 Instrument Used: 7mm curette Tissue Removed: Adherent slough, fibrin, biofilm Severity: Fat Layer Exposed Amount of bleeding with debridement: Mild Bleeding Controlled with: Pressure Patient tolerated procedure: Patient tolerated procedure well - Additional Wound Wound debrided: Right lower extremity lateral Laterality: Right Type of Debridement: Excisional debridement Anesthesia Used: 4% Lidocaine Solution Depth: in the subcutaneous layer Percentage of wound debrided: 100 Instrument Used: 7mm curette Tissue Removed: Adherent slough, fibrin, biofilm Severity: Fat Layer Exposed Amount of bleeding with debridement: Mild Bleeding Controlled with: Pressure Patient tolerated procedure: Patient tolerated procedure well Assessment/Plan Active Problems (Last Reviewed 07/17/18 @ 12:42 by MATTIE Locke) Diabetic foot ulcer associated with type 2 diabetes mellitus (Chronic) Grade 2. Ulcer of left lower extremity with fat layer exposed (Chronic) Ulcer of right lower extremity with fat layer exposed (Chronic) Type 2 diabetes mellitus (Chronic) Assessment: Nonhealing bilateral lower extremity ulcer in a patient with type 2 diabetes mellitus. Diabetic foot ulcer with significant maceration/deformity. Morbid obesity. Tobacco abuse. Plan: Patient carefully examined and evaluated in detail as a courtesy visit in Dr. Gutierrez's absence. Stable ulcers. Subcutaneous excisional debridement performed as noted in the clinical panel. Procedure was well-tolerated. Continue Kerracel with Kerramax care and change daily to twice daily depending on drainage to both the lateral right and left lower leg ulcers. Apligraf (first week) applied today to left foot ulcer base. This was then secured with steristrips, followed by wound veil, and another set of steri strips. Next aquacel extra followed by dry sterile dressing placed. Layers of wound veil and below are to remain intact for the next week. Layers above this can be changed if drainage. Optimal blood sugar control strongly recommended. Smoking cessation encouraged. Increased protein intake. Continue premier twice to three times daily. Continue Francisco Javier wrap to bilateral lower extremities. Continue antibiotics per infectious disease recommendation. Elevate lower extremities when seated and in bed. His questions were answered and he was advised to call with any further questions or concerns. Patient will follow back up in 1 week to check on progress, but was instructed to follow back up sooner if needed before then. This note was generated with [employer] dictation software. It may contain incorrect words, spelling, and punctuation that were not noted in checking the note before signing.
--- NOTE | 2018-10-24 10:08 | PN.PCM_ITS ---
(1) Diabetic foot ulcer associated with type 2 diabetes mellitus Status: Chronic Current Visit: Yes Code(s): E11.621 - Type 2 diabetes mellitus with foot ulcer; L97.509 - Non-pressure chronic ulcer of other part of unspecified foot with unspecified severity Comment: Grade 2. (2) Ulcer of left lower extremity with fat layer exposed Status: Chronic Current Visit: Yes Code(s): L97.922 - Non-pressure chronic ulcer of unspecified part of left lower leg with fat layer exposed (3) Ulcer of right lower extremity with fat layer exposed Status: Chronic Current Visit: Yes Code(s): L97.912 - Non-pressure chronic ulcer of unspecified part of right lower leg with fat layer exposed (4) Type 2 diabetes mellitus Status: Chronic Current Visit: Yes Code(s): E11.9 - Type 2 diabetes mellitus without complications (5) Obesity Status: Chronic Current Visit: No Qualifiers: Obesity type: due to excess calories Obesity classification: adult class 3 (BMI >= 40) Serious obesity comorbidity presence: with serious comorbidity Body mass index: BMI 50.0-59.9 Qualified Code(s): E66.01 - Morbid (severe) obesity due to excess calories; Z68.43 - Body mass index (BMI) 50-59.9, adult Code(s): E66.9 - Obesity, unspecified Type of Wound Chief Complaint: Bilateral lower extremity ulcers. History of Wound: Mr. Toscano is a 62-year-old with a complex past medical history who was referred to the wound center due to nonhealing bilateral lower extremity ulcers. He reports a history of recurrent bilateral lower extremity ulcers since 1995 however most recent episode was said to have started in March. Was managed by wound care nurse at his senior care facility with no significant improvement. He is also been seen at other wound care centers. He is unsure of his diabetes control. Smokes daily. Largely sedentary. At this time, he denies any acute concerns. Denies chills, fever or feeling of unwell. Progress of Wound: Ulcers remain stable today with no signs of infection noted. Patient currently denies any feelings of nausea, vomiting, fever, or chills. - Physical Exam Vital Signs Temp Pulse Resp BP Pulse Ox 98.9 F 55 L 18 127/67 H 90 10/24/18 08:21 10/24/18 08:21 10/24/18 08:21 10/24/18 08:21 10/12/18 00:33 General: Alert, Oriented x3, Cooperative, No apparent distress Extremities: Capillary Refill Less than 3 Seconds, No Calf Tenderness, Diminished Peripheral Pulses, Edema Skin: Ulcer/ Wound Wound Measurements and Assessment WC - Nurse 1 - General Ulcer Measurement Start: 10/17/18 09:57 Freq: Status: Active Protocol: Activity Type Activity Date Activity User E-Sign Co-Sign Detail Recorded Client Recorded Date Recorded By Document 10/24/18 08:21 MW [id number] 10/24/18 08:43 MW 10/24/18 08:21 Wound Center Nurse 1 [Ulcer Assessment] #3 left lateral/posterior lower leg -Combined with other wound No -Current Size (cm) - Length 8.5 -Current Size (cm) - Width 5.5 -Current Size (cm) - Depth 0.1 -Total Square Cm 46.75 -Photo Taken No -Epithelialization None Present -Tunneling No -Undermining/Tunneling No -Circular Undermining No -Exudate Amt Large -Exudate Type Serous -Wound Margin Flat & Intact -Granulation Amt Medium (34-66%) -Granulation Quality [place] -Slough/Fibrin Yes -Necrosis Amt Small (1-33%) -Necrotic Tissue Type Adherent Slough -Structure Exposed N/A -Texture (Nichol-wound Skin Appearance) Assessed Localized Edema -Moisture (Nichol-wound Skin Appearance Assessed ) Weeping -Color (Nichol-wound Skin Appearance) Assessed Hemosiderin Staining -Temperature (Nichol-wound Skin No Abnormality Appearance) (Pt Warm) -Tenderness on Palpation (Nichol-wound No Skin Appearance) -Ulcer Cleansing soap and water -Foul Odor after Cleansing No -Anesthetic Used 4% Lidocaine Solution 5% Lidocaine Gel #2 left distal foot circumfrential -Combined with other wound No -Current Size (cm) - Length 21.0 -Current Size (cm) - Width 22.0 -Current Size (cm) - Depth 0.1 -Total Square Cm 462.00 -Photo Taken No -Epithelialization None Present -Tunneling No -Undermining/Tunneling No -Circular Undermining No -Exudate Amt Large -Exudate Type Serous -Wound Margin Flat & Intact -Granulation Amt Small (1-33%) -Granulation Quality [place] -Slough/Fibrin Yes -Necrosis Amt Large (67-100%) -Necrotic Tissue Type Adherent Slough -Structure Exposed N/A -Texture (Nichol-wound Skin Appearance) Assessed Excoriation Localized Edema -Moisture (Nichol-wound Skin Appearance Assessed ) Weeping -Color (Nichol-wound Skin Appearance) Assessed Hemosiderin Staining -Temperature (Nichol-wound Skin No Abnormality Appearance) (Pt Warm) -Tenderness on Palpation (Nichol-wound No Skin Appearance) -Ulcer Cleansing soap and water -Foul Odor after Cleansing No -Anesthetic Used 4% Lidocaine Solution 5% Lidocaine Gel #1 right lateral lower leg -Combined with other wound No -Current Size (cm) - Length 4.5 -Current Size (cm) - Width 3.0 -Current Size (cm) - Depth 0.1 -Total Square Cm 13.50 -Photo Taken No -Epithelialization None Present -Tunneling No -Undermining/Tunneling No -Circular Undermining No -Exudate Amt Large -Exudate Type Serous -Wound Margin Flat & Intact -Granulation Amt Medium (34-66%) -Granulation Quality [place] -Slough/Fibrin Yes -Necrosis Amt Small (1-33%) -Necrotic Tissue Type Adherent Slough -Structure Exposed N/A -Texture (Nichol-wound Skin Appearance) No Abnormality Localized Edema -Moisture (Nichol-wound Skin Appearance Assessed ) Weeping -Color (Nichol-wound Skin Appearance) Assessed Hemosiderin Staining -Temperature (Nichol-wound Skin No Abnormality Appearance) (Pt Warm) -Tenderness on Palpation (Nichol-wound No Skin Appearance) -Ulcer Cleansing soap and water -Foul Odor after Cleansing No -Anesthetic Used 4% Lidocaine Solution 5% Lidocaine Gel [Edema Assessment] -Lower Limb Edema Present Yes -Right Calf (cm) 51.5 -Right Ankle (cm) 29.0 -Left Calf (cm) 51.0 -Left Ankle (cm) 29.5 WC - Nurse 2 - General Ulcer CM Notes Start: 10/17/18 09:57 Freq: Status: Active Protocol: Activity Type Activity Date Activity User E-Sign Co-Sign Detail Recorded Client Recorded Date Recorded By Document 10/24/18 08:44 MW [id number] 10/24/18 09:11 MW 10/24/18 08:44 Wound Center Nurse 2 [Procedure/Treatment] #3 left lateral/posterior lower leg -Time 08:46 -Correct Patient Yes -Correct Side, Site, Position Yes -Correct Procedure Yes -Procedure Performed Yes -Type of Procedure Debridement -Clinical Debridement Subcutaneous -Post Debridement Size (cm) - Length 8.6 -Post Debridement Size (cm) - Width 5.6 -Post Debridement Size (cm) - Depth 0.1 -Total Square Cm 48.16 -Wound/Ulcer Outcome Not Healed -Ulcer Cleansing Rinsed/ Irrigated with Saline -Foul Odor after Cleansing No -Bioengineered Tissue No -Bleeding Controlled with Pressure -Offloading No -Treatment Response Procedure Tolerated Well #2 left distal foot circumfrential -Time 08:46 -Correct Patient Yes -Correct Side, Site, Position Yes -Correct Procedure Yes -Procedure Performed Yes -Type of Procedure Debridement -Clinical Debridement Subcutaneous -Post Debridement Size (cm) - Length 21.1 -Post Debridement Size (cm) - Width 22.1 -Post Debridement Size (cm) - Depth 0.1 -Total Square Cm 466.31 -Wound/Ulcer Outcome Failed Graft -Ulcer Cleansing Rinsed/ Irrigated with Saline -Foul Odor after Cleansing No -Bioengineered Tissue Yes -Type of bioengineered Tissue Apligraf -Expiration Date 11/01/18 -Product Lot Number [id number] -Percent Used 100 -Saline Lot Number [id number] -Bleeding Controlled with Pressure -Offloading No -Treatment Response Procedure Tolerated Well #1 right lateral lower leg -Time 08:46 -Correct Patient Yes -Correct Side, Site, Position Yes -Correct Procedure Yes -Procedure Performed Yes -Type of Procedure Debridement -Clinical Debridement Subcutaneous -Post Debridement Size (cm) - Length 4.6 -Post Debridement Size (cm) - Width 3.0 -Post Debridement Size (cm) - Depth 0.1 -Total Square Cm 13.80 -Wound/Ulcer Outcome Not Healed -Ulcer Cleansing Rinsed/ Irrigated with Saline -Foul Odor after Cleansing No -Bioengineered Tissue No -Bleeding Controlled with Pressure -Offloading No -Treatment Response Procedure Tolerated Well [See Physician Procedure note for Specifics] Pain Scale: 0-10 Numeric [Pain] -Is Patient Pain Free? Yes Neurological: - - Epicritic sensation grossly absent to lower extremity Psych/Mental Status: Normal Affect, Appropriate Debridement Note Post-Debridement Measurements/Treatment WC - Nurse 2 - General Ulcer CM Notes Start: 10/17/18 09:57 Freq: Status: Active Protocol: Activity Type Activity Date Activity User E-Sign Co-Sign Detail Recorded Client Recorded Date Recorded By Document 10/17/18 10:44 MW [id number] 10/17/18 10:57 MW Document 10/24/18 08:44 MW [id number] 10/24/18 09:11 MW 10/17/18 10/24/18 10:44 08:44 Wound Center Nurse 2 #3 left lateral/posterior lower leg -Time 10:44 08:46 -Correct Patient Yes Yes -Correct Side, Site, Position Yes Yes -Correct Procedure Yes Yes -Procedure Performed Yes Yes -Type of Procedure Debridement Debridement -Clinical Debridement Subcutaneous Subcutaneous -Post Debridement Size (cm) - Length 7.0 8.6 -Post Debridement Size (cm) - Width 4.5 5.6 -Post Debridement Size (cm) - Depth 0.1 0.1 -Total Square Cm 31.50 48.16 -Wound/Ulcer Outcome Not Healed Not Healed -Ulcer Cleansing Rinsed/ Rinsed/ Irrigated with Irrigated with Saline Saline -Foul Odor after Cleansing No No -Bioengineered Tissue No No -Bleeding Controlled with Pressure Pressure -Offloading No No -Treatment Response Procedure Procedure Tolerated Well Tolerated Well #2 left distal foot circumfrential -Time 10:45 08:46 -Correct Patient Yes Yes -Correct Side, Site, Position Yes Yes -Correct Procedure Yes Yes -Procedure Performed Yes Yes -Type of Procedure Debridement Debridement -Clinical Debridement Subcutaneous Subcutaneous -Post Debridement Size (cm) - Length 21.0 21.1 -Post Debridement Size (cm) - Width 9.0 22.1 -Post Debridement Size (cm) - Depth 0.2 0.1 -Total Square Cm 189.00 466.31 -Wound/Ulcer Outcome Not Healed Failed Graft -Ulcer Cleansing Rinsed/ Rinsed/ Irrigated with Irrigated with Saline Saline -Foul Odor after Cleansing No No -Bioengineered Tissue No Yes -Type of bioengineered Tissue Apligraf -Expiration Date 11/01/18 -Product Lot Number [id number] -Percent Used 100 -Saline Lot Number [id number] -Bleeding Controlled with Pressure Pressure -Offloading No No -Treatment Response Procedure Procedure Tolerated Well Tolerated Well #1 right lateral lower leg -Time 10:45 08:46 -Correct Patient Yes Yes -Correct Side, Site, Position Yes Yes -Correct Procedure Yes Yes -Procedure Performed Yes Yes -Type of Procedure Debridement Debridement -Clinical Debridement Subcutaneous Subcutaneous -Post Debridement Size (cm) - Length 4.5 4.6 -Post Debridement Size (cm) - Width 3.5 3.0 -Post Debridement Size (cm) - Depth 0.1 0.1 -Total Square Cm 15.75 13.80 -Wound/Ulcer Outcome Not Healed Not Healed -Ulcer Cleansing Rinsed/ Rinsed/ Irrigated with Irrigated with Saline Saline -Foul Odor after Cleansing No No -Bioengineered Tissue No No -Bleeding Controlled with Pressure Pressure -Offloading No No -Treatment Response Procedure Procedure Tolerated Well Tolerated Well Pain Scale: 0-10 Numeric Is Patient Pain Free? Yes Yes Wound debrided: left Laterality: Left Type of Debridement: Excisional debridement Anesthesia Used: 4% Lidocaine Solution Depth: in the subcutaneous layer Percentage of wound debrided: 100 Instrument Used: 7mm curette Tissue Removed: Adherent slough, fibrin, biofilm Severity: Fat Layer Exposed Amount of bleeding with debridement: Mild Bleeding Controlled with: Pressure Patient tolerated procedure well - Additional Wound Wound debrided: Left lower extremity lateral Laterality: Left Type of Debridement: Excisional debridement Anesthesia Used: 4% Lidocaine Solution Depth: in the subcutaneous layer Percentage of wound debrided: 100 Instrument Used: 7mm curette Tissue Removed: Adherent slough, fibrin, biofilm Severity: Fat Layer Exposed Amount of bleeding with debridement: Mild Bleeding Controlled with: Pressure Patient tolerated procedure: Patient tolerated procedure well - Additional Wound Wound debrided: Right lower extremity lateral Laterality: Right Type of Debridement: Excisional debridement Anesthesia Used: 4% Lidocaine Solution Depth: in the subcutaneous layer Percentage of wound debrided: 100 Instrument Used: 7mm curette Tissue Removed: Adherent slough, fibrin, biofilm Severity: Fat Layer Exposed Amount of bleeding with debridement: Mild Bleeding Controlled with: Pressure Patient tolerated procedure: Patient tolerated procedure well Assessment/Plan Active Problems (Last Reviewed 07/17/18 @ 12:42 by MATTIE Locke) Diabetic foot ulcer associated with type 2 diabetes mellitus (Chronic) Grade 2. Ulcer of left lower extremity with fat layer exposed (Chronic) Ulcer of right lower extremity with fat layer exposed (Chronic) Type 2 diabetes mellitus (Chronic) Assessment: Nonhealing bilateral lower extremity ulcer in a patient with type 2 diabetes mellitus. Diabetic foot ulcer with significant maceration/deformity. Morbid obesity. Tobacco abuse. Plan: Patient carefully examined and evaluated in detail as a courtesy visit in Dr. Gutierrez's absence. Stable ulcers. Subcutaneous excisional debridement performed as noted in the clinical panel. Procedure was well-tolerated. Continue Kerracel with Kerramax care and change daily to twice daily depending on drainage to both the lateral right and left lower leg ulcers. Apligraf (first week) applied today to left foot ulcer base. This was then secured with steristrips, followed by wound veil, and another set of steri strips. Next aquacel extra followed by dry sterile dressing placed. Layers of wound veil and below are to remain intact for the next week. Layers above this can be changed if drainage. Optimal blood sugar control strongly recommended. Smoking cessation encouraged. Increased protein intake. Continue premier twice to three times daily. Continue Francisco Javier wrap to bilateral lower extremities. Continue antibiotics per infectious disease recommendation. Elevate lower extremities when seated and in bed. His questions were answered and he was advised to call with any further questions or concerns. Patient will follow back up in 1 week to check on progress, but was instructed to follow back up sooner if needed before then. This note was generated with [employer] dictation software. It may contain incorrect words, spelling, and punctuation that were not noted in checking the note before signing.
== END 2018-11-10 23:59 ==
LOC: WC 08:00
PROVIDERS: Family Provider Internal Medicine; PCP Internal Medicine; Referring Provider Internal Medicine; Visit Provider Internal Medicine
DX: E11.621 Type 2 diabetes mellitus with foot ulcer (principal); L97.822 Non-pressure chronic ulcer of other part of left lower leg with fat layer exposed; L97.812 Non-pressure chronic ulcer of other part of right lower leg with fat layer exposed; E11.622 Type 2 diabetes mellitus with other skin ulcer; L97.522 Non-pressure chronic ulcer of other part of left foot with fat layer exposed; E66.01 Morbid (severe) obesity due to excess calories; Z71.3 Dietary counseling and surveillance; Z72.0 Tobacco use
CPT/HCPCS: 11042; 11045; 15275; Q4101

== ENCOUNTER 2018-10-31 08:23 | Emergency (ER) | payer MEDICARE, MEDICAID, SELFPAY ==
[2018-10-31 08:25] VITALS: BP 215/112; PULSE 90; RESP 20; TEMP 37; O2SAT 94; BMI 55.7
--- NOTE | 2018-10-31 08:56 | RAD_ITS ---
STUDY: X-RAY - LEFT FOOT CLINICAL: Male, 63 years old. Possible infection. Chills. TECHNIQUE: 3 view(s) of the foot. COMPARISON: None. FINDINGS: There is an enthesophyte involving the posterior superior calcaneus at the site of insertion of the Achilles tendon. Normal visualized subtalar, talonavicular, calcaneocuboid, tarsal and tarsometatarsal articulations. There is demineralization of the metatarsi. Normal metatarsophalangeal joint of the great toe. Normal tibial and fibular sesamoid bones. Normal interphalangeal joint of the great toe. Normal phalanges of the great toe. Normal second through fifth metatarsophalangeal joints. Normal interphalangeal joints and phalanges of the lesser toes. Diffuse soft tissue swelling. Vascular calcification. RAD/Foot min 3 Views IMPRESSION: Diffuse soft tissue swelling and vascular calcification. Osteopenia. Electronically Signed: Jayce Sher, at 11:18 EDT , Service support ,
--- NOTE | 2018-10-31 08:56 | RAD_ITS ---
STUDY: X-RAY CHEST REASON FOR EXAM: Male, 63 years old. Chills. TECHNIQUE: Single AP portable view of the chest. COMPARISON: None. FINDINGS: A left-sided PICC line catheter is seen. The tip is at the junction of the superior vena cava and right atrium. Increased markings at the lung bases worse on the left side with areas of confluent suggestive of bibasilar infiltrates. There is no demonstrated pleural abnormality. Normal size heart. Normal mediastinum and estiven. Normal visualized pulmonary arteries. There is atherosclerotic calcification of the aortic arch with tortuosity. There are diffuse degenerative changes of the visualized thoracic spine. Normal visualized ribs, clavicles, and shoulders. There is no demonstrated abnormality of the visualized soft tissue structures of the upper abdomen. RAD/Chest 1 View (Portable) IMPRESSION: Bibasilar infiltrates worse on the left side Electronically Signed: Jayce Sher, at 11:18 EDT , Service support ,
--- NOTE | 2018-10-31 08:58 | ED.VIS.GEN ---
History of Present Illness Chief Complaint: General Illness Informant: Patient Onset: Month(s) Current Severity: Moderate Narrative: Patient presents from nursing center, he has a history of morbid obesity, chronic infections in his feet other skin areas, indicates he has shaking chills today he is on PICC line vancomycin, he is been followed extensively by the local wound care center related to all of his infections, the infection that is most prominent now his left foot he indicates he had special salves and ointments put on it and it does not really seem like it is healing as it continues to drain he is bed confined chronically, nursing staff after moving around he gets around a wheelchair we noticed some drainage in the seat compartment a wheelchair he was unaware of Past Medical History - Allergies and Home Meds Allergies/Adverse Reactions: Allergies No Known Allergies Allergy (Verified 10/31/18 08:24) Primary Care Physician: Quentin Reilly,Out of [Primary Care Provider] - Past Medical History: - - See the full note Smoking Status: Current every day smoker Review of Systems General: Reports: Chills, Fever. Denies: Sweats Eyes: Denies: Visual changes - bilaterally, Diplopia ENT: Denies: Rhinorrhea, Sore throat Cardiovascular: Denies: Chest pain, Palpitations Respiratory: Denies: Dyspnea, Cough, Dyspnea on exertion Gastrointestinal: Denies: Abdominal pain, Nausea, Vomiting, Diarrhea, Melena, Hematochezia Genitourinary: Denies: Dysuria, Hematuria, Frequency Musculoskeletal: Reports: - - He has dressings on both lower extremities that were removed, he has scattered skin tears and shallow ulcers to the right lower extremity, there is brawny brown skin to the right, there is no obvious signs of arterial or venous insufficiency, but there is chronic edema, the left leg he has obvious infection and drainage in the between the toes to the forefoot, again it is difficult to ascertain if he has palpable pulses but there is no signs of gross arterial or venous insufficiency, there is no obvious signs of crepitus, the wound is draining and has an odor,To his perineum he has excoriated scrotum with some shallow ulcers that are draining there is no crepitance subcu air or signs of foreign years gangrene he does not really have any pain to palpation to this area his rectal area is also excoriated with red skin but no ulcers. Denies: Back pain, Extremity Pain Skin: Denies: Rash, Wounds Neurological: Denies: Headache, Weakness, Numbness Physical Exam Vital Signs/Narrative: Vital Signs Temp Pulse Resp BP Pulse Ox 10/31/18 08:25 98.6 F 90 20 H 215/112 H 94 General: Well nourished, Well developed, No Acute Distress Head: Normocephalic, Atraumatic Eyes: Perrl, EOMI ENT: Moist mucous membranes, No rhinorrhea Neck: Supple, Nontender Cardiovascular: Regular rate, Regular rhythm, No murmurs Respiratory: No distress, CTA bilaterally, Chest nontender Abdomen: Soft, Nontender, Nondistended, Normal bowel sounds : - - See the review of systems note for the physical exam as above Back: Nontender, Normal Inspection Extremities: Tenderness, Edema, - - He has the findings as dictated above in the review of systems section Skin: - - See the review of systems section as above Neurological: Alert, Oriented x3, Cranial nerves II-XII grossly intact, Normal Strength, Normal Sensation Psychological: Normal affect, Normal Mood Diagnostic/Tx/Re-eval - Medical Decision Making Given all the above his vital signs are unremarkable he is currently afebrile screening labs are obtained IV fluids he is currently receiving IV vancomycin Patient has received IV anabolic IV fluids his screening labs are generally unremarkable, Please see his x-ray foot x-ray chest report from radiology there is apparent DJD vascular calcifications bibasilar infiltrates I did ask the hospital see the patient for admission given all the above the patient declined admission saying he felt much better he was not having chest pain or shortness of breath he preferred to go back to nursing center and continue to work with his outpatient providers including his principal java developer and other subspecialist, I then went back with Dr. Ku the hospitalist we again discussed the patient need for admission directly together, we described the patient's condition and the concept of worsening infection sepsis infection amputation, the patient was competent he clearly understood had capacity and he refused to be admitted reporting that he had been warned about all the above by his outpatient providers and was feeling much better and would just prefer to see his outpatient providers and declined admission, he was also instructed to make sure the nursing staff provide him with hygiene related to the perineal excoriation and other management options At this time given all the above he will sign out AMA and follow-up as above Final impression Home stable declined admission AMA discharge Left foot infection, perineal irritation and excoriation ED Disposition - Plan for ED Patient: Diagnosis: Ulcer of left lower extremity with fat layer exposed, Bilateral lower extremity edema Instructions: Cellulitis Referrals: [facility] ,Out of [Primary Care Provider] - Additional Instructions: Please follow-up with all of your outpatient providers including surgeons and your principal java developer and subspecialists tomorrow
[2018-10-31 09:42] LABS: Absolute Lymphocyte Count 0.74 X10^3/ul (0.83-4.51); Basophil# 0.02 X10^3/uL; Basophil% 0.1 % (0-1); Eosinophil# 0.21 X10^3/uL; Eosinophils% 1.4 % (0-5); Hematocrit 52.7 % (40-54); Hemoglobin 17.5 g/dl (13.0-16.5); Lymphocyte # 0.74 X10^3/ul (4.0); Lymphocyte % 4.9 % (19-41); Mean Corp Hgb Conc 33.2 g/gl (32-36); Mean Corpuscular Volume 93.4 fL (80-94); Monocyte% 7.9 % (0-10); Neutrophil # 13.03 X10^3/uL (2.7-7.7); Neutrophil % 85.4 % (47-70); Platelet Count 204 K/mm3 (150-450); RBC Distribution Width CV 18.1 % (11.6-14.6); Red Blood Count 5.64 M/mm3 (4.6-6.2); White Blood Count 15.3 K/mm3 (4.4-11.0)
[2018-10-31 09:44] LABS: POSITIVE COUNT NO; POSITIVE DIFFERENTIAL NO; POSITIVE MORPHOLOGY NO
[2018-10-31 09:59] LABS: AST(SGOT) 19 U/L (15-37); Alanine Aminotransfer ALT/SGPT 25 U/L (16-61); Albumin, Serum 3.2 g/dL (3.2-5.0); Alkaline Phosphatase 83 U/L (45-117); Anion Gap 2 (5-15); BUN 15 mg/dL (7-18); BUN/Creat Ratio 15.1 RATIO (10-20); Bilirubin, Direct 0.29 mg/dL (0.00-0.30); Calcium,Total 9.3 mg/dL (8.5-10.1); Chloride 98 mmol/L (98-107); Creatinine, Serum 0.99 mg/dL (0.70-1.30); EST Glomerular Filtration Rate 81 mL/min (>60); Est Glom Filt Rate - Afr Amer 98 mL/min (>60); Estimated Creatinine Clearance 81.34 ml/min; Globulin 5.9 g/dL (2.2-4.2); Glucose 133 mg/dL (74-106); Lipase 51 U/L (73-393); Potassium 4.1 mmol/L (3.5-5.1); Protein, Total 9.1 g/dL (6.4-8.2); Sodium Level 136 mmol/L (136-145)
[2018-10-31 10:21] LABS: Lactic Acid 1.9 mmol/L (0.4-2.0)
[2018-10-31] MEDS: Ondansetron 4 MG/2 ML Vial IV (10:37)
[2018-10-31] MEDS: 0.9% Normal Saline 1,000 ML 125 ML IV (10:37)
[2018-10-31] MEDS: Morphine 4 MG/ML Syringe IV (10:37)
[2018-10-31 10:53] VITALS: BP 162/50; PULSE 104; RESP 18; O2SAT 90
[2018-10-31 11:50] VITALS: BP 134/74; PULSE 102; RESP 24; O2SAT 92
--- NOTE | 2018-10-31 13:11 | ED.RN ---
pt signed out AMA. son present. pt carley lifted to wheelchair. son left. pt insisting to go to [facility]. explained how he cannot move himself around. offered meal tray to room. refused. pt wheeled to [facility]. has cell phone. will have ride from assisted living at 4 pm.
== END 2018-10-31 13:15 | disposition left against medical advice (07) ==
PROVIDERS: Emergency Provider Emergency Medicine
DX: L97.922 Non-pressure chronic ulcer of unspecified part of left lower leg with fat layer exposed (principal); R60.0 Localized edema; F17.200 Nicotine dependence, unspecified, uncomplicated; E66.01 Morbid (severe) obesity due to excess calories
CPT/HCPCS: 71045; 73630; 80048; 80076; 83605; 83690; 84484; 85025; 87070; 87077; 87186; 87205; 99283; J2405